=== PATIENT | female | born 1950 | race Caucasian/White ===

== ENCOUNTER → 2016-07-05 | Outpatient (CLI) | payer BC ==
[~2016-07-05] MED LIST: ACET-1138 PO; ASPEC325 PO; CLC100 PO; DLD2 PO; FRRG PO; LOSA50TA54 PO; SIMV20TA2 PO
[2016-07-05 16:12] LABS: BLOOD UREA NITROGEN 13 mg/dl (7-18); BUN/CREATININE RATIO 15.7 (10-20); CALCIUM 9.1 mg/dl (8.5-10.1); CARBON DIOXIDE 29 mmol/L (21-32); CHLORIDE 105 mmol/L (98-107); CREATININE 0.84 mg/dl (0.60-1.20); GLUCOSE 97 mg/dl (70-99); SODIUM 143 mmol/L (136-145)
[2016-07-05 16:15] LABS: CHOLESTEROL 162 mg/dl (0-200); CHOLESTEROL/HDL RATIO 2.7; HDL CHOLESTEROL 59 mg/dl; TRIGLYCERIDES 60 mg/dl (0-150); VERY LOW DENSITY LIPOPROT CALC 12 mg/dl
[2016-07-06 07:10] LABS: ESTIMATED AVERAGE GLUCOSE 134 mg/dl; HA1C FLAG Normal (Normal)
== END | disposition home or self-care (01) ==
LOC: C.LABSPEC 11:00
PROVIDERS: ATTEND Internal Medicine
DX: E78.5 Hyperlipidemia, unspecified (principal); I10 Essential (primary) hypertension; E11.9 Type 2 diabetes mellitus without complications; E55.9 Vitamin D deficiency, unspecified

== ENCOUNTER → 2016-10-21 | Outpatient (CLI) | payer BC, OTHER ==
[~2016-10-21] MED LIST changes: -DLD2 PO; +HYDR2TAB3 PO
--- NOTE | 2016-10-22 07:55 | MAMMOGRAPHY REPORT ---
BILATERAL DIGITAL SCREENING MAMMOGRAM WITH CAD: 10/21/2016 CLINICAL HISTORY: Routine screening. Patient has no complaints. TECHNIQUE: Bilateral CC and MLO views were obtained. Current study was also evaluated with a Comput er Aided Detection (CAD) system. COMPARISON: Comparison is made to exams dated: 10/19/2015 mammogram, 10/17/2014 mammogram, 10/15/2013 mammogram, 10/14/2012 mammogram, 07/30/2011 mammogram, and 06/22/2010 mammogram - [facility]. BREAST COMPOSITION: The tissue of both breasts is heterogeneously dense, which may obscure small ma sses. FINDINGS: There is a stable lobulated sub-centimeter mass in the upper outer middle one third of the left breast, unchanged in size dating back to 02/29/2008, most likely an intramammary lymph node. There are stable groupings of benign-appearing punctate microcalcifications bilaterally. Evidence o f prior surgery in the right breast. No new suspicious mass, architectural distortion or cluster of new, suspicious microcalcifications is seen. IMPRESSION: ACR BI-RADS CATEGORY 1: NEGATIVE There is no mammographic evidence of malignancy. A 1 year screening mammogram is recommended. The p atient will receive written notification of the results. Approximately 10% of breast cancers are not detected with mammography. A negative mammographic repor t should not delay biopsy if a clinically suggestive mass is present. Roz Esquivel M.D. ay/:10/21/2016 20:52:59 Business Development Coordinator: Gavi BLANC(Quan)(Sharif), [facility] letter sent: Normal 1/2 BI-RADS Code: ACR BI-RADS Category 1: Negative
== END | disposition home or self-care (01) ==
LOC: C.MAMM 10:15
PROVIDERS: ATTEND Internal Medicine
DX: Z12.31 Encounter for screening mammogram for malignant neoplasm of breast (principal)

== ENCOUNTER → 2016-12-04 | Outpatient (CLI) | payer BC ==
[~2016-12-04] MED LIST changes: +DLD2 PO; -HYDR2TAB3 PO
[2016-12-04 17:14] LABS: BLOOD UREA NITROGEN 15 mg/dl (7-18); BUN/CREATININE RATIO 19.4 (10-20); CALCIUM 9.1 mg/dl (8.5-10.1); CARBON DIOXIDE 29 mmol/L (21-32); CHLORIDE 108 mmol/L (98-107); CREATININE 0.79 mg/dl (0.60-1.20); GLUCOSE 87 mg/dl (70-99); SODIUM 143 mmol/L (136-145)
[2016-12-04 17:16] LABS: CHOLESTEROL 170 mg/dl (0-200); CHOLESTEROL/HDL RATIO 3.1; HDL CHOLESTEROL 54 mg/dl; TRIGLYCERIDES 103 mg/dl (0-150); VERY LOW DENSITY LIPOPROT CALC 21 mg/dl
[2016-12-05 06:51] LABS: ESTIMATED AVERAGE GLUCOSE 146 mg/dl; HA1C FLAG Normal (Normal)
== END | disposition home or self-care (01) ==
LOC: C.LABSPEC 14:00
PROVIDERS: ATTEND Internal Medicine
DX: I10 Essential (primary) hypertension (principal); E78.5 Hyperlipidemia, unspecified; R73.9 Hyperglycemia, unspecified; E55.9 Vitamin D deficiency, unspecified

== ENCOUNTER → 2017-02-28 | Outpatient (CLI) | payer BC ==
[~2017-02-28] VITALS: Ht 157.5 cm; Wt 81.6 kg
[2017-02-28 13:49] VITALS: BP 131/91; PULSE 90; Ht 157.5 cm; Wt 81.6 kg
== END | disposition home or self-care (01) ==
LOC: C.NEUR 12:59
PROVIDERS: ATTEND Internal Medicine Pulmonary Disease
DX: R06.81 Apnea, not elsewhere classified (principal); R06.83 Snoring

== ENCOUNTER → 2017-03-04 | Outpatient (CLI) | payer BC ==
--- NOTE | 2017-03-05 05:42 | PAP/PSG TECHNICIAN REPORT ---
[facility] Acid Extractor Polysomnogram Report Study name: None Report date: 03/05/2017 Study date: 03/04/2017 Referring Physician: Gordon Padilla M.D. Name: ISABELA MASON Interpreting Physician: Gordon Padilla M.D. Date of : 1950 Acid Extractor: Abimael Souza RPSGT. Sex: Female Age: 66 StudyType: PSG Weight: 179 lbs 16.5 inches Height: 66 years, Height 5' 2" Neck Circum: BMI: 32.74 Medications: LOSARTAN POTASSIUM 50 MG, SIMVASTATIN 20 MG, VITAMIN D Patient History PATIENT HAS HISTORY OF SNORING, WITESSED APNEAS AND FREQUENT AWAKENINGS. SHE ALSO GRIFFIN SFAMILY MEMBERS POSITIVE FOR CARLOS. SHE IS HERE TODAY FOR AN EVALUATION FOR CARLOS. ESS = 2 RM 4 Parameters Monitored NPSG: E1-M2, E2-M1, Fp1-M2, Fp2-M1, F3-M2, F4-M2, F4-M1, C3-M2, C4-M2, C4-M1, O1-M2, O2-M2, O2-M1, T3-M2, T4-M1, P3-M2, P4-M1, CHIN1, CHIN2, HR, EKG, Legs, PFLOW, SNOR, FLOW, CFLOW, Tidal Volume, THOR, ABDO, SpO2, PLTH, CPRESS, ETCO2 Wave, ETCO2, pH Sleep Architecture Sleep Stages Time at Lights Off 10:07:57 PM STAGES Time (min.) TST (%) Time at Lights On 5:29:57 AM Wake 99.5 -- Total Recording Time (TRT) 442.50 min. N1 30.5 9 Total Sleep Period (TSP) 421.5 min. N2 233.5 68 Total Sleep Time (TST) 342.5min. N3 34.5 10 Awake Time 99.5 min. REM 44.0 13 Wake after Sleep Onset 79.0 min. Sleep Efficiency (SE) 77 % Sleep Onset Latency (SHAYLEE) 20.5 min. Number of Stage 1 Shifts None Awakenings 31 Stage Changes 107 Number of REM periods 8 REM 44.0 13 REM Latency 47.5 min. NREM 298.5 87 Body Position Analysis Supine Right Left Side Prone Vertical Total Sleep Time (min.) 18.4 152.5 190.0 342.50 0.0 0.0 Total Sleep Time (%) 0% 45% 55% 100 0% N/A% Total Sleep Time REM (min.) 0.0 16.5 27.5 None 0.0 0.0 Total Sleep Time NREM (min.) 0.0 136.0 162.5 None 0.0 0.0 Intermittent Wake (min.) 18.4 33.2 47.9 None 0.0 0.0 Total Sleep Period (%) 1% None None None None None Arousals Myoclonus (PLM) * Events Count Index Events Count Index Spontaneous 36 6 Events Awake (PLMW) 88 53.1 Respiratory 3 1.1 Events Asleep w/ Arousal (PLMA) 16 2.8 PLM 16 3 Events Asleep w/o Arousal (PLMS) 91 15.9 Snoring 20 4 Total Asleep 107 18.7 Total 74 13 Total 195 26 Respiratory Analysis * CA OA MA CH H RERA Total Count 0 0 0 0 47 0 47 Index 0.0 0.0 0.0 0 8.2 0 8.2 Mean Duration 0.0 0.0 0.0 0.00 20.9 0.0 20.9 Longest Duration 0.0 0.0 0.0 0.00 0.0 0.0 42.9 Respiratory Event Summary Total Supine ~Supine Right Left Prone REM NREM Apneas Count 0 N/A 0 0 0 N/A 0 0 Index 0.0 N/A 0 0.0 0.0 N/A 0 0 Hypopneas (4% Desat) Count 47 N/A 47 14 33 N/A 38 9 Index 8.2 N/A 8 5.5 10.4 N/A 51.8 1.8 Apneas & All Hypopneas Count 47 N/A 47 14 33 N/A 38 9 Index 8.2 N/A 8 6 10 N/A 51.8 1.8 Respiratory Events (Lehr Attendant+All Hyp+RERA) Count 47 N/A 47 14 33 N/A 38 9 Index 8.2 N/A 8 5.5 10.4 N/A 51.8 1.8 Respiratory Related Arousal Count 3 N/A 6 3 3 N/A 5 1 Index 1.1 N/A 1 1 1 N/A 7 0 Snoring Analysis Supine Right Left Prone REM NREM Total Snore duration 57.0 min Snores count N/A 546 1,743 N/A 223 2,066 2,289 Snore mean duration 1.5 Sec Snores index N/A 215 550 N/A 304.1 415.3 401.0 TST with snoring (%) 16.6% Desaturation Event Summary: Minimum %SpO2 Event Count Mean/Min/Max Duration(sec.) Desaturation Index % Time In Bed > 90 11 34.1 / 16.5 / 57.5 18.5 8.2 86 - 90 34 39.9 / 16.5 / 81.7 5.7 82.0 81 - 85 11 39.6 / 20.3 / 60.0 23.9 6.3 76 - 80 3 38.8 / 27.5 / 54.0 18.6 2.2 71 - 75 1 34.8 / 34.8 / 34.8 15.6 0.9 66 - 70 1 44.3 / 44.3 / 44.3 40.3 0.3 61 - 65 0 N/A 0.0 0.1 56 - 60 0 N/A 0.0 0.0 51 - 55 0 N/A 0.0 0.0 < 50 0 N/A 0.0 0.0 Total REM NREM Awake <50% 0.0 min. 0.0 min. 0.0 min. 0.0 min. 51 - 60% 0.0 min. 0.0 min. 0.0 min. 0.0 min. 61 - 70% 1.8 min. 1.8 min. 0.0 min. 0.0 min. 71 - 80% 13.5 min. 11.2 min. 0.0 min. 2.3 min. 81 - 90% 386.3 min. 28.7 min. 287.8 min. 69.8 min. 91 - 100% 35.7 min. 2.3 min. 10.7 min. 22.7 min. Average 88 83 88 89 Minimum SpO2 61 61 84 73 Desaturation Event Index 6.7 49.1 1.8 2.4 # Desat. Events below 89% 48 36 9 3 Time(%) with Saturation below 89% 56.4 8.5 40.2 7.7 Time(min.) with Saturation below 89% 246.8 37.3 175.8 33.7 Time (mins) REM (mins) NREM (mins) % of TST SpO2 Below 90% 45 36 N9 87.0 SpO2 Below 88% 28 0 0 35 Heart Rate Analysis Min (bpm) Max (bpm) Average (bpm) Awake 68 115 82 NREM 58 95 75 REM 64 99 82 Overall 58 99 76 Supplemental O2 Values Minimum O2 level: None Value Start Time End Time Acid Extractor Comments Ms. Mason slept in the right, left and supine positions. No cardiac arrhythmia noted. Leg movements noted. No bruxism noted. Snoring was noted and scored as a 5 on a scale of 1 through 5. (0=no snoring, 5=snoring loud enough to be heard through a closed door or down the delgado way) Ms. Mason awoke to use the restroom 1 time during the night. Ms. Mason stated I did not sleep as well as I do when I am in my own bed. The final report will be interpreted and signed by a sleep physician. The completed physician report will then be placed in the patient medical record. Therapy (cm H2O) 0 TIB (min.) 442.0 TST (min.) 342.5 Sleep Onset (min.) 20.5 REM Onset From Sleep (min.) 47.5 Sleep Efficiency % 77 Wakefulness (%) 23 Wakefulness (min.) 99.5 NREM 1 (%) 9 NREM 1 (min.) 30.5 NREM 2 (%) 68 NREM 2 (min.) 233.5 NREM 3 (%) 10 NREM 3 (min.) 34.5 REM (%) 13 REM (min.) 44.0 # Arousals 74 Arousal Index 13 # Snore 2,289 Snore Index 401.0 AHI 8.2 AHI Supine N/A AHI Non-Supine 8 NREM AHI 1.8 REM AHI 51.8 RDI 8.2 # Obstructive Apnea 0 # Central Apnea 0 # Mixed Apnea 0 # Hypopneas 47 RERAs 0 Total Respiratory Events 47 Time Below SpO2 89% (min.) 213.1 Mean NREM SpO2 (%) 88 Mean REM SpO2 (%) 83 Mean Sleep SpO2 (%) 87 Min NREM SpO2 (%) 84 Min REM SpO2 (%) 61 Position Supine (min.) 18.4 Position Non-supine (min.) 342.5 LM Index Sleep 18.7 LM Index NREM 20.1 LM Index REM 9.5 Mean Heart Rate (bpm) 76 Min Heart Rate (bpm) 58
--- NOTE | 2017-03-05 11:56 | POLYSOMNOGRAPH REPORT ---
CLINICAL DATA: A 66-year-old female with BMI of 32.7, referred by myself and Dr. Lin with history of snoring, witnessed apneas, and frequent awakenings. There is a positive family history for sleep apnea. Her [place] sleepiness score is 2/24. SLEEP ARCHITECTURE: Total sleep period was 421.5 minutes. Total sleep time was 342.5 minutes divided between 298.5 minutes of non-REM sleep and 45 minutes of REM sleep. Sleep onset latency was 20.5 minutes. REM latency was 47.5 minutes. Sleep efficiency was 77%. Wake after sleep onset was 79 minutes. Sleep consisted of stage N1 9%, stage N2 68%, stage N3 10%, and REM 13%. AROUSAL DATA: 74 arousals were recorded for an index of 13 per hour. PLM DATA: 107 limb movements during sleep were noted for an index of 18.7 per hour with arousal index of 2.8 per hour. RESPIRATORY DATA: Mild sleep apnea was documented. The AHI was 8.2. There were 47 hypopneic episodes with a mean duration of 20.9 seconds. OXIMETRY DATA: Nocturnal hypoxemia was seen. Oxygen ngoc was 61%. Mean saturation was 88%. Time below 88% was 28 minutes. EKG: Heart rates ranged from 58-99 beats per minute. No arrhythmias were noted. STITCHDOWN THREAD LASTER'S COMMENTS: The patient slept in the right, left, and supine positions. Snoring was severe, rated 5 on a scale of 1-5. IMPRESSION: Mild sleep apnea/hypopnea with an AHI of 8.2 with nocturnal hypoxemia with an oxygen ngoc of 61%. RECOMMENDATIONS: The patient would benefit from the use of an oral appliance, use of auto CPAP, oxygen, or repeat sleep study with CPAP. Clinical correlation is needed. DESTINY
== END | disposition home or self-care (01) ==
LOC: C.NEUR 21:00
PROVIDERS: ATTEND Internal Medicine Pulmonary Disease
DX: R06.81 Apnea, not elsewhere classified (principal); R06.83 Snoring

== ENCOUNTER → 2017-03-11 | Outpatient (CLI) | payer BC ==
[~2017-03-11] VITALS: Ht 157.5 cm; Wt 81.2 kg
[2017-03-11 12:51] VITALS: BP 148/89; PULSE 102; Ht 157.5 cm; Wt 81.2 kg
== END | disposition home or self-care (01) ==
LOC: C.NEUR 12:38
PROVIDERS: ATTEND Internal Medicine Pulmonary Disease
DX: G47.33 Obstructive sleep apnea (adult) (pediatric) (principal); R06.83 Snoring; R06.81 Apnea, not elsewhere classified; Z90.89 Acquired absence of other organs; Z82.49 Family history of ischemic heart disease and other diseases of the circulatory system

== ENCOUNTER → 2017-04-09 | Outpatient (CLI) | payer BC ==
[~2017-04-09] MED LIST changes: -DLD2 PO; +HYDR2TAB3 PO
== END | disposition home or self-care (01) ==
LOC: C.PAPS 12:45
PROVIDERS: ATTEND Internal Medicine
DX: Z01.419 Encounter for gynecological examination (general) (routine) without abnormal findings (principal); Z78.0 Asymptomatic menopausal state

== ENCOUNTER → 2017-04-10 | Outpatient (CLI) | payer BC | END | disposition home or self-care (01) | LOC: C.LABSPEC 14:51 | PROVIDERS: ATTEND Internal Medicine | DX: Z12.11 Encounter for screening for malignant neoplasm of colon (principal) ==

== ENCOUNTER → 2017-08-26 | Outpatient (CLI) | payer BC ==
--- NOTE | 2017-08-26 15:50 | DIAGNOSTIC IMAGING REPORT ---
L HIP UNILATERAL 2 VIEWS CLINICAL HISTORY: Left hip pain COMPARISON: 12/04/2015 DISCUSSION: There are postsurgical changes of an internally fixated intertrochanteric hip fracture. A femoral neck canal and intramedullary catrachito are visualized. Apparent lucency surrounding the femoral neck canal on the AP view is likely artifactual. There is heterotopic ossification adjacent to the lesser trochanter. There are mild osteoarthritic changes. IMPRESSION: Postsurgical and degenerative change. No acute fractures. Electronically signed by: Timothy Gan M.D. 08/26/2017 3:49 PM Dictated Date/Time: 08/26/2017 3:47 PM
--- NOTE | 2017-08-26 15:52 | DIAGNOSTIC IMAGING REPORT ---
LEFT FEMUR 3 VIEWS CLINICAL HISTORY: Left leg pain. FINDINGS: AP, frog-leg, and lateral views of the left femur are correlated with radiographs of the left hip dated 12/04/2015. The skeletal structures are osteopenic. There is chronic posttraumatic deformity of the intertrochanteric left femur with intertrochanteric and intramedullary nails in place. The orthopedic hardware appears intact. No acute fracture is seen. Bony overgrowth is seen along the lesser trochanter. The visualized left hemipelvis appears intact. Large enthesophytes arise from the left anterior superior iliac spine. Arthritic changes noted in the left hip and knee joints. The overlying soft tissues are within normal limits. IMPRESSION: 1. No acute bony abnormality is identified in the left femur. 2. Osteopenia with chronic posttraumatic and postoperative changes as above. Electronically signed by: Terrance Masters M.D. 08/26/2017 3:51 PM Dictated Date/Time: 08/26/2017 3:49 PM
== END | disposition home or self-care (01) ==
LOC: C.RAD 14:54
PROVIDERS: ATTEND Internal Medicine
DX: M25.551 Pain in right hip (principal); M85.80 Other specified disorders of bone density and structure, unspecified site

== ENCOUNTER → 2017-10-06 | Outpatient (CLI) | payer BC ==
[2017-10-06 14:14] LABS: BLOOD UREA NITROGEN 13 mg/dl (7-18); CALCIUM 8.6 mg/dl (8.5-10.1); CARBON DIOXIDE 28 mmol/L (21-32); CREATININE 0.91 mg/dl (0.60-1.20); GLUCOSE 136 mg/dl (70-99); POTASSIUM 4.3 mmol/L (3.5-5.1); SODIUM 139 mmol/L (136-145)
[2017-10-06 14:18] LABS: CHOLESTEROL 153 mg/dl (0-200); LDL CHOLESTEROL (DIRECT) 92 mg/dl
== END | disposition home or self-care (01) ==
LOC: C.LABSPEC 12:21
PROVIDERS: ATTEND Internal Medicine
DX: R73.9 Hyperglycemia, unspecified (principal); I10 Essential (primary) hypertension; E78.5 Hyperlipidemia, unspecified

== ENCOUNTER → 2017-10-22 | Outpatient (CLI) | payer BC ==
--- NOTE | 2017-10-23 14:17 | MAMMOGRAPHY REPORT ---
BILATERAL DIGITAL SCREENING MAMMOGRAM TOMOSYNTHESIS WITH CAD: 10/22/2017 CLINICAL HISTORY: Routine screening. Patient has no complaints. TECHNIQUE: Breast tomosynthesis in addition to standard 2D mammography was performed. Current study was also evaluated with a Computer Aided Detection (CAD) system. COMPARISON: Comparison is made to exams dated: 10/21/2016 mammogram, 10/19/2015 mammogram, 10/17/2014 m ammogram, 10/15/2013 mammogram, 08/06/2011 ultrasound, and 08/06/2011 mammogram - [facility] nter. BREAST COMPOSITION: The tissue of both breasts is heterogeneously dense, which may obscure small mas ses. FINDINGS: No suspicious masses, calcifications, or areas of architectural distortion are noted in ei ther breast. There has been no significant interval change compared to prior exams. Bilateral benign -appearing calcifications are not significantly changed. A linear scar marker denotes a scar on the right superior breast. IMPRESSION: ACR BI-RADS CATEGORY 2: BENIGN There is no mammographic evidence of malignancy. A 1 year screening mammogram is recommended. The pa tient will receive written notification of the results. Approximately 10% of breast cancers are not detected with mammography. A negative mammographic report should not delay biopsy if a clinically suggestive mass is present. Gloria Koehler M.D. /:10/22/2017 15:58:31 Software Analyst: Sheryl BLANC(Quan)(Sharif), [facility] letter sent: Normal 1/2 BI-RADS Code: ACR BI-RADS Category 2: Benign
== END | disposition home or self-care (01) ==
LOC: C.MAMM 09:27
PROVIDERS: ATTEND Internal Medicine
DX: Z12.31 Encounter for screening mammogram for malignant neoplasm of breast (principal)

== ENCOUNTER → 2018-01-23 | Outpatient (CLI) | payer BC ==
--- NOTE | 2018-01-23 09:19 | DIAGNOSTIC IMAGING REPORT ---
PELVIS WITHOUT CONTRAST (MRI) CLINICAL HISTORY: 67 years-old Female presenting with LEFT PELVIC PAIN, history of left femur fracture 2 years ago, no recent injury, left pelvic and groin pain, difficulty walking. TECHNIQUE: Multisequence, multiplanar MR imaging of the pelvis was performed without the use of intravenous contrast. IV contrast: None. COMPARISON: Plain radiographs from 12/25/2017. FINDINGS: Localizer images: Intramedullary nail fixation of the left femoral neck and proximal metadiaphysis. This causes regional susceptibility artifact. Allowing for regional susceptibility artifact, normal appearance of the internal fixation hardware in the left femur. However, focal T2 hyperintense, T1 hypointense bone marrow signal abnormality in the superior acetabulum. Trace associated periosteal fluid subjacent to the left gluteus minimus (series 6 image 18). No significant fluid within the left hip joint. No convincing evidence of a fracture plane. Intrapelvic contents demonstrate normal uterus and ovaries. No free fluid in the pelvis. Bladder incompletely distended limiting evaluation. Bowel normal, including the appendix. No lymphadenopathy. Normal flow voids within the vasculature. IMPRESSION: 1. Significant focal bony edema along the superior acetabulum of the left hip. This may suggest advanced degenerative changes. Insufficiency fracture of this region may also be possible though there is no discrete fracture plane identified. Trace associated subperiosteal fluid. Electronically signed by: Duran Munoz M.D. 01/23/2018 9:18 AM Dictated Date/Time: 01/23/2018 8:56 AM
== END | disposition home or self-care (01) ==
LOC: C.MRIBC 07:48
PROVIDERS: ATTEND Orthopaedic Surgery
DX: R10.2 Pelvic and perineal pain (principal)

== ENCOUNTER 2022-08-19 05:09 | Observation (INO) ==
--- NOTE | 2022-07-19 15:14 | PAT Medication Instructions ---
Medication Instructions Date of Service July 19, 2022 Home Medications Medication Instructions Recorded metoprolol tartrate 25 mg tablet 25 mg PO BID #180 tabs 03/12/22 metformin 500 mg tablet 500 mg PO QAM #90 tabs 05/14/22 cholecalciferol (vitamin D3) 125 mcg (5,000 unit) tablet (Vitamin D3) 125 mcg PO QAM metoprolol tartrate 25 mg tablet 25 mg PO BID metformin 500 mg tablet 500 mg PO QAM hydrochlorothiazide 12.5 mg tablet 12.5 mg PO QAM olmesartan 40 mg tablet 40 mg PO QAM rosuvastatin 10 mg tablet 10 mg PO QPM DO NOT take the morning of surgery cholecalciferol (vitamin D3) 125 mcg (5,000 unit) tablet (Vitamin D3) 125 mcg PO QAM metoprolol tartrate 25 mg tablet 25 mg PO BID metformin 500 mg tablet 500 mg PO QAM hydrochlorothiazide 12.5 mg tablet 12.5 mg PO QAM olmesartan 40 mg tablet 40 mg PO QAM Take evening before surgery metoprolol tartrate 25 mg tablet 25 mg PO BID rosuvastatin 10 mg tablet 10 mg PO QPM Other Notes NOTHING TO EAT OR DRINK AFTER MIDNIGHT. If you have any questions please call us at [phone] or [phone] or [phone] or [phone]
--- NOTE | 2022-07-23 13:12 | Anesthesiology Consultation ---
Date of Service July 23, 2022 Assessment & Plan (1) Encounter for pre-operative examination: Chart Review Chart Review: Acceptable Risk for Surgery (pending 08/08/22 PCP office visit ) and Patient seen in Pre Admission Testing -Awaiting PCP routine office visit 08/08/22 -Discussed with Dr. Suarez- due to comorbidities/low normal oxygen levels on RA- patient is NOT an ideal Same Day Joint candidate - Check BSG AM DOS Per PAT appt on 07/23/22, patient denies any recent travel or large group activities. Pt is NOT vaccinated for Covid. Will leave to surgeon's discretion if preop Covid testing needed. Educated on importance of using Covid precautions one week prior to surgery History Surgery Operation Date: 08/19/22 12:30 Proposed Procedures p Right Total Hip Arthroplasty Anterior - Joon Keller DO Height/Weight Height: 5 ft 2 in Weight: 82.8 kg Allergies Allergy/AdvReac Type Severity Reaction Status Date / Time oxycodone AdvReac Intermediate Hallucinati Verified 07/18/22 14:36 ons Medications Home Medications Medication Instructions Recorded Confirmed Last Taken cholecalciferol (vitamin D3) 125 125 mcg PO QAM 02/21/20 07/18/22 04/05/21 06:00 mcg (5,000 unit) tablet (Vitamin D3) metoprolol tartrate 25 mg tablet 25 mg PO BID #180 tabs 03/12/22 07/18/22 Unk nown metformin 500 mg tablet 500 mg PO QAM #90 tabs 05/14/22 07/18/22 Unknown hydrochlorothiazide 12.5 mg tablet 12.5 mg PO QAM 07/18/22 07/18/22 Unknown olmesartan 40 mg tablet 40 mg PO QAM 07/18/22 07/18/22 Unknown rosuvastatin 10 mg tablet 10 mg PO QPM 07/18/22 07/18/22 Unknown Past Medical History Medical History COPD (chronic obstructive pulmonary disease) PT DENIES Diabetes mellitus, type 2 Environmental allergies HTN (hypertension) Hyperlipemia Obesity Osteoporosis TMJ click No locking Exercise / Class Metabolic Activity II 4-5 Yardwork/Stairs/Walk up hill (one flight of stairs - no chest pain or SOB ) Past Family History Family History Brother Diabetes Brother Diabetes Sister Diabetes Sister Diabetes Other No family history of adverse response to anesthesia Past Surgical History Surgical History History of colonoscopy History of eyelid surgery removal of skin tag History of left cataract surgery History of open reduction and internal fixation (ORIF) procedure LEFT FEMUR History of removal of cyst Rt breast History of right cataract surgery History of surgery finger surgery History of tonsillectomy Status post right knee replacement (~04/2021) Past Anesthesia History No Hx of Anesthesia Complications (with exception to cold and shaking post op ) and No Family Hx of Anesthesia Complications History of PONV No Hx of PONV and No Hx of Motion Sickness Social History Smoking Status: Current every day smoker tobacco type: cigarettes Smoking cigarettes per day: 3 cigs per day Hx Alcohol Use: No substance use type: does not use Review of Systems Cough- secondary to medication (presumed ACEi)- changed to different med per pat ient (two weeks ago)- cough chronic/mild/stable Hx of snoring - hx of sleep study- no CARLOS Patient denies chest pain, shortness of breath, dyspnea on exertion, reflux, cough, wheezing, palpitations. No hx of seizures, stroke, [place]. No hx of blood clots or blood transfusions Physical Exam Vital Signs VITALS BP 120/76 (manually) P 98 TEMP 98.0 SP02 92% on RA RESP 16 Constitutional no acute distress ENMT Mouth: no TMJ clicking Thyromental Distance: < 3.5 Finger Breadths (3.0) Mallampati Class: III Neck + limited neck extension (significant ) Respiratory normal respiratory effort; no respiratory distress Auscultation: lungs clear to auscultation bilaterally; no wheezes Cardiovascular Rate/Rhythm: regular rate and regular rhythm Heart Sounds: no murmur Vessels: no carotid bruit Musculoskeletal Spine: no pain with cervical ROM Extremities: extremities normal to inspection Psychiatric Orientation: alert Lab Results Anesthesia Preop Results Results Anesthesia Widget: WBC 10.81 K/ul (4.8-10.8) H 07/23/22 Hgb 15.5 g/dl (12.0-16.0) 07/23/22 Hct 44.0 % (37.0-47.0) 07/23/22 Plt 308 K/uL (130-400) 07/23/22 Na 139 mmol/L (136-145) 07/23/22 K 3.7 mmol/L (3.5-5.1) 07/23/22 Cl 101 mmol/L (98-107) 07/23/22 CO2 29 mmol/L (21-32) 07/23/22 BUN 22 mg/dl (6-23) 07/23/22 Creat 0.93 mg/dl (0.6-1.2) 07/23/22 Glucose Level 226 mg/dl (70-99(Fasting)) H 07/23/22 PT 11.0 Seconds (9.0-12.0) 07/23/22 PTT 25.9 Seconds (21.0-31.0) 07/23/22 INR 1.0 (0.9-1.1) 07/23/22 HA1c 7.2 % (4.5-5.6) H 07/23/22 Blood Type A Positive 07/23/22 Antibody Screen NEGATIVE 07/23/22 Testing Electrocardiogram Date: 07/23/22 Findings: + NSR @ (96bpm ) Normal EKG per cardio Chest X-Ray Date: 07/23/22 Findings: + NAD COVID-19 Risk Screen Screening Information COVID-19 Screen Date: 07/23/22 Exposure 21 Days Family/Household +COVID Last 21 Days: No Exposure 10 Days Any COVID Exposure Last 10 Days: No Symptoms Last 10 Days Experienced COVID Sx Last 10 Days: No + COVID 0-90 Days COVID + in Last 0-90 Days: No Risk Plan COVID Risk Plan: No Risk Identified Patient Education COVID Preop Screening Education Complete: Yes
[2022-08-19] MEDS ORDERED: dexAMETHasone 4 MG TAB PO SCH (06:00)
[2022-08-19] MEDS ORDERED: ORTHO JOINT MIX INFIL SCH (06:00)
[2022-08-19] MEDS ORDERED: FAMOTIDINE 20 MG TAB PO SCH (06:00)
[2022-08-19] MEDS ORDERED: GABAPENTIN 300 MG CAP PO SCH (06:00)
[2022-08-19] MEDS ORDERED: ACETAMINOPHEN 500 MG TAB PO SCH (06:00)
[2022-08-19] MEDS ORDERED: TRANEXAMIC ACID 1,000 MG **IV Pre-op IV SCH (06:00)
[2022-08-19] MEDS ORDERED: LR 60ML/HR IV SCH (06:00)
[2022-08-19] MEDS ORDERED: TRANEXAMIC ACID 1,000 MG **IV Intra-op IV SCH (06:00)
[2022-08-19] MEDS ORDERED: LR 500ML BOLUS, THEN 15ML/HR IV SCH (06:00)
[2022-08-19] MEDS ORDERED: ceFAZolin 2000MG 2,000 MG/15 ML SYR IV SCH (06:00)
[2022-08-19] MEDS ORDERED: BUPIVACAINE 0.5 % 5 MG/1 ML PF 10ML VIAL ONE (06:30)
--- NOTE | 2022-08-19 06:36 | History & Physical Bridge Note ---
Date of Service August 19, 2022 History & Physical Bridge Note I have examined the patient, reviewed the History & Physical and in the interval since the performance of the History & Physical I have noted the following changes of clinical significance: no changes noted
[2022-08-19] MEDS ORDERED: ATROPINE SULFATE 0.1 MG/ML 10ML SYR IV PRN (06:37)
[2022-08-19] MEDS ORDERED: ePHEDrine sulfate 50 MG/ML AMP IV PRN (06:37)
[2022-08-19] MEDS ORDERED: fentaNYL citrate PF 100 MCG/2 ML VIAL IV PRN (06:37)
[2022-08-19] MEDS ORDERED: ONDANSETRON INJ 2 MG/ML 2 ML VIAL IV PRN (06:37)
[2022-08-19] MEDS ORDERED: MIDAZOLAM HCL 1 MG/ML 2ML VIAL ONE ×2 (06:38→07:52)
[2022-08-19] MEDS ORDERED: fentaNYL citrate PF 100 MCG/2 ML VIAL ONE (06:39)
[2022-08-19] MEDS ORDERED: ORTHO JOINT ANESTHETIC ONE (06:53)
[2022-08-19] MEDS ORDERED: ONDANSETRON INJ 2 MG/ML 2 ML VIAL ONE (07:26)
[2022-08-19] MEDS ORDERED: ePHEDrine sulfate 50 MG/ML SYR ONE (07:26)
[2022-08-19] MEDS ORDERED: PROPOFOL IV EMULSION 10 MG/ML 20 ML VIAL IV ONE ×2 (07:27→08:09)
--- NOTE | 2022-08-19 08:14 | Operative Report ---
PG Post Operative Report Pre & Post Diagnosis Operation Date: 08/19/22 07:00 Pre-Op Diagnosis: Right Hip Degenerative Joint Disease Post-Op Diagnosis: Right Hip Degenerative Joint Disease I identified the patient and participated in the time-out.: Yes Procedure Operation Date: 08/19/22 07:00 Actual Procedures p Right Total Hip Arthroplasty Anterior(Right) - Joon Keller DO Surgeon Joon Keller DO [facility] Joon Keane PA-C Estimated Blood Loss 150 Findings Consistent with Post-Op Diagnosis Specimens Right femoral head Description of Procedure Implants used I used a ZimmerBiomet total hip arthroplasty system with a size 4 standard offset Avenir Complete stem, a 54 mm G7 cup with a 25mm screw, an E1 polyet hylene liner, a 40 mm ceramic head with a 0 neck. Shameka arrived at the hospital for the above procedure. She was seen in the preoperative holding area and the operative extremity was identified and signed. She was given a spinal anesthetic, a preoperative antibiotic, and TXA. She was then taken back to the operating room and laid on the table in the supine position. She was given basic sedation. The operative leg was secured to a Puristst leg positioner. The hip was then prepped and draped in sterile fashion. A timeout was done and the patient and the operative extremity was properly identified. An anterior approach was used. Dissection was taken down through the fascia and the tensor muscle belly was retracted laterally and the rectus was retracted medially. The circumflex vessels were identified and ligated. The capsule was then incised and tagged for later repair. The femoral neck was then cut and the femoral head was removed. The acetabulum was exposed. Time was spent doing a complete circumferential labral release. Sequential reaming of the acetabulum up to a size 53 reamer was done. Final reamings were done under fluoroscopy to ensure appropriate version. A Biomet 54 mm G7 cup was then impacted into place. A single 25 mm screw was placed. The E1 polyethylene liner was then snapped into place. Surrounding soft tissues were then injected with 100 cc of an orthopedic pain control cocktail. The proximal femur was then exposed. Sequential broaching up to a size 4 broach was done. Off that broach a size 40 head with a 0 neck was trialed. The hip was reduced and fluoroscopic images showed anatomic alignment of the implants in acceptable length. The broach was removed. The final size 4 standard offset Avenir Complete stem was then impacted into place. A ceramic 40 mm head with a 0 neck was then impacted onto the stem and the hip was reduced. Final fluoroscopic images showed anatomic alignment of the hip. The capsule was then closed with #1 Vicryl suture. A dilute betadyne lavage was then done for 3 minutes. The joint was then irrigated with normal saline solution. The fascia was closed with #1 PDS suture. Skin was closed with 2-0 Vicryl, jessy, and a Silverlon dressing. She was then transferred to a hospital bed and taken to the post anesthesia care unit in stable condition. She tolerated the procedure well. Joon Keane PA-C, was present for the entire procedure. He was critical for patient positioning, prepping, draping, retraction exposure, wound closure and application of sterile dressing. I attest to the content of the Intraoperative Record and any orders documented therein. Any exceptions are noted below.
--- NOTE | 2022-08-19 08:50 | Fluoroscopy Report ---
FL hip RT 1V CLINICAL HISTORY: RT ANTERIOR HIPright hip arthroplasty COMPARISON STUDY: 05/15/2022 FLUOROSCOPY TIME: 17.1 seconds. FLUOROSCOPY IMAGES: 1 EXPOSURE DOSE: 1.87 mGy Air Kerma FINDINGS: Satisfactory alignment of the right hip total joint arthroplasty. No acute fracture or unex pected opaque foreign body. IMPRESSION: Fluoroscopic assistance as above. ACT 112: Negative or not required by law. Electronically signed by: Amari Beebe M.D. 08/19/2022 8:48 AM
--- NOTE | 2022-08-19 09:07 | XRay Report ---
SINGLE VIEW PELVIS; SINGLE VIEW RIGHT HIP CLINICAL HISTORY: Postoperative examination. FINDINGS: An AP portable view of the hips and pelvis with a crosstable lateral portable view of the r ight hip are compared to study dated 05/14/2022. A bipolar right hip arthroplasty is in near-anatomic alignment. A single cortical lag screw transfixes the acetabular cup. No acute fracture is identifie d. There are expected postoperative changes overlying the right hip including skin clips, subcutaneou s gas, and soft tissue swelling. There is chronic posttraumatic deformity left proximal femur with in tertrochanteric and intramedullary nails in place. Moderate arthritic change is seen in the left hip. Large enthesophytes arise from the anterior superior iliac spines. IMPRESSION: Expected postoperative findings status post right hip arthroplasty. No acute fracture is seen. ACT 112: Negative or not required by law. Electronically signed by: Terrance Masters M.D. 08/19/2022 9:06 AM
[2022-08-19] MEDS ORDERED: oxyCODONE HCL IR 5 MG TAB (IMMEDIATE RELEASE) PO PRN (10:12)
[2022-08-19] MEDS ORDERED: HYDROmorphone INJ 0.5 MG/0.5 ML SYR IV PRN (10:12)
[2022-08-19] MEDS ORDERED: NALOXONE HCL 0.4 MG/1 ML VIAL/CARP IV PRN (10:12)
[2022-08-19] MEDS ORDERED: bisacodyL 10 MG SUPP PR PRN (10:12)
[2022-08-19] MEDS ORDERED: MAGNESIUM HYDROXIDE SUSP 30 ML UDC PO PRN (10:12)
[2022-08-19] MEDS ORDERED: METOCLOPRAMIDE HCL INJ 5 MG/ML 2 ML VIAL IV PRN (10:12)
--- NOTE | 2022-08-19 10:22 | Anesthesiology Progress Note ---
Date of Service August 19, 2022 Anesthesia Post Procedure Vital Signs Vital Signs: Temp Pulse Pulse Resp BP Pulse Ox O2 Del Method 08/19/22 10:00 97.5 F L 92 H 16 107/72 96 Nasal Cannula 08/19/22 09:45 93 H 20 107/65 94 Nasal Cannula 08/19/22 09:35 94 H 16 101/68 96 Nasal Cannula 08/19/22 09:25 93 H 16 104/61 96 Oxymask 08/19/22 09:15 97.3 F L 95 H 15 105/60 94 Oxymask 08/19/22 09:05 96 H 15 104/58 L 98 Oxymask 08/19/22 08:55 99 H 18 90/54 L 98 Oxymask 08/19/22 08:45 96 H 18 94/53 L 99 Oxymask 08/19/22 08:35 97 H 20 94/45 L 98 Oxymask 08/19/22 08:26 97.0 F L 102 H 22 86/57 L 91 Oxymask 08/19/22 05:40 98.1 F 97 H 18 140/95 92 Room Air O2 Flow Rate 08/19/22 10:00 1 08/19/22 09:45 2 08/19/22 09:35 2 08/19/22 09:25 2 08/19/22 09:15 2 08/19/22 09:05 4 08/19/22 08:55 4 08/19/22 08:45 8 08/19/22 08:35 8 08/19/22 08:26 10 08/19/22 05:40 Transfer of Care Handoff Completed per policy Notes Mental Status: alert / awake / arousable and participated in evaluation Patient Amnestic to Procedure: Yes Nausea / Vomiting: adequately controlled Pain: adequately controlled Airway Patency, RR, SpO2: stable & adequate BP & HR: stable & adequate Hydration State: stable & adequate Neuraxial Anesthesia: was administered and sensory block is resolving Anesthetic Complications: no major complications apparent and Pt Satisfied with anesthetic care
[2022-08-19] MEDS: metFORMIN HCL 500 MG TAB PO SCH (11:23)
[2022-08-19] MEDS: KETOROLAC TROMETHAMINE 15 MG/ML VIAL IV SCH ×3 (11:23→21:23)
[2022-08-19] MEDS: MULTIVITAMIN TAB PO SCH (11:23)
[2022-08-19] MEDS: CHLORTHALIDONE 25 MG TAB PO SCH ×2 (11:23→11:30)
[2022-08-19] MEDS: CHOLECALCIFEROL 5,000 UNITS 125 MCG TAB PO SCH (11:23)
[2022-08-19] MEDS: DOCUSATE SODIUM 100 MG CAP PO SCH ×2 (11:23→21:23)
[2022-08-19] MEDS: SODIUM CHLORIDE 0.9% 1000ML 1,000 ML IV SCH ×2 (11:24→21:32)
[2022-08-19] MEDS: METOPROLOL TARTRATE 25 MG TAB PO SCH ×2 (11:24→21:15)
[2022-08-19] MEDS: ceFAZolin 2000MG 2,000 MG/15 ML SYR IV SCH ×2 (15:53→21:22)
[2022-08-19] MEDS: ACETAMINOPHEN 500 MG TAB PO SCH (16:06)
[2022-08-19] MEDS ORDERED: SENNA 8.6 MG TAB PO SCH (21:00)
[2022-08-19] MEDS ORDERED: ROSUVASTATIN CALCIUM 10 MG TAB PO SCH (21:00)
[2022-08-19] MEDS: ASPIRIN 81 MG ECTAB PO SCH (21:23)
[2022-08-20] MEDS: KETOROLAC TROMETHAMINE 15 MG/ML VIAL IV SCH (04:13)
--- NOTE | 2022-08-20 06:14 | Orthopedic Progress Note ---
Date of Service August 20, 2022 Assessment & Plan (1) Status post right hip replacement: Overall she is doing fairly well. She is not having much pain in the right hip. She will be seen by physical therapy today for ambulation and range of motion exercises. She is on aspirin for DVT prophylaxis. She can be discharged home later today. She will follow-up with orthopedics in 2 weeks. Angelica Myles was seen and examined at bedside this morning. Overall she is doing fairly well. She is not having too much pain in the right hip. She has been up and ambulating to the bathroom. She has no complaints.. Review of Systems All systems reviewed & are unremarkable except as noted in HPI & below. Physical Exam On physical examination the right hip, the dressing is clean and dry. Her leg is out full extension. She has active dorsiflexion plantarflexion of her right ankle.. Results & Data Results & Data Laboratory Results . Diagnostic Findings Postoperative x-rays of the right hip show the prosthesis to be in anatomic alignment without any evidence of fracture, desiccation, or loosening. PG Care Time/CCT Total # of Minutes Spent Total Time Spent with Patient: Total time spent is greater than 50% in coordination of care (as documented) at patient's floor/unit and/or counseling patient: Coding Level of Care Code 62341 Post Operative Follow-Up Diagnoses Status post right hip replacement Z96.641
--- NOTE | 2022-08-20 06:15 | Discharge Summary ---
Date of Service August 20, 2022 Principal Diagnosis Same as "Discharge Diagnosis" noted below under Discharge Instructions. Discharge Exam On physical examination the right hip, the dressing is clean and dry. Her leg is out full extension. She has active dorsiflexion plantarflexion of her right ankle.. Discharge Data Procedures Performed Operation Date: 08/19/22 07:00 Actual Procedures p Right Total Hip Arthroplasty Anterior(Right) - Joon Keller DO Ordered Studies 08/19/22 07:00 FL hip RT 1V Routine Hospital Course (1) Status post right hip replacement: On August 19, [address] [facility] and underwent a right hip replacement without complication. She had a spinal anesthetic. Postoperatively she was started on aspirin for DVT prophylaxis and transferred to the general orthopedic floors. Her hospital course was uneventful. On postop day #1, her vital signs were stable and her pain was well controlled. She was able to participate well with physical therapy doing ambulation and range of motion exercises. She was then discharged home. She will follow-up with orthopedics in 2 weeks. PG Care Time/CCT Total # of Minutes Spent Total Time Spent with Patient: Total time spent is greater than 50% in coordination of care (as documented) at patient's floor/unit and/or counseling patient: Discharge Plan Discharge Items Patient Disposition: Home - Home Health Services Reason For Visit: Right Hip Degenerative Joint Disease Discharge Diagnosis: Right hip replacement Activity: Per Instructions section Non-emergency contact: Surgeon Call non-emergency contact if: your wound has increased redness and your wound has increased drainage Follow-up/Referrals: Minna Corado MD [Primary Care Provider] - Diet: Regular Addtl Attending Provider Instructions: Activity and Therapy Recommendations: * If you are using [facility] then therapy will be provided at your home until they feel you have accomplished all of your goals. * If you are using [facility] then Physical Therapy will be provided until they feel you are ready to start Outpatient Physical Therapy. * If you are not using home therapy then Outpatient Physical Therapy should start about 3-5 days from your day of surgery. Therapy will last about 6-10 weeks * You were shown a series of exercises in the hospital. Do these exercises three times each day including the exercises you were shown in physical therapy. * Get up and walk several times each day.~ For the first four weeks, try not to stand or walk for more than one hour at a time. If you do stand or walk for more than one hour, you will not hurt anything, but your leg will likely swell.~~ * As you feel comfortable, you may change from the walker or crutches to a cane and~then to independent walking. Medications: * Narcotic You will likely be sent home from the hospital with a prescription for the narcotic pain medication that worked best throughout your stay. * Aspirin Most patients will be required to take Aspirin 81mg twice a day for 6 weeks after surgery. This is obtained [id number] and a prescription is not necessary. * Other medications may be prescribed for specific circumstances. If you have any questions, please call the office at . * Resume previous home medications unless otherwise instructed TEDs/Elastic Stockings: The white elastic stockings help limit swelling and prevent blood clots from forming in your legs. The more you wear them, the more they work. Wear them for six weeks. Dressing Care: Leave the Silverlon dressing in place for 7 days. After 7 days you may remove the dressing. If the incision is not draining then you may leave the jessy open to air. If there is a little bit of drainage or if the jessy are getting stuck on your clothing then cover the incision with a dry dressing. The jessy will be removed at your 2 week follow-up appointment. Showering: You may shower with the Silverlon dressing in place. Do not let the shower spray hit the dressing directly. Pat the Silverlon dressing dry. If the dressing becomes wet underneath, then simply remove the dressing. Keep the incision dry until you are 7 days out from the day of surgery. After 7 days you may remove the Silverlon dressing and shower with the jessy exposed. Let soapy water run over the jessy and pat them dry. Do not scrub or soak the incision. Things To Watch For: * Drainage from the incision site that occurs more than one week after your surgery. * Increased redness at the incision site. * Fever above 102 degrees Fahrenheit. * Unusual chest pain or shortness of breath. * Call [facility] at with any of the above problems Follow-Up Visit: Follow-up with Dr. Keller's PA (Joon Keane) 2-3 weeks after your day of surgery. He will remove your jessy and answer any questions. If you have any additional questions or concerns, Dr Keller is usually in the office at the same time and will be available An appointment was probably scheduled when you signed-up for surgery in the office. If you have any questions call Office Instructions: More detailed instructions as well as Frequently Asked Questions were provided in a folder by our office when you signed-up for surgery. Please review these instructions when you get home. If you have any further questions or concerns, please feel free to call the office at [phone] Pending Studies at Discharge: No Stand-Alone Forms: My [facility] Medications and DC Order Prescriptions: New tramadol 50 mg tablet 50 mg PO Q6H PRN (Reason: pain) Qty: 30 0RF aspirin 81 mg Tablet,Delayed Release (Dr/Ec) 81 mg PO BID 42 Days Qty: 0 0RF Continued metoprolol tartrate 25 mg tablet 25 mg PO BID Qty: 180 3RF chlorthalidone 25 mg tablet 25 mg PO DAILY Qty: 30 2RF metformin 500 mg tablet 500 mg PO QAM Qty: 90 3RF cholecalciferol (vitamin D3) [Vitamin D3] 125 mcg (5,000 unit) Tablet 125 mcg PO QAM rosuvastatin [Crestor] 10 mg tablet 10 mg PO QPM Admission Data Admit Date/Time: 08/19/22 08:11 Attending Provider: Joon Keller Admit Provider: Joon Keller Primary Care Provider: Minna Corado
[2022-08-20 07:15] VITALS: TEMP 98.2; O2SAT 95
[2022-08-20] MEDS ORDERED: dexAMETHasone 4 MG TAB PO SCH (08:00)
[2022-08-20] MEDS: ASPIRIN 81 MG ECTAB PO SCH (08:20)
[2022-08-20] MEDS: METOPROLOL TARTRATE 25 MG TAB PO SCH (08:20)
[2022-08-20] MEDS: CHLORTHALIDONE 25 MG TAB PO SCH (08:20)
[2022-08-20] MEDS: ACETAMINOPHEN 500 MG TAB PO SCH ×2 (08:20)
[2022-08-20] MEDS: DOCUSATE SODIUM 100 MG CAP PO SCH (08:20)
[2022-08-20] MEDS: CHOLECALCIFEROL 5,000 UNITS 125 MCG TAB PO SCH (08:21)
[2022-08-20] MEDS: MULTIVITAMIN TAB PO SCH (08:21)
[2022-08-20] MEDS: metFORMIN HCL 500 MG TAB PO SCH (08:21)
[2022-08-20 11:00] VITALS: BP 125/72; PULSE 78
== END 2022-08-20 12:15 | disposition home or self-care (01) ==
LOC: 3E 05:09 → ASU 05:09

== ENCOUNTER 2023-09-29 17:07 | Inpatient (IN) ==
--- NOTE | 2023-09-29 17:31 | Emergency Department Note ---
Impression & Plan Sepsis, Glioblastoma of frontal lobe, Hx of craniotomy, Neutropenic fever, Pneumonia, Pulmonary embolism, Thrombocytopenia, Adrenal insufficiency ED Provider Note NAME: ISABELA BROWN AGE: 72 SEX: F : 1950 ARRIVES VIA: Ambulance INFORMANT: Patient ED PROVIDER(S): Peterson Kimball MD CHIEF COMPLAINT: Weakness, fever PLAN: Disposition: Admit MEDICAL DECISION MAKING: The patient is a pleasant 72-year-old woman with a complicated past medical history of GBM with resection craniotomy and June of this year at [facility] [place] currently on dexamethasone status post chemotherapy and radiation treatment presents to the emergency department via EMS accompanied by family for evaluation of change in mental status occurred roughly today after taking a nap around 1300 and when she awoke was confused and somnolent where on arrival she was noted to have a temperature of 39.1. Patient has baseline weakness and dysarthria. On my evaluation the patient is ill-appearing but no acute distress, febrile to 39.1 with heart in the 130s and vital signs otherwise stable with O2 saturation 94% on 2 L. She has scant rhonchi of right lower lung schwab and is otherwise clear. Given concern for sepsis patient was treated with > 30cc/kg IBW with 2L NSS and empiric treatment initiated with IV cefepime as well as IV vancomycin. Additionally, given the patient chronic steroid therapy suspicion for component of adrenal insufficiency and so stress dose steroids administered. EKG without overt acute ischemia. CXR demonstrates cardiomegaly with vascular congestion per my preliminary independent interpretation. WBC 1.3K with ANC of 0.00. H/H within normal limits. Platelets 71 K similar to prior values. Initial lactic acid 2.5 with repeat 2.3 however chemistry without metabolic acidosis. LFTs are unremarkable. High-sensitivity troponin 11.3, within normal limits. Lipase is not elevated. Procalcitonin is elevated at 0.78. Urine analysis was negative for infection. Respiratory viral panel/[employer] was negative. Given thrombocytopenia testing for tickborne illness ordered out for completeness though no known recent tick exposures. CTA of the chest demonstrates right lower lobe pulmonary emboli with filling defect in the distal right pulmonary artery tenting the proximal segmental and some distal right lower lobe segmental branches. There is no evidence of right heart strain on CT. Additional description of right lower lobe groundglass opacities suspicious for pneumonia given the patient's fever in the setting of neutropenia. Radiology notes also that pulmonary hemorrhage is not excluded given the context of pulmonary emboli. CT of the abdomen pelvis does not demonstrate acute infectious process. CT of the head without contrast was performed and focal area of increased density anterior along the cortical sulci with straight subdural density may be artifact versus postsurgical changes however small amount of acute hemorrhage is not excluded. It should be noted that this initial interpretation was with comparison to CT on 06/21 prior to the patient's surgery. Subsequent comparison to postsurgical CT which was used for radiation therapy guidance does not clarify question the possibility of bleed. Thus, interval CT was ordered and report describes no acute hemorrhage though "concerning for persistent contrast blush in the left frontal lobe". Of note, I did have an extensive discussion with the patient's daughter at the bedside regarding goals of care and she does confirm that she is DNR/DNI. We further discussed the patient's critical clinical condition and challenges of managing her pulmonary emboli in the context of having yet to rule out completely intracranial hemorrhage. We did review different clinical scenarios and treatment options and ultimately they were confident that the patient would not want any intervention if she were to have acute intracranial hemorrhage now or even following treatment for pulmonary embolism and so he was determined that the patient could be admitted here for further management at this time. Case was discussed with Dr. Motley, [facility] hospitalist, who evaluated the patient for admission. Case additionally discussed with [facility] CCP/oncology, Dr. Elizabeth, who is the patient's oncologist. If intracranial hemorrhage could be confidently excluded then anticoagulation could be considered if patient also has additional clot burden in her extremities on DVT study. Alternatively, if intracranial hemorrhage or risk thereof is a concern then IVC filter would be an alternative course. Agrees with admitting team's plan to treat with Neupogen. Will be available for inpatient team consultation. Bilateral lower extremity ultrasounds ordered. Subsequent report demonstrates acute DVT within the right posterior tibial veins and nonocclusive thrombus involving the left saphenofemoral junction and proximal common femoral vein. Chronic DVT is seen within the proximal popliteal vein. Further management per admitting team who is aware. Appreciate consultations and recommendations. Triage Nursing notes reviewed and agree them. Prior/external medical records reviewed Vital Signs: reviewed Differential diagnosis: Sepsis, UTI, pneumonia, metabolic, electrolyte abnormalities, cardiac sources, intracerebral event, toxicologic, neurologic, as well as other pathologies. ER treatment provided: See below. Diagnostics interpreted by me: ECG: Sinus tachycardia, 132 bpm, no ectopy, nonspecific ST abnormality, no overt ST elevation, QTc 426, QRS 78. Cardiac Monitoring: An order for continuous cardiac monitoring was placed and demonstrated Laboratory studies: See below Imaging studies: See below Consultation(s): Dr. Motley, [facility] hospitalist. Dr. Elizabeth, Oncology, [facility] HPI: The patient is a pleasant 72-year-old woman with a complicated past medical history of GBM with resection craniotomy and June of this year at [facility] [place] currently on dexamethasone status post chemotherapy and radiation treatment presents to the emergency department via EMS accompanied by family for evaluation of change in mental status occurred roughly today after taking a nap around 1300 and when she awoke was confused and somnolent where on arrival she was noted to have a temperature of 39.1. Patient has baseline weakness and dysarthria. ROS: See above HPI for pertinent positives & negatives. A total of 10 systems reviewed and were otherwise negative. VITALS:See Below PHYSICAL EXAMINATION: GENERAL: Awake, alert, ill-appearing, in no distress, BMI 28.9. HENT: Normocephalic, atraumatic. Oropharynx with dry mucous membranes and otherwise unremarkable. EYES: Normal conjunctiva. Sclera non-icteric. EOMI. No nystamgus. PEARRL. NECK: Supple. No nuchal rigidity. FROM. No JVD. RESPIRATORY: Scant rhonchi of right lower lung schwab and is otherwise clear. CARDIAC: Tachycardic rate, normal rhythm. Extremities warm and well perfused. Pulses equal. ABDOMEN: Soft, non-distended. No tenderness to palpation. No rebound or guarding. No masses. MUSCULOSKELETAL: Chest examination reveals no tenderness. The back is symmetrical on inspection without obvious abnormality. There is no CVA tenderness to palpation. No joint edema. LOWER EXTREMITIES: Calves are equal size bilaterally and non-tender. No edema. No discoloration. NEURO: Mild somnolence but awake and alert to self. Generalized weakness in all extremities. SKIN: No rash or jaundice noted. ED COURSE: Critical Care: I have personally spent greater than 95 minutes of critical care time in the direct management of this patient. This includes bedside care, interpretation of diagnostic studies, and testing, discussion with consultants, patient, and family members, and other required patient management activities. This 95 minutes is in excess of all separately billable procedures. Peterson Kimball MD Past Med/Surg History Medical History Deviated nasal septum Seizures Obesity (BMI 30-39.9) Type 2 diabetes mellitus with obesity Environmental allergies Osteoporosis COPD (chronic obstructive pulmonary disease) TMJ click No locking Hyperlipemia HTN (hypertension) Surgical History Hx of craniotomy Left craniotomy for removal of tumor - 06/30/23 Dr. Stern at [facility] Status post right knee replacement (~04/2021) History of left cataract surgery History of right cataract surgery History of removal of cyst Rt breast History of eyelid surgery removal of skin tag History of tonsillectomy History of open reduction and internal fixation (ORIF) procedure LEFT FEMUR History of surgery finger surgery History of colonoscopy Family History Brother Anal cancer Brother Diabetes Sister Diabetes Sister Bladder cancer Mother , 88yo Myocardial infarction Stroke Diabetes Hypertension Father , Medical history unknown Minimal contact w/father MVA (motor vehicle accident) Brother No problems noted. Brother No problems noted. Brother No problems noted. Sister No problems noted. Sister Colorectal cancer Daughter No problems noted. Other No family history of adverse response to anesthesia Social History Smoking Status: Current some day smoker Tobacco Type: Cigarettes Cigarettes Per Day: 3 cigs per day; Second Hand Exposure: No; Do You Dip or Chew Tobacco: No; Hx Alcohol Use: No Preferred Language: Bruneian Communication Ability: Effective Visual Impairment: No Limitations Hearing Ability: Normal Ems Driver Required: No Beliefs That Will Affect Care: None marital status: Single Current Living Situation: Alone current occupational status: retired current occupation: Cleaning at [employer] How many Children do You have: 1 Feels Safe at Home: Yes Dental Care, Regularly: No Seatbelt Use: always Sunscreen Use: No Allergies Allergies Allergy/AdvReac Type Severity Reaction Status Date / Time oxycodone AdvReac Intermediate Hallucinati Verified 04/15/24 09:59 ons Home Meds Home Medications Medication Instructions Recorded Confirmed omeprazole 40 mg capsule,delayed 40 mg PO DAILY 07/23/23 09/29/23 release docusate sodium 100 mg capsule 100 mg PO BID 09/01/23 09/29/23 (Colace) ondansetron HCl 8 mg tablet 8 mg PO Q8H PRN n/v 09/01/23 09/29/23 sennosides 8.6 mg tablet (Senokot) 8.6 mg PO BID 09/01/23 09/29/23 temodar 1 tab PO .QHS 09/01/23 09/29/23 dexamethasone 2 mg tablet 2 mg PO BID 09/22/23 09/29/23 Previous Rx's Medication Instructions Recorded cholecalciferol (vitamin D3) 125 125 mcg PO QAM #90 tabs 10/08/22 mcg (5,000 unit) tablet (Vitamin D3) chlorthalidone 25 mg tablet 25 mg PO DAILY #90 tabs 12/25/22 metformin 500 mg tablet 500 mg PO BID #180 tabs 12/25/22 metoprolol tartrate 25 mg tablet 25 mg PO BID #180 tabs 12/25/22 rosuvastatin 20 mg tablet 20 mg PO QPM #90 tabs 12/26/22 levetiracetam 1,000 mg tablet 2,000 mg (2 x 1,000 mg) PO BID #30 06/21/23 (Keppra) tabs blood sugar diagnostic (Blood #50 ea 08/13/23 Glucose Test strips) blood-glucose meter #1 ea 08/13/23 pen needle, diabetic 32 gauge x #100 ea 08/13/2306/05" (Novofine 32) zinc oxide-cod liver oil 40 % 1 applic topical TID #136 grams 08/13/23 topical paste (Desitin) insulin glargine 100 unit/mL (3 22 unit (0.22 mL) subcut DAILY #9 09/17/23 mL) subcutaneous pen mL Results & Data (ED) Vital Signs Vital Signs - 24 hr 09/29/23 17:15 09/29/23 17:15 09/29/23 17:17 Temperature 39.1 C H Temperature Source Oral Pulse Rate 139 H 132 H 132 H Pulse Rate [Apical] Pulse Rate from SpO2 Sensor Respiratory Rate 22 25 H Respiratory Effort / Characteristics Blood Pressure Blood Pressure [Left Arm] Blood Pressure Mean Blood Pressure Mean [Left Arm] Pulse Oximetry 94 Oxygen Delivery Method Room Air Oxygen Flow Rate Sepsis Recent Fever Within 48 Hours Yes Sepsis New/Unexplained Change in Mental Status Yes Sepsis Action Taken by Nursing Physician Notified 09/29/23 17:30 09/29/23 17:43 09/29/23 17:43 Temperature Temperature Source Pulse Rate 139 H 131 H Pulse Rate [Apical] 131 H Pulse Rate from SpO2 Sensor 140 H Respiratory Rate 23 24 24 Respiratory Effort / Characteristics Labored Blood Pressure Blood Pressure [Left Arm] 111/73 Blood Pressure Mean Blood Pressure Mean [Left Arm] 85 Pulse Oximetry 94 96 96 Oxygen Delivery Method Nasal Cannula Nasal Cannula Oxygen Flow Rate 2 2 Sepsis Recent Fever Within 48 Hours Sepsis New/Unexplained Change in Mental Status Sepsis Action Taken by Nursing 09/29/23 17:57 09/29/23 17:58 09/29/23 17:59 Temperature Temperature Source Pulse Rate 130 H 130 H Pulse Rate [Apical] 130 H Pulse Rate from SpO2 Sensor 130 H 130 H Respiratory Rate 24 14 24 Respiratory Effort / Characteristics Blood Pressure Blood Pressure [Left Arm] 83/58 L Blood Pressure Mean Blood Pressure Mean [Left Arm] 66 Pulse Oximetry 97 97 Oxygen Delivery Method Nasal Cannula Oxygen Flow Rate 2 Sepsis Recent Fever Within 48 Hours Sepsis New/Unexplained Change in Mental Status Sepsis Action Taken by Nursing 09/29/23 18:00 09/29/23 18:09 09/29/23 18:09 Temperature Temperature Source Pulse Rate 128 H 131 H Pulse Rate [Apical] Pulse Rate from SpO2 Sensor 128 H 129 H Respiratory Rate 19 19 Respiratory Effort / Characteristics Blood Pressure 118/68 Blood Pressure [Left Arm] Blood Pressure Mean 79 Blood Pressure Mean [Left Arm] Pulse Oximetry 96 90 Oxygen Delivery Method Oxygen Flow Rate Sepsis Recent Fever Within 48 Hours Sepsis New/Unexplained Change in Mental Status Sepsis Action Taken by Nursing 09/29/23 18:10 09/29/23 18:10 09/29/23 18:15 Temperature Temperature Source Pulse Rate 131 H Pulse Rate [Apical] Pulse Rate from SpO2 Sensor Respiratory Rate 21 Respiratory Effort / Characteristics Blood Pressure 112/79 121/104 H Blood Pressure [Left Arm] Blood Pressure Mean 85 105 Blood Pressure Mean [Left Arm] Pulse Oximetry Oxygen Delivery Method Oxygen Flow Rate Sepsis Recent Fever Within 48 Hours Sepsis New/Unexplained Change in Mental Status Sepsis Action Taken by Nursing 09/29/23 18:15 09/29/23 18:20 09/29/23 18:20 Temperature Temperature Source Pulse Rate 132 H 134 H Pulse Rate [Apical] Pulse Rate from SpO2 Sensor 132 H 129 H Respiratory Rate 21 15 Respiratory Effort / Characteristics Blood Pressure 96/70 L Blood Pressure [Left Arm] Blood Pressure Mean 80 Blood Pressure Mean [Left Arm] Pulse Oximetry 97 88 L Oxygen Delivery Method Oxygen Flow Rate Sepsis Recent Fever Within 48 Hours Sepsis New/Unexplained Change in Mental Status Sepsis Action Taken by Nursing 09/29/23 18:25 09/29/23 18:25 09/29/23 18:30 Temperature Temperature Source Pulse Rate 129 H 132 H Pulse Rate [Apical] Pulse Rate from SpO2 Sensor 129 H 126 H Respiratory Rate 24 14 Respiratory Effort / Characteristics Blood Pressure 97/71 L Blood Pressure [Left Arm] Blood Pressure Mean 80 Blood Pressure Mean [Left Arm] Pulse Oximetry 96 95 Oxygen Delivery Method Oxygen Flow Rate Sepsis Recent Fever Within 48 Hours Sepsis New/Unexplained Change in Mental Status Sepsis Action Taken by Nursing 09/29/23 18:31 09/29/23 18:31 09/29/23 19:13 Temperature 36.5 C Temperature Source Pulse Rate 131 H Pulse Rate [Apical] 123 H Pulse Rate from SpO2 Sensor 124 H Respiratory Rate 14 21 Respiratory Effort / Characteristics Blood Pressure 100/71 Blood Pressure [Left Arm] 91/57 L Blood Pressure Mean 78 Blood Pressure Mean [Left Arm] 68 Pulse Oximetry 96 91 Oxygen Delivery Method Nasal Cannula Oxygen Flow Rate 4 Sepsis Recent Fever Within 48 Hours Sepsis New/Unexplained Change in Mental Status Sepsis Action Taken by Nursing 09/29/23 20:00 09/29/23 21:09 09/29/23 22:00 Temperature Temperature Source Pulse Rate 137 H Pulse Rate [Apical] 134 H 121 H Pulse Rate from SpO2 Sensor Respiratory Rate 21 24 Respiratory Effort / Characteristics Blood Pressure Blood Pressure [Left Arm] 92/60 L 72/53 L Blood Pressure Mean Blood Pressure Mean [Left Arm] 70 59 Pulse Oximetry 93 95 Oxygen Delivery Method Nasal Cannula Nasal Cannula Oxygen Flow Rate 4 4 Sepsis Recent Fever Within 48 Hours Sepsis New/Unexplained Change in Mental Status Sepsis Action Taken by Nursing 09/29/23 22:15 Temperature Temperature Source Pulse Rate Pulse Rate [Apical] 118 H Pulse Rate from SpO2 Sensor Respiratory Rate 24 Respiratory Effort / Characteristics Blood Pressure Blood Pressure [Left Arm] 95/60 L Blood Pressure Mean Blood Pressure Mean [Left Arm] 71 Pulse Oximetry 96 Oxygen Delivery Method Nasal Cannula Oxygen Flow Rate 4 Sepsis Recent Fever Within 48 Hours Sepsis New/Unexplained Change in Mental Status Sepsis Action Taken by Nursing Laboratory Data Attestation: I reviewed the patient's lab results. 09/29/23 17:28 09/29/23 17:28 Lab Results 09/29/23 09/29/23 09/29/23 Range/Units 17:28 17:42 17:47 WBC 1.35 L (4.8-10.8) K/ul RBC 3.85 L (4.20-5.40) M/uL Hgb 14.1 (12.0-16.0) g/dl POC Hgb 12.6 (12.0-16.0) g/dl Hct 38.8 (37.0-47.0) % POC Hct 37 (37-47) % MCV 100.8 H (80.0-100.0) fL MCH 36.6 H (25.0-34.0) pg MCHC 36.3 H (32.0-36.0) g/dL RDW Std Deviation 55.9 H (36.4-46.3) fL RDW Coeff of Tomas 15.1 H (11.5-14.5) % Plt Count 71 L (130-400) K/uL MPV 9.8 (9.4-12.4) fL Neutrophils % (Manual) 0 % Lymphocytes % (Manual) 69 % Monocytes % (Manual) 7 % Eosinophils % (Manual) 8 % Basophils % (Manual) 2 % Neutrophils # (Manual) 0.00 L (1.40-6.50) K/uL Total Absolute Neuts 0.00 L* (1.4-6.5) K/uL Lymphocytes # (Manual) 0.93 L (1.2-3.4) K/uL Total Abs Lymphocytes 1.12 L (1.2-3.4) K/uL Monocytes # (Manual) 0.09 L (0.11-0.59) K/uL Eosinophils # (Manual) 0.11 (0-0.50) K/uL Basophils # (Manual) 0.03 (0-0.2) K/uL Large Granular Lymphs 14 % # Lrg Granular Lymphs 0.19 K/uL Polychromasia 1+ PT 10.4 (9.0-12.0) Seconds INR 0.9 (0.9-1.1) VBG pH 7.47 H (7.36-7.41) VBG pCO2 39 (38-50) mmHg VBG pO2 47 mmHg VBG HCO3 28 mmol/L VBG O2 Saturation 81.1 % VBG Base Excess 4.5 mEq/L POC Sodium 133 L (135-144) mmol/L Sodium 135 L (136-145) mmol/L POC Potassium 3.6 (3.3-5.0) mmol/L Potassium 3.6 (3.5-5.1) mmol/L POC Chloride 94 L (101-112) mmol/L Chloride 96 L (98-107) mmol/L Carbon Dioxide 28 (21-32) mmol/L POC Total CO2 26 (24-31) mmol/L Anion Gap 11 (3-11) POC Anion Gap 17.0 (16-25) mmol/L POC BUN 21 H (7-18) mg/dl BUN 22 (6-23) mg/dl Creatinine 0.73 (0.6-1.2) mg/dl POC Creatinine 0.7 (0.6-1.3) mg/dl Est Cr Clr Drug Dosing 65.1 ml/min Est GFR ( Amer) 94.0 ml/min Est GFR (Non-Af Amer) 81.1 ml/min BUN/Creatinine Ratio 30.1 H (10-20) Glucose 237 H (70-99(Fasting)) mg/dl POC Glucose (other) 235 H (70-99) mg/dl Lactate 2.5 H* (0.4-2.0) mmol/L Calcium 8.8 (8.6-10.3) mg/dl POC Ioniz Calcium Adair 1.04 L (1.12-1.32) mmol/l Phosphorus 2.8 (2.5-4.9) mg/dl Magnesium 1.7 (1.7-2.4) mg/dl Total Bilirubin 0.8 (0.2-1.0) mg/dl Direct Bilirubin 0.2 (0-0.2) mg/dl AST 18 (13-39) U/L ALT 25 (7-52) U/L Alkaline Phosphatase 41 (34-104) U/L Troponin I High Sens 11.3 (0-14) pg/ml Total Protein 6.0 (6.0-8.3) gm/dl Albumin 3.7 (3.4-5.0) gm/dl Lipase 3 L (11-82) U/L Procalcitonin 0.78 H (0-0.5) ng/ml Random Cortisol mcg/dl Urine Color Yellow Urine Appearance Clear (Clear) Urine pH 6.5 (4.5-7.5) Ur Specific [place] 1.023 (1.000-1.030) Urine Protein Trace H (Negative) Urine Glucose (UA) 3+ H (Negative) Urine Ketones Negative (Negative) Urine Blood Negative (Negative) Urine Nitrite Negative (Negative) Urine Bilirubin Negative (Negative) Urine Urobilinogen Negative (Negative) Ur Leukocyte Esterase Negative (Negative) Urine WBC (Auto) 0-5 (0-5) /hpf Urine RBC (Auto) 0-2 (0-2) /hpf U Hyaline Cast (Auto) 0-2 (0-2) /lpf U Epithel Cells (Auto) 0-2 (0-2) /hpf Urine Bacteria (Auto) None Seen (None Seen) Nasal Screen MRSA (PCR) Negative (Negative) Adenovirus (PCR) Not Detected (NotDetected) Anaplasma Smear See Comment Babesia Smear See Comment B. pertussis DNA (PCR) Not Detected (NotDetected) B.parapertussis DNA PCR Not Detected (NotDetected) Lyme Disease Screen Negative (Negative) C. pneumoniae DNA (PCR) Not Detected (NotDetected) Coronavirus OC43 (PCR) Not Detected (NotDetected) Coronavirus HKU1 (PCR) Not Detected (NotDetected) Coronavirus 229E (PCR) Not Detected (NotDetected) SARS-CoV-2 (PCR) Not Detected (NotDetected) Coronavirus NL63 (PCR) Not Detected (NotDetected) Human Metapneumovir PCR Not Detected (NotDetected) Influenza Type A (PCR) Not Detected (NotDetected) Influenza Type B (PCR) Not Detected (NotDetected) M. pneumoniae (PCR) Not Detected (NotDetected) Parainfluenza 1 (PCR) Not Detected (NotDetected) Parainfluenza 2 (PCR) Not Detected (NotDetected) Parainfluenza 3 (PCR) Not Detected (NotDetected) Parainfluenza 4 (PCR) Not Detected (NotDetected) RSV (PCR) Not Detected (NotDetected) Entero/Rhino (PCR) Not Detected (NotDetected) 09/29/23 09/29/23 Range/Units 20:31 20:32 WBC (4.8-10.8) K/ul RBC (4.20-5.40) M/uL Hgb (12.0-16.0) g/dl POC Hgb (12.0-16.0) g/dl Hct (37.0-47.0) % POC Hct (37-47) % MCV (80.0-100.0) fL MCH (25.0-34.0) pg MCHC (32.0-36.0) g/dL RDW Std Deviation (36.4-46.3) fL RDW Coeff of Tomas (11.5-14.5) % Plt Count (130-400) K/uL MPV (9.4-12.4) fL Neutrophils % (Manual) % Lymphocytes % (Manual) % Monocytes % (Manual) % Eosinophils % (Manual) % Basophils % (Manual) % Neutrophils # (Manual) (1.40-6.50) K/uL Total Absolute Neuts (1.4-6.5) K/uL Lymphocytes # (Manual) (1.2-3.4) K/uL Total Abs Lymphocytes (1.2-3.4) K/uL Monocytes # (Manual) (0.11-0.59) K/uL Eosinophils # (Manual) (0-0.50) K/uL Basophils # (Manual) (0-0.2) K/uL Large Granular Lymphs % # Lrg Granular Lymphs K/uL Polychromasia PT (9.0-12.0) Seconds INR (0.9-1.1) VBG pH (7.36-7.41) VBG pCO2 (38-50) mmHg VBG pO2 mmHg VBG HCO3 mmol/L VBG O2 Saturation % VBG Base Excess mEq/L POC Sodium (135-144) mmol/L Sodium (136-145) mmol/L POC Potassium (3.3-5.0) mmol/L Potassium (3.5-5.1) mmol/L POC Chloride (101-112) mmol/L Chloride (98-107) mmol/L Carbon Dioxide (21-32) mmol/L POC Total CO2 (24-31) mmol/L Anion Gap (3-11) POC Anion Gap (16-25) mmol/L POC BUN (7-18) mg/dl BUN (6-23) mg/dl Creatinine (0.6-1.2) mg/dl POC Creatinine (0.6-1.3) mg/dl Est Cr Clr Drug Dosing ml/min Est GFR ( Amer) ml/min Est GFR (Non-Af Amer) ml/min BUN/Creatinine Ratio (10-20) Glucose (70-99(Fasting)) mg/dl POC Glucose (other) (70-99) mg/dl Lactate 2.3 H* (0.4-2.0) mmol/L Calcium (8.6-10.3) mg/dl POC Ioniz Calcium Adair (1.12-1.32) mmol/l Phosphorus (2.5-4.9) mg/dl Magnesium (1.7-2.4) mg/dl Total Bilirubin (0.2-1.0) mg/dl Direct Bilirubin (0-0.2) mg/dl AST (13-39) U/L ALT (7-52) U/L Alkaline Phosphatase (34-104) U/L Troponin I High Sens (0-14) pg/ml Total Protein (6.0-8.3) gm/dl Albumin (3.4-5.0) gm/dl Lipase (11-82) U/L Procalcitonin (0-0.5) ng/ml Random Cortisol 13.79 mcg/dl Urine Color Urine Appearance (Clear) Urine pH (4.5-7.5) Ur Specific [place] (1.000-1.030) Urine Protein (Negative) Urine Glucose (UA) (Negative) Urine Ketones (Negative) Urine Blood (Negative) Urine Nitrite (Negative) Urine Bilirubin (Negative) Urine Urobilinogen (Negative) Ur Leukocyte Esterase (Negative) Urine WBC (Auto) (0-5) /hpf Urine RBC (Auto) (0-2) /hpf U Hyaline Cast (Auto) (0-2) /lpf U Epithel Cells (Auto) (0-2) /hpf Urine Bacteria (Auto) (None Seen) Nasal Screen MRSA (PCR) (Negative) Adenovirus (PCR) (NotDetected) Anaplasma Smear Babesia Smear B. pertussis DNA (PCR) (NotDetected) B.parapertussis DNA PCR (NotDetected) Lyme Disease Screen (Negative) C. pneumoniae DNA (PCR) (NotDetected) Coronavirus OC43 (PCR) (NotDetected) Coronavirus HKU1 (PCR) (NotDetected) Coronavirus 229E (PCR) (NotDetected) SARS-CoV-2 (PCR) (NotDetected) Coronavirus NL63 (PCR) (NotDetected) Human Metapneumovir PCR (NotDetected) Influenza Type A (PCR) (NotDetected) Influenza Type B (PCR) (NotDetected) M. pneumoniae (PCR) (NotDetected) Parainfluenza 1 (PCR) (NotDetected) Parainfluenza 2 (PCR) (NotDetected) Parainfluenza 3 (PCR) (NotDetected) Parainfluenza 4 (PCR) (NotDetected) RSV (PCR) (NotDetected) Entero/Rhino (PCR) (NotDetected) Administered Medications Potassium Chloride/Sodium Chloride (Normal Saline W/20 Meq Kcl) 20 meq in 1,000 mls @ 100 mls/hr IV .Q10H STA; Protocol Stop: 09/30/23 08:47 Last Admin: 09/29/23 23:11 Dose: 100 mls/hr Documented By: KAMLESH Piperacillin Sod/Tazobactam (Sod 4.5 gm/ Dextrose) 100 mls @ 25 mls/hr IV Q8H JOHN; Protocol Stop: 10/02/23 01:59 Last Admin: 09/30/23 04:13 Dose: 25 mls/hr Documented By: MADELINE Discontinued Medications Albumin Human (Albumin Human 25% 12.5 Gm/50 Ml Vial) Confirm Administered Dose 25 gm IV .STK-MED ONE Stop: 09/29/23 22:04 Last Admin: 09/29/23 22:03 Dose: 25 gm Documented By: KAMLESH Dexamethasone Sodium Phosphate (DexamethasonePf 10 Mg/Ml Vial) 10 mg IV NOW ONE Stop: 09/29/23 20:37 Last Admin: 09/29/23 20:54 Dose: 10 mg Documented By: KAMLESH Filgrastim (Filgrastim 480 Mcg/1.6 Ml Vial) 480 mcg SC ONE STA Stop: 09/29/23 22:28 Last Admin: 09/29/23 23:10 Dose: 480 mcg Documented By: KAMLESH Hydrocortisone Sodium Succinate (Hydrocortisone Sod Succinate 100 Mg/2 Ml Vial) 100 mg IV NOW STA Stop: 09/29/23 21:32 Last Admin: 09/29/23 22:42 Dose: Not Given Documented By: KAMLESH Sodium Chloride (Nss) 1,000 mls @ 999 mls/hr IV .Q1H1M JOHN Stop: 09/29/23 19:30 Last Infusion: 09/29/23 19:51 Dose: Infused Documented By: Admin: 09/29/23 17:56 Dose: 999 mls/hr Documented By: Infusion: 09/29/23 17:54 Dose: Infused Documented By: Infusion: 09/29/23 17:52 Dose: Infused Documented By: Admin: 09/29/23 17:40 Dose: 999 mls/hr Documented By: ALLEN Acetaminophen (Ofirmev) 1,000 mg in 100 mls @ 400 mls/hr IV NOW STA Stop: 09/29/23 17:42 Last Infusion: 09/29/23 17:57 Dose: Infused Documented By: Admin: 09/29/23 17:48 Dose: 400 mls/hr Documented By: ALLEN Piperacillin Sod/Tazobactam Sod (Zosyn) 4.5 gm in 100 mls @ 200 mls/hr IV NOW ONE Stop: 09/29/23 17:57 Last Infusion: 09/29/23 18:33 Dose: Infused Documented By: Admin: 09/29/23 17:40 Dose: 200 mls/hr Documented By: ALLEN Sodium Chloride (Nss) 1,000 mls @ 999 mls/hr IV .Q1H1M ONE Stop: 09/29/23 21:37 Last Infusion: 09/29/23 22:14 Dose: Infused Documented By: Admin: 09/29/23 20:54 Dose: 999 mls/hr Documented By: KAMLESH Vancomycin HCl 1,750 mg/ (Sodium Chloride) 535 mls @ 200 mls/hr IV NOW ONE Stop: 09/29/23 23:33 Last Infusion: 09/30/23 04:22 Dose: Infused Documented By: Admin: 09/30/23 01:21 Dose: 200 mls/hr Documented By: KAMLESH Sodium Chloride (Nss) 500 mls @ 999 mls/hr IV .Q31M STA Stop: 09/29/23 22:56 Last Infusion: 09/29/23 23:29 Dose: Infused Documented By: Admin: 09/29/23 22:03 Dose: 999 mls/hr Documented By: KAMLESH Albumin Human (Albumin 25%) 25 gm in 100 mls @ 50 mls/hr IV ONE STA Stop: 09/30/23 00:26 Last Admin: 09/29/23 23:04 Dose: Not Given Documented By: KAMLESH Fluconazole (Diflucan) 200 mg in 100 mls @ 100 mls/hr IV ONE STA Stop: 09/29/23 23:31 Last Infusion: 09/30/23 00:12 Dose: Infused Documented By: Admin: 09/29/23 23:11 Dose: 100 mls/hr Documented By: KAMLESH Acyclovir Sodium 800 mg/ (Dextrose) 266 mls @ 250 mls/hr IV NOW STA; Protocol Stop: 09/29/23 23:29 Last Infusion: 09/30/23 01:22 Dose: Infused Documented By: Admin: 09/30/23 00:07 Dose: 250 mls/hr Documented By: KAMLESH Ioversol (Optiray 320 125ml) 115 ml IV ONCE ONE Stop: 09/29/23 19:04 Last Admin: 09/29/23 19:04 Dose: 115 ml Documented By: OSIRIS Levetiracetam (Levetiracetam 500 Mg/5 Ml Vial) 2,000 mg IV NOW STA Stop: 09/29/23 22:33 Last Admin: 09/29/23 23:34 Dose: 2,000 mg Documented By: KAMLESH Imaging Data Radiologist's Impression: Chest X-Ray 09/29/23 17:27 SINGLE VIEW CHEST CLINICAL HISTORY: Sepsis FINDINGS: An AP, portable, upright chest radiograph is compared to study dated 05/28/2023 and correlated with chest CT dated 06/19/2023. The heart is enlarged. There is pulmonary vasculature congestion. Emphysema and chronic interstitial thickening is similar to previous. There is bibasilar scarring/atelectasis. No airspace consolidation or large pleural effusion is identified. No pneumothorax is seen. The skeletal structures are osteopenic. The bony thorax is grossly intact. Advanced arthritic change is seen in the shoulders. IMPRESSION: 1. Cardiomegaly and emphysema with pulmonary vascular congestion. 2. No airspace consolidation or large pleural effusion is identified. ACT 112: Negative or not required by law. Electronically signed by: Terrance Masters M.D. 09/29/2023 7:03 PM Abdomen/Pelvis CT 09/29/23 17:28 Exam(s): CT ABDOMEN + PELVIS With Contrast IV Amt: 115 ml opti 320 EXAM: CT Abdomen and Pelvis With Intravenous Contrast CLINICAL HISTORY: Reason for exam: fever, ?UTI, sepsis. TECHNIQUE: Axial computed tomography images of the abdomen and pelvis with intravenous contrast. CTDI is 27.03 mGy and DLP is 886.23 mGy-cm. Automated exposure control was utilized for the study. A dose lowering technique was utilized adhering to the principles of ALARA. CONTRAST: Patient received 115 ml opti 320 of IV contrast COMPARISON: None. FINDINGS: Lung bases: Bilateral lower lobe atelectasis with superimposed consolidation of the right lower lobe not excluded. Heart: Unremarkable. No cardiomegaly. No significant pericardial effusion. Normal cardiac size. ABDOMEN: Liver: Trace fluid surrounding the anterior margin of the liver. Gallbladder and bile ducts: Unremarkable. No calcified stones. No ductal dilation. Pancreas: Unremarkable. No mass. No ductal dilation. Spleen: Unremarkable. No splenomegaly. Adrenals: Unremarkable. No mass. Kidneys and ureters: Difficult to assess bilateral kidneys for renal stones due to presence of contrast within the renal collecting system. Otherwise unremarkable bilateral kidneys. No hydronephrosis. Stomach and bowel: Unremarkable. No obstruction. No mucosal thickening. PELVIS: Appendix: Normal appendix. Bladder: Unremarkable. No mass. Reproductive: Retroflexed uterus with atrophy. ABDOMEN and PELVIS: Intraperitoneal space: Unremarkable. No free air. No significant fluid collection. Bones/joints: Diffuse osteopenia with multilevel degenerative disease of the spine, bilateral SI joints and pubic symphysis. Right-sided hip prosthesis in place with normal alignment appears status post ORIF surgery of the left proximal femur. No acute fracture. Soft tissues: Unremarkable. Vasculature: Unremarkable. No abdominal aortic aneurysm. Lymph nodes: Unremarkable. No enlarged lymph nodes. IMPRESSION: 1. Moderate to abundant fecal debris within the colon, cannot exclude mild patient. No signs of bowel obstruction. No acute appendicitis. 2. Unremarkable abdominal viscera with no acute process. Electronically signed by: Martha Simpson MD 09/29/23 20:18 PM Chest CTA 09/29/23 17:28 CR Exam(s): CTA CHEST IV Amt: 115 ml opti 320 EXAM: CT Angiography Chest With Intravenous Contrast CLINICAL HISTORY: Reason for exam: sepsis, hypoxia, tachy, r/o PE. TECHNIQUE: Axial computed tomographic angiography images of the chest with intravenous contrast. Total dosimetry for CT brain/chest abdomen and pelvis: CTDI is 296.21 mGy and DLP is 6094.9 mGy-cm. Automated exposure control was utilized for the study. A dose lowering technique was utilized adhering to the principles of ALARA. MIP reconstructed images were created and reviewed. COMPARISON: 06/19/2023. FINDINGS: Pulmonary arteries: Filling defect identified within the distal right pulmonary artery extending into the proximal segmental and some of the distal right lower lobe segmental branches of the right lower lobe consistent with multiple pulmonary emboli. Aorta: No acute findings. No thoracic aortic aneurysm. Lungs: Right lower lobe groundglass opacity which may indicate sequela of atelectasis, pneumonitis with pulmonary hemorrhage in the context of corresponding pulmonary emboli not entirely excluded. Bilateral lower lobe atelectasis. Pleural space: Unremarkable. No significant effusion. No pneumothorax. Heart: The RV/LV ratio is 0.7 with no evidence of right-sided cardiac strain. Borderline cardiomegaly with coronary artery calcifications. No significant pericardial effusion. Bones/joints: No acute fracture. No dislocation. Soft tissues: Unremarkable. Lymph nodes: Unremarkable. No enlarged lymph nodes. Other findings: Visualized upper abdominal structures are unremarkable. Multilevel degenerative disease of the spine and bilateral shoulders. Decreased inspiration with mild vascular crowding. IMPRESSION: 1. Right lower lobe pulmonary emboli with no evidence of right-sided cardiac strain. 2. Right lower lobe groundglass opacity which may indicate pneumonitis, atelectasis with pulmonary hemorrhage not excluded in the context of right lower lobe pulmonary emboli. 3. Bilateral lower lobe atelectasis with no pleural effusion or pneumothorax. 4. These findings along with CT head examination were discussed with Dr. Kimball on 09/29/2023 at approximately 1953 hrs. Communications: Call Doctor Other Electronically signed by: Martha Simpson MD 09/29/23 20:[address] 09/29/23 17:28 CR Exam(s): CT HEAD Without Contrast EXAM: CT Head Without Intravenous Contrast CLINICAL HISTORY: Reason for exam: AMS, fever, h/o GBM resec/crani. TECHNIQUE: Axial computed tomography images of the head/brain without intravenous contrast. CTDI is 50.07 mGy and DLP is 786.76 mGy-cm. Automated exposure control was utilized for the study. A dose lowering technique was utilized adhering to the principles of ALARA. COMPARISON: 06/21/2023. 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 Small focus of high density involving some of the anterior located cortical sulci at this level which may indicate artifact versus small area of subarachnoid or cortical hemorrhage. This area is difficult to assess due to assess due to artifact from beam hardening secondary to metallic plates. There is trace focus of hyperintensity along the meninges at the surgical site, nonspecific and commonly associated with postoperative change, cannot entirely exclude trace amount of subdural hemorrhage. Mild generalized brain atrophy. Ventricles: Unremarkable. No ventriculomegaly. Bones/joints: Status post left-sided craniotomy along the left frontoparietal lobe. No acute fracture. Soft tissues: Unremarkable. Sinuses: Minimal mucosal thickening of bilateral ethmoids and right maxillary sinus. Remainder of the paranasal sinuses are clear. Mastoid air cells: Unremarkable as visualized. No mastoid effusion. IMPRESSION: 1. Postoperative changes at the left frontoparietal lobe with mild encephalomalacia. Focal area of increased density anteriorly along the cortical sulci with straight subdural density, findings which may be due to artifact and postsurgical changes, however small amount of acute hemorrhage cannot be excluded. Recommend follow-up with MRI with and without contrast for further characterization. 2. The remainder of the exam revealed chronic changes as described. Communications: Call Doctor Other Electronically signed by: Martha Simpson MD 09/29/23 19:[address] 09/29/23 21:29 Exam(s): CT HEAD Without Contrast EXAM: CT Head Without Intravenous Contrast CLINICAL HISTORY: Reason for exam: reassess post op vs bleed findings. TECHNIQUE: Axial computed tomography images of the head/brain without intravenous contrast. CTDI is 36.18 mGy and DLP is 546.36 mGy-cm. Automated exposure control was utilized for the study. A dose lowering technique was utilized adhering to the principles of ALARA. COMPARISON: Comparison made to prior head CT from September 29, 2023 at 6:40 PM. FINDINGS: Brain: There is increased enhancement within the left temporal lobe. No hemorrhage. No significant white matter disease. No edema. Ventricles: Unremarkable. No ventriculomegaly. Bones/joints: Remote left temporal craniotomy. No acute fracture. Soft tissues: Unremarkable. Bilateral lens replacements. Sinuses: Chronic ethmoid sinusitis. No acute sinusitis. Mastoid air cells: Unremarkable as visualized. No mastoid effusion. IMPRESSION: Findings concerning for persistent contrast blush in the left frontal lobe. Electronically signed by: Lien Zaldivar MD 09/30/23 00:26 AM Venous Doppler Study 09/29/23 21:54 CR Exam(s): US VENOUS BILATERAL LOWER EXTREMITIES EXAM: US Duplex Bilateral Lower Extremities Veins CLINICAL HISTORY: Reason for exam: pe, r/o dvt. TECHNIQUE: Real-time duplex ultrasound scan of the bilateral lower extremity veins integrating B-mode two-dimensional vascular structure, Doppler spectral analysis, color flow Doppler imaging and compression. COMPARISON: No relevant prior studies available. FINDINGS: Right deep veins: Acute DVT within the posterior tibial veins. Right superficial veins: Unremarkable. No thrombus in the visualized right great saphenous vein. Left deep veins: There is nonocclusive thrombus involving the saphenofemoral junction and proximal left common femoral vein. Chronic DVT seen within the proximal popliteal vein Left superficial veins: Unremarkable. No thrombus in the visualized left great saphenous vein. Soft tissues: No acute findings. No popliteal cyst. IMPRESSION: Acute DVT Nonocclusive thrombus involving the saphenofemoral junction and proximal left common femoral veins. Chronic DVT in the left proximal popliteal vein. Communications: Call Doctor DVT acute, progressing Electronically signed by: Cortez Lockhart MD 09/30/23 01:10 AM Discharge Plan Visit Data Chief Complaint: Abdominal Pain Stated Complaint: AMS ED Provider: Peterson Kimball Discharge Problem: Sepsis, Glioblastoma of frontal lobe, Hx of craniotomy, Neutropenic fever, Pneumonia, Pulmonary embolism, Thrombocytopenia, Adrenal insufficiency Patient Disposition: Admitted As Inpatient Discharge Instructions Interventions: ED Discharge Assessment Last Done: 09/30/23 01:09 Discharge Problem: Sepsis Qualifiers: Sepsis type: sepsis due to unspecified organism Sepsis acute organ dysfunction status: unspecified Qualified Code(s): A41.9 - Sepsis, unspecified organism Pneumonia Qualifiers: Pneumonia type: due to unspecified organism Laterality: right Lung location: m iddle lobe of lung Qualified Code(s): J18.9 - Pneumonia, unspecified organism Pulmonary embolism Qualifiers: Pulmonary embolism type: unspecified Chronicity: acute Acute cor pulmonale presence: without acute cor pulmonale Qualified Code(s): I26.99 - Other pulmonary embolism without acute cor pulmonale
[2023-09-29] MEDS: SODIUM CHLORIDE 0.9% 1,000 ML IV SCH (17:40)
[2023-09-29] MEDS: PIPERACILLIN/TAZOBACTAM 4.5 GM/100 ML BAG IV ONE (17:40)
[2023-09-29 17:42] LABS: Base Excess VBG 4.5 mEq/L; HCO3 VBG 28 mmol/L; Oxygen Saturation VBG 81.1 %; PCO2 VBG 39 mmHg (38-50); PO2 VBG 47 mmHg; pH VBG 7.47 (7.36-7.41)
[2023-09-29 17:43] LABS: iSTAT Creatinine 0.7 mg/dl (0.6-1.3); iSTAT Hemoglobin 12.6 g/dl (12.0-16.0); iSTAT Ionized Calcium 1.04 mmol/l (1.12-1.32); iSTAT Potassium 3.6 mmol/L (3.3-5.0)
[2023-09-29] MEDS: ACETAMINOPHEN 1,000 MG/100 ML VIAL IV STA (17:48)
[2023-09-29 18:08] LABS: Appearance Urine Clear (Clear); Bacteria Urine Automated None Seen (None Seen); Bilirubin Urine Negative (Negative); Blood Urine Negative (Negative); Cast Urine Automated 0-2 /lpf (0-2); Color Urine Yellow; Epithelial Cell Urine Auto 0-2 /hpf (0-2); Glucose Urine UA 3+ (Negative); Ketones Urine Negative (Negative); Leukocyte Esterase Urine Negative (Negative); Nitrite Urine Negative (Negative); Protein Urine Trace (Negative); RBC Urine Automated 0-2 /hpf (0-2); Specific Gravity Urine 1.023 (1.000-1.030); Urobilinogen Urine Negative (Negative); WBC Urine Automated 0-5 /hpf (0-5); pH Urine 6.5 (4.5-7.5)
[2023-09-29 18:14] LABS: Hematocrit (blood only) 38.8 % (37.0-47.0); Hemoglobin 14.1 g/dl (12.0-16.0); Mean Corpuscular Hemoglobin 36.6 pg (25.0-34.0); Mean Corpuscular Hgb Conc 36.3 g/dL (32.0-36.0); Mean Corpuscular Volume 100.8 fL (80.0-100.0); Mean Platelet Volume 9.8 fL (9.4-12.4); Platelet Count 71 K/uL (130-400); RDW Coefficient of Variation 15.1 % (11.5-14.5); RDW Standard Deviation 55.9 fL (36.4-46.3); Red Blood Count 3.85 M/uL (4.20-5.40); White Blood Count 1.35 K/ul (4.8-10.8)
[2023-09-29 18:15] LABS: Albumin Level 3.7 gm/dl (3.4-5.0); BUN Creatinine Ratio 30.1 (10-20); Bilirubin Direct 0.2 mg/dl (0-0.2); Bilirubin,Total 0.8 mg/dl (0.2-1.0); Calcium 8.8 mg/dl (8.6-10.3); Creatinine Clr Calc Pharmacy 65.1 ml/min; Est GFR (Non-African American) 81.1 ml/min; Magnesium 1.7 mg/dl (1.7-2.4); Phosphorus 2.8 mg/dl (2.5-4.9); Potassium 3.6 mmol/L (3.5-5.1)
[2023-09-29 18:20] LABS: Troponin I High Sensitivity 11.3 pg/ml (0-14)
[2023-09-29 18:23] LABS: INR 0.9 (0.9-1.1); Prothrombin Time 10.4 Seconds (9.0-12.0)
[2023-09-29 18:47] LABS: ALC (manual) 1.12 K/uL (1.2-3.4); Basophils # (manual) 0.03 K/uL (0-0.2); Basophils % (manual) 2 %; Eosinophils # (manual) 0.11 K/uL (0-0.50); Eosinophils % (manual) 8 %; Large Granular Lymph # (manua 0.19 K/uL; Large Granular Lymph % (manual) 14 %; Lymphocytes # (manual) 0.93 K/uL (1.2-3.4); Lymphocytes % (manual) 69 %; Monocytes # (manual) 0.09 K/uL (0.11-0.59); Monocytes % (manual) 7 %; Neutrophils % (manual) 0 %; Polychromasia 1+
[2023-09-29 19:00] LABS: Adenovirus PCR Not Detected (NotDetected); Bordetella parapertussis PCR Not Detected (NotDetected); Bordetella pertussis PCR Not Detected (NotDetected); Chlamydia pneumoniae PCR Not Detected (NotDetected); Coronavirus 229E PCR Not Detected (NotDetected); Coronavirus CoV-2 (COVID19)PCR Not Detected (NotDetected); Coronavirus HKU1 PCR Not Detected (NotDetected); Coronavirus NL63 PCR Not Detected (NotDetected); Coronavirus OC43PCR Not Detected (NotDetected); Human Metapneumovirus PCR Not Detected (NotDetected); Influenza A PCR Not Detected (NotDetected); Influenza B PCR Not Detected (NotDetected); Mycoplasma pneumoniae PCR Not Detected (NotDetected); Parainfluenza Virus 1 PCR Not Detected (NotDetected); Parainfluenza Virus 2 PCR Not Detected (NotDetected); Parainfluenza Virus 3 PCR Not Detected (NotDetected); Parainfluenza Virus 4 PCR Not Detected (NotDetected); Respiratory Syncytial VirusPCR Not Detected (NotDetected); Rhinovirus/Enterovirus PCR Not Detected (NotDetected)
[2023-09-29] MEDS: OPTIRAY 320 125ml IV ONE (19:04)
--- NOTE | 2023-09-29 19:04 | XRay Report ---
SINGLE VIEW CHEST CLINICAL HISTORY: Sepsis FINDINGS: An AP, portable, upright chest radiograph is compared to study dated 05/28/2023 and correla marquis with chest CT dated 06/19/2023. The heart is enlarged. There is pulmonary vasculature congestion. Emphysema and chronic interstitial thickening is similar to previous. There is bibasilar scarring/ate lectasis. No airspace consolidation or large pleural effusion is identified. No pneumothorax is seen. The skeletal structures are osteopenic. The bony thorax is grossly intact. Advanced arthritic change is seen in the shoulders. IMPRESSION: 1. Cardiomegaly and emphysema with pulmonary vascular congestion. 2. No airspace consolidation or large pleural effusion is identified. ACT 112: Negative or not required by law. Electronically signed by: Terrance Masters M.D. 09/29/2023 7:03 PM
--- NOTE | 2023-09-29 19:50 | CT Scan Report ---
Exam(s): CT HEAD Without Contrast EXAM: CT Head Without Intravenous Contrast CLINICAL HISTORY: Reason for exam: AMS, fever, h/o GBM resec/crani. TECHNIQUE: Axial computed tomography images of the head/brain without intravenous contrast. CTDI is 50.07 mGy and DLP is 786.76 mGy-cm. Automated exposure control was utilized for the study. A dose lowering technique was utilized adhering to the principles of ALARA. COMPARISON: 06/21/2023. 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 Small focus of high density involving some of the anterior located cortical sulci at this level which may indicate artifact versus small area of subarachnoid or cortical hemorrhage. This area is difficult to assess due to assess due to artifact from beam hardening secondary to metallic plates. There is trace focus of hyperintensity along the meninges at the surgical site, nonspecific and commonly associated with postoperative change, cannot entirely exclude trace amount of subdural hemorrhage. Mild generalized brain atrophy. Ventricles: Unremarkable. No ventriculomegaly. Bones/joints: Status post left-sided craniotomy along the left frontoparietal lobe. No acute fracture. Soft tissues: Unremarkable. Sinuses: Minimal mucosal thickening of bilateral ethmoids and right maxillary sinus. Remainder of the paranasal sinuses are clear. Mastoid air cells: Unremarkable as visualized. No mastoid effusion. IMPRESSION: 1. Postoperative changes at the left frontoparietal lobe with mild encephalomalacia. Focal area of increased density anteriorly along the cortical sulci with straight subdural density, findings which may be due to artifact and postsurgical changes, however small amount of acute hemorrhage cannot be excluded. Recommend follow-up with MRI with and without contrast for further characterization. 2. The remainder of the exam revealed chronic changes as described. Communications: Call Doctor Other Electronically signed by: Martha Simpson MD 09/29/23 19:49 PM
--- NOTE | 2023-09-29 20:05 | CT Scan Report ---
Exam(s): CTA CHEST IV Amt: 115 ml opti 320 EXAM: CT Angiography Chest With Intravenous Contrast CLINICAL HISTORY: Reason for exam: sepsis, hypoxia, tachy, r/o PE. TECHNIQUE: Axial computed tomographic angiography images of the chest with intravenous contrast. Total dosimetry for CT brain/chest abdomen and pelvis: CTDI is 296.21 mGy and DLP is 6094.9 mGy-cm. Automated exposure control was utilized for the study. A dose lowering technique was utilized adhering to the principles of ALARA. MIP reconstructed images were created and reviewed. COMPARISON: 06/19/2023. FINDINGS: Pulmonary arteries: Filling defect identified within the distal right pulmonary artery extending into the proximal segmental and some of the distal right lower lobe segmental branches of the right lower lobe consistent with multiple pulmonary emboli. Aorta: No acute findings. No thoracic aortic aneurysm. Lungs: Right lower lobe groundglass opacity which may indicate sequela of atelectasis, pneumonitis with pulmonary hemorrhage in the context of corresponding pulmonary emboli not entirely excluded. Bilateral lower lobe atelectasis. Pleural space: Unremarkable. No significant effusion. No pneumothorax. Heart: The RV/LV ratio is 0.7 with no evidence of right-sided cardiac strain. Borderline cardiomegaly with coronary artery calcifications. No significant pericardial effusion. Bones/joints: No acute fracture. No dislocation. Soft tissues: Unremarkable. Lymph nodes: Unremarkable. No enlarged lymph nodes. Other findings: Visualized upper abdominal structures are unremarkable. Multilevel degenerative disease of the spine and bilateral shoulders. Decreased inspiration with mild vascular crowding. IMPRESSION: 1. Right lower lobe pulmonary emboli with no evidence of right-sided cardiac strain. 2. Right lower lobe groundglass opacity which may indicate pneumonitis, atelectasis with pulmonary hemorrhage not excluded in the context of right lower lobe pulmonary emboli. 3. Bilateral lower lobe atelectasis with no pleural effusion or pneumothorax. 4. These findings along with CT head examination were discussed with Dr. Kimball on 09/29/2023 at approximately 1953 hrs. Communications: Call Doctor Other Electronically signed by: Martha Simpson MD 09/29/23 20:04 PM
--- NOTE | 2023-09-29 20:19 | CT Scan Report ---
Exam(s): CT ABDOMEN + PELVIS With Contrast IV Amt: 115 ml opti 320 EXAM: CT Abdomen and Pelvis With Intravenous Contrast CLINICAL HISTORY: Reason for exam: fever, ?UTI, sepsis. TECHNIQUE: Axial computed tomography images of the abdomen and pelvis with intravenous contrast. CTDI is 27.03 mGy and DLP is 886.23 mGy-cm. Automated exposure control was utilized for the study. A dose lowering technique was utilized adhering to the principles of ALARA. CONTRAST: Patient received 115 ml opti 320 of IV contrast COMPARISON: None. FINDINGS: Lung bases: Bilateral lower lobe atelectasis with superimposed consolidation of the right lower lobe not excluded. Heart: Unremarkable. No cardiomegaly. No significant pericardial effusion. Normal cardiac size. ABDOMEN: Liver: Trace fluid surrounding the anterior margin of the liver. Gallbladder and bile ducts: Unremarkable. No calcified stones. No ductal dilation. Pancreas: Unremarkable. No mass. No ductal dilation. Spleen: Unremarkable. No splenomegaly. Adrenals: Unremarkable. No mass. Kidneys and ureters: Difficult to assess bilateral kidneys for renal stones due to presence of contrast within the renal collecting system. Otherwise unremarkable bilateral kidneys. No hydronephrosis. Stomach and bowel: Unremarkable. No obstruction. No mucosal thickening. PELVIS: Appendix: Normal appendix. Bladder: Unremarkable. No mass. Reproductive: Retroflexed uterus with atrophy. ABDOMEN and PELVIS: Intraperitoneal space: Unremarkable. No free air. No significant fluid collection. Bones/joints: Diffuse osteopenia with multilevel degenerative disease of the spine, bilateral SI joints and pubic symphysis. Right-sided hip prosthesis in place with normal alignment appears status post ORIF surgery of the left proximal femur. No acute fracture. Soft tissues: Unremarkable. Vasculature: Unremarkable. No abdominal aortic aneurysm. Lymph nodes: Unremarkable. No enlarged lymph nodes. IMPRESSION: 1. Moderate to abundant fecal debris within the colon, cannot exclude mild patient. No signs of bowel obstruction. No acute appendicitis. 2. Unremarkable abdominal viscera with no acute process. Electronically signed by: Martha Simpson MD 09/29/23 20:18 PM
[2023-09-29] MEDS ORDERED: VANCOMYCIN CONSULT ACTIVE PRN (20:53)
[2023-09-29] MEDS: dexAMETHasone**PF** 10 MG/ML VIAL IV ONE (20:54)
[2023-09-29] MEDS: SODIUM CHLORIDE 0.9% 1,000 ML IV ONE (20:54)
[2023-09-29] MEDS: ALBUMIN HUMAN 25% 12.5 GM/50 ML VIAL IV ONE (22:03)
[2023-09-29] MEDS: SODIUM CHLORIDE 0.9% 500 ML IV STA (22:03)
[2023-09-29] MEDS: HYDROCORTISONE SOD SUCCINATE 100 MG/2 ML VIAL IV STA (22:42)
--- NOTE | 2023-09-29 22:53 | History & Physical Report ---
Date of Service September 29, 2023 Assessment & Plan (1) Adrenal insufficiency: (2) Neutropenic fever: (3) Pulmonary embolism: (4) Dvt femoral (deep venous thrombosis): (5) Hx of craniotomy: (6) Glioblastoma of frontal lobe: (7) Type 2 diabetes mellitus with obesity: (8) COPD (chronic obstructive pulmonary disease): (9) HTN (hypertension): (10) Intracranial bleed: Plan Change in mental status/confusion/lethargy/decreased responsiveness- Contributing factors including but not limited to: Intracranial bleed/encephalopathy/recent left craniotomy for GBM/neutropenic fever/DVT PE Neutropenic fever- NPO WBC 1.35, with neutrophil 0.00 Give Neupogen 480 mcg's subcu x 1 now Vancomycin IV per pharmacokinetic monitoring Zosyn 4.5 g IV every 8 hours Acyclovir 800 mg IV every 8 hours Fluconazole 200 mg IV daily Neutropenic precautions Zofran 4 mg IV every 6 hours as needed Pantoprazole 40 mg IV daily Consult hematology/oncology Dr. Elizabeth Serial CBC with differential, chemistry profile and magnesium levels Anaplasmosis and babesiosis smears negative, with antibodies pending Lyme testing negative Respiratory BioFire panel negative Status left craniotomy for GBM- Surgery at [facility] in [place] 06/30/2023 CT scan with question of intracranial bleed noted on serial CTs NPO Given dexamethasone 10 mg IV in ED Continue dexamethasone 6mg IV every 8 hours Change Keppra from 2000 mg p.o. twice daily to IV twice daily PE/DVT- CTA right lower lobe pulmonary emboli, without right heart strain Right lower lobe possible pneumonitis, with inability to rule out hemorrhage Lower extremity venous Doppler with acute nonocclusive thrombus involving the saphenofemoral junction and proximal left common femoral veins Chronic DVT in the left proximal popliteal vein Not a candidate for anticoagulation due to question of intracranial bleed Consult vascular surgery for possible IVC filter Diabetes mellitus- Glucose 237 on admission Expect further increases on IV steroids Hold metformin Continue glargine 22 units subcu twice daily If glucose does not rise is much as expected with the IV steroids, can discontinue evening dose of glargine Placed on Accu-Cheks with NovoLog SSI Consult palliative care History of Present Illness Chief Complaint: The patient presents to the emergency department due to family concerns regarding the development of confusion and somnolence, and development of a temperature of 39.1 F, after she had a nap around 1:00 this afternoon. Primary Care Provider: Minna Corado MD The patient is a 72-year-old female with a past medical history including craniotomy for glioblastoma of frontal lobe on 06/30/2023, obesity, diabetes mellitus type 2, nicotine dependence, hypertension, hyperlipidemia and COPD. She presents to the emergency department after development of lethargy, decreased responsiveness and confusion after she woke from a nap at 1:00 this afternoon. Upon arrival to the emergency department, she appears chronically ill, and underwent usual workup with laboratories and imaging studies. She was then referred for evaluation for admission Allergies Allergy/AdvReac Type Severity Reaction Status Date / Time oxycodone AdvReac Intermediate Hallucinati Verified 09/15/23 09:59 ons Home Medications Medication Instructions Recorded Confirmed Type cholecalciferol (vitamin D3) 125 125 mcg PO QAM #90 tabs 10/08/22 09/29/23 Rx mcg (5,000 unit) tablet (Vitamin D3) chlorthalidone 25 mg tablet 25 mg PO DAILY #90 tabs 12/25/22 09/29/23 Rx metformin 500 mg tablet 500 mg PO BID #180 tabs 12/25/22 09/29/23 Rx metoprolol tartrate 25 mg tablet 25 mg PO BID #180 tabs 12/25/22 09/29/23 Rx rosuvastatin 20 mg tablet 20 mg PO QPM #90 tabs 12/26/22 09/29/23 Rx levetiracetam 1,000 mg tablet 2,000 mg (2 x 1,000 mg) PO BID #30 06/21/23 09/29/23 Rx (Keppra) tabs omeprazole 40 mg capsule,delayed 40 mg PO DAILY 07/23/23 09/29/23 History release blood sugar diagnostic (Blood #50 ea 08/13/23 09/08/23 Rx Glucose Test strips) blood-glucose meter #1 ea 08/13/23 09/08/23 Rx pen needle, diabetic 32 gauge x #100 ea 08/13/23 09/08/23 Rx 1/4" (Novofine 32) zinc oxide-cod liver oil 40 % 1 applic topical TID #136 grams 08/13/23 09/29/23 Rx topical paste (Desitin) docusate sodium 100 mg capsule 100 mg PO BID 09/01/23 09/29/23 History (Colace) ondansetron HCl 8 mg tablet 8 mg PO Q8H PRN n/v 09/01/23 09/29/23 History sennosides 8.6 mg tablet (Senokot) 8.6 mg PO BID 09/01/23 09/29/23 History temodar 1 tab PO .QHS 09/01/23 09/29/23 History insulin glargine 100 unit/mL (3 22 unit (0.22 mL) subcut DAILY #9 09/17/23 09/29/23 Rx mL) subcutaneous pen mL dexamethasone 2 mg tablet 2 mg PO BID 09/22/23 09/29/23 History Past Med/Surg History Medical History Deviated nasal septum Seizures Obesity (BMI 30-39.9) Type 2 diabetes mellitus with obesity Environmental allergies Osteoporosis COPD (chronic obstructive pulmonary disease) TMJ click No locking Hyperlipemia HTN (hypertension) Surgical History Hx of craniotomy Left craniotomy for removal of tumor - 06/30/23 Dr. Stern at [facility] Status post right knee replacement (~04/2021) History of left cataract surgery History of right cataract surgery History of removal of cyst Rt breast History of eyelid surgery removal of skin tag History of tonsillectomy History of open reduction and internal fixation (ORIF) procedure LEFT FEMUR History of surgery finger surgery History of colonoscopy Family History Brother Anal cancer Brother Diabetes Sister Diabetes Sister Bladder cancer Mother , 88yo Myocardial infarction Stroke Diabetes Hypertension Father , Medical history unknown Minimal contact w/father MVA (motor vehicle accident) Brother No problems noted. Brother No problems noted. Brother No problems noted. Sister No problems noted. Sister Colorectal cancer Daughter No problems noted. Other No family history of adverse response to anesthesia Social History Smoking Status: Current some day smoker Tobacco Type: Cigarettes Cigarettes Per Day: 3 cigs per day; Second Hand Exposure: No; Do You Dip or Chew Tobacco: No; Hx Alcohol Use: No Preferred Language: Kiswahili Communication Ability: Effective Visual Impairment: No Limitations Hearing Ability: Normal Branch Library Clerk Required: No Beliefs That Will Affect Care: None marital status: Single Current Living Situation: Alone current occupational status: retired current occupation: Cleaning at [employer] How many Children do You have: 1 Feels Safe at Home: Yes Dental Care, Regularly: No Seatbelt Use: always Sunscreen Use: No Review of Systems Review of Systems: HPI and ROS are limited due to patient's inability to respond, and information was provided by her daughter and family friend in attendance Physical Exam Physical Exam: The patient is somnolent, minimally responsive, unable to answer questions, appears chronically ill, lying in bed and in no acute distress. HEENT--PERRL, EOMI, mucous membranes and oropharynx dry. Neck--supple. No JVD. No bruits. Thyroid normal, trachea midline, no adenopathy. Heart--normal S1 and S2. No murmurs, rubs or gallops. Lungs--clear bilaterally, no respiratory distress, no accessory muscle use. Abdomen--normal bowel sounds and soft. Nontender. Nondistended, Extremities--no cyanosis or clubbing. No edema. Dermatologic--few scattered ecchymoses Neurologic-- limited exam Rheumatologic--limited exam Psychiatric--limited exam Results & Data Results & Data Vital Signs (Past 12 Hours) Vital Signs Temp Pulse Pulse Resp BP BP Pulse Ox 09/29/23 22:15 118 H 24 95/60 L 96 09/29/23 22:00 121 H 24 72/53 L 95 09/29/23 21:09 137 H 09/29/23 20:00 134 H 21 92/60 L 93 09/29/23 19:13 123 H 21 91/57 L 91 09/29/23 18:31 131 H 14 96 09/29/23 18:31 36.5 C 100/71 09/29/23 18:30 132 H 14 95 09/29/23 18:25 129 H 24 96 09/29/23 18:25 97/71 L 09/29/23 18:20 96/70 L 09/29/23 18:20 134 H 15 88 L 09/29/23 18:15 132 H 21 97 09/29/23 18:15 121/104 H 09/29/23 18:10 131 H 21 09/29/23 18:10 112/79 09/29/23 18:09 131 H 19 90 09/29/23 18:09 118/68 09/29/23 18:00 128 H 19 96 09/29/23 17:59 130 H 24 97 09/29/23 17:58 130 H 14 97 09/29/23 17:57 130 H 24 83/58 L 09/29/23 17:43 131 H 24 96 09/29/23 17:43 131 H 24 111/73 96 09/29/23 17:30 139 H 23 94 09/29/23 17:17 132 H 09/29/23 17:15 132 H 25 H 09/29/23 17:15 39.1 C H 139 H 22 94 O2 Del Method O2 Flow Rate 09/29/23 22:15 Nasal Cannula 4 09/29/23 22:00 Nasal Cannula 4 09/29/23 21:09 09/29/23 20:00 Nasal Cannula 4 09/29/23 19:13 Nasal Cannula 4 09/29/23 18:31 09/29/23 18:31 09/29/23 18:30 09/29/23 18:25 09/29/23 18:25 09/29/23 18:20 09/29/23 18:20 09/29/23 18:15 09/29/23 18:15 09/29/23 18:10 09/29/23 18:10 09/29/23 18:09 09/29/23 18:09 09/29/23 18:00 09/29/23 17:59 09/29/23 17:58 09/29/23 17:57 Nasal Cannula 2 09/29/23 17:43 Nasal Cannula 2 09/29/23 17:43 Nasal Cannula 2 09/29/23 17:30 09/29/23 17:17 09/29/23 17:15 09/29/23 17:15 Room Air Laboratory Results Laboratory Results WBC 0.85 K/ul (4.8-10.8) L* 09/30/23 04:50 RBC 2.94 M/uL (4.20-5.40) L 09/30/23 04:50 Hgb 10.7 g/dl (12.0-16.0) L D 09/30/23 04:50 POC Hgb 12.6 g/dl (12.0-16.0) 09/29/23 17:28 Hct 29.7 % (37.0-47.0) L 09/30/23 04:50 POC Hct 37 % (37-47) 09/29/23 17:28 MCV 101.0 fL (80.0-100.0) H 09/30/23 04:50 MCH 36.4 pg (25.0-34.0) H 09/30/23 04:50 MCHC 36.0 g/dL (32.0-36.0) 09/30/23 04:50 RDW Std Deviation 56.4 fL (36.4-46.3) H 09/30/23 04:50 RDW Coeff of Tomas 15.3 % (11.5-14.5) H 09/30/23 04:50 Plt Count 57 K/uL (130-400) L 09/30/23 04:50 MPV 9.7 fL (9.4-12.4) 09/30/23 04:50 Neutrophils % (Manual) 0 % 09/29/23 17: Lymphocytes % (Manual) 69 % 09/29/23 17: Monocytes % (Manual) 7 % 09/29/23 17:28 Eosinophils % (Manual) 8 % 09/29/23 17: Basophils % (Manual) 2 % 09/29/23 17: Neutrophils # (Manual) 0.00 K/uL (1.40-6.50) L 09/29/23 17:28 Total Absolute Neuts 0.00 K/uL (1.4-6.5) L* 09/29/23 17: Lymphocytes # (Manual) 0.93 K/uL (1.2-3.4) L 09/29/23 17:28 Total Abs Lymphocytes 1.12 K/uL (1.2-3.4) L 09/29/23 17:28 Monocytes # (Manual) 0.09 K/uL (0.11-0.59) L 09/29/23 17: Eosinophils # (Manual) 0.11 K/uL (0-0.50) 09/29/23 17:28 Basophils # (Manual) 0.03 K/uL (0-0.2) 09/29/23 17:28 Large Granular Lymphs 14 % 09/29/23 17:28 # Lrg Granular Lymphs 0.19 K/uL 09/29/23 17:28 Polychromasia 1+ 09/29/23 17:28 PT 10.4 Seconds (9.0-12.0) 09/29/23 17:28 INR 0.9 (0.9-1.1) 09/29/23 17:28 VBG pH 7.47 (7.36-7.41) H 09/29/23 17:28 VBG pCO2 39 mmHg (38-50) 09/29/23 17:28 VBG pO2 47 mmHg 09/29/23 17:28 VBG HCO3 28 mmol/L 09/29/23 17:28 VBG O2 Saturation 81.1 % 09/29/23 17:28 VBG Base Excess 4.5 mEq/L 09/29/23 17:28 POC Sodium 133 mmol/L (135-144) L 09/29/23 17:28 Sodium 135 mmol/L (136-145) L 09/29/23 17:28 POC Potassium 3.6 mmol/L (3.3-5.0) 09/29/23 17:28 Potassium 3.6 mmol/L (3.5-5.1) 09/29/23 17:28 POC Chloride 94 mmol/L (101-112) L 09/29/23 17:28 Chloride 96 mmol/L (98-107) L 09/29/23 17:28 Carbon Dioxide 28 mmol/L (21-32) 09/29/23 17:28 POC Total CO2 26 mmol/L (24-31) 09/29/23 17:28 Anion Gap 11 (3-11) 09/29/23 17:28 POC Anion Gap 17.0 mmol/L (16-25) 09/29/23 17:28 POC BUN 21 mg/dl (7-18) H 09/29/23 17:28 BUN 22 mg/dl (6-23) 09/29/23 17:28 Creatinine 0.73 mg/dl (0.6-1.2) 09/29/23 17:28 POC Creatinine 0.7 mg/dl (0.6-1.3) 09/29/23 17:28 Est Cr Clr Drug Dosing 65.1 ml/min 09/29/23 17:28 Est GFR ( Amer) 94.0 ml/min 09/29/23 17:28 Est GFR (Non-Af Amer) 81.1 ml/min 09/29/23 17:28 BUN/Creatinine Ratio 30.1 (10-20) H 09/29/23 17:28 Glucose 237 mg/dl (70-99(Fasting)) H 09/29/23 17:28 POC Glucose 256 mg/dl (70-99) H 09/30/23 02:05 POC Glucose (other) 235 mg/dl (70-99) H 09/29/23 17:28 Lactate 2.3 mmol/L (0.4-2.0) H* 09/29/23 20:31 Calcium 8.8 mg/dl (8.6-10.3) 09/29/23 17:28 POC Ioniz Calcium [place] 1.04 mmol/l (1.12-1.32) L 09/29/23 17:28 Phosphorus 2.8 mg/dl (2.5-4.9) 09/29/23 17:28 Magnesium 1.7 mg/dl (1.7-2.4) 09/29/23 17:28 Total Bilirubin 0.8 mg/dl (0.2-1.0) 09/29/23 17:28 Direct Bilirubin 0.2 mg/dl (0-0.2) 09/29/23 17:28 AST 18 U/L (13-39) 09/29/23 17:28 ALT 25 U/L (7-52) 09/29/23 17:28 Alkaline Phosphatase 41 U/L (34-104) 09/29/23 17:28 Troponin I High Sens 11.3 pg/ml (0-14) 09/29/23 17:28 Total Protein 6.0 gm/dl (6.0-8.3) 09/29/23 17:28 Albumin 3.7 gm/dl (3.4-5.0) 09/29/23 17:28 Lipase 3 U/L (11-82) L 09/29/23 17:28 Procalcitonin 0.78 ng/ml (0-0.5) H 09/29/23 17:28 Random Cortisol 13.79 mcg/dl 09/29/23 20:32 Urine Color Yellow 09/29/23 17:42 Urine Appearance Clear (Clear) 09/29/23 17:42 Urine pH 6.5 (4.5-7.5) 09/29/23 17:42 Ur Specific [place] 1.023 (1.000-1.030) 09/29/23 17:42 Urine Protein Trace (Negative) H 09/29/23 17:42 Urine Glucose (UA) 3+ (Negative) H 09/29/23 17:42 Urine Ketones Negative (Negative) 09/29/23 17:42 Urine Blood Negative (Negative) 09/29/23 17:42 Urine Nitrite Negative (Negative) 09/29/23 17:42 Urine Bilirubin Negative (Negative) 09/29/23 17:42 Urine Urobilinogen Negative (Negative) 09/29/23 17:42 Ur Leukocyte Esterase Negative (Negative) 09/29/23 17:42 Urine WBC (Auto) 0-5 /hpf (0-5) 09/29/23 17:42 Urine RBC (Auto) 0-2 /hpf (0-2) 09/29/23 17:42 U Hyaline Cast (Auto) 0-2 /lpf (0-2) 09/29/23 17:42 U Epithel Cells (Auto) 0-2 /hpf (0-2) 09/29/23 17:42 Urine Bacteria (Auto) None Seen (None Seen) 09/29/23 17:42 Nasal Screen MRSA (PCR) Negative (Negative) 09/29/23 17:47 Adenovirus (PCR) Not Detected (NotDetected) 09/29/23 17:42 Anaplasma Smear See Comment 09/29/23 17:28 Babesia Smear See Comment 09/29/23 17:28 B. pertussis DNA (PCR) Not Detected (NotDetected) 09/29/23 17:42 B.parapertussis DNA PCR Not Detected (NotDetected) 09/29/23 17:42 Lyme Disease Screen Negative (Negative) 09/29/23 17:28 C. pneumoniae DNA (PCR) Not Detected (NotDetected) 09/29/23 17:42 Coronavirus OC43 (PCR) Not Detected (NotDetected) 09/29/23 17:42 Coronavirus HKU1 (PCR) Not Detected (NotDetected) 09/29/23 17:42 Coronavirus 229E (PCR) Not Detected (NotDetected) 09/29/23 17:42 SARS-CoV-2 (PCR) Not Detected (NotDetected) 09/29/23 17:42 Coronavirus NL63 (PCR) Not Detected (NotDetected) 09/29/23 17:42 Human Metapneumovir PCR Not Detected (NotDetected) 09/29/23 17:42 Influenza Type A (PCR) Not Detected (NotDetected) 09/29/23 17:42 Influenza Type B (PCR) Not Detected (NotDetected) 09/29/23 17:42 M. pneumoniae (PCR) Not Detected (NotDetected) 09/29/23 17:42 Parainfluenza 1 (PCR) Not Detected (NotDetected) 09/29/23 17:42 Parainfluenza 2 (PCR) Not Detected (NotDetected) 09/29/23 17:42 Parainfluenza 3 (PCR) Not Detected (NotDetected) 09/29/23 17:42 Parainfluenza 4 (PCR) Not Detected (NotDetected) 09/29/23 17:42 RSV (PCR) Not Detected (NotDetected) 09/29/23 17:42 Entero/Rhino (PCR) Not Detected (NotDetected) 09/29/23 17:42 Impressions Chest X-Ray 09/29/23 17:27 SINGLE VIEW CHEST CLINICAL HISTORY: Sepsis FINDINGS: An AP, portable, upright chest radiograph is compared to study dated 05/28/2023 and correlated with chest CT dated 06/19/2023. The heart is enlarged. There is pulmonary vasculature congestion. Emphysema and chronic interstitial thickening is similar to previous. There is bibasilar scarring/atelectasis. No airspace consolidation or large pleural effusion is identified. No pneumothorax is seen. The skeletal structures are osteopenic. The bony thorax is grossly intact. Advanced arthritic change is seen in the shoulders. IMPRESSION: 1. Cardiomegaly and emphysema with pulmonary vascular congestion. 2. No airspace consolidation or large pleural effusion is identified. ACT 112: Negative or not required by law. Electronically signed by: Terrance Mastesr M.D. 09/29/2023 7:03 PM Abdomen/Pelvis CT 09/29/23 17:28 Exam(s): CT ABDOMEN + PELVIS With Contrast IV Amt: 115 ml opti 320 EXAM: CT Abdomen and Pelvis With Intravenous Contrast CLINICAL HISTORY: Reason for exam: fever, ?UTI, sepsis. TECHNIQUE: Axial computed tomography images of the abdomen and pelvis with intravenous contrast. CTDI is 27.03 mGy and DLP is 886.23 mGy-cm. Automated exposure control was utilized for the study. A dose lowering technique was utilized adhering to the principles of ALARA. CONTRAST: Patient received 115 ml opti 320 of IV contrast COMPARISON: None. FINDINGS: Lung bases: Bilateral lower lobe atelectasis with superimposed consolidation of the right lower lobe not excluded. Heart: Unremarkable. No cardiomegaly. No significant pericardial effusion. Normal cardiac size. ABDOMEN: Liver: Trace fluid surrounding the anterior margin of the liver. Gallbladder and bile ducts: Unremarkable. No calcified stones. No ductal dilation. Pancreas: Unremarkable. No mass. No ductal dilation. Spleen: Unremarkable. No splenomegaly. Adrenals: Unremarkable. No mass. Kidneys and ureters: Difficult to assess bilateral kidneys for renal stones due to presence of contrast within the renal collecting system. Otherwise unremarkable bilateral kidneys. No hydronephrosis. Stomach and bowel: Unremarkable. No obstruction. No mucosal thickening. PELVIS: Appendix: Normal appendix. Bladder: Unremarkable. No mass. Reproductive: Retroflexed uterus with atrophy. ABDOMEN and PELVIS: Intraperitoneal space: Unremarkable. No free air. No significant fluid collection. Bones/joints: Diffuse osteopenia with multilevel degenerative disease of the spine, bilateral SI joints and pubic symphysis. Right-sided hip prosthesis in place with normal alignment appears status post ORIF surgery of the left proximal femur. No acute fracture. Soft tissues: Unremarkable. Vasculature: Unremarkable. No abdominal aortic aneurysm. Lymph nodes: Unremarkable. No enlarged lymph nodes. IMPRESSION: 1. Moderate to abundant fecal debris within the colon, cannot exclude mild patient. No signs of bowel obstruction. No acute appendicitis. 2. Unremarkable abdominal viscera with no acute process. Electronically signed by: Martha Simpson MD 09/29/23 20:18 PM Chest CTA 09/29/23 17:28 CR Exam(s): CTA CHEST IV Amt: 115 ml opti 320 EXAM: CT Angiography Chest With Intravenous Contrast CLINICAL HISTORY: Reason for exam: sepsis, hypoxia, tachy, r/o PE. TECHNIQUE: Axial computed tomographic angiography images of the chest with intravenous contrast. Total dosimetry for CT brain/chest abdomen and pelvis: CTDI is 296.21 mGy and DLP is 6094.9 mGy-cm. Automated exposure control was utilized for the study. A dose lowering technique was utilized adhering to the principles of ALARA. MIP reconstructed images were created and reviewed. COMPARISON: 06/19/2023. FINDINGS: Pulmonary arteries: Filling defect identified within the distal right pulmonary artery extending into the proximal segmental and some of the distal right lower lobe segmental branches of the right lower lobe consistent with multiple pulmonary emboli. Aorta: No acute findings. No thoracic aortic aneurysm. Lungs: Right lower lobe groundglass opacity which may indicate sequela of atelectasis, pneumonitis with pulmonary hemorrhage in the context of corresponding pulmonary emboli not entirely excluded. Bilateral lower lobe atelectasis. Pleural space: Unremarkable. No significant effusion. No pneumothorax. Heart: The RV/LV ratio is 0.7 with no evidence of right-sided cardiac strain. Borderline cardiomegaly with coronary artery calcifications. No significant pericardial effusion. Bones/joints: No acute fracture. No dislocation. Soft tissues: Unremarkable. Lymph nodes: Unremarkable. No enlarged lymph nodes. Other findings: Visualized upper abdominal structures are unremarkable. Multilevel degenerative disease of the spine and bilateral shoulders. Decreased inspiration with mild vascular crowding. IMPRESSION: 1. Right lower lobe pulmonary emboli with no evidence of right-sided cardiac strain. 2. Right lower lobe groundglass opacity which may indicate pneumonitis, atelectasis with pulmonary hemorrhage not excluded in the context of right lower lobe pulmonary emboli. 3. Bilateral lower lobe atelectasis with no pleural effusion or pneumothorax. 4. These findings along with CT head examination were discussed with Dr. Kimball on 09/29/2023 at approximately 1953 hrs. Communications: Call Doctor Other Electronically signed by: Martha Simpson MD 09/29/23 20:[address] 09/29/23 21:29 Exam(s): CT HEAD Without Contrast EXAM: CT Head Without Intravenous Contrast CLINICAL HISTORY: Reason for exam: reassess post op vs bleed findings. TECHNIQUE: Axial computed tomography images of the head/brain without intravenous contrast. CTDI is 36.18 mGy and DLP is 546.36 mGy-cm. Automated exposure control was utilized for the study. A dose lowering technique was utilized adhering to the principles of ALARA. COMPARISON: Comparison made to prior head CT from September 29, 2023 at 6:40 PM. FINDINGS: Brain: There is increased enhancement within the left temporal lobe. No hemorrhage. No significant white matter disease. No edema. Ventricles: Unremarkable. No ventriculomegaly. Bones/joints: Remote left temporal craniotomy. No acute fracture. Soft tissues: Unremarkable. Bilateral lens replacements. Sinuses: Chronic ethmoid sinusitis. No acute sinusitis. Mastoid air cells: Unremarkable as visualized. No mastoid effusion. IMPRESSION: Findings concerning for persistent contrast blush in the left frontal lobe. Electronically signed by: Lien Zaldivar MD 09/30/23 00:26 AM Venous Doppler Study 09/29/23 21:54 CR Exam(s): US VENOUS BILATERAL LOWER EXTREMITIES EXAM: US Duplex Bilateral Lower Extremities Veins CLINICAL HISTORY: Reason for exam: pe, r/o dvt. TECHNIQUE: Real-time duplex ultrasound scan of the bilateral lower extremity veins integrating B-mode two-dimensional vascular structure, Doppler spectral analysis, color flow Doppler imaging and compression. COMPARISON: No relevant prior studies available. FINDINGS: Right deep veins: Acute DVT within the posterior tibial veins. Right superficial veins: Unremarkable. No thrombus in the visualized right great saphenous vein. Left deep veins: There is nonocclusive thrombus involving the saphenofemoral junction and proximal left common femoral vein. Chronic DVT seen within the proximal popliteal vein Left superficial veins: Unremarkable. No thrombus in the visualized left great saphenous vein. Soft tissues: No acute findings. No popliteal cyst. IMPRESSION: Acute DVT Nonocclusive thrombus involving the saphenofemoral junction and proximal left common femoral veins. Chronic DVT in the left proximal popliteal vein. Communications: Call Doctor DVT acute, progressing Electronically signed by: Cortez Lockhart MD 09/30/23 01:10 AM Code Status & VTE Plan Code Status DNR/DNI VTE Prophylaxis Plan VTE Prophylaxis will be ordered: Yes PG Care Time/CCT Total # of Minutes Spent Total Time Spent with Patient: Total time spent is greater than 50% in coordination of care (as documented) at patient's floor/unit and/or counseling patient: Coding Level of Care Code 96663 INT INP/OBS CARE MIN Diagnoses Adrenal insufficiency E27.40 Neutropenic fever D70.9; R50.81 Pulmonary embolism I26.99 Acute cor pulmonale presence: without acute cor pulmonale Chronicity: acute Pulmonary embolism type: unspecified Dvt femoral (deep venous thrombosis) I82.419 Hx of craniotomy Z98.890 Glioblastoma of frontal lobe C71.1 Type 2 diabetes mellitus with obesity E11.69; E66.9 COPD (chronic obstructive pulmonary disease) J44.9 HTN (hypertension) I10 Intracranial bleed I62.9 (3) Pulmonary embolism Acute cor pulmonale presence: without acute cor pulmonale Chronicity: acute Pulmonary embolism type: unspecified Qualified Code(s): I26.99 - Other pulmonary embolism without acute cor pulmonale
[2023-09-29] MEDS: ALBUMIN 25% 25 GM/100 ML VIAL IV STA (23:04)
[2023-09-29] MEDS: FILGRASTIM 480 MCG/1.6 ML VIAL SC STA (23:10)
[2023-09-29] MEDS: NSS + 20MEQ KCL 20 MEQ/1,000 ML BAG IV STA (23:11)
[2023-09-29] MEDS: FLUCONAZOLE 200 MG/100 ML BAG IV STA (23:11)
[2023-09-29] MEDS: levETIRAcetam 500 MG/5 ML VIAL IV STA (23:34)
[2023-09-30] MEDS: ACYCLOVIR SOD 800 MG in DEXTROSE 5% 250 ML IV STA (00:07)
--- NOTE | 2023-09-30 00:26 | CT Scan Report ---
Exam(s): CT HEAD Without Contrast EXAM: CT Head Without Intravenous Contrast CLINICAL HISTORY: Reason for exam: reassess post op vs bleed findings. TECHNIQUE: Axial computed tomography images of the head/brain without intravenous contrast. CTDI is 36.18 mGy and DLP is 546.36 mGy-cm. Automated exposure control was utilized for the study. A dose lowering technique was utilized adhering to the principles of ALARA. COMPARISON: Comparison made to prior head CT from September 29, 2023 at 6:40 PM. FINDINGS: Brain: There is increased enhancement within the left temporal lobe. No hemorrhage. No significant white matter disease. No edema. Ventricles: Unremarkable. No ventriculomegaly. Bones/joints: Remote left temporal craniotomy. No acute fracture. Soft tissues: Unremarkable. Bilateral lens replacements. Sinuses: Chronic ethmoid sinusitis. No acute sinusitis. Mastoid air cells: Unremarkable as visualized. No mastoid effusion. IMPRESSION: Findings concerning for persistent contrast blush in the left frontal lobe. Electronically signed by: Lien Zaldivar MD 09/30/23 00:26 AM
[2023-09-30] MEDS ORDERED: DEXTROSE 50% 50 ML SYRINGE IV PRN (01:08)
[2023-09-30] MEDS ORDERED: GLUCAGON FOR INJ 1 MG VIAL SQ PRN (01:08)
[2023-09-30] MEDS ORDERED: ONDANSETRON INJ 2 MG/ML 2 ML VIAL IV PRN (01:08)
[2023-09-30] MEDS ORDERED: CARBOHYDRATES FOR HYPOGLYCEMIA PO PRN (01:08)
[2023-09-30] MEDS ORDERED: ACETAMINOPHEN 1,000 MG/100 ML VIAL IV PRN (01:08)
[2023-09-30] MEDS ORDERED: GLUCOSE 10 TAB/TUBE PO PRN (01:08)
[2023-09-30] MEDS ORDERED: GLUCOSE 40% GEL 15 GM TUBE PO PRN (01:08)
[2023-09-30] MEDS ORDERED: VANCOMYCIN CONSULT ACTIVE PRN (01:08)
--- NOTE | 2023-09-30 01:11 | Ultrasound Report ---
Exam(s): US VENOUS BILATERAL LOWER EXTREMITIES EXAM: US Duplex Bilateral Lower Extremities Veins CLINICAL HISTORY: Reason for exam: pe, r/o dvt. TECHNIQUE: Real-time duplex ultrasound scan of the bilateral lower extremity veins integrating B-mode two-dimensional vascular structure, Doppler spectral analysis, color flow Doppler imaging and compression. COMPARISON: No relevant prior studies available. FINDINGS: Right deep veins: Acute DVT within the posterior tibial veins. Right superficial veins: Unremarkable. No thrombus in the visualized right great saphenous vein. Left deep veins: There is nonocclusive thrombus involving the saphenofemoral junction and proximal left common femoral vein. Chronic DVT seen within the proximal popliteal vein Left superficial veins: Unremarkable. No thrombus in the visualized left great saphenous vein. Soft tissues: No acute findings. No popliteal cyst. IMPRESSION: Acute DVT Nonocclusive thrombus involving the saphenofemoral junction and proximal left common femoral veins. Chronic DVT in the left proximal popliteal vein. Communications: Call Doctor DVT acute, progressing Electronically signed by: Cortez Lockhart MD 09/30/23 01:10 AM
[2023-09-30] MEDS: VANCOMYCIN HCL 1,750 MG in SODIUM CHLORIDE 0.9% 500 ML IV ONE (01:21)
[2023-09-30] MEDS: PIPERACILLIN/TAZOBACTAM 4.5 GM in DEXTROSE 5% MINI-B 100 ML IV SCH (04:13)
[2023-09-30 05:18] LABS: Hematocrit (blood only) 29.7 % (37.0-47.0); Hemoglobin 10.7 g/dl (12.0-16.0); Mean Corpuscular Hemoglobin 36.4 pg (25.0-34.0); Mean Platelet Volume 9.7 fL (9.4-12.4); Platelet Count 57 K/uL (130-400); RDW Coefficient of Variation 15.3 % (11.5-14.5); RDW Standard Deviation 56.4 fL (36.4-46.3); Red Blood Count 2.94 M/uL (4.20-5.40); White Blood Count 0.85 K/ul (4.8-10.8)
[2023-09-30 06:04] LABS: Albumin Globulin Ratio 1.7 (0.9-2); BUN Creatinine Ratio 25.5 (10-20); Bilirubin,Total 0.7 mg/dl (0.2-1.0); Calcium 7.5 mg/dl (8.6-10.3); Creatinine Clr Calc Pharmacy 86.4 ml/min; Est GFR (African American) 107.1 ml/min; Est GFR (Non-African American) 92.4 ml/min; Globulin 1.8 gm/dl (2.5-4.0); Magnesium 1.6 mg/dl (1.7-2.4); Potassium 3.1 mmol/L (3.5-5.1); Total Protein 4.8 gm/dl (6.0-8.3)
[2023-09-30 06:44] LABS: Eosinophils # (auto) 0.01 K/uL (0.00-0.50); Eosinophils % (auto) 1.2 %; Immature Granulocytes # (auto) 0.01 K/uL (0.01-0.20); Immature Granulocytes % (auto) 1.2 %; Lymphocytes # (auto) 0.38 K/uL (1.20-3.40); Lymphocytes % (auto) 44.7 %; Monocytes # (auto) 0.43 K/uL (0.11-0.59); Monocytes % (auto) 50.6 %; Neutrophils # (auto) 0.02 K/uL (1.40-6.50); Neutrophils % (auto) 2.3 %
[2023-09-30 07:08] LABS: Estimated Average Glucose 232 mg/dl; Hemoglobin A1C 9.7 % (4.5-5.6)
[2023-09-30] MEDS: ACYCLOVIR SOD 600 MG in DEXTROSE 5% 100 ML IV SCH (07:47)
[2023-09-30] MEDS: dexAMETHasone 6 MG in SYRINGE 0 ML IV SCH (07:48)
[2023-09-30] MEDS: LANTUS PER UNIT CHARGE SC SCH ×2 (08:25→20:33)
--- NOTE | 2023-09-30 08:46 | Hospitalist Progress Note ---
Date of Service September 30, 2023 Assessment & Plan (1) Neutropenic fever: Plan: Change in mental status/confusion/lethargy/decreased responsiveness- Contributing factors including but not limited to: Intracranial bleed/encephalopathy/recent left craniotomy for GBM/neutropenic fever/DVT PE Imaging noting moderate fecal debris in colon, no bowel obstruction/appendicitis. Unremarkable abdominal visera with no acute process. CTA chest w/ RLL PE without evidence of R sided cardiac strain. RLL groundglass opacity which may indicate pneuomonitis/atelectasis with pulm hemorrhage not excluded in context of RLL PE. Bilateral lower lobe atelectasis with no effusion or PTX. Neutropenic fever- On admission, WBC 1.35, with neutrophil 0.00 Given Neupogen 480 mcg's SQ x 1 WBC 0.85, neutrophil 0.02 today Lyme testing negative on screening, biofire negative Anaplasmosis and babesiosis smears negative, with antibodies pending Continue Vanco, Zosyn, Acyclovir, fluconazole Blood cultures pending Dexamethasone 6mg IV q8h Continue protonix IV daily Hematology/oncology consulted, Dr Elizabeth -- appreciate recs/assistance. Consult pending however patient did report having been seen this morning Diet as tolerated, clear liquid ordered. Aspiration precautions Titrate O2 as able s/p IVC filter for DVT/PE in setting of intracranial bleeding on imaging as below Monitor labs on repeat (2) Pulmonary embolism: Plan: LEFT DVT, CTA chest noting RLL PE CT chest DOES NOT note R heart strain Venous doppler with acute nonocclusive thrombus involving the saphenofemoral junction and proximal left common femoral veins Not a candidate for anticoagulation due to question of intracranial bleed Consult vascular surgery for IVC filter, Dr Logan NPO this morning for filter placement, diet ordered post -op Pain control -- added tylenol, tramadol as needed Titrate O2 as able ?need for pulm consult pending repeat exams. On IV dexamethasone for above but could consider inhaled budesonide if needed for pneumonitis Appreciate hematology/oncology recs (3) Dvt femoral (deep venous thrombosis): Plan: as above, acute LEFT DVT (4) Adrenal insufficiency: Plan: on decadron 2mg PO BID prior to admission Dexamethasone 10mg IV in ER, continued on 6mg q8h as above resuming home metoprolol 25mg PO BID (5) Hx of craniotomy: Plan: Status left craniotomy for GBM- Surgery at [facility] in [place] 06/30/2023 CT scan with question of intracranial bleed noted on serial CTs Given dexamethasone 10 mg IV in ED, continued dexamethasone 6mg IV q8h for now, appreciate heme/consult Keppra continued IV BID for now, can convert back to PO BID in AM if no issues (6) Glioblastoma of frontal lobe: Plan: As above, hematology/oncology consulted IV steroids as above, abx, appreciate consult recs/assistance Palliative care consulted on admission as well (7) Type 2 diabetes mellitus with obesity: Plan: Diabetes mellitus- Home metformin on hold IV decadron as above BSGs elevated Was ordered 22u glargine to be BID on admission but only ordered once. Will increase to BID for now/monitor SSI given POC 208 and advancing diet Monitor Pharmacy consulted for additional assistance Consult palliative care (8) COPD (chronic obstructive pulmonary disease): Plan: supplemetal O2 to maintain sats doesn't appear to be on any inhalers at baseline (9) HTN (hypertension): Plan: resuming home metoprolol tartrate 25mg PO BID will hold off resuming home chlorthalidone but may need to resume pending volume status/steroid use (10) Intracranial bleed: Plan: as noted on CT head on admission, IVC filter as outlined can reach out to Dr Stern/Hazel if needed neurochecks Plan s/p IVC filter continue IV abx/antifungal/antiviral for neutropenic fever, appreciate rec s/assistance from hematology/oncology continued inpatient stay will need therapy evaluations Admission and Anticipated Discharge Date Admission Date: September 29, 2023 Supervising Physician Co-Signing Physician Notes The patient was not seen by me. The chart was reviewed. Case discussed with EDU Dash. Agree with assessment and plan Subjective Evaluated this afternoon, resting in bed. Sister and daughter into room upon entry. Denies pain at present time. She reports that "you'll know when I'm in pain" Hungry,ordered diet and can advance as tolerated. Patient does have some fatigue. Denies CP/SOB. Not on oxygen at baseline. May need to monitor/arrange at discharge. No increased LE edema/pain. s/p IVC filter placement with Dr Logan this morning, does not need to lay flat per discussion w/ AMOL. Questions/concerns addressed at this time. Physical Exam Physical Exam: General: 72yo female laying in bed, family entering room, NAD, on 4L Oxymask post-op HEENT: mm slightly dry, trachea midline, prior craniotomy Resp: diminished in the bases, faint crackles, no wheezing/rales, on 4L CV: RRR, no significant m/r/g, no pitting edema GI: +BS, soft/obese, nontender : no gómez MSK/Neuro:some expressive aphasia at baseline but able to follow commands, fatigued appearing, no increased confusion per family in room generalized weakness but nonfocal Skin: scattered bruising Psych: alert to person/place, cooperative with exam Results & Data Results & Data Vital Signs (Past 12 Hours) Vital Signs Pulse Pulse Resp BP BP Pulse Ox O2 Del Method 09/30/23 07:18 89 09/30/23 07:00 96 H 15 98 09/30/23 07:00 115/72 09/30/23 06:30 95 H 20 98 09/30/23 06:00 95 H 20 99 09/30/23 06:00 116/72 09/30/23 05:48 93 H 18 116/71 99 Nasal Cannula 09/30/23 05:00 91 H 18 116/71 99 09/30/23 04:00 95 H 18 113/64 96 Room Air 09/30/23 03:00 98 H 18 91/61 L 96 Room Air 09/30/23 02:01 101 H 22 118/78 09/30/23 02:01 101 H 22 96 Nasal Cannula 09/30/23 02:00 105 H 19 118/78 95 09/30/23 00:56 106 H 09/30/23 00:00 104 H 22 97/73 L 97 Nasal Cannula 09/29/23 23:00 112 H 23 100/73 97 Nasal Cannula 09/29/23 22:15 118 H 24 95/60 L 96 Nasal Cannula 09/29/23 22:00 121 H 24 72/53 L 95 Nasal Cannula 09/29/23 21:09 137 H O2 Flow Rate 09/30/23 07:18 09/30/23 07:00 09/30/23 07:00 09/30/23 06:30 09/30/23 06:00 09/30/23 06:00 09/30/23 05:48 2 09/30/23 05:00 09/30/23 04:00 09/30/23 03:00 09/30/23 02:01 09/30/23 02:01 4 09/30/23 02:00 09/30/23 00:56 09/30/23 00:00 4 09/29/23 23:00 4 09/29/23 22:15 4 09/29/23 22:00 4 09/29/23 21:09 Laboratory Results 09/30/23 09/30/23 09/30/23 Range/Units 12:45 09:58 08:10 WBC (4.8-10.8) K/ul RBC (4.20-5.40) M/uL Hgb (12.0-16.0) g/dl POC Hgb (12.0-16.0) g/dl Hct (37.0-47.0) % POC Hct (37-47) % MCV (80.0-100.0) fL MCH (25.0-34.0) pg MCHC (32.0-36.0) g/dL RDW Std Deviation (36.4-46.3) fL RDW Coeff of Tomas (11.5-14.5) % Plt Count (130-400) K/uL MPV (9.4-12.4) fL Immature Gran % (Auto) % Neut % (Auto) % Lymph % (Auto) % [facility] % (Auto) % Eos % (Auto) % Baso % (Auto) % Neut # (Auto) (1.40-6.50) K/uL Lymph # (Auto) (1.20-3.40) K/uL [facility] # (Auto) (0.11-0.59) K/uL Eos # (Auto) (0.00-0.50) K/uL Baso # (Auto) (0.00-0.20) K/uL Immature Gran # (Auto) (0.01-0.20) K/uL Neutrophils % (Manual) % Lymphocytes % (Manual) % Monocytes % (Manual) % Eosinophils % (Manual) % Basophils % (Manual) % Neutrophils # (Manual) (1.40-6.50) K/uL Total Absolute Neuts (1.4-6.5) K/uL Lymphocytes # (Manual) (1.2-3.4) K/uL Total Abs Lymphocytes (1.2-3.4) K/uL Monocytes # (Manual) (0.11-0.59) K/uL Eosinophils # (Manual) (0-0.50) K/uL Basophils # (Manual) (0-0.2) K/uL Large Granular Lymphs % # Lrg Granular Lymphs K/uL Polychromasia PT (9.0-12.0) Seconds INR (0.9-1.1) VBG pH (7.36-7.41) VBG pCO2 (38-50) mmHg VBG pO2 mmHg VBG HCO3 mmol/L VBG O2 Saturation % VBG Base Excess mEq/L POC Sodium (135-144) mmol/L Sodium (136-145) mmol/L POC Potassium (3.3-5.0) mmol/L Potassium (3.5-5.1) mmol/L POC Chloride (101-112) mmol/L Chloride (98-107) mmol/L Carbon Dioxide (21-32) mmol/L POC Total CO2 (24-31) mmol/L Anion Gap (3-11) POC Anion Gap (16-25) mmol/L POC BUN (7-18) mg/dl BUN (6-23) mg/dl Creatinine (0.6-1.2) mg/dl POC Creatinine (0.6-1.3) mg/dl Est Cr Clr Drug Dosing ml/min Est GFR ( Amer) ml/min Est GFR (Non-Af Amer) ml/min BUN/Creatinine Ratio (10-20) Glucose (70-99(Fasting)) mg/dl POC Glucose 208 H 207 H 196 H (70-99) mg/dl POC Glucose (other) (70-99) mg/dl Estimat Average Glucose mg/dl Hemoglobin A1c (4.5-5.6) % Lactate (0.4-2.0) mmol/L Calcium (8.6-10.3) mg/dl POC Ioniz Calcium Adair (1.12-1.32) mmol/l Phosphorus (2.5-4.9) mg/dl Magnesium (1.7-2.4) mg/dl Total Bilirubin (0.2-1.0) mg/dl Direct Bilirubin (0-0.2) mg/dl AST (13-39) U/L ALT (7-52) U/L Alkaline Phosphatase (34-104) U/L Troponin I High Sens (0-14) pg/ml Total Protein (6.0-8.3) gm/dl Albumin (3.4-5.0) gm/dl Globulin (2.5-4.0) gm/dl Albumin/Globulin Ratio (0.9-2) Lipase (11-82) U/L Vitamin B12 (180-914) pg/ml Folate (>5.38) ng/ml Procalcitonin (0-0.5) ng/ml Random Cortisol mcg/dl Urine Color Urine Appearance (Clear) Urine pH (4.5-7.5) Ur Specific [place] (1.000-1.030) Urine Protein (Negative) Urine Glucose (UA) (Negative) Urine Ketones (Negative) Urine Blood (Negative) Urine Nitrite (Negative) Urine Bilirubin (Negative) Urine Urobilinogen (Negative) Ur Leukocyte Esterase (Negative) Urine WBC (Auto) (0-5) /hpf Urine RBC (Auto) (0-2) /hpf U Hyaline Cast (Auto) (0-2) /lpf U Epithel Cells (Auto) (0-2) /hpf Urine Bacteria (Auto) (None Seen) Nasal Screen MRSA (PCR) (Negative) Adenovirus (PCR) (NotDetected) Anaplasma Smear A. phagocytophilum DNA Babesia Smear Babesia microti DNA PCR B. pertussis DNA (PCR) (NotDetected) B.parapertussis DNA PCR (NotDetected) Lyme Disease Screen (Negative) C. pneumoniae DNA (PCR) (NotDetected) Coronavirus OC43 (PCR) (NotDetected) Coronavirus HKU1 (PCR) (NotDetected) Coronavirus 229E (PCR) (NotDetected) SARS-CoV-2 (PCR) (NotDetected) Coronavirus NL63 (PCR) (NotDetected) E.chaffeensis DNA (PCR) Human Metapneumovir PCR (NotDetected) Influenza Type A (PCR) (NotDetected) Influenza Type B (PCR) (NotDetected) M. pneumoniae (PCR) (NotDetected) Parainfluenza 1 (PCR) (NotDetected) Parainfluenza 2 (PCR) (NotDetected) Parainfluenza 3 (PCR) (NotDetected) Parainfluenza 4 (PCR) (NotDetected) Q Fever Phase I IgG Ab Q Fever Phase I IgM Ab Q Fever Phase II IgG Ab Q Fever Phase II IgM Ab RSV (PCR) (NotDetected) Entero/Rhino (PCR) (NotDetected) Rickettsia IgG Ab Rickettsia IgM Ab Typhus Fever IgG Ab Typhus Fever IgM Ab 09/30/23 09/30/23 09/30/23 Range/Units 06:08 04:50 02:05 WBC 0.85 L* (4.8-10.8) K/ul RBC 2.94 L (4.20-5.40) M/uL Hgb 10.7 L D (12.0-16.0) g/dl POC Hgb (12.0-16.0) g/dl Hct 29.7 L (37.0-47.0) % POC Hct (37-47) % MCV 101.0 H (80.0-100.0) fL MCH 36.4 H (25.0-34.0) pg MCHC 36.0 (32.0-36.0) g/dL RDW Std Deviation 56.4 H (36.4-46.3) fL RDW Coeff of Tomas 15.3 H (11.5-14.5) % Plt Count 57 L (130-400) K/uL MPV 9.7 (9.4-12.4) fL Immature Gran % (Auto) 1.2 % Neut % (Auto) 2.3 % Lymph % (Auto) 44.7 % [facility] % (Auto) 50.6 % Eos % (Auto) 1.2 % Baso % (Auto) 0.0 % Neut # (Auto) 0.02 L* (1.40-6.50) K/uL Lymph # (Auto) 0.38 L (1.20-3.40) K/uL [facility] # (Auto) 0.43 (0.11-0.59) K/uL Eos # (Auto) 0.01 (0.00-0.50) K/uL Baso # (Auto) 0.00 (0.00-0.20) K/uL Immature Gran # (Auto) 0.01 (0.01-0.20) K/uL Neutrophils % (Manual) % Lymphocytes % (Manual) % Monocytes % (Manual) % Eosinophils % (Manual) % Basophils % (Manual) % Neutrophils # (Manual) (1.40-6.50) K/uL Total Absolute Neuts (1.4-6.5) K/uL Lymphocytes # (Manual) (1.2-3.4) K/uL Total Abs Lymphocytes (1.2-3.4) K/uL Monocytes # (Manual) (0.11-0.59) K/uL Eosinophils # (Manual) (0-0.50) K/uL Basophils # (Manual) (0-0.2) K/uL Large Granular Lymphs % # Lrg Granular Lymphs K/uL Polychromasia PT (9.0-12.0) Seconds INR (0.9-1.1) VBG pH (7.36-7.41) VBG pCO2 (38-50) mmHg VBG pO2 mmHg VBG HCO3 mmol/L VBG O2 Saturation % VBG Base Excess mEq/L POC Sodium (135-144) mmol/L Sodium 140 (136-145) mmol/L POC Potassium (3.3-5.0) mmol/L Potassium 3.1 L (3.5-5.1) mmol/L POC Chloride (101-112) mmol/L Chloride 108 H (98-107) mmol/L Carbon Dioxide 26 (21-32) mmol/L POC Total CO2 (24-31) mmol/L Anion Gap 6 (3-11) POC Anion Gap (16-25) mmol/L POC BUN (7-18) mg/dl BUN 14 (6-23) mg/dl Creatinine 0.55 L (0.6-1.2) mg/dl POC Creatinine (0.6-1.3) mg/dl Est Cr Clr Drug Dosing 86.4 ml/min Est GFR ( Amer) 107.1 ml/min Est GFR (Non-Af Amer) 92.4 ml/min BUN/Creatinine Ratio 25.5 H (10-20) Glucose 223 H (70-99(Fasting)) mg/dl POC Glucose 228 H 256 H (70-99) mg/dl POC Glucose (other) (70-99) mg/dl Estimat Average Glucose 232 mg/dl Hemoglobin A1c 9.7 H (4.5-5.6) % Lactate (0.4-2.0) mmol/L Calcium 7.5 L (8.6-10.3) mg/dl POC Ioniz Calcium Adair (1.12-1.32) mmol/l Phosphorus (2.5-4.9) mg/dl Magnesium 1.6 L (1.7-2.4) mg/dl Total Bilirubin 0.7 (0.2-1.0) mg/dl Direct Bilirubin (0-0.2) mg/dl AST 12 L (13-39) U/L ALT 18 (7-52) U/L Alkaline Phosphatase 27 L (34-104) U/L Troponin I High Sens (0-14) pg/ml Total Protein 4.8 L D (6.0-8.3) gm/dl Albumin 3.0 L (3.4-5.0) gm/dl Globulin 1.8 L (2.5-4.0) gm/dl Albumin/Globulin Ratio 1.7 (0.9-2) Lipase (11-82) U/L Vitamin B12 81 L (180-914) pg/ml Folate 11.28 (>5.38) ng/ml Procalcitonin (0-0.5) ng/ml Random Cortisol mcg/dl Urine Color Urine Appearance (Clear) Urine pH (4.5-7.5) Ur Specific [place] (1.000-1.030) Urine Protein (Negative) Urine Glucose (UA) (Negative) Urine Ketones (Negative) Urine Blood (Negative) Urine Nitrite (Negative) Urine Bilirubin (Negative) Urine Urobilinogen (Negative) Ur Leukocyte Esterase (Negative) Urine WBC (Auto) (0-5) /hpf Urine RBC (Auto) (0-2) /hpf U Hyaline Cast (Auto) (0-2) /lpf U Epithel Cells (Auto) (0-2) /hpf Urine Bacteria (Auto) (None Seen) Nasal Screen MRSA (PCR) (Negative) Adenovirus (PCR) (NotDetected) Anaplasma Smear A. phagocytophilum DNA Babesia Smear Babesia microti DNA PCR B. pertussis DNA (PCR) (NotDetected) B.parapertussis DNA PCR (NotDetected) Lyme Disease Screen (Negative) C. pneumoniae DNA (PCR) (NotDetected) Coronavirus OC43 (PCR) (NotDetected) Coronavirus HKU1 (PCR) (NotDetected) Coronavirus 229E (PCR) (NotDetected) SARS-CoV-2 (PCR) (NotDetected) Coronavirus NL63 (PCR) (NotDetected) E.chaffeensis DNA (PCR) Human Metapneumovir PCR (NotDetected) Influenza Type A (PCR) (NotDetected) Influenza Type B (PCR) (NotDetected) M. pneumoniae (PCR) (NotDetected) Parainfluenza 1 (PCR) (NotDetected) Parainfluenza 2 (PCR) (NotDetected) Parainfluenza 3 (PCR) (NotDetected) Parainfluenza 4 (PCR) (NotDetected) Q Fever Phase I IgG Ab Q Fever Phase I IgM Ab Q Fever Phase II IgG Ab Q Fever Phase II IgM Ab RSV (PCR) (NotDetected) Entero/Rhino (PCR) (NotDetected) Rickettsia IgG Ab Rickettsia IgM Ab Typhus Fever IgG Ab Typhus Fever IgM Ab 09/29/23 09/29/23 09/29/23 Range/Units 20:32 20:31 17:47 WBC (4.8-10.8) K/ul RBC (4.20-5.40) M/uL Hgb (12.0-16.0) g/dl POC Hgb (12.0-16.0) g/dl Hct (37.0-47.0) % POC Hct (37-47) % MCV (80.0-100.0) fL MCH (25.0-34.0) pg MCHC (32.0-36.0) g/dL RDW Std Deviation (36.4-46.3) fL RDW Coeff of Tomas (11.5-14.5) % Plt Count (130-400) K/uL MPV (9.4-12.4) fL Immature Gran % (Auto) % Neut % (Auto) % Lymph % (Auto) % [facility] % (Auto) % Eos % (Auto) % Baso % (Auto) % Neut # (Auto) (1.40-6.50) K/uL Lymph # (Auto) (1.20-3.40) K/uL [facility] # (Auto) (0.11-0.59) K/uL Eos # (Auto) (0.00-0.50) K/uL Baso # (Auto) (0.00-0.20) K/uL Immature Gran # (Auto) (0.01-0.20) K/uL Neutrophils % (Manual) % Lymphocytes % (Manual) % Monocytes % (Manual) % Eosinophils % (Manual) % Basophils % (Manual) % Neutrophils # (Manual) (1.40-6.50) K/uL Total Absolute Neuts (1.4-6.5) K/uL Lymphocytes # (Manual) (1.2-3.4) K/uL Total Abs Lymphocytes (1.2-3.4) K/uL Monocytes # (Manual) (0.11-0.59) K/uL Eosinophils # (Manual) (0-0.50) K/uL Basophils # (Manual) (0-0.2) K/uL Large Granular Lymphs % # Lrg Granular Lymphs K/uL Polychromasia PT (9.0-12.0) Seconds INR (0.9-1.1) VBG pH (7.36-7.41) VBG pCO2 (38-50) mmHg VBG pO2 mmHg VBG HCO3 mmol/L VBG O2 Saturation % VBG Base Excess mEq/L POC Sodium (135-144) mmol/L Sodium (136-145) mmol/L POC Potassium (3.3-5.0) mmol/L Potassium (3.5-5.1) mmol/L POC Chloride (101-112) mmol/L Chloride (98-107) mmol/L Carbon Dioxide (21-32) mmol/L POC Total CO2 (24-31) mmol/L Anion Gap (3-11) POC Anion Gap (16-25) mmol/L POC BUN (7-18) mg/dl BUN (6-23) mg/dl Creatinine (0.6-1.2) mg/dl POC Creatinine (0.6-1.3) mg/dl Est Cr Clr Drug Dosing ml/min Est GFR ( Amer) ml/min Est GFR (Non-Af Amer) ml/min BUN/Creatinine Ratio (10-20) Glucose (70-99(Fasting)) mg/dl POC Glucose (70-99) mg/dl POC Glucose (other) (70-99) mg/dl Estimat Average Glucose mg/dl Hemoglobin A1c (4.5-5.6) % Lactate 2.3 H* (0.4-2.0) mmol/L Calcium (8.6-10.3) mg/dl POC Ioniz Calcium Adair (1.12-1.32) mmol/l Phosphorus (2.5-4.9) mg/dl Magnesium (1.7-2.4) mg/dl Total Bilirubin (0.2-1.0) mg/dl Direct Bilirubin (0-0.2) mg/dl AST (13-39) U/L ALT (7-52) U/L Alkaline Phosphatase (34-104) U/L Troponin I High Sens (0-14) pg/ml Total Protein (6.0-8.3) gm/dl Albumin (3.4-5.0) gm/dl Globulin (2.5-4.0) gm/dl Albumin/Globulin Ratio (0.9-2) Lipase (11-82) U/L Vitamin B12 (180-914) pg/ml Folate (>5.38) ng/ml Procalcitonin (0-0.5) ng/ml Random Cortisol 13.79 mcg/dl Urine Color Urine Appearance (Clear) Urine pH (4.5-7.5) Ur Specific [place] (1.000-1.030) Urine Protein (Negative) Urine Glucose (UA) (Negative) Urine Ketones (Negative) Urine Blood (Negative) Urine Nitrite (Negative) Urine Bilirubin (Negative) Urine Urobilinogen (Negative) Ur Leukocyte Esterase (Negative) Urine WBC (Auto) (0-5) /hpf Urine RBC (Auto) (0-2) /hpf U Hyaline Cast (Auto) (0-2) /lpf U Epithel Cells (Auto) (0-2) /hpf Urine Bacteria (Auto) (None Seen) Nasal Screen MRSA (PCR) Negative (Negative) Adenovirus (PCR) (NotDetected) Anaplasma Smear A. phagocytophilum DNA Babesia Smear Babesia microti DNA PCR Pending B. pertussis DNA (PCR) (NotDetected) B.parapertussis DNA PCR (NotDetected) Lyme Disease Screen (Negative) C. pneumoniae DNA (PCR) (NotDetected) Coronavirus OC43 (PCR) (NotDetected) Coronavirus HKU1 (PCR) (NotDetected) Coronavirus 229E (PCR) (NotDetected) SARS-CoV-2 (PCR) (NotDetected) Coronavirus NL63 (PCR) (NotDetected) E.chaffeensis DNA (PCR) Pending Human Metapneumovir PCR (NotDetected) Influenza Type A (PCR) (NotDetected) Influenza Type B (PCR) (NotDetected) M. pneumoniae (PCR) (NotDetected) Parainfluenza 1 (PCR) (NotDetected) Parainfluenza 2 (PCR) (NotDetected) Parainfluenza 3 (PCR) (NotDetected) Parainfluenza 4 (PCR) (NotDetected) Q Fever Phase I IgG Ab Pending Q Fever Phase I IgM Ab Pending Q Fever Phase II IgG Ab Pending Q Fever Phase II IgM Ab Pending RSV (PCR) (NotDetected) Entero/Rhino (PCR) (NotDetected) Rickettsia IgG Ab Pending Rickettsia IgM Ab Pending Typhus Fever IgG Ab Pending Typhus Fever IgM Ab Pending 09/29/23 09/29/23 Range/Units 17:42 17:28 WBC 1.35 L (4.8-10.8) K/ul RBC 3.85 L (4.20-5.40) M/uL Hgb 14.1 (12.0-16.0) g/dl POC Hgb 12.6 (12.0-16.0) g/dl Hct 38.8 (37.0-47.0) % POC Hct 37 (37-47) % MCV 100.8 H (80.0-100.0) fL MCH 36.6 H (25.0-34.0) pg MCHC 36.3 H (32.0-36.0) g/dL RDW Std Deviation 55.9 H (36.4-46.3) fL RDW Coeff of Tomas 15.1 H (11.5-14.5) % Plt Count 71 L (130-400) K/uL MPV 9.8 (9.4-12.4) fL Immature Gran % (Auto) % Neut % (Auto) % Lymph % (Auto) % [facility] % (Auto) % Eos % (Auto) % Baso % (Auto) % Neut # (Auto) (1.40-6.50) K/uL Lymph # (Auto) (1.20-3.40) K/uL [facility] # (Auto) (0.11-0.59) K/uL Eos # (Auto) (0.00-0.50) K/uL Baso # (Auto) (0.00-0.20) K/uL Immature Gran # (Auto) (0.01-0.20) K/uL Neutrophils % (Manual) 0 % Lymphocytes % (Manual) 69 % Monocytes % (Manual) 7 % Eosinophils % (Manual) 8 % Basophils % (Manual) 2 % Neutrophils # (Manual) 0.00 L (1.40-6.50) K/uL Total Absolute Neuts 0.00 L* (1.4-6.5) K/uL Lymphocytes # (Manual) 0.93 L (1.2-3.4) K/uL Total Abs Lymphocytes 1.12 L (1.2-3.4) K/uL Monocytes # (Manual) 0.09 L (0.11-0.59) K/uL Eosinophils # (Manual) 0.11 (0-0.50) K/uL Basophils # (Manual) 0.03 (0-0.2) K/uL Large Granular Lymphs 14 % # Lrg Granular Lymphs 0.19 K/uL Polychromasia 1+ PT 10.4 (9.0-12.0) Seconds INR 0.9 (0.9-1.1) VBG pH 7.47 H (7.36-7.41) VBG pCO2 39 (38-50) mmHg VBG pO2 47 mmHg VBG HCO3 28 mmol/L VBG O2 Saturation 81.1 % VBG Base Excess 4.5 mEq/L POC Sodium 133 L (135-144) mmol/L Sodium 135 L (136-145) mmol/L POC Potassium 3.6 (3.3-5.0) mmol/L Potassium 3.6 (3.5-5.1) mmol/L POC Chloride 94 L (101-112) mmol/L Chloride 96 L (98-107) mmol/L Carbon Dioxide 28 (21-32) mmol/L POC Total CO2 26 (24-31) mmol/L Anion Gap 11 (3-11) POC Anion Gap 17.0 (16-25) mmol/L POC BUN 21 H (7-18) mg/dl BUN 22 (6-23) mg/dl Creatinine 0.73 (0.6-1.2) mg/dl POC Creatinine 0.7 (0.6-1.3) mg/dl Est Cr Clr Drug Dosing 65.1 ml/min Est GFR ( Amer) 94.0 ml/min Est GFR (Non-Af Amer) 81.1 ml/min BUN/Creatinine Ratio 30.1 H (10-20) Glucose 237 H (70-99(Fasting)) mg/dl POC Glucose (70-99) mg/dl POC Glucose (other) 235 H (70-99) mg/dl Estimat Average Glucose mg/dl Hemoglobin A1c (4.5-5.6) % Lactate 2.5 H* (0.4-2.0) mmol/L Calcium 8.8 (8.6-10.3) mg/dl POC Ioniz Calcium [place] 1.04 L (1.12-1.32) mmol/l Phosphorus 2.8 (2.5-4.9) mg/dl Magnesium 1.7 (1.7-2.4) mg/dl Total Bilirubin 0.8 (0.2-1.0) mg/dl Direct Bilirubin 0.2 (0-0.2) mg/dl AST 18 (13-39) U/L ALT 25 (7-52) U/L Alkaline Phosphatase 41 (34-104) U/L Troponin I High Sens 11.3 (0-14) pg/ml Total Protein 6.0 (6.0-8.3) gm/dl Albumin 3.7 (3.4-5.0) gm/dl Globulin (2.5-4.0) gm/dl Albumin/Globulin Ratio (0.9-2) Lipase 3 L (11-82) U/L Vitamin B12 (180-914) pg/ml Folate (>5.38) ng/ml Procalcitonin 0.78 H (0-0.5) ng/ml Random Cortisol mcg/dl Urine Color Yellow Urine Appearance Clear (Clear) Urine pH 6.5 (4.5-7.5) Ur Specific [place] 1.023 (1.000-1.030) Urine Protein Trace H (Negative) Urine Glucose (UA) 3+ H (Negative) Urine Ketones Negative (Negative) Urine Blood Negative (Negative) Urine Nitrite Negative (Negative) Urine Bilirubin Negative (Negative) Urine Urobilinogen Negative (Negative) Ur Leukocyte Esterase Negative (Negative) Urine WBC (Auto) 0-5 (0-5) /hpf Urine RBC (Auto) 0-2 (0-2) /hpf U Hyaline Cast (Auto) 0-2 (0-2) /lpf U Epithel Cells (Auto) 0-2 (0-2) /hpf Urine Bacteria (Auto) None Seen (None Seen) Nasal Screen MRSA (PCR) (Negative) Adenovirus (PCR) Not Detected (NotDetected) Anaplasma Smear See Comment A. phagocytophilum DNA Pending Babesia Smear See Comment Babesia microti DNA PCR B. pertussis DNA (PCR) Not Detected (NotDetected) B.parapertussis DNA PCR Not Detected (NotDetected) Lyme Disease Screen Negative (Negative) C. pneumoniae DNA (PCR) Not Detected (NotDetected) Coronavirus OC43 (PCR) Not Detected (NotDetected) Coronavirus HKU1 (PCR) Not Detected (NotDetected) Coronavirus 229E (PCR) Not Detected (NotDetected) SARS-CoV-2 (PCR) Not Detected (NotDetected) Coronavirus NL63 (PCR) Not Detected (NotDetected) E.chaffeensis DNA (PCR) Human Metapneumovir PCR Not Detected (NotDetected) Influenza Type A (PCR) Not Detected (NotDetected) Influenza Type B (PCR) Not Detected (NotDetected) M. pneumoniae (PCR) Not Detected (NotDetected) Parainfluenza 1 (PCR) Not Detected (NotDetected) Parainfluenza 2 (PCR) Not Detected (NotDetected) Parainfluenza 3 (PCR) Not Detected (NotDetected) Parainfluenza 4 (PCR) Not Detected (NotDetected) Q Fever Phase I IgG Ab Q Fever Phase I IgM Ab Q Fever Phase II IgG Ab Q Fever Phase II IgM Ab RSV (PCR) Not Detected (NotDetected) Entero/Rhino (PCR) Not Detected (NotDetected) Rickettsia IgG Ab Rickettsia IgM Ab Typhus Fever IgG Ab Typhus Fever IgM Ab Diagnostic Findings Chest X-Ray 09/29/23 17:27 SINGLE VIEW CHEST CLINICAL HISTORY: Sepsis FINDINGS: An AP, portable, upright chest radiograph is compared to study dated 05/28/2023 and correlated with chest CT dated 06/19/2023. The heart is enlarged. There is pulmonary vasculature congestion. Emphysema and chronic interstitial thickening is similar to previous. There is bibasilar scarring/atelectasis. No airspace consolidation or large pleural effusion is identified. No pneumothorax is seen. The skeletal structures are osteopenic. The bony thorax is grossly intact. Advanced arthritic change is seen in the shoulders. IMPRESSION: 1. Cardiomegaly and emphysema with pulmonary vascular congestion. 2. No airspace consolidation or large pleural effusion is identified. ACT 112: Negative or not required by law. Electronically signed by: Terrance Masters M.D. 09/29/2023 7:03 PM Abdomen/Pelvis CT 09/29/23 17:28 Exam(s): CT ABDOMEN + PELVIS With Contrast IV Amt: 115 ml opti 320 EXAM: CT Abdomen and Pelvis With Intravenous Contrast CLINICAL HISTORY: Reason for exam: fever, ?UTI, sepsis. TECHNIQUE: Axial computed tomography images of the abdomen and pelvis with intravenous contrast. CTDI is 27.03 mGy and DLP is 886.23 mGy-cm. Automated exposure control was utilized for the study. A dose lowering technique was utilized adhering to the principles of ALARA. CONTRAST: Patient received 115 ml opti 320 of IV contrast COMPARISON: None. FINDINGS: Lung bases: Bilateral lower lobe atelectasis with superimposed consolidation of the right lower lobe not excluded. Heart: Unremarkable. No cardiomegaly. No significant pericardial effusion. Normal cardiac size. ABDOMEN: Liver: Trace fluid surrounding the anterior margin of the liver. Gallbladder and bile ducts: Unremarkable. No calcified stones. No ductal dilation. Pancreas: Unremarkable. No mass. No ductal dilation. Spleen: Unremarkable. No splenomegaly. Adrenals: Unremarkable. No mass. Kidneys and ureters: Difficult to assess bilateral kidneys for renal stones due to presence of contrast within the renal collecting system. Otherwise unremarkable bilateral kidneys. No hydronephrosis. Stomach and bowel: Unremarkable. No obstruction. No mucosal thickening. PELVIS: Appendix: Normal appendix. Bladder: Unremarkable. No mass. Reproductive: Retroflexed uterus with atrophy. ABDOMEN and PELVIS: Intraperitoneal space: Unremarkable. No free air. No significant fluid collection. Bones/joints: Diffuse osteopenia with multilevel degenerative disease of the spine, bilateral SI joints and pubic symphysis. Right-sided hip prosthesis in place with normal alignment appears status post ORIF surgery of the left proximal femur. No acute fracture. Soft tissues: Unremarkable. Vasculature: Unremarkable. No abdominal aortic aneurysm. Lymph nodes: Unremarkable. No enlarged lymph nodes. IMPRESSION: 1. Moderate to abundant fecal debris within the colon, cannot exclude mild patient. No signs of bowel obstruction. No acute appendicitis. 2. Unremarkable abdominal viscera with no acute process. Electronically signed by: Martha Simpson MD 09/29/23 20:18 PM Chest CTA 09/29/23 17:28 CR Exam(s): CTA CHEST IV Amt: 115 ml opti 320 EXAM: CT Angiography Chest With Intravenous Contrast CLINICAL HISTORY: Reason for exam: sepsis, hypoxia, tachy, r/o PE. TECHNIQUE: Axial computed tomographic angiography images of the chest with intravenous contrast. Total dosimetry for CT brain/chest abdomen and pelvis: CTDI is 296.21 mGy and DLP is 6094.9 mGy-cm. Automated exposure control was utilized for the study. A dose lowering technique was utilized adhering to the principles of ALARA. MIP reconstructed images were created and reviewed. COMPARISON: 06/19/2023. FINDINGS: Pulmonary arteries: Filling defect identified within the distal right pulmonary artery extending into the proximal segmental and some of the distal right lower lobe segmental branches of the right lower lobe consistent with multiple pulmonary emboli. Aorta: No acute findings. No thoracic aortic aneurysm. Lungs: Right lower lobe groundglass opacity which may indicate sequela of atelectasis, pneumonitis with pulmonary hemorrhage in the context of corresponding pulmonary emboli not entirely excluded. Bilateral lower lobe atelectasis. Pleural space: Unremarkable. No significant effusion. No pneumothorax. Heart: The RV/LV ratio is 0.7 with no evidence of right-sided cardiac strain. Borderline cardiomegaly with coronary artery calcifications. No significant pericardial effusion. Bones/joints: No acute fracture. No dislocation. Soft tissues: Unremarkable. Lymph nodes: Unremarkable. No enlarged lymph nodes. Other findings: Visualized upper abdominal structures are unremarkable. Multilevel degenerative disease of the spine and bilateral shoulders. Decreased inspiration with mild vascular crowding. IMPRESSION: 1. Right lower lobe pulmonary emboli with no evidence of right-sided cardiac strain. 2. Right lower lobe groundglass opacity which may indicate pneumonitis, atelectasis with pulmonary hemorrhage not excluded in the context of right lower lobe pulmonary emboli. 3. Bilateral lower lobe atelectasis with no pleural effusion or pneumothorax. 4. These findings along with CT head examination were discussed with Dr. Kimball on 09/29/2023 at approximately 1953 hrs. Communications: Call Doctor Other Electronically signed by: Martha Simpson MD 09/29/23 20:[address] 09/29/23 17:28 CR Exam(s): CT HEAD Without Contrast EXAM: CT Head Without Intravenous Contrast CLINICAL HISTORY: Reason for exam: AMS, fever, h/o GBM resec/crani. TECHNIQUE: Axial computed tomography images of the head/brain without intravenous contrast. CTDI is 50.07 mGy and DLP is 786.76 mGy-cm. Automated exposure control was utilized for the study. A dose lowering technique was utilized adhering to the principles of ALARA. COMPARISON: 06/21/2023. 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 Small focus of high density involving some of the anterior located cortical sulci at this level which may indicate artifact versus small area of subarachnoid or cortical hemorrhage. This area is difficult to assess due to assess due to artifact from beam hardening secondary to metallic plates. There is trace focus of hyperintensity along the meninges at the surgical site, nonspecific and commonly associated with postoperative change, cannot entirely exclude trace amount of subdural hemorrhage. Mild generalized brain atrophy. Ventricles: Unremarkable. No ventriculomegaly. Bones/joints: Status post left-sided craniotomy along the left frontoparietal lobe. No acute fracture. Soft tissues: Unremarkable. Sinuses: Minimal mucosal thickening of bilateral ethmoids and right maxillary sinus. Remainder of the paranasal sinuses are clear. Mastoid air cells: Unremarkable as visualized. No mastoid effusion. IMPRESSION: 1. Postoperative changes at the left frontoparietal lobe with mild encephalomalacia. Focal area of increased density anteriorly along the cortical sulci with straight subdural density, findings which may be due to artifact and postsurgical changes, however small amount of acute hemorrhage cannot be excluded. Recommend follow-up with MRI with and without contrast for further characterization. 2. The remainder of the exam revealed chronic changes as described. Communications: Call Doctor Other Electronically signed by: Martha Simpson MD 09/29/23 19:[address] 09/29/23 21:29 Exam(s): CT HEAD Without Contrast EXAM: CT Head Without Intravenous Contrast CLINICAL HISTORY: Reason for exam: reassess post op vs bleed findings. TECHNIQUE: Axial computed tomography images of the head/brain without intravenous contrast. CTDI is 36.18 mGy and DLP is 546.36 mGy-cm. Automated exposure control was utilized for the study. A dose lowering technique was utilized adhering to the principles of ALARA. COMPARISON: Comparison made to prior head CT from September 29, 2023 at 6:40 PM. FINDINGS: Brain: There is increased enhancement within the left temporal lobe. No hemorrhage. No significant white matter disease. No edema. Ventricles: Unremarkable. No ventriculomegaly. Bones/joints: Remote left temporal craniotomy. No acute fracture. Soft tissues: Unremarkable. Bilateral lens replacements. Sinuses: Chronic ethmoid sinusitis. No acute sinusitis. Mastoid air cells: Unremarkable as visualized. No mastoid effusion. IMPRESSION: Findings concerning for persistent contrast blush in the left frontal lobe. Electronically signed by: Lien Zaldivar MD 09/30/23 00:26 AM Venous Doppler Study 09/29/23 21:54 CR Exam(s): US VENOUS BILATERAL LOWER EXTREMITIES EXAM: US Duplex Bilateral Lower Extremities Veins CLINICAL HISTORY: Reason for exam: pe, r/o dvt. TECHNIQUE: Real-time duplex ultrasound scan of the bilateral lower extremity veins integrating B-mode two-dimensional vascular structure, Doppler spectral analysis, color flow Doppler imaging and compression. COMPARISON: No relevant prior studies available. FINDINGS: Right deep veins: Acute DVT within the posterior tibial veins. Right superficial veins: Unremarkable. No thrombus in the visualized right great saphenous vein. Left deep veins: There is nonocclusive thrombus involving the saphenofemoral junction and proximal left common femoral vein. Chronic DVT seen within the proximal popliteal vein Left superficial veins: Unremarkable. No thrombus in the visualized left great saphenous vein. Soft tissues: No acute findings. No popliteal cyst. IMPRESSION: Acute DVT Nonocclusive thrombus involving the saphenofemoral junction and proximal left common femoral veins. Chronic DVT in the left proximal popliteal vein. Communications: Call Doctor DVT acute, progressing Electronically signed by: Cortez Lockhart MD 09/30/23 01:10 AM PG Care Time/CCT Total # of Minutes Spent Total Time Spent with Patient: Total time spent is greater than 50% in coordination of care (as documented) at patient's floor/unit and/or counseling patient: Coding Level of Care Code 80553 SUB INP/OBS CARE 3/50MIN Diagnoses Neutropenic fever D70.9; R50.81 Pulmonary embolism I26.99 Acute cor pulmonale presence: without acute cor pulmonale Chronicity: acute Pulmonary embolism type: unspecified Dvt femoral (deep venous thrombosis) I82.419 Adrenal insufficiency E27.40 Hx of craniotomy Z98.890 Glioblastoma of frontal lobe C71.1 Type 2 diabetes mellitus with obesity E11.69; E66.9 COPD (chronic obstructive pulmonary disease) J44.9 HTN (hypertension) I10 Intracranial bleed I62.9 (2) Pulmonary embolism Acute cor pulmonale presence: without acute cor pulmonale Chronicity: acute Pulmonary embolism type: unspecified Qualified Code(s): I26.99 - Other pulmonary embolism without acute cor pulmonale
[2023-09-30] MEDS: INSULIN ASPART PER UNIT CHARGE SC SCH ×2 (09:12→21:09)
--- NOTE | 2023-09-30 09:20 | Consultation ---
Date of Consultation September 30, 2023 Assessment & Plan (1) Dvt femoral (deep venous thrombosis): Pt with DVT/PE, and ICH. Recommend IVC filter insertion. Discussed procedure, risks, benefits, and alternatives with pt. She agrees, but unable to sign consent forms. She wishes us to speak with her daughter, Alecia. History of Present Illness Reason for Consultation: DVT/PE, ICH Attending Physician: Josef Vargas MD History of Present Illness 72 yo f with multiple medical problems, including recent craniotomy/gliobastoma removal in 06/2023,DMII, osteoporosis, COPD, HTN, hyperlipidemia, osteoarthritis, admitted with ICH, pneumonia, PE/DVT, seen in consultation today for IVC filter insertion. Pt poor historian, moaning in bed. Admits pain, but can't say where. BLE venous US demonstrates LLE DVT, CTA chest demonstrates R PE. Allergies Allergy/AdvReac Type Severity Reaction Status Date / Time oxycodone AdvReac Intermediate Hallucinati Verified 09/15/23 09:59 ons Home Medications Medication Instructions Recorded Confirmed Type cholecalciferol (vitamin D3) 125 125 mcg PO QAM #90 tabs 10/08/22 09/29/23 Rx mcg (5,000 unit) tablet (Vitamin D3) chlorthalidone 25 mg tablet 25 mg PO DAILY #90 tabs 12/25/22 09/29/23 Rx metformin 500 mg tablet 500 mg PO BID #180 tabs 12/25/22 09/29/23 Rx metoprolol tartrate 25 mg tablet 25 mg PO BID #180 tabs 12/25/22 09/29/23 Rx rosuvastatin 20 mg tablet 20 mg PO QPM #90 tabs 12/26/22 09/29/23 Rx levetiracetam 1,000 mg tablet 2,000 mg (2 x 1,000 mg) PO BID #30 06/21/23 09/29/23 Rx (Keppra) tabs omeprazole 40 mg capsule,delayed 40 mg PO DAILY 07/23/23 09/29/23 History release blood sugar diagnostic (Blood #50 ea 08/13/23 09/08/23 Rx Glucose Test strips) blood-glucose meter #1 ea 08/13/23 09/08/23 Rx pen needle, diabetic 32 gauge x #100 ea 08/13/23 09/08/23 Rx 1/4" (Novofine 32) zinc oxide-cod liver oil 40 % 1 applic topical TID #136 grams 08/13/23 09/29/23 Rx topical paste (Desitin) docusate sodium 100 mg capsule 100 mg PO BID 09/01/23 09/29/23 History (Colace) ondansetron HCl 8 mg tablet 8 mg PO Q8H PRN n/v 09/01/23 09/29/23 History sennosides 8.6 mg tablet (Senokot) 8.6 mg PO BID 09/01/23 09/29/23 History temodar 1 tab PO .QHS 09/01/23 09/29/23 History insulin glargine 100 unit/mL (3 22 unit (0.22 mL) subcut DAILY #9 09/17/23 09/29/23 Rx mL) subcutaneous pen mL dexamethasone 2 mg tablet 2 mg PO BID 09/22/23 09/29/23 History Patient History Medical History Deviated nasal septum Seizures Obesity (BMI 30-39.9) Type 2 diabetes mellitus with obesity Environmental allergies Osteoporosis COPD (chronic obstructive pulmonary disease) TMJ click No locking Hyperlipemia HTN (hypertension) Surgical History Hx of craniotomy Left craniotomy for removal of tumor - 06/30/23 Dr. Stern at [facility] Status post right knee replacement (~04/2021) History of left cataract surgery History of right cataract surgery History of removal of cyst Rt breast History of eyelid surgery removal of skin tag History of tonsillectomy History of open reduction and internal fixation (ORIF) procedure LEFT FEMUR History of surgery finger surgery History of colonoscopy Family History Brother Anal cancer Brother Diabetes Sister Diabetes Sister Bladder cancer Mother , 88yo Myocardial infarction Stroke Diabetes Hypertension Father , Medical history unknown Minimal contact w/father MVA (motor vehicle accident) Brother No problems noted. Brother No problems noted. Brother No problems noted. Sister No problems noted. Sister Colorectal cancer Daughter No problems noted. Other No family history of adverse response to anesthesia Social History Smoking Status: Former smoker Tobacco Type: Cigarettes Cigarettes Per Day: 3 cigs per day; Second Hand Exposure: No; Do You Dip or Chew Tobacco: No; Hx Alcohol Use: No Hx Substance Use: No Preferred Language: Frisian Communication Ability: Effective Visual Impairment: No Limitations Hearing Ability: Normal Ring Facer Required: No Beliefs That Will Affect Care: None marital status: Single Current Living Situation: Alone current occupational status: retired current occupation: Cleaning at [employer] How many Children do You have: 1 Feels Safe at Home: Yes Safety Concerns: Feels Safe At This Time Dental Care, Regularly: No Seatbelt Use: always Sunscreen Use: No Assistive Devices: Walker and Wheelchair Review of Systems Review of Systems: All systems reviewed & are unremarkable except as noted in HPI & below Physical Exam Constitutional: WD/WN, vitals as above + obese; not in distress (but moaning in pain) Neck: trachea midline Respiratory: normal respiratory effort, lungs clear to auscultation Auscultation: + diminished lung sounds Cardiovascular: Rate/Rhythm: regular rate and regular rhythm Vessels: posterior tibial pulses present, dorsalis pedis pulses present and radial pulses present; + abnormal peripheral pulses Extremities: normal capillary refill and + edema Gastrointestinal (Abdomen): Inspection/Auscultation: abdomen normal to inspection and normal bowel sounds Percussion/Palpation: abdomen soft; abdomen nontender Skin: no rashes, warm and dry Neurologic: moves all extremities, + focal motor deficit, awake and + confused Speech / Cognition: + expressive aphasia Unable to write numbers and letters. Psychiatric: Orientation: alert and oriented to person Results & Data Vital Signs (Past 12 Hours) Vital Signs Pulse Pulse Resp BP BP Pulse Ox O2 Del Method 09/30/23 07:18 89 09/30/23 07:00 96 H 15 98 09/30/23 07:00 115/72 09/30/23 06:30 95 H 20 98 09/30/23 06:00 95 H 20 99 09/30/23 06:00 116/72 09/30/23 05:48 93 H 18 116/71 99 Nasal Cannula 09/30/23 05:00 91 H 18 116/71 99 09/30/23 04:00 95 H 18 113/64 96 Room Air 09/30/23 03:00 98 H 18 91/61 L 96 Room Air 09/30/23 02:01 101 H 22 118/78 09/30/23 02:01 101 H 22 96 Nasal Cannula 09/30/23 02:00 105 H 19 118/78 95 09/30/23 00:56 106 H 09/30/23 00:00 104 H 22 97/73 L 97 Nasal Cannula 09/29/23 23:00 112 H 23 100/73 97 Nasal Cannula 09/29/23 22:15 118 H 24 95/60 L 96 Nasal Cannula 09/29/23 22:00 121 H 24 72/53 L 95 Nasal Cannula O2 Flow Rate 09/30/23 07:18 09/30/23 07:00 09/30/23 07:00 09/30/23 06:30 09/30/23 06:00 09/30/23 06:00 09/30/23 05:48 2 09/30/23 05:00 09/30/23 04:00 09/30/23 03:00 09/30/23 02:01 09/30/23 02:01 4 09/30/23 02:00 09/30/23 00:56 09/30/23 00:00 4 09/29/23 23:00 4 09/29/23 22:15 4 09/29/23 22:00 4
[2023-09-30 10:03] LABS: Folate (Folic Acid),Ser orPlas 11.28 ng/ml (>5.38)
--- NOTE | 2023-09-30 10:17 | Pre Anesthesia Assessment ---
Date of Service September 30, 2023 Pre Sedation Assessment Vital Signs Temp Pulse Pulse Resp BP BP Pulse Ox 09/30/23 09:52 36.6 C 93 H 22 113/77 97 09/30/23 07:18 89 09/30/23 07:00 96 H 15 98 09/30/23 07:00 115/72 09/30/23 06:30 95 H 20 98 09/30/23 06:00 95 H 20 99 09/30/23 06:00 116/72 09/30/23 05:48 93 H 18 116/71 99 09/30/23 05:00 91 H 18 116/71 99 09/30/23 04:00 95 H 18 113/64 96 09/30/23 03:00 98 H 18 91/61 L 96 09/30/23 02:01 101 H 22 118/78 09/30/23 02:01 101 H 22 96 09/30/23 02:00 105 H 19 118/78 95 09/30/23 00:56 106 H 09/30/23 00:00 104 H 22 97/73 L 97 09/29/23 23:00 112 H 23 100/73 97 09/29/23 22:15 118 H 24 95/60 L 96 09/29/23 22:00 121 H 24 72/53 L 95 09/29/23 21:09 137 H 09/29/23 20:00 134 H 21 92/60 L 93 09/29/23 19:13 123 H 21 91/57 L 91 09/29/23 18:31 131 H 14 96 09/29/23 18:31 36.5 C 100/71 09/29/23 18:30 132 H 14 95 09/29/23 18:25 129 H 24 96 09/29/23 18:25 97/71 L 09/29/23 18:20 96/70 L 09/29/23 18:20 134 H 15 88 L 09/29/23 18:15 132 H 21 97 09/29/23 18:15 121/104 H 09/29/23 18:10 131 H 21 09/29/23 18:10 112/79 09/29/23 18:09 131 H 19 90 09/29/23 18:09 118/68 09/29/23 18:00 128 H 19 96 09/29/23 17:59 130 H 24 97 09/29/23 17:58 130 H 14 97 09/29/23 17:57 130 H 24 83/58 L 09/29/23 17:43 131 H 24 96 09/29/23 17:43 131 H 24 111/73 96 09/29/23 17:30 139 H 23 94 09/29/23 17:17 132 H 09/29/23 17:15 132 H 25 H 09/29/23 17:15 39.1 C H 139 H 22 94 O2 Del Method O2 Flow Rate 09/30/23 09:52 Nasal Cannula 3 09/30/23 07:18 09/30/23 07:00 09/30/23 07:00 09/30/23 06:30 09/30/23 06:00 09/30/23 06:00 09/30/23 05:48 Nasal Cannula 2 09/30/23 05:00 09/30/23 04:00 Room Air 09/30/23 03:00 Room Air 09/30/23 02:01 09/30/23 02:01 Nasal Cannula 4 09/30/23 02:00 09/30/23 00:56 09/30/23 00:00 Nasal Cannula 4 09/29/23 23:00 Nasal Cannula 4 09/29/23 22:15 Nasal Cannula 4 09/29/23 22:00 Nasal Cannula 4 09/29/23 21:09 09/29/23 20:00 Nasal Cannula 4 09/29/23 19:13 Nasal Cannula 4 09/29/23 18:31 09/29/23 18:31 09/29/23 18:30 09/29/23 18:25 09/29/23 18:25 09/29/23 18:20 09/29/23 18:20 09/29/23 18:15 09/29/23 18:15 09/29/23 18:10 09/29/23 18:10 09/29/23 18:09 09/29/23 18:09 09/29/23 18:00 09/29/23 17:59 09/29/23 17:58 09/29/23 17:57 Nasal Cannula 2 09/29/23 17:43 Nasal Cannula 2 09/29/23 17:43 Nasal Cannula 2 09/29/23 17:30 09/29/23 17:17 09/29/23 17:15 09/29/23 17:15 Room Air Cardiovascular RRR, no murmur, no edema Respiratory normal respiratory effort, lungs clear to auscultation Pre-Sedation Airway Assessment Smoking Status: Former smoker Hx Sleep Apnea: No Short, Thick Neck: No Thyromental Distance: > or= 3.5 Finger Breadths Oral Cavity: + WNL Mallampati Class: II ASA: ASA3 NPO Status Date of Last Intake of Fluids: 09/29/23 Time of Last Intake of Fluids: 21:00 Date of Last Intake of Solid Food: 09/29/23 Time of Last Intake of Solid Foods: 18:00 Procedure Planning Contraindications for Sedation: none Current Medications Reviewed: Yes Notes The planned sedation has been discussed with the patient. Informed Consent was obtained. I have identified the patient, determined the appropriateness of sedation and have assessed the patient immediately prior to the procedure. All medicine(s) and interventions are by my order.
--- NOTE | 2023-09-30 10:29 | Pharmacy Report ---
Pharmacy PK ABX Note - Date of Service September 30, 2023 - Assessment and Plan Assessment 72 year old F receiving vancomycin and zosyn empirically for neutropenic fever. S/p left craniotomy in June. Received dexamethasone 2mg BID as an outpatient. Day # 1 of antimicrobial therapy. Plan Vancomycin * Loading dose: 1750 mg IV x 1 * Maintenance dose: 1000 mg IV every 12 hours * Regimen is predicted to achieve target AUC/KATE of 400-600 mg/L.hr * Level will be ordered if therapy is expected to continue past current 48 hour duration Pharmacy will continue to follow and will adjust dose/frequency as necessary. Thank you. Pharmacy has transitioned to AUC monitoring for vancomycin. AUC/KATE is the preferred PK/PD target and is associated with decreased risk of nephrotoxicity compared to traditional trough targets.
[2023-09-30] MEDS: PANTOprazole 40 MG in SYRINGE 0 ML IV SCH (10:40)
--- NOTE | 2023-09-30 10:45 | Post Operative Brief Note ---
Immediate Post Op Note v1 Date of Surgery September 30, 2023 Pre & Post Diagnosis Operation Date: 09/30/23 08:00 Pre-Op Diagnosis: DVT, PE, Intercranial Bleed Post-Op Diagnosis: DVT, PE, Intercranial Bleed I identified the patient and participated in the time-out.: Yes Procedure Operation Date: 09/30/23 08:00 Actual Procedures p Insertion of Vena Cava Filter, RIght Femoral Approach, Ultrasound Localization of Right Internal Femoral Vein, Fluroscopy for Positioning(Right) - Chaim Logan MD Surgeon Chaim Logan MD Auto Body Repairman MD Nazia Estimated Blood Loss 0 Findings Consistent with Post-Op Diagnosis Anesthesia Type Local Disposition Accompanied Patient To Recovery: No Disposition: Recovery Room
[2023-09-30] MEDS: LIDOCAINE 1% LOCAL 20 ML VIAL ONE (10:46)
[2023-09-30] MEDS: VISIPAQUE IV PRN (10:47)
--- NOTE | 2023-09-30 10:52 | Operative Report ---
Post Operative Report Pre & Post Diagnosis Operation Date: 09/30/23 08:00 Pre-Op Diagnosis: SEPTIC SHOCK, NEUTROPENIA, MENTAL STATUS CHANGE Post-Op Diagnosis: SEPTIC SHOCK, NEUTROPENIA, MENTAL STATUS CHANGE I identified the patient and participated in the time-out.: Yes Procedure Operation Date: 09/30/23 08:00 Actual Procedures p Insertion of Vena Cava Filter, RIght Femoral Approach, Ultrasound Localization of Right Internal Femoral Vein, Fluroscopy for Positioning(Right) - Chaim Logan MD Surgeon Chaim Logan MD Radio News Anchor Jovanni Ritter MD Estimated Blood Loss 5 Findings Consistent with Post-Op Diagnosis Patient with patent R CFV and IVC. Bilateral renal veins patent. IVC filter deployed below the level of the bilateral renal veins Specimens None Anesthesia Type Local Complications None Disposition Accompanied Patient To Recovery: No Indications This is a 72 year old female with past medical history of DVT and PE as well as a brain mass and CTA with findings concerning for an intraparenchymal bleed, giving her a contraindication to therapeutic anticoagulation. Given her known DVT and PE, an IVC filter was elected to be placed. Description of Procedure Patient was taken to the angio suite and placed in the supine position. The right groin was prepped and draped in a sterile manner. Local anesthesia, 9cc of 1% lidocaine, was then administered to the appropriate areas of the right groin. Ultrasound was then used to locate the right common femoral vein. The vein compressed easily, had no filing defects, and was patent. The vein was then punctured under direct ultrasound imaging. A guidewire was then passed centrally under fluoroscopic imaging. A 10F dilator was used to dilate the CFV. The sheath for the IVC filter was then advanced into the infrarenal IVC. A venogram was taken. The bilateral renal veins were marked. The IVC filter was then advanced into the inferior vena cava and deployed at a level below the bilateral renal veins. Fluoroscopy was used. The IVC filter was fully deployed in correct position below the renal veins. The device was removed. Pressure over the venous access site was applied. The access site was hemostatic. A sterile dressing was applied. The patient left the angio suite in good condition and tolerated the procedure well. Dr. Logan was present and scrubbed for the entire procedure. I attest to the content of the Intraoperative Record and any orders documented therein. Any exceptions are noted below.
--- NOTE | 2023-09-30 11:46 | Oncology Consultation ---
Date of Consultation September 30, 2023 Assessment & Plan (1) Glioblastoma of frontal lobe: Given the fact that the patient has glioblastoma, had recent resection and recently finished chemoradiation at this point we will hold off treatment and will start treatment once the patient is discharged from the hospital. The fact that she had a recent intracranial procedure is a relative contraindication to institution of anticoagulation therapy, this was one of the reasons why I recommended placement of an IVC filter. We will institute further therapy once the patient is discharged from the hospital in stable. (2) Sepsis: For neutropenic sepsis and fever the Patient is currently on broad-spectrum antibiotics which I agree with. Growth factor therapy has been started while the patient is in the hospital and I agree with that as well. (3) Pulmonary embolism: The patient had segmental/subsegmental PE without circulatory compromise however she has extensive DVT in the lower extremity. Since there is a relative contraindication to anticoagulation plus a concern of recent intracranial bleeding we have not instituted anticoagulation therapy and rather have placed an IVC filter to limit further progression of pulmonary embolism. Plan Medical oncology will continue to follow the patient, make appropriate recommendations. Thank you for this interesting oncological consult. A total of 60 minutes were spent in counseling, coordination of care review of prior records and coordination of care with the relevant medical teams. History of Present Illness Reason for Consultation: Glioblastoma multiforme DVT of the lower extremities/pulmonary embolism Chemotherapy-induced neutropenia Failure to thrive Attending Physician: Josef Vargas MD History of Present Illness The patient is a very pleasant 72-year-old woman who is well-known to me, has a history of glioblastoma multiform. She was diagnosed in May 2023 when she presented to the ER with strokelike symptoms. She had a CT of the brain without contrast on 05/15/2023 which was unremarkable, subsequent MRI of the brain revealed 2.5 cm focus in the left frontoparietal cortex. Subsequently she was evaluated by neurosurgery which and underwent surgical resection. Final pathology was consistent with glioblastoma multiform. Molecular genetics were positive for third, CDK N2 A/2B and T p53. She came to medical oncology and radiation oncology was subsequently started on concurrent chemotherapy and radiation with temozolomide 75 mg/m. She finished concurrent chemo RT on 09/21/2023. She was supposed to start adjuvant temozolomide after 4 weeks of finishing chemoradiation and was scheduled to get an repeat MRI of the brain on 10/22/2023. She became increasingly fatigued and tired and was brought to the [facility] ER where a CT angiogram was performed which revealed pulmonary embolism. At this time a CT scan of the brain was also performed which revealed treatment- related changes in the left frontoparietal cortex that there was a question about intracranial bleeding as well. A CBC was performed which revealed severe neutropenia, the patient was started on broad-spectrum antibiotics as well as growth factors. Medical oncology was consulted to assist in management of this patient with glioblastoma multiforme s/p resection, s/p concurrent chemoradiation who has now developed DVT/PE and has a possible intracranial bleed. The patient was evaluated in the medical ICU where she was awake and alert and answering all the questions appropriately. Reported no active pain at this point. Allergies Allergy/AdvReac Type Severity Reaction Status Date / Time oxycodone AdvReac Intermediate Hallucinati Verified 09/15/23 09:59 ons Home Medications Medication Instructions Recorded Confirmed Type cholecalciferol (vitamin D3) 125 125 mcg PO QAM #90 tabs 10/08/22 09/29/23 Rx mcg (5,000 unit) tablet (Vitamin D3) chlorthalidone 25 mg tablet 25 mg PO DAILY #90 tabs 12/25/22 09/29/23 Rx metformin 500 mg tablet 500 mg PO BID #180 tabs 12/25/22 09/29/23 Rx metoprolol tartrate 25 mg tablet 25 mg PO BID #180 tabs 12/25/22 09/29/23 Rx rosuvastatin 20 mg tablet 20 mg PO QPM #90 tabs 12/26/22 09/29/23 Rx levetiracetam 1,000 mg tablet 2,000 mg (2 x 1,000 mg) PO BID #30 06/21/23 09/29/23 Rx (Keppra) tabs omeprazole 40 mg capsule,delayed 40 mg PO DAILY 07/23/23 09/29/23 History release blood sugar diagnostic (Blood #50 ea 08/13/23 09/08/23 Rx Glucose Test strips) blood-glucose meter #1 ea 08/13/23 09/08/23 Rx pen needle, diabetic 32 gauge x #100 ea 08/13/23 09/08/23 Rx 1/4" (Novofine 32) zinc oxide-cod liver oil 40 % 1 applic topical TID #136 grams 08/13/23 09/29/23 Rx topical paste (Desitin) docusate sodium 100 mg capsule 100 mg PO BID 09/01/23 09/29/23 History (Colace) ondansetron HCl 8 mg tablet 8 mg PO Q8H PRN n/v 09/01/23 09/29/23 History sennosides 8.6 mg tablet (Senokot) 8.6 mg PO BID 09/01/23 09/29/23 History temodar 1 tab PO .QHS 09/01/23 09/29/23 History insulin glargine 100 unit/mL (3 22 unit (0.22 mL) subcut DAILY #9 09/17/23 09/29/23 Rx mL) subcutaneous pen mL dexamethasone 2 mg tablet 2 mg PO BID 09/22/23 09/29/23 History Patient History Medical History Deviated nasal septum Seizures Obesity (BMI 30-39.9) Type 2 diabetes mellitus with obesity Environmental allergies Osteoporosis COPD (chronic obstructive pulmonary disease) TMJ click No locking Hyperlipemia HTN (hypertension) Surgical History Hx of craniotomy Left craniotomy for removal of tumor - 06/30/23 Dr. Stern at [facility] Status post right knee replacement (~04/2021) History of left cataract surgery History of right cataract surgery History of removal of cyst Rt breast History of eyelid surgery removal of skin tag History of tonsillectomy History of open reduction and internal fixation (ORIF) procedure LEFT FEMUR History of surgery finger surgery History of colonoscopy Family History Brother Anal cancer Brother Diabetes Sister Diabetes Sister Bladder cancer Mother , 88yo Myocardial infarction Stroke Diabetes Hypertension Father , Medical history unknown Minimal contact w/father MVA (motor vehicle accident) Brother No problems noted. Brother No problems noted. Brother No problems noted. Sister No problems noted. Sister Colorectal cancer Daughter No problems noted. Other No family history of adverse response to anesthesia Social History Smoking Status: Former smoker Tobacco Type: Cigarettes Cigarettes Per Day: 3 cigs per day; Second Hand Exposure: No; Do You Dip or Chew Tobacco: No; Hx Alcohol Use: No Hx Substance Use: No Preferred Language: Romanian Communication Ability: Effective Visual Impairment: No Limitations Hearing Ability: Normal Intake Clerk Required: No Beliefs That Will Affect Care: None marital status: Single Current Living Situation: Alone current occupational status: retired current occupation: Cleaning at [employer] How many Children do You have: 1 Feels Safe at Home: Yes Dental Care, Regularly: No Seatbelt Use: always Sunscreen Use: No Assistive Devices: Walker Review of Systems Review of Systems: All systems reviewed & are unremarkable except as noted in HPI & below Constitutional: as per Subjective / HPI Eyes: as per Subjective / HPI Ear, Nose, Mouth, Throat: as per Subjective / HPI Respiratory: as per Subjective / HPI Cardiovascular: as per Subjective / HPI Gastrointestinal: as per Subjective / HPI Genitourinary: as per Subjective / HPI Musculoskeletal: as per Subjective / HPI Integumentary: as per Subjective / HPI Neurologic: as per Subjective / HPI Psychiatric: as per Subjective / HPI Endocrine: as per Subjective / HPI Hematologic / Lymphatic: as per Subjective / HPI Physical Exam Constitutional: WD/WN, vitals as above Eyes: PERRL, conjunctivae normal, anicteric sclerae ENMT: external ear and nose normal, oropharynx normal Neck: trachea midline, no thyromegaly Respiratory: normal respiratory effort, lungs clear to auscultation Cardiovascular: RRR, no murmur, no edema Gastrointestinal (Abdomen): normal bowel sounds, soft, nontender, no hepatosplenomegaly Musculoskeletal: no cyanosis or clubbing, extremities motor strength 5/5 Skin: no rashes, warm and dry Psychiatric: A+Ox3, euthymic affect Results & Data Vital Signs (Past 12 Hours) Vital Signs Temp Pulse Pulse Resp BP BP Pulse Ox 09/30/23 10:48 98 H 18 133/88 98 09/30/23 10:45 98 H 18 133/88 98 09/30/23 10:40 98 H 18 148/97 H 98 09/30/23 10:35 100 H 18 140/89 98 09/30/23 10:30 100 H 18 141/90 H 98 09/30/23 09:52 36.6 C 93 H 22 113/77 97 09/30/23 07:18 89 09/30/23 07:00 96 H 15 98 09/30/23 07:00 115/72 09/30/23 06:30 95 H 20 98 09/30/23 06:00 95 H 20 99 09/30/23 06:00 116/72 09/30/23 05:48 93 H 18 116/71 99 09/30/23 05:00 91 H 18 116/71 99 09/30/23 04:00 95 H 18 113/64 96 09/30/23 03:00 98 H 18 91/61 L 96 09/30/23 02:01 101 H 22 118/78 09/30/23 02:01 101 H 22 96 09/30/23 02:00 105 H 19 118/78 95 09/30/23 00:56 106 H 09/30/23 00:00 104 H 22 97/73 L 97 O2 Del Method O2 Flow Rate 09/30/23 10:48 Oxymask 4 09/30/23 10:45 Oxymask 4 09/30/23 10:40 Oxymask 4 09/30/23 10:35 Oxymask 4 09/30/23 10:30 Oxymask 4 09/30/23 09:52 Nasal Cannula 3 09/30/23 07:18 09/30/23 07:00 09/30/23 07:00 09/30/23 06:30 09/30/23 06:00 09/30/23 06:00 09/30/23 05:48 Nasal Cannula 2 09/30/23 05:00 09/30/23 04:00 Room Air 09/30/23 03:00 Room Air 09/30/23 02:01 09/30/23 02:01 Nasal Cannula 4 09/30/23 02:00 09/30/23 00:56 09/30/23 00:00 Nasal Cannula 4 (2) Sepsis Sepsis acute organ dysfunction status: unspecified Sepsis type: sepsis due to unspecified organism Qualified Code(s): A41.9 - Sepsis, unspecified organism (3) Pulmonary embolism Acute cor pulmonale presence: without acute cor pulmonale Chronicity: acute Pulmonary embolism type: unspecified Qualified Code(s): I26.99 - Other pulmonary embolism without acute cor pulmonale
[2023-09-30] MEDS: MAGNESIUM SULFATE / D5W 1 GM/100 ML BAG IV SCH (11:56)
[2023-09-30] MEDS ORDERED: VANCOMYCIN HCL 1,500 MG in SODIUM CHLORIDE 0.9% 500 ML IV SCH (12:00)
[2023-09-30] MEDS ORDERED: ACETAMINOPHEN 500 MG TAB PO PRN (12:20)
[2023-09-30] MEDS: traMADol HCL 50 MG TABLET PO PRN (12:41)
[2023-09-30] MEDS: VANCOMYCIN HCL 1,000 MG in SODIUM CHLORIDE 0.9% 250 ML IV SCH (12:49)
--- NOTE | 2023-09-30 15:02 | Electrocardiogram Report ---
Test Reason : Blood Pressure : / mmHG Vent. Rate : 132 BPM Atrial Rate : 132 BPM P-R Int : 144 ms QRS Dur : 078 ms QT Int : 288 ms P-R-T Axes : 066 051 076 degrees QTc Int : 426 ms Poor data quality, interpretation may be adversely affected Sinus tachycardia Nonspecific ST abnormality Abnormal ECG When compared with ECG of 21-JUN-2023 09:13, Vent. rate has increased BY [address] now depressed in Anterior leads Confirmed by Benny Trejo ([id number]) on 09/30/2023 3:02:31 PM Referred By: REFERRED SELF Confirmed By:Benny Trejo
[2023-09-30] MEDS ORDERED: PHARMACY GLYCEMIC MGMT CONSULT PRN (15:32)
[2023-09-30] MEDS: METOPROLOL TARTRATE 25 MG TAB PO SCH (20:25)
[2023-09-30] MEDS: DOCUSATE SODIUM 100 MG CAP PO SCH (20:25)
[2023-09-30] MEDS: FLUCONAZOLE 200 MG/100 ML BAG IV SCH (21:07)
[2023-10-01] MEDS: INSULIN ASPART PER UNIT CHARGE SC SCH (00:24)
[2023-10-01 04:49] LABS: Albumin Globulin Ratio 1.6 (0.9-2); Albumin Level 3.1 gm/dl (3.4-5.0); BUN Creatinine Ratio 26.4 (10-20); Bilirubin,Total 0.7 mg/dl (0.2-1.0); Creatinine Clr Calc Pharmacy 89.7 ml/min; Est GFR (African American) 108.4 ml/min; Est GFR (Non-African American) 93.5 ml/min; Magnesium 2.3 mg/dl (1.7-2.4); Potassium 3.3 mmol/L (3.5-5.1); Total Protein 5.1 gm/dl (6.0-8.3)
[2023-10-01 04:59] LABS: Hematocrit (blood only) 30.1 % (37.0-47.0); Hemoglobin 10.6 g/dl (12.0-16.0); Mean Corpuscular Hemoglobin 35.7 pg (25.0-34.0); Mean Corpuscular Hgb Conc 35.2 g/dL (32.0-36.0); Mean Corpuscular Volume 101.3 fL (80.0-100.0); Mean Platelet Volume 10.2 fL (9.4-12.4); Platelet Count 59 K/uL (130-400); RDW Standard Deviation 56.1 fL (36.4-46.3); Red Blood Count 2.97 M/uL (4.20-5.40); White Blood Count 0.74 K/ul (4.8-10.8)
[2023-10-01 05:02] LABS: Eosinophils # (auto) 0.01 K/uL (0.00-0.50); Eosinophils % (auto) 1.4 %; Immature Granulocytes # (auto) 0.01 K/uL (0.01-0.20); Immature Granulocytes % (auto) 1.4 %; Lymphocytes # (auto) 0.33 K/uL (1.20-3.40); Lymphocytes % (auto) 44.6 %; Monocytes # (auto) 0.37 K/uL (0.11-0.59); Neutrophils # (auto) 0.02 K/uL (1.40-6.50); Neutrophils % (auto) 2.6 %
--- NOTE | 2023-10-01 07:28 | XRay Report ---
SINGLE VIEW CHEST CLINICAL HISTORY: Pulmonary embolus FINDINGS: An AP, portable, upright chest radiograph is compared to chest x-ray and chest CT dated 09/01. The heart is enlarged noting atherosclerotic calcification of the thoracic aorta. The pulmona ry vasculature is noncongested. There is bibasilar scarring/atelectasis. No lobar consolidation is se en typical for pneumonia. No large pleural effusion or pneumothorax is identified. The skeletal struc tures are osteopenic. The bony thorax is grossly intact. Advanced degenerative change is noted in the shoulders and spine. IMPRESSION: Cardiomegaly without radiographic evidence of congestive failure. ACT 112: Negative or not required by law. Electronically signed by: Terrance Masters M.D. 10/01/2023 7:26 AM
--- NOTE | 2023-10-01 07:57 | Hospitalist Progress Note ---
Date of Service October 01, 2023 Assessment & Plan (1) Neutropenic fever: Plan: Change in mental status/confusion/lethargy/decreased responsiveness- Contributing factors including but not limited to: Intracranial bleed/encephalopathy/recent left craniotomy for GBM/neutropenic fever/DVT PE Imaging noting moderate fecal debris in colon, no bowel obstruction/appendicitis. Unremarkable abdominal visera with no acute process. CTA chest w/ RLL PE without evidence of R sided cardiac strain. RLL groundglass opacity which may indicate pneuomonitis/atelectasis with pulm hemorrhage not excluded in context of RLL PE. Bilateral lower lobe atelectasis with no effusion or PTX. Neutropenic fever- On admission, WBC 1.35, with neutrophil 0.00 Given Neupogen 480 mcg's SQ x 1 WBC 0.85, neutrophil 0.02 today Lyme testing negative on screening, biofire negative Anaplasmosis and babesiosis smears negative, with antibodies pending Continue Vanco, Zosyn, Acyclovir, fluconazole Blood cultures pending Dexamethasone 6mg IV q8h Continue protonix IV daily Hematology/oncology consulted, Dr Elizabeth -- appreciate recs/assistance Diet as tolerated. Aspiration precautions Titrate O2 as able s/p IVC filter for DVT/PE in setting of intracranial bleeding on imaging as below 5/1 WBC 0.74k, neutrophils unchanged 0.02 Remains on IV Vanco, Zosyn, Acyclovir, Fluconazole Remains afebrile since admission fever 39.1C. ?fever from DVT/PE, does not appear w/ active infection but will continue IV abx through tomorrow to ensure BCxs remain NGTD Advanced diet, tolerating Titrated to 1L --> room air this morning Neupogen 480x1 per discussion with Dr Elizabeth this morning, ok to transition back to home decadron --> was taking 4mg PO BID (2mg PO BID on med rec but confirmed with daughter and portal taking 4mg BID) B12/folate replacement as below ELiquis remaining on hold -- to continue to hold at dc given CT findings. IVC filter in place Notified pharmacy of decreased decadron as on consult for glycemic management PT/OT consulted, possible rehab/SNF vs home with home health as was doing prior to admission (2) Pulmonary embolism: Plan: LEFT DVT, CTA chest noting RLL PE CT chest DOES NOT note R heart strain Venous doppler with acute nonocclusive thrombus involving the saphenofemoral junction and proximal left common femoral veins Not a candidate for anticoagulation due to question of intracranial bleed Consult vascular surgery for IVC filter, Dr Logan s/p IVC filter placement on 09/[address] Logan Pain control, supplemental O2 to maintain sats Decreased decadron as above to home 4mg PO BID, also should help with pneumonitits On room air this afternoon and will monitor ?2step prior to dc (3) Dvt femoral (deep venous thrombosis): Plan: as above, acute LEFT DVT , now s/p IVC filter (4) Adrenal insufficiency: Plan: on decadron 2mg PO BID prior to admission Dexamethasone 10mg IV in ER, continued on 6mg q8h as above but TRANSITIONING BACK TO HOME 4mg PO BID FOR 09/30, BP stable resumed home metoprolol 25mg PO BID -- of note, was to STOP her chlorthalidone outpatient due to borderline BPs per discussion w/ daughter at bedside 09/[address] Corado (5) Hx of craniotomy: Plan: Status left craniotomy for GBM- Surgery at [facility] in [place] 06/30/2023 CT scan with question of intracranial bleed noted on serial CTs Given dexamethasone 10 mg IV in ED, continued on 6mg IV q8h for 09/29 and plan to transition back to prior home dosing as above Keppra continued IV BID for now, can convert back to PO BID in AM if no issues on review of medications, does not appear keppra was ordered on admission --- given tolerating PO intake, resumed 2000mg PO BID Appreciate heme/onc recs/assistance (6) Glioblastoma of frontal lobe: Plan: As above, hematology/oncology consulted IV steroids as above, abx, appreciate consult recs/assistance supportive care provided, has been through a lot this past year Palliative care consulted on admission as well, does not appear has been seen yet (7) Type 2 diabetes mellitus with obesity: Plan: Diabetes mellitus- Home metformin on hold IV decadron as above, transitioning back to home dosing Glargine increased to 22u BID on IV steroids, pharmacy consulted for glycemic management Monitor BSGs w/ decreased decadron B12 check, LOW 81-- IM x 3 ordered and should be continued on PO at dc. Folate also borderline (8) COPD (chronic obstructive pulmonary disease): Plan: supplemental O2 to maintain sats doesn't appear to be on any inhalers at baseline monitor for need for 2step (9) HTN (hypertension): Plan: resuming home metoprolol tartrate 25mg PO BID will hold off resuming home chlorthalidone but may need to resume pending volume status/steroid use -- was to be stopped as above, would not resume given her BPs (10) Intracranial bleed: Plan: as noted on CT head on admission, IVC filter as outlined can reach out to Dr Stern/Hazel if needed neurochecks (11) B12 deficiency: Plan: checked B12/Folate due to MCV >100 for completeness along with her anemia (multifactorial as above) Folate wnl however B12 LOW 81 --?2nd to metformin use IM x 3 doses ordered, continue PO at discharge Plan continued inpatient stay, therapy evals ordered Admission and Anticipated Discharge Date Admission Date: September 29, 2023 Supervising Physician Co-Signing Physician Notes The patient was not seen by me. Chart reviewed. Case discussed with EDU Dash. Agree with assessment and plan. Subjective EValuated around lunch, sister and daughter in room. Provided eggs this morning, tolerating. Being assisted by family this afternoon for lunch. Breathing stable/improved, on 1L. Titrating as able. Discussed chlorthalidone, daughter reports didn't get to stop but as of Friday Dr Corado had stopped this due to her lower BP. No increased leg swelling or congestion on CXR. Does have some swelling in her hands but strength improved. Discussed spoke with Dr Elizabeth this morning and planning for additional neuopogen and planning to repeat dose today for neutropenia. Also discussed B12/folate levels and replacement. Inquiring about length of time inpatient -- discussed likely could be considered on Friday pending course/repeat labs. Prior had been to [facility] after knee but also [facility]. Met lots of friends at [facility] but pref not to return per patient. Will consult therapy and alert CM to follow for possible rehab needs. Prior to admission she was at home and undergoing home heatlh therapy and discussed pending evals could be considered but agreeable to rehab if recommended and will continue discussions. Breathing stable, no chest pain. No abdominal pain/nausea. Also discussed decreasing her decadron, 2mg PO BID prior to admission but ACTUALLY was taking 4mg PO BID confirmed on portal with daughter in room and will switch to 4mg PO BID. Questions/concerns addressed at this time. Physical Exam Physical Exam: General: 72yo female sitting up in bed, eating lunch, family at bedside, NAD HEENT: mm slightly dry but IMPROVED, trachea midline, prior craniotomy Resp: diminished in the bases, faint crackles but no wheezing/rales, on 1L NC this morning CV: RRR, no significant m/r/g, no pitting edema/calf tenderness, slight edema to hands but pulses palpable GI: +BS, soft/obese, nontender : no gómez MSK/Neuro:some expressive aphasia at baseline but able to follow commands and appears improved/less fatigued/improved demeanor generalized weakness but nonfocal Skin: scattered bruising Psych: alert to person/place, cooperative with exam Results & Data Results & Data Vital Signs (Past 12 Hours) Vital Signs Temp Pulse Resp BP Pulse Ox O2 Del Method 10/01/23 06:30 84 18 98 10/01/23 06:00 111/83 10/01/23 06:00 76 15 97 10/01/23 05:30 79 16 97 10/01/23 05:00 79 15 97 10/01/23 04:30 78 15 98 10/01/23 04:00 77 15 98 10/01/23 04:00 115/83 10/01/23 04:00 36.6 C 10/01/23 03:30 77 15 96 10/01/23 03:01 75 15 96 10/01/23 02:30 75 15 96 10/01/23 02:00 81 14 97 10/01/23 02:00 115/81 10/01/23 01:30 78 15 96 10/01/23 01:00 79 14 95 10/01/23 00:30 75 15 96 10/01/23 00:00 36.6 C 10/01/23 00:00 75 10/01/23 00:00 105/73 10/01/23 00:00 71 14 98 09/30/23 23:30 70 15 97 09/30/23 23:00 69 15 97 09/30/23 22:30 69 17 99 09/30/23 22:00 72 16 99 09/30/23 22:00 107/81 09/30/23 21:30 74 16 99 09/30/23 21:00 77 16 99 09/30/23 20:45 85 15 98 09/30/23 20:38 84 14 96 09/30/23 20:38 99/72 L 09/30/23 20:35 96/70 L 09/30/23 20:35 82 17 97 09/30/23 20:30 86 18 97 09/30/23 20:15 85 17 98 09/30/23 20:00 36.6 C 09/30/23 20:00 Room Air 09/30/23 20:00 84 16 98 Laboratory Results 10/01/23 10/01/23 10/01/23 Range/Units 11:20 07:24 05:13 WBC (4.8-10.8) K/ul RBC (4.20-5.40) M/uL Hgb (12.0-16.0) g/dl Hct (37.0-47.0) % MCV (80.0-100.0) fL MCH (25.0-34.0) pg MCHC (32.0-36.0) g/dL RDW Std Deviation (36.4-46.3) fL RDW Coeff of Tomas (11.5-14.5) % Plt Count (130-400) K/uL MPV (9.4-12.4) fL Immature Gran % (Auto) % Neut % (Auto) % Lymph % (Auto) % [place] % (Auto) % Eos % (Auto) % Baso % (Auto) % Neut # (Auto) (1.40-6.50) K/uL Lymph # (Auto) (1.20-3.40) K/uL [place] # (Auto) (0.11-0.59) K/uL Eos # (Auto) (0.00-0.50) K/uL Baso # (Auto) (0.00-0.20) K/uL Immature Gran # (Auto) (0.01-0.20) K/uL Sodium (136-145) mmol/L Potassium (3.5-5.1) mmol/L Chloride (98-107) mmol/L Carbon Dioxide (21-32) mmol/L Anion Gap (3-11) BUN (6-23) mg/dl Creatinine (0.6-1.2) mg/dl Est Cr Clr Drug Dosing ml/min Est GFR ( Amer) ml/min Est GFR (Non-Af Amer) ml/min BUN/Creatinine Ratio (10-20) Glucose (70-99(Fasting)) mg/dl POC Glucose 198 H 138 H 153 H (70-99) mg/dl Calcium (8.6-10.3) mg/dl Magnesium (1.7-2.4) mg/dl Total Bilirubin (0.2-1.0) mg/dl AST (13-39) U/L ALT (7-52) U/L Alkaline Phosphatase (34-104) U/L Total Protein (6.0-8.3) gm/dl Albumin (3.4-5.0) gm/dl Globulin (2.5-4.0) gm/dl Albumin/Globulin Ratio (0.9-2) 10/01/23 10/01/23 09/30/23 Range/Units 04:05 00:21 20:28 WBC 0.74 L* (4.8-10.8) K/ul RBC 2.97 L (4.20-5.40) M/uL Hgb 10.6 L (12.0-16.0) g/dl Hct 30.1 L (37.0-47.0) % MCV 101.3 H (80.0-100.0) fL MCH 35.7 H (25.0-34.0) pg MCHC 35.2 (32.0-36.0) g/dL RDW Std Deviation 56.1 H (36.4-46.3) fL RDW Coeff of Tomas 15.0 H (11.5-14.5) % Plt Count 59 L (130-400) K/uL MPV 10.2 (9.4-12.4) fL Immature Gran % (Auto) 1.4 % Neut % (Auto) 2.6 % Lymph % (Auto) 44.6 % [place] % (Auto) 50.0 % Eos % (Auto) 1.4 % Baso % (Auto) 0.0 % Neut # (Auto) 0.02 L* (1.40-6.50) K/uL Lymph # (Auto) 0.33 L (1.20-3.40) K/uL [place] # (Auto) 0.37 (0.11-0.59) K/uL Eos # (Auto) 0.01 (0.00-0.50) K/uL Baso # (Auto) 0.00 (0.00-0.20) K/uL Immature Gran # (Auto) 0.01 (0.01-0.20) K/uL Sodium 140 (136-145) mmol/L Potassium 3.3 L (3.5-5.1) mmol/L Chloride 106 (98-107) mmol/L Carbon Dioxide 28 (21-32) mmol/L Anion Gap 6 (3-11) BUN 14 (6-23) mg/dl Creatinine 0.53 L (0.6-1.2) mg/dl Est Cr Clr Drug Dosing 89.7 ml/min Est GFR ( Amer) 108.4 ml/min Est GFR (Non-Af Amer) 93.5 ml/min BUN/Creatinine Ratio 26.4 H (10-20) Glucose 159 H (70-99(Fasting)) mg/dl POC Glucose 196 H 202 H (70-99) mg/dl Calcium 8.0 L (8.6-10.3) mg/dl Magnesium 2.3 (1.7-2.4) mg/dl Total Bilirubin 0.7 (0.2-1.0) mg/dl AST 28 (13-39) U/L ALT 45 (7-52) U/L Alkaline Phosphatase 26 L (34-104) U/L Total Protein 5.1 L (6.0-8.3) gm/dl Albumin 3.1 L (3.4-5.0) gm/dl Globulin 2.0 L (2.5-4.0) gm/dl Albumin/Globulin Ratio 1.6 (0.9-2) 09/30/23 Range/Units 15:56 WBC (4.8-10.8) K/ul RBC (4.20-5.40) M/uL Hgb (12.0-16.0) g/dl Hct (37.0-47.0) % MCV (80.0-100.0) fL MCH (25.0-34.0) pg MCHC (32.0-36.0) g/dL RDW Std Deviation (36.4-46.3) fL RDW Coeff of Tomas (11.5-14.5) % Plt Count (130-400) K/uL MPV (9.4-12.4) fL Immature Gran % (Auto) % Neut % (Auto) % Lymph % (Auto) % [place] % (Auto) % Eos % (Auto) % Baso % (Auto) % Neut # (Auto) (1.40-6.50) K/uL Lymph # (Auto) (1.20-3.40) K/uL [place] # (Auto) (0.11-0.59) K/uL Eos # (Auto) (0.00-0.50) K/uL Baso # (Auto) (0.00-0.20) K/uL Immature Gran # (Auto) (0.01-0.20) K/uL Sodium (136-145) mmol/L Potassium (3.5-5.1) mmol/L Chloride (98-107) mmol/L Carbon Dioxide (21-32) mmol/L Anion Gap (3-11) BUN (6-23) mg/dl Creatinine (0.6-1.2) mg/dl Est Cr Clr Drug Dosing ml/min Est GFR ( Amer) ml/min Est GFR (Non-Af Amer) ml/min BUN/Creatinine Ratio (10-20) Glucose (70-99(Fasting)) mg/dl POC Glucose 188 H (70-99) mg/dl Calcium (8.6-10.3) mg/dl Magnesium (1.7-2.4) mg/dl Total Bilirubin (0.2-1.0) mg/dl AST (13-39) U/L ALT (7-52) U/L Alkaline Phosphatase (34-104) U/L Total Protein (6.0-8.3) gm/dl Albumin (3.4-5.0) gm/dl Globulin (2.5-4.0) gm/dl Albumin/Globulin Ratio (0.9-2) PG Care Time/CCT Total # of Minutes Spent Total Time Spent with Patient: Total time spent is greater than 50% in coordination of care (as documented) at patient's floor/unit and/or counseling patient: Coding Level of Care Code 40613 SUB INP/OBS CARE 3/50MIN Diagnoses Neutropenic fever D70.9; R50.81 Pulmonary embolism I26.99 Acute cor pulmonale presence: without acute cor pulmonale Chronicity: acute Pulmonary embolism type: unspecified Dvt femoral (deep venous thrombosis) I82.419 Adrenal insufficiency E27.40 Hx of craniotomy Z98.890 Glioblastoma of frontal lobe C71.1 Type 2 diabetes mellitus with obesity E11.69; E66.9 COPD (chronic obstructive pulmonary disease) J44.9 HTN (hypertension) I10 Intracranial bleed I62.9 B12 deficiency E53.8 (2) Pulmonary embolism Acute cor pulmonale presence: without acute cor pulmonale Chronicity: acute Pulmonary embolism type: unspecified Qualified Code(s): I26.99 - Other pulmonary embolism without acute cor pulmonale
[2023-10-01] MEDS: CYANOCOBALAMIN 1000 MCG/ML VIAL IM SCH (09:59)
[2023-10-01] MEDS: POTASSIUM CHLORIDE CRTAB 20 MEQ TABCR PO STA (12:43)
[2023-10-01] MEDS: FILGRASTIM 480 MCG/1.6 ML VIAL SC ONE (13:43)
--- NOTE | 2023-10-01 14:54 | Pharmacy Report ---
Pharmacy Glycemic Short Note 2 - Date of Service October 01, 2023 - Glycemic Short BSG Results (Last 24 hours): 09/30/23 09/30/23 10/01/23 15:56 20:28 00:21 Glucose POC Glucose 188 H 202 H 196 H 10/01/23 10/01/23 10/01/23 04:05 05:13 07:24 Glucose 159 H POC Glucose 153 H 138 H 10/01/23 11:20 Glucose POC Glucose 198 H OUTPATIENT ANTIDIABETIC REGIMEN: * Insulin glargine 22 units daily, metformin 500 mg BID * A1c 9.7% 09/29 ASSESSMENT: * Patient admitted with neutropenic fever, currently on empiric therapy with acyclovir, fluconazole, zosyn and vancomycin * Initially ordered dexamethasone 6 mg IV q8H, BSGs in upper 100s-low 200s. Lantus was titrated between weight based stress of 2 and 3 * Steroids adjusted to dexamethasone 4 mg PO BID this afternoon, will change to lantus scale for PM and monitor- IV dex will likely still be active until tomorrow, will monitor for further adjustments PLAN FOR INPATIENT GLYCEMIC CONTROL: * Hold outpatient oral diabetes medications * Basal insulin * Lantus 13/18 units SQ BID * Bolus insulin * NovoLog per scale ACHS or Q6hrs while NPO * Goal Range: Low 110 mg/dL - High 140 mg/dL * Correction Factor: 20 mg/dL/unit * Nutritional / Prandial insulin per carb ratio of 1 unit per 8 grams CHO consumed
--- NOTE | 2023-10-01 15:12 | Palliative Care Consultation ---
Date of Consultation October 01, 2023 Assessment & Plan (1) Weakness generalized: (2) Confusion: (3) Palliative care by specialist: Plan * Will try to reach pt daughter * I am in clinic tomorrow () and return to [facility] inpatient on Friday. Thank you for allowing us to participate in the ongoing care of this patient. Please don't hesitate to call or page with any additional concerns. Dr. Yumiko Banks DNP Director, Palliative Care History of Present Illness Reason for Consultation: [facility] Attending Physician: Josef Vargas MD History of Present Illness 72yo female with glio admitted from home with confusion/lethargy/decreased responsiveness hx left crani for GBM at [facility] 06/30/23, ?pos Intercranial bleeds on post op serial CTs remains on keppra +neutropenic fever, WBC 1.35 found to have PE/DVT - CTA + RLL PE without RH strain Shameka is seen bedside, no family present she is slightly anxious and intermittently tearful, she has trouble recalling a lot of details but can tell me she had surgery for her brain cancer and has some trouble speaking/word location. She cannot recall why she came to hospital, only that she "sort of woke up and here i was." she denies current pain, dyspnea, n/v/d/c appetite ok mood depressed, she is tearful at times thru this consult Allergies Allergy/AdvReac Type Severity Reaction Status Date / Time oxycodone AdvReac Intermediate Hallucinati Verified 09/15/23 09:59 ons Home Medications Medication Instructions Recorded Confirmed Type cholecalciferol (vitamin D3) 125 125 mcg PO QAM #90 tabs 10/08/22 09/29/23 Rx mcg (5,000 unit) tablet (Vitamin D3) chlorthalidone 25 mg tablet 25 mg PO DAILY #90 tabs 12/25/22 09/29/23 Rx metformin 500 mg tablet 500 mg PO BID #180 tabs 12/25/22 09/29/23 Rx metoprolol tartrate 25 mg tablet 25 mg PO BID #180 tabs 12/25/22 09/29/23 Rx rosuvastatin 20 mg tablet 20 mg PO QPM #90 tabs 12/26/22 09/29/23 Rx levetiracetam 1,000 mg tablet 2,000 mg (2 x 1,000 mg) PO BID #30 06/21/23 09/29/23 Rx (Keppra) tabs omeprazole 40 mg capsule,delayed 40 mg PO DAILY 07/23/23 09/29/23 History release blood sugar diagnostic (Blood #50 ea 08/13/23 09/08/23 Rx Glucose Test strips) blood-glucose meter #1 ea 08/13/23 09/08/23 Rx pen needle, diabetic 32 gauge x #100 ea 08/13/23 09/08/23 Rx 06/05" (Novofine 32) zinc oxide-cod liver oil 40 % 1 applic topical TID #136 grams 08/13/23 09/29/23 Rx topical paste (Desitin) docusate sodium 100 mg capsule 100 mg PO BID 09/01/23 09/29/23 History (Colace) ondansetron HCl 8 mg tablet 8 mg PO Q8H PRN n/v 09/01/23 09/29/23 History sennosides 8.6 mg tablet (Senokot) 8.6 mg PO BID 09/01/23 09/29/23 History temodar 1 tab PO .QHS 09/01/23 09/29/23 History insulin glargine 100 unit/mL (3 22 unit (0.22 mL) subcut DAILY #9 09/17/23 09/29/23 Rx mL) subcutaneous pen mL dexamethasone 2 mg tablet 2 mg PO BID 09/22/23 09/29/23 History Patient History Medical History (Updated 10/01/23 @ 20:03 by Yumiko aBnks DNP) Palliative care by specialist Confusion Weakness generalized Deviated nasal septum Seizures Obesity (BMI 30-39.9) Type 2 diabetes mellitus with obesity Environmental allergies Osteoporosis COPD (chronic obstructive pulmonary disease) TMJ click No locking Hyperlipemia HTN (hypertension) Surgical History Hx of craniotomy Left craniotomy for removal of tumor - 06/30/23 Dr. Stern at [facility] Status post right knee replacement (~04/2021) History of left cataract surgery History of right cataract surgery History of removal of cyst Rt breast History of eyelid surgery removal of skin tag History of tonsillectomy History of open reduction and internal fixation (ORIF) procedure LEFT FEMUR History of surgery finger surgery History of colonoscopy Family History Brother Anal cancer Brother Diabetes Sister Diabetes Sister Bladder cancer Mother , 88yo Myocardial infarction Stroke Diabetes Hypertension Father , Medical history unknown Minimal contact w/father MVA (motor vehicle accident) Brother No problems noted. Brother No problems noted. Brother No problems noted. Sister No problems noted. Sister Colorectal cancer Daughter No problems noted. Other No family history of adverse response to anesthesia Social History Smoking Status: Former smoker Tobacco Type: Cigarettes Cigarettes Per Day: 3 cigs per day; Second Hand Exposure: No; Do You Dip or Chew Tobacco: No; Hx Alcohol Use: No Hx Substance Use: No Preferred Language: Greek Communication Ability: Effective Visual Impairment: No Limitations Hearing Ability: Normal Surface Ship Usw Supervisor Required: No Beliefs That Will Affect Care: None marital status: Single Current Living Situation: Alone current occupational status: retired current occupation: Cleaning at [employer] How many Children do You have: 1 Feels Safe at Home: Yes Dental Care, Regularly: No Seatbelt Use: always Sunscreen Use: No Assistive Devices: Walker Review of Systems Review of Systems: All systems reviewed & are unremarkable except as noted in Subjective Physical Exam Physical Exam: Resting in bed, tired appearing bitemp wasting perrla neck supple, no stridor' chest sl diminished, normal effort s1s2 abd soft, NTP, BS+ weakness throughout Awake and alert to self, trouble following detailed/complex discussion and repeatedly states "talk to my daughter about that, it's too hard for me" forgetful tearful at times +word location trouble at times, stuttering/stumbling speech pattern Results & Data Vital Signs (Past 12 Hours) Vital Signs Temp Pulse Pulse Resp BP BP Pulse Ox 10/01/23 08:25 36.5 C 93 H 17 109/71 91 10/01/23 08:00 10/01/23 06:52 80 10/01/23 06:30 84 18 98 10/01/23 06:00 111/83 10/01/23 06:00 76 15 97 10/01/23 05:30 79 16 97 10/01/23 05:00 79 15 97 10/01/23 04:30 78 15 98 10/01/23 04:00 77 15 98 10/01/23 04:00 115/83 10/01/23 04:00 36.6 C 10/01/23 03:30 77 15 96 O2 Del Method O2 Flow Rate 10/01/23 08:25 Room Air 10/01/23 08:00 Nasal Cannula 2 10/01/23 06:52 10/01/23 06:30 10/01/23 06:00 10/01/23 06:00 10/01/23 05:30 10/01/23 05:00 10/01/23 04:30 10/01/23 04:00 10/01/23 04:00 10/01/23 04:00 10/01/23 03:30 Laboratory Results 10/01/23 10/01/23 10/01/23 Range/Units 19:59 16:48 11:20 WBC (4.8-10.8) K/ul RBC (4.20-5.40) M/uL Hgb (12.0-16.0) g/dl POC Hgb (12.0-16.0) g/dl Hct (37.0-47.0) % POC Hct (37-47) % MCV (80.0-100.0) fL MCH (25.0-34.0) pg MCHC (32.0-36.0) g/dL RDW Std Deviation (36.4-46.3) fL RDW Coeff of Tomas (11.5-14.5) % Plt Count (130-400) K/uL MPV (9.4-12.4) fL Immature Gran % (Auto) % Neut % (Auto) % Lymph % (Auto) % [place] % (Auto) % Eos % (Auto) % Baso % (Auto) % Neut # (Auto) (1.40-6.50) K/uL Lymph # (Auto) (1.20-3.40) K/uL [place] # (Auto) (0.11-0.59) K/uL Eos # (Auto) (0.00-0.50) K/uL Baso # (Auto) (0.00-0.20) K/uL Immature Gran # (Auto) (0.01-0.20) K/uL Neutrophils % (Manual) % Lymphocytes % (Manual) % Monocytes % (Manual) % Eosinophils % (Manual) % Basophils % (Manual) % Neutrophils # (Manual) (1.40-6.50) K/uL Total Absolute Neuts (1.4-6.5) K/uL Lymphocytes # (Manual) (1.2-3.4) K/uL Total Abs Lymphocytes (1.2-3.4) K/uL Monocytes # (Manual) (0.11-0.59) K/uL Eosinophils # (Manual) (0-0.50) K/uL Basophils # (Manual) (0-0.2) K/uL Large Granular Lymphs % # Lrg Granular Lymphs K/uL Polychromasia PT (9.0-12.0) Seconds INR (0.9-1.1) VBG pH (7.36-7.41) VBG pCO2 (38-50) mmHg VBG pO2 mmHg VBG HCO3 mmol/L VBG O2 Saturation % VBG Base Excess mEq/L POC Sodium (135-144) mmol/L Sodium (136-145) mmol/L POC Potassium (3.3-5.0) mmol/L Potassium (3.5-5.1) mmol/L POC Chloride (101-112) mmol/L Chloride (98-107) mmol/L Carbon Dioxide (21-32) mmol/L POC Total CO2 (24-31) mmol/L Anion Gap (3-11) POC Anion Gap (16-25) mmol/L POC BUN (7-18) mg/dl BUN (6-23) mg/dl Creatinine (0.6-1.2) mg/dl POC Creatinine (0.6-1.3) mg/dl Est Cr Clr Drug Dosing ml/min Est GFR ( Amer) ml/min Est GFR (Non-Af Amer) ml/min BUN/Creatinine Ratio (10-20) Glucose (70-99(Fasting)) mg/dl POC Glucose 229 H 229 H 198 H (70-99) mg/dl POC Glucose (other) (70-99) mg/dl Estimat Average Glucose mg/dl Hemoglobin A1c (4.5-5.6) % Lactate (0.4-2.0) mmol/L Calcium (8.6-10.3) mg/dl POC Ioniz Calcium Adair (1.12-1.32) mmol/l Phosphorus (2.5-4.9) mg/dl Magnesium (1.7-2.4) mg/dl Total Bilirubin (0.2-1.0) mg/dl Direct Bilirubin (0-0.2) mg/dl AST (13-39) U/L ALT (7-52) U/L Alkaline Phosphatase (34-104) U/L Troponin I High Sens (0-14) pg/ml Total Protein (6.0-8.3) gm/dl Albumin (3.4-5.0) gm/dl Globulin (2.5-4.0) gm/dl Albumin/Globulin Ratio (0.9-2) Lipase (11-82) U/L Vitamin B12 (180-914) pg/ml Folate (>5.38) ng/ml Procalcitonin (0-0.5) ng/ml Random Cortisol mcg/dl Urine Color Urine Appearance (Clear) Urine pH (4.5-7.5) Ur Specific [place] (1.000-1.030) Urine Protein (Negative) Urine Glucose (UA) (Negative) Urine Ketones (Negative) Urine Blood (Negative) Urine Nitrite (Negative) Urine Bilirubin (Negative) Urine Urobilinogen (Negative) Ur Leukocyte Esterase (Negative) Urine WBC (Auto) (0-5) /hpf Urine RBC (Auto) (0-2) /hpf U Hyaline Cast (Auto) (0-2) /lpf U Epithel Cells (Auto) (0-2) /hpf Urine Bacteria (Auto) (None Seen) Nasal Screen MRSA (PCR) (Negative) Adenovirus (PCR) (NotDetected) Anaplasma Smear A. phagocytophilum DNA Babesia Smear Babesia microti DNA PCR B. pertussis DNA (PCR) (NotDetected) B.parapertussis DNA PCR (NotDetected) Lyme Disease Screen (Negative) C. pneumoniae DNA (PCR) (NotDetected) Coronavirus OC43 (PCR) (NotDetected) Coronavirus HKU1 (PCR) (NotDetected) Coronavirus 229E (PCR) (NotDetected) SARS-CoV-2 (PCR) (NotDetected) Coronavirus NL63 (PCR) (NotDetected) E.chaffeensis DNA (PCR) Human Metapneumovir PCR (NotDetected) Influenza Type A (PCR) (NotDetected) Influenza Type B (PCR) (NotDetected) M. pneumoniae (PCR) (NotDetected) Parainfluenza 1 (PCR) (NotDetected) Parainfluenza 2 (PCR) (NotDetected) Parainfluenza 3 (PCR) (NotDetected) Parainfluenza 4 (PCR) (NotDetected) Q Fever Phase I IgG Ab Q Fever Phase I IgM Ab Q Fever Phase II IgG Ab Q Fever Phase II IgM Ab RSV (PCR) (NotDetected) Entero/Rhino (PCR) (NotDetected) Rickettsia IgG Ab Rickettsia IgM Ab Typhus Fever IgG Ab Typhus Fever IgM Ab 10/01/23 10/01/23 10/01/23 Range/Units 07:24 05:13 04:05 WBC 0.74 L* (4.8-10.8) K/ul RBC 2.97 L (4.20-5.40) M/uL Hgb 10.6 L (12.0-16.0) g/dl POC Hgb (12.0-16.0) g/dl Hct 30.1 L (37.0-47.0) % POC Hct (37-47) % MCV 101.3 H (80.0-100.0) fL MCH 35.7 H (25.0-34.0) pg MCHC 35.2 (32.0-36.0) g/dL RDW Std Deviation 56.1 H (36.4-46.3) fL RDW Coeff of Tomas 15.0 H (11.5-14.5) % Plt Count 59 L (130-400) K/uL MPV 10.2 (9.4-12.4) fL Immature Gran % (Auto) 1.4 % Neut % (Auto) 2.6 % Lymph % (Auto) 44.6 % [place] % (Auto) 50.0 % Eos % (Auto) 1.4 % Baso % (Auto) 0.0 % Neut # (Auto) 0.02 L* (1.40-6.50) K/uL Lymph # (Auto) 0.33 L (1.20-3.40) K/uL [place] # (Auto) 0.37 (0.11-0.59) K/uL Eos # (Auto) 0.01 (0.00-0.50) K/uL Baso # (Auto) 0.00 (0.00-0.20) K/uL Immature Gran # (Auto) 0.01 (0.01-0.20) K/uL Neutrophils % (Manual) % Lymphocytes % (Manual) % Monocytes % (Manual) % Eosinophils % (Manual) % Basophils % (Manual) % Neutrophils # (Manual) (1.40-6.50) K/uL Total Absolute Neuts (1.4-6.5) K/uL Lymphocytes # (Manual) (1.2-3.4) K/uL Total Abs Lymphocytes (1.2-3.4) K/uL Monocytes # (Manual) (0.11-0.59) K/uL Eosinophils # (Manual) (0-0.50) K/uL Basophils # (Manual) (0-0.2) K/uL Large Granular Lymphs % # Lrg Granular Lymphs K/uL Polychromasia PT (9.0-12.0) Seconds INR (0.9-1.1) VBG pH (7.36-7.41) VBG pCO2 (38-50) mmHg VBG pO2 mmHg VBG HCO3 mmol/L VBG O2 Saturation % VBG Base Excess mEq/L POC Sodium (135-144) mmol/L Sodium 140 (136-145) mmol/L POC Potassium (3.3-5.0) mmol/L Potassium 3.3 L (3.5-5.1) mmol/L POC Chloride (101-112) mmol/L Chloride 106 (98-107) mmol/L Carbon Dioxide 28 (21-32) mmol/L POC Total CO2 (24-31) mmol/L Anion Gap 6 (3-11) POC Anion Gap (16-25) mmol/L POC BUN (7-18) mg/dl BUN 14 (6-23) mg/dl Creatinine 0.53 L (0.6-1.2) mg/dl POC Creatinine (0.6-1.3) mg/dl Est Cr Clr Drug Dosing 89.7 ml/min Est GFR ( Amer) 108.4 ml/min Est GFR (Non-Af Amer) 93.5 ml/min BUN/Creatinine Ratio 26.4 H (10-20) Glucose 159 H (70-99(Fasting)) mg/dl POC Glucose 138 H 153 H (70-99) mg/dl POC Glucose (other) (70-99) mg/dl Estimat Average Glucose mg/dl Hemoglobin A1c (4.5-5.6) % Lactate (0.4-2.0) mmol/L Calcium 8.0 L (8.6-10.3) mg/dl POC Ioniz Calcium Adair (1.12-1.32) mmol/l Phosphorus (2.5-4.9) mg/dl Magnesium 2.3 (1.7-2.4) mg/dl Total Bilirubin 0.7 (0.2-1.0) mg/dl Direct Bilirubin (0-0.2) mg/dl AST 28 (13-39) U/L ALT 45 (7-52) U/L Alkaline Phosphatase 26 L (34-104) U/L Troponin I High Sens (0-14) pg/ml Total Protein 5.1 L (6.0-8.3) gm/dl Albumin 3.1 L (3.4-5.0) gm/dl Globulin 2.0 L (2.5-4.0) gm/dl Albumin/Globulin Ratio 1.6 (0.9-2) Lipase (11-82) U/L Vitamin B12 (180-914) pg/ml Folate (>5.38) ng/ml Procalcitonin (0-0.5) ng/ml Random Cortisol mcg/dl Urine Color Urine Appearance (Clear) Urine pH (4.5-7.5) Ur Specific [place] (1.000-1.030) Urine Protein (Negative) Urine Glucose (UA) (Negative) Urine Ketones (Negative) Urine Blood (Negative) Urine Nitrite (Negative) Urine Bilirubin (Negative) Urine Urobilinogen (Negative) Ur Leukocyte Esterase (Negative) Urine WBC (Auto) (0-5) /hpf Urine RBC (Auto) (0-2) /hpf U Hyaline Cast (Auto) (0-2) /lpf U Epithel Cells (Auto) (0-2) /hpf Urine Bacteria (Auto) (None Seen) Nasal Screen MRSA (PCR) (Negative) Adenovirus (PCR) (NotDetected) Anaplasma Smear A. phagocytophilum DNA Babesia Smear Babesia microti DNA PCR B. pertussis DNA (PCR) (NotDetected) B.parapertussis DNA PCR (NotDetected) Lyme Disease Screen (Negative) C. pneumoniae DNA (PCR) (NotDetected) Coronavirus OC43 (PCR) (NotDetected) Coronavirus HKU1 (PCR) (NotDetected) Coronavirus 229E (PCR) (NotDetected) SARS-CoV-2 (PCR) (NotDetected) Coronavirus NL63 (PCR) (NotDetected) E.chaffeensis DNA (PCR) Human Metapneumovir PCR (NotDetected) Influenza Type A (PCR) (NotDetected) Influenza Type B (PCR) (NotDetected) M. pneumoniae (PCR) (NotDetected) Parainfluenza 1 (PCR) (NotDetected) Parainfluenza 2 (PCR) (NotDetected) Parainfluenza 3 (PCR) (NotDetected) Parainfluenza 4 (PCR) (NotDetected) Q Fever Phase I IgG Ab Q Fever Phase I IgM Ab Q Fever Phase II IgG Ab Q Fever Phase II IgM Ab RSV (PCR) (NotDetected) Entero/Rhino (PCR) (NotDetected) Rickettsia IgG Ab Rickettsia IgM Ab Typhus Fever IgG Ab Typhus Fever IgM Ab 10/01/23 09/30/23 09/30/23 Range/Units 00:21 20:28 15:56 WBC (4.8-10.8) K/ul RBC (4.20-5.40) M/uL Hgb (12.0-16.0) g/dl POC Hgb (12.0-16.0) g/dl Hct (37.0-47.0) % POC Hct (37-47) % MCV (80.0-100.0) fL MCH (25.0-34.0) pg MCHC (32.0-36.0) g/dL RDW Std Deviation (36.4-46.3) fL RDW Coeff of Tomas (11.5-14.5) % Plt Count (130-400) K/uL MPV (9.4-12.4) fL Immature Gran % (Auto) % Neut % (Auto) % Lymph % (Auto) % [place] % (Auto) % Eos % (Auto) % Baso % (Auto) % Neut # (Auto) (1.40-6.50) K/uL Lymph # (Auto) (1.20-3.40) K/uL [place] # (Auto) (0.11-0.59) K/uL Eos # (Auto) (0.00-0.50) K/uL Baso # (Auto) (0.00-0.20) K/uL Immature Gran # (Auto) (0.01-0.20) K/uL Neutrophils % (Manual) % Lymphocytes % (Manual) % Monocytes % (Manual) % Eosinophils % (Manual) % Basophils % (Manual) % Neutrophils # (Manual) (1.40-6.50) K/uL Total Absolute Neuts (1.4-6.5) K/uL Lymphocytes # (Manual) (1.2-3.4) K/uL Total Abs Lymphocytes (1.2-3.4) K/uL Monocytes # (Manual) (0.11-0.59) K/uL Eosinophils # (Manual) (0-0.50) K/uL Basophils # (Manual) (0-0.2) K/uL Large Granular Lymphs % # Lrg Granular Lymphs K/uL Polychromasia PT (9.0-12.0) Seconds INR (0.9-1.1) VBG pH (7.36-7.41) VBG pCO2 (38-50) mmHg VBG pO2 mmHg VBG HCO3 mmol/L VBG O2 Saturation % VBG Base Excess mEq/L POC Sodium (135-144) mmol/L Sodium (136-145) mmol/L POC Potassium (3.3-5.0) mmol/L Potassium (3.5-5.1) mmol/L POC Chloride (101-112) mmol/L Chloride (98-107) mmol/L Carbon Dioxide (21-32) mmol/L POC Total CO2 (24-31) mmol/L Anion Gap (3-11) POC Anion Gap (16-25) mmol/L POC BUN (7-18) mg/dl BUN (6-23) mg/dl Creatinine (0.6-1.2) mg/dl POC Creatinine (0.6-1.3) mg/dl Est Cr Clr Drug Dosing ml/min Est GFR ( Amer) ml/min Est GFR (Non-Af Amer) ml/min BUN/Creatinine Ratio (10-20) Glucose (70-99(Fasting)) mg/dl POC Glucose 196 H 202 H 188 H (70-99) mg/dl POC Glucose (other) (70-99) mg/dl Estimat Average Glucose mg/dl Hemoglobin A1c (4.5-5.6) % Lactate (0.4-2.0) mmol/L Calcium (8.6-10.3) mg/dl POC Ioniz Calcium [place]air (1.12-1.32) mmol/l Phosphorus (2.5-4.9) mg/dl Magnesium (1.7-2.4) mg/dl Total Bilirubin (0.2-1.0) mg/dl Direct Bilirubin (0-0.2) mg/dl AST (13-39) U/L ALT (7-52) U/L Alkaline Phosphatase (34-104) U/L Troponin I High Sens (0-14) pg/ml Total Protein (6.0-8.3) gm/dl Albumin (3.4-5.0) gm/dl Globulin (2.5-4.0) gm/dl Albumin/Globulin Ratio (0.9-2) Lipase (11-82) U/L Vitamin B12 (180-914) pg/ml Folate (>5.38) ng/ml Procalcitonin (0-0.5) ng/ml Random Cortisol mcg/dl Urine Color Urine Appearance (Clear) Urine pH (4.5-7.5) Ur Specific [place] (1.000-1.030) Urine Protein (Negative) Urine Glucose (UA) (Negative) Urine Ketones (Negative) Urine Blood (Negative) Urine Nitrite (Negative) Urine Bilirubin (Negative) Urine Urobilinogen (Negative) Ur Leukocyte Esterase (Negative) Urine WBC (Auto) (0-5) /hpf Urine RBC (Auto) (0-2) /hpf U Hyaline Cast (Auto) (0-2) /lpf U Epithel Cells (Auto) (0-2) /hpf Urine Bacteria (Auto) (None Seen) Nasal Screen MRSA (PCR) (Negative) Adenovirus (PCR) (NotDetected) Anaplasma Smear A. phagocytophilum DNA Babesia Smear Babesia microti DNA PCR B. pertussis DNA (PCR) (NotDetected) B.parapertussis DNA PCR (NotDetected) Lyme Disease Screen (Negative) C. pneumoniae DNA (PCR) (NotDetected) Coronavirus OC43 (PCR) (NotDetected) Coronavirus HKU1 (PCR) (NotDetected) Coronavirus 229E (PCR) (NotDetected) SARS-CoV-2 (PCR) (NotDetected) Coronavirus NL63 (PCR) (NotDetected) E.chaffeensis DNA (PCR) Human Metapneumovir PCR (NotDetected) Influenza Type A (PCR) (NotDetected) Influenza Type B (PCR) (NotDetected) M. pneumoniae (PCR) (NotDetected) Parainfluenza 1 (PCR) (NotDetected) Parainfluenza 2 (PCR) (NotDetected) Parainfluenza 3 (PCR) (NotDetected) Parainfluenza 4 (PCR) (NotDetected) Q Fever Phase I IgG Ab Q Fever Phase I IgM Ab Q Fever Phase II IgG Ab Q Fever Phase II IgM Ab RSV (PCR) (NotDetected) Entero/Rhino (PCR) (NotDetected) Rickettsia IgG Ab Rickettsia IgM Ab Typhus Fever IgG Ab Typhus Fever IgM Ab 09/30/23 09/30/23 09/30/23 Range/Units 12:45 09:58 08:10 WBC (4.8-10.8) K/ul RBC (4.20-5.40) M/uL Hgb (12.0-16.0) g/dl POC Hgb (12.0-16.0) g/dl Hct (37.0-47.0) % POC Hct (37-47) % MCV (80.0-100.0) fL MCH (25.0-34.0) pg MCHC (32.0-36.0) g/dL RDW Std Deviation (36.4-46.3) fL RDW Coeff of Tomas (11.5-14.5) % Plt Count (130-400) K/uL MPV (9.4-12.4) fL Immature Gran % (Auto) % Neut % (Auto) % Lymph % (Auto) % [place] % (Auto) % Eos % (Auto) % Baso % (Auto) % Neut # (Auto) (1.40-6.50) K/uL Lymph # (Auto) (1.20-3.40) K/uL [place] # (Auto) (0.11-0.59) K/uL Eos # (Auto) (0.00-0.50) K/uL Baso # (Auto) (0.00-0.20) K/uL Immature Gran # (Auto) (0.01-0.20) K/uL Neutrophils % (Manual) % Lymphocytes % (Manual) % Monocytes % (Manual) % Eosinophils % (Manual) % Basophils % (Manual) % Neutrophils # (Manual) (1.40-6.50) K/uL Total Absolute Neuts (1.4-6.5) K/uL Lymphocytes # (Manual) (1.2-3.4) K/uL Total Abs Lymphocytes (1.2-3.4) K/uL Monocytes # (Manual) (0.11-0.59) K/uL Eosinophils # (Manual) (0-0.50) K/uL Basophils # (Manual) (0-0.2) K/uL Large Granular Lymphs % # Lrg Granular Lymphs K/uL Polychromasia PT (9.0-12.0) Seconds INR (0.9-1.1) VBG pH (7.36-7.41) VBG pCO2 (38-50) mmHg VBG pO2 mmHg VBG HCO3 mmol/L VBG O2 Saturation % VBG Base Excess mEq/L POC Sodium (135-144) mmol/L Sodium (136-145) mmol/L POC Potassium (3.3-5.0) mmol/L Potassium (3.5-5.1) mmol/L POC Chloride (101-112) mmol/L Chloride (98-107) mmol/L Carbon Dioxide (21-32) mmol/L POC Total CO2 (24-31) mmol/L Anion Gap (3-11) POC Anion Gap (16-25) mmol/L POC BUN (7-18) mg/dl BUN (6-23) mg/dl Creatinine (0.6-1.2) mg/dl POC Creatinine (0.6-1.3) mg/dl Est Cr Clr Drug Dosing ml/min Est GFR ( Amer) ml/min Est GFR (Non-Af Amer) ml/min BUN/Creatinine Ratio (10-20) Glucose (70-99(Fasting)) mg/dl POC Glucose 208 H 207 H 196 H (70-99) mg/dl POC Glucose (other) (70-99) mg/dl Estimat Average Glucose mg/dl Hemoglobin A1c (4.5-5.6) % Lactate (0.4-2.0) mmol/L Calcium (8.6-10.3) mg/dl POC Ioniz Calcium Adair (1.12-1.32) mmol/l Phosphorus (2.5-4.9) mg/dl Magnesium (1.7-2.4) mg/dl Total Bilirubin (0.2-1.0) mg/dl Direct Bilirubin (0-0.2) mg/dl AST (13-39) U/L ALT (7-52) U/L Alkaline Phosphatase (34-104) U/L Troponin I High Sens (0-14) pg/ml Total Protein (6.0-8.3) gm/dl Albumin (3.4-5.0) gm/dl Globulin (2.5-4.0) gm/dl Albumin/Globulin Ratio (0.9-2) Lipase (11-82) U/L Vitamin B12 (180-914) pg/ml Folate (>5.38) ng/ml Procalcitonin (0-0.5) ng/ml Random Cortisol mcg/dl Urine Color Urine Appearance (Clear) Urine pH (4.5-7.5) Ur Specific [place] (1.000-1.030) Urine Protein (Negative) Urine Glucose (UA) (Negative) Urine Ketones (Negative) Urine Blood (Negative) Urine Nitrite (Negative) Urine Bilirubin (Negative) Urine Urobilinogen (Negative) Ur Leukocyte Esterase (Negative) Urine WBC (Auto) (0-5) /hpf Urine RBC (Auto) (0-2) /hpf U Hyaline Cast (Auto) (0-2) /lpf U Epithel Cells (Auto) (0-2) /hpf Urine Bacteria (Auto) (None Seen) Nasal Screen MRSA (PCR) (Negative) Adenovirus (PCR) (NotDetected) Anaplasma Smear A. phagocytophilum DNA Babesia Smear Babesia microti DNA PCR B. pertussis DNA (PCR) (NotDetected) B.parapertussis DNA PCR (NotDetected) Lyme Disease Screen (Negative) C. pneumoniae DNA (PCR) (NotDetected) Coronavirus OC43 (PCR) (NotDetected) Coronavirus HKU1 (PCR) (NotDetected) Coronavirus 229E (PCR) (NotDetected) SARS-CoV-2 (PCR) (NotDetected) Coronavirus NL63 (PCR) (NotDetected) E.chaffeensis DNA (PCR) Human Metapneumovir PCR (NotDetected) Influenza Type A (PCR) (NotDetected) Influenza Type B (PCR) (NotDetected) M. pneumoniae (PCR) (NotDetected) Parainfluenza 1 (PCR) (NotDetected) Parainfluenza 2 (PCR) (NotDetected) Parainfluenza 3 (PCR) (NotDetected) Parainfluenza 4 (PCR) (NotDetected) Q Fever Phase I IgG Ab Q Fever Phase I IgM Ab Q Fever Phase II IgG Ab Q Fever Phase II IgM Ab RSV (PCR) (NotDetected) Entero/Rhino (PCR) (NotDetected) Rickettsia IgG Ab Rickettsia IgM Ab Typhus Fever IgG Ab Typhus Fever IgM Ab 09/30/23 09/30/23 09/30/23 Range/Units 06:08 04:50 02:05 WBC 0.85 L* (4.8-10.8) K/ul RBC 2.94 L (4.20-5.40) M/uL Hgb 10.7 L D (12.0-16.0) g/dl POC Hgb (12.0-16.0) g/dl Hct 29.7 L (37.0-47.0) % POC Hct (37-47) % MCV 101.0 H (80.0-100.0) fL MCH 36.4 H (25.0-34.0) pg MCHC 36.0 (32.0-36.0) g/dL RDW Std Deviation 56.4 H (36.4-46.3) fL RDW Coeff of Tomas 15.3 H (11.5-14.5) % Plt Count 57 L (130-400) K/uL MPV 9.7 (9.4-12.4) fL Immature Gran % (Auto) 1.2 % Neut % (Auto) 2.3 % Lymph % (Auto) 44.7 % [place] % (Auto) 50.6 % Eos % (Auto) 1.2 % Baso % (Auto) 0.0 % Neut # (Auto) 0.02 L* (1.40-6.50) K/uL Lymph # (Auto) 0.38 L (1.20-3.40) K/uL [place] # (Auto) 0.43 (0.11-0.59) K/uL Eos # (Auto) 0.01 (0.00-0.50) K/uL Baso # (Auto) 0.00 (0.00-0.20) K/uL Immature Gran # (Auto) 0.01 (0.01-0.20) K/uL Neutrophils % (Manual) % Lymphocytes % (Manual) % Monocytes % (Manual) % Eosinophils % (Manual) % Basophils % (Manual) % Neutrophils # (Manual) (1.40-6.50) K/uL Total Absolute Neuts (1.4-6.5) K/uL Lymphocytes # (Manual) (1.2-3.4) K/uL Total Abs Lymphocytes (1.2-3.4) K/uL Monocytes # (Manual) (0.11-0.59) K/uL Eosinophils # (Manual) (0-0.50) K/uL Basophils # (Manual) (0-0.2) K/uL Large Granular Lymphs % # Lrg Granular Lymphs K/uL Polychromasia PT (9.0-12.0) Seconds INR (0.9-1.1) VBG pH (7.36-7.41) VBG pCO2 (38-50) mmHg VBG pO2 mmHg VBG HCO3 mmol/L VBG O2 Saturation % VBG Base Excess mEq/L POC Sodium (135-144) mmol/L Sodium 140 (136-145) mmol/L POC Potassium (3.3-5.0) mmol/L Potassium 3.1 L (3.5-5.1) mmol/L POC Chloride (101-112) mmol/L Chloride 108 H (98-107) mmol/L Carbon Dioxide 26 (21-32) mmol/L POC Total CO2 (24-31) mmol/L Anion Gap 6 (3-11) POC Anion Gap (16-25) mmol/L POC BUN (7-18) mg/dl BUN 14 (6-23) mg/dl Creatinine 0.55 L (0.6-1.2) mg/dl POC Creatinine (0.6-1.3) mg/dl Est Cr Clr Drug Dosing 86.4 ml/min Est GFR ( Amer) 107.1 ml/min Est GFR (Non-Af Amer) 92.4 ml/min BUN/Creatinine Ratio 25.5 H (10-20) Glucose 223 H (70-99(Fasting)) mg/dl POC Glucose 228 H 256 H (70-99) mg/dl POC Glucose (other) (70-99) mg/dl Estimat Average Glucose 232 mg/dl Hemoglobin A1c 9.7 H (4.5-5.6) % Lactate (0.4-2.0) mmol/L Calcium 7.5 L (8.6-10.3) mg/dl POC Ioniz Calcium Adair (1.12-1.32) mmol/l Phosphorus (2.5-4.9) mg/dl Magnesium 1.6 L (1.7-2.4) mg/dl Total Bilirubin 0.7 (0.2-1.0) mg/dl Direct Bilirubin (0-0.2) mg/dl AST 12 L (13-39) U/L ALT 18 (7-52) U/L Alkaline Phosphatase 27 L (34-104) U/L Troponin I High Sens (0-14) pg/ml Total Protein 4.8 L D (6.0-8.3) gm/dl Albumin 3.0 L (3.4-5.0) gm/dl Globulin 1.8 L (2.5-4.0) gm/dl Albumin/Globulin Ratio 1.7 (0.9-2) Lipase (11-82) U/L Vitamin B12 81 L (180-914) pg/ml Folate 11.28 (>5.38) ng/ml Procalcitonin (0-0.5) ng/ml Random Cortisol mcg/dl Urine Color Urine Appearance (Clear) Urine pH (4.5-7.5) Ur Specific [place] (1.000-1.030) Urine Protein (Negative) Urine Glucose (UA) (Negative) Urine Ketones (Negative) Urine Blood (Negative) Urine Nitrite (Negative) Urine Bilirubin (Negative) Urine Urobilinogen (Negative) Ur Leukocyte Esterase (Negative) Urine WBC (Auto) (0-5) /hpf Urine RBC (Auto) (0-2) /hpf U Hyaline Cast (Auto) (0-2) /lpf U Epithel Cells (Auto) (0-2) /hpf Urine Bacteria (Auto) (None Seen) Nasal Screen MRSA (PCR) (Negative) Adenovirus (PCR) (NotDetected) Anaplasma Smear A. phagocytophilum DNA Babesia Smear Babesia microti DNA PCR B. pertussis DNA (PCR) (NotDetected) B.parapertussis DNA PCR (NotDetected) Lyme Disease Screen (Negative) C. pneumoniae DNA (PCR) (NotDetected) Coronavirus OC43 (PCR) (NotDetected) Coronavirus HKU1 (PCR) (NotDetected) Coronavirus 229E (PCR) (NotDetected) SARS-CoV-2 (PCR) (NotDetected) Coronavirus NL63 (PCR) (NotDetected) E.chaffeensis DNA (PCR) Human Metapneumovir PCR (NotDetected) Influenza Type A (PCR) (NotDetected) Influenza Type B (PCR) (NotDetected) M. pneumoniae (PCR) (NotDetected) Parainfluenza 1 (PCR) (NotDetected) Parainfluenza 2 (PCR) (NotDetected) Parainfluenza 3 (PCR) (NotDetected) Parainfluenza 4 (PCR) (NotDetected) Q Fever Phase I IgG Ab Q Fever Phase I IgM Ab Q Fever Phase II IgG Ab Q Fever Phase II IgM Ab RSV (PCR) (NotDetected) Entero/Rhino (PCR) (NotDetected) Rickettsia IgG Ab Rickettsia IgM Ab Typhus Fever IgG Ab Typhus Fever IgM Ab 09/29/23 09/29/23 09/29/23 Range/Units 20:32 20:31 17:47 WBC (4.8-10.8) K/ul RBC (4.20-5.40) M/uL Hgb (12.0-16.0) g/dl POC Hgb (12.0-16.0) g/dl Hct (37.0-47.0) % POC Hct (37-47) % MCV (80.0-100.0) fL MCH (25.0-34.0) pg MCHC (32.0-36.0) g/dL RDW Std Deviation (36.4-46.3) fL RDW Coeff of Tomas (11.5-14.5) % Plt Count (130-400) K/uL MPV (9.4-12.4) fL Immature Gran % (Auto) % Neut % (Auto) % Lymph % (Auto) % [place] % (Auto) % Eos % (Auto) % Baso % (Auto) % Neut # (Auto) (1.40-6.50) K/uL Lymph # (Auto) (1.20-3.40) K/uL [place] # (Auto) (0.11-0.59) K/uL Eos # (Auto) (0.00-0.50) K/uL Baso # (Auto) (0.00-0.20) K/uL Immature Gran # (Auto) (0.01-0.20) K/uL Neutrophils % (Manual) % Lymphocytes % (Manual) % Monocytes % (Manual) % Eosinophils % (Manual) % Basophils % (Manual) % Neutrophils # (Manual) (1.40-6.50) K/uL Total Absolute Neuts (1.4-6.5) K/uL Lymphocytes # (Manual) (1.2-3.4) K/uL Total Abs Lymphocytes (1.2-3.4) K/uL Monocytes # (Manual) (0.11-0.59) K/uL Eosinophils # (Manual) (0-0.50) K/uL Basophils # (Manual) (0-0.2) K/uL Large Granular Lymphs % # Lrg Granular Lymphs K/uL Polychromasia PT (9.0-12.0) Seconds INR (0.9-1.1) VBG pH (7.36-7.41) VBG pCO2 (38-50) mmHg VBG pO2 mmHg VBG HCO3 mmol/L VBG O2 Saturation % VBG Base Excess mEq/L POC Sodium (135-144) mmol/L Sodium (136-145) mmol/L POC Potassium (3.3-5.0) mmol/L Potassium (3.5-5.1) mmol/L POC Chloride (101-112) mmol/L Chloride (98-107) mmol/L Carbon Dioxide (21-32) mmol/L POC Total CO2 (24-31) mmol/L Anion Gap (3-11) POC Anion Gap (16-25) mmol/L POC BUN (7-18) mg/dl BUN (6-23) mg/dl Creatinine (0.6-1.2) mg/dl POC Creatinine (0.6-1.3) mg/dl Est Cr Clr Drug Dosing ml/min Est GFR ( Amer) ml/min Est GFR (Non-Af Amer) ml/min BUN/Creatinine Ratio (10-20) Glucose (70-99(Fasting)) mg/dl POC Glucose (70-99) mg/dl POC Glucose (other) (70-99) mg/dl Estimat Average Glucose mg/dl Hemoglobin A1c (4.5-5.6) % Lactate 2.3 H* (0.4-2.0) mmol/L Calcium (8.6-10.3) mg/dl POC Ioniz Calcium [place]air (1.12-1.32) mmol/l Phosphorus (2.5-4.9) mg/dl Magnesium (1.7-2.4) mg/dl Total Bilirubin (0.2-1.0) mg/dl Direct Bilirubin (0-0.2) mg/dl AST (13-39) U/L ALT (7-52) U/L Alkaline Phosphatase (34-104) U/L Troponin I High Sens (0-14) pg/ml Total Protein (6.0-8.3) gm/dl Albumin (3.4-5.0) gm/dl Globulin (2.5-4.0) gm/dl Albumin/Globulin Ratio (0.9-2) Lipase (11-82) U/L Vitamin B12 (180-914) pg/ml Folate (>5.38) ng/ml Procalcitonin (0-0.5) ng/ml Random Cortisol 13.79 mcg/dl Urine Color Urine Appearance (Clear) Urine pH (4.5-7.5) Ur Specific [place] (1.000-1.030) Urine Protein (Negative) Urine Glucose (UA) (Negative) Urine Ketones (Negative) Urine Blood (Negative) Urine Nitrite (Negative) Urine Bilirubin (Negative) Urine Urobilinogen (Negative) Ur Leukocyte Esterase (Negative) Urine WBC (Auto) (0-5) /hpf Urine RBC (Auto) (0-2) /hpf U Hyaline Cast (Auto) (0-2) /lpf U Epithel Cells (Auto) (0-2) /hpf Urine Bacteria (Auto) (None Seen) Nasal Screen MRSA (PCR) Negative (Negative) Adenovirus (PCR) (NotDetected) Anaplasma Smear A. phagocytophilum DNA Babesia Smear Babesia microti DNA PCR Pending B. pertussis DNA (PCR) (NotDetected) B.parapertussis DNA PCR (NotDetected) Lyme Disease Screen (Negative) C. pneumoniae DNA (PCR) (NotDetected) Coronavirus OC43 (PCR) (NotDetected) Coronavirus HKU1 (PCR) (NotDetected) Coronavirus 229E (PCR) (NotDetected) SARS-CoV-2 (PCR) (NotDetected) Coronavirus NL63 (PCR) (NotDetected) E.chaffeensis DNA (PCR) Pending Human Metapneumovir PCR (NotDetected) Influenza Type A (PCR) (NotDetected) Influenza Type B (PCR) (NotDetected) M. pneumoniae (PCR) (NotDetected) Parainfluenza 1 (PCR) (NotDetected) Parainfluenza 2 (PCR) (NotDetected) Parainfluenza 3 (PCR) (NotDetected) Parainfluenza 4 (PCR) (NotDetected) Q Fever Phase I IgG Ab Pending Q Fever Phase I IgM Ab Pending Q Fever Phase II IgG Ab Pending Q Fever Phase II IgM Ab Pending RSV (PCR) (NotDetected) Entero/Rhino (PCR) (NotDetected) Rickettsia IgG Ab Pending Rickettsia IgM Ab Pending Typhus Fever IgG Ab Pending Typhus Fever IgM Ab Pending 09/29/23 09/29/23 Range/Units 17:42 17:28 WBC 1.35 L (4.8-10.8) K/ul RBC 3.85 L (4.20-5.40) M/uL Hgb 14.1 (12.0-16.0) g/dl POC Hgb 12.6 (12.0-16.0) g/dl Hct 38.8 (37.0-47.0) % POC Hct 37 (37-47) % MCV 100.8 H (80.0-100.0) fL MCH 36.6 H (25.0-34.0) pg MCHC 36.3 H (32.0-36.0) g/dL RDW Std Deviation 55.9 H (36.4-46.3) fL RDW Coeff of Tomas 15.1 H (11.5-14.5) % Plt Count 71 L (130-400) K/uL MPV 9.8 (9.4-12.4) fL Immature Gran % (Auto) % Neut % (Auto) % Lymph % (Auto) % [place] % (Auto) % Eos % (Auto) % Baso % (Auto) % Neut # (Auto) (1.40-6.50) K/uL Lymph # (Auto) (1.20-3.40) K/uL [place] # (Auto) (0.11-0.59) K/uL Eos # (Auto) (0.00-0.50) K/uL Baso # (Auto) (0.00-0.20) K/uL Immature Gran # (Auto) (0.01-0.20) K/uL Neutrophils % (Manual) 0 % Lymphocytes % (Manual) 69 % Monocytes % (Manual) 7 % Eosinophils % (Manual) 8 % Basophils % (Manual) 2 % Neutrophils # (Manual) 0.00 L (1.40-6.50) K/uL Total Absolute Neuts 0.00 L* (1.4-6.5) K/uL Lymphocytes # (Manual) 0.93 L (1.2-3.4) K/uL Total Abs Lymphocytes 1.12 L (1.2-3.4) K/uL Monocytes # (Manual) 0.09 L (0.11-0.59) K/uL Eosinophils # (Manual) 0.11 (0-0.50) K/uL Basophils # (Manual) 0.03 (0-0.2) K/uL Large Granular Lymphs 14 % # Lrg Granular Lymphs 0.19 K/uL Polychromasia 1+ PT 10.4 (9.0-12.0) Seconds INR 0.9 (0.9-1.1) VBG pH 7.47 H (7.36-7.41) VBG pCO2 39 (38-50) mmHg VBG pO2 47 mmHg VBG HCO3 28 mmol/L VBG O2 Saturation 81.1 % VBG Base Excess 4.5 mEq/L POC Sodium 133 L (135-144) mmol/L Sodium 135 L (136-145) mmol/L POC Potassium 3.6 (3.3-5.0) mmol/L Potassium 3.6 (3.5-5.1) mmol/L POC Chloride 94 L (101-112) mmol/L Chloride 96 L (98-107) mmol/L Carbon Dioxide 28 (21-32) mmol/L POC Total CO2 26 (24-31) mmol/L Anion Gap 11 (3-11) POC Anion Gap 17.0 (16-25) mmol/L POC BUN 21 H (7-18) mg/dl BUN 22 (6-23) mg/dl Creatinine 0.73 (0.6-1.2) mg/dl POC Creatinine 0.7 (0.6-1.3) mg/dl Est Cr Clr Drug Dosing 65.1 ml/min Est GFR ( Amer) 94.0 ml/min Est GFR (Non-Af Amer) 81.1 ml/min BUN/Creatinine Ratio 30.1 H (10-20) Glucose 237 H (70-99(Fasting)) mg/dl POC Glucose (70-99) mg/dl POC Glucose (other) 235 H (70-99) mg/dl Estimat Average Glucose mg/dl Hemoglobin A1c (4.5-5.6) % Lactate 2.5 H* (0.4-2.0) mmol/L Calcium 8.8 (8.6-10.3) mg/dl POC Ioniz Calcium [place] 1.04 L (1.12-1.32) mmol/l Phosphorus 2.8 (2.5-4.9) mg/dl Magnesium 1.7 (1.7-2.4) mg/dl Total Bilirubin 0.8 (0.2-1.0) mg/dl Direct Bilirubin 0.2 (0-0.2) mg/dl AST 18 (13-39) U/L ALT 25 (7-52) U/L Alkaline Phosphatase 41 (34-104) U/L Troponin I High Sens 11.3 (0-14) pg/ml Total Protein 6.0 (6.0-8.3) gm/dl Albumin 3.7 (3.4-5.0) gm/dl Globulin (2.5-4.0) gm/dl Albumin/Globulin Ratio (0.9-2) Lipase 3 L (11-82) U/L Vitamin B12 (180-914) pg/ml Folate (>5.38) ng/ml Procalcitonin 0.78 H (0-0.5) ng/ml Random Cortisol mcg/dl Urine Color Yellow Urine Appearance Clear (Clear) Urine pH 6.5 (4.5-7.5) Ur Specific [place] 1.023 (1.000-1.030) Urine Protein Trace H (Negative) Urine Glucose (UA) 3+ H (Negative) Urine Ketones Negative (Negative) Urine Blood Negative (Negative) Urine Nitrite Negative (Negative) Urine Bilirubin Negative (Negative) Urine Urobilinogen Negative (Negative) Ur Leukocyte Esterase Negative (Negative) Urine WBC (Auto) 0-5 (0-5) /hpf Urine RBC (Auto) 0-2 (0-2) /hpf U Hyaline Cast (Auto) 0-2 (0-2) /lpf U Epithel Cells (Auto) 0-2 (0-2) /hpf Urine Bacteria (Auto) None Seen (None Seen) Nasal Screen MRSA (PCR) (Negative) Adenovirus (PCR) Not Detected (NotDetected) Anaplasma Smear See Comment A. phagocytophilum DNA Pending Babesia Smear See Comment Babesia microti DNA PCR B. pertussis DNA (PCR) Not Detected (NotDetected) B.parapertussis DNA PCR Not Detected (NotDetected) Lyme Disease Screen Negative (Negative) C. pneumoniae DNA (PCR) Not Detected (NotDetected) Coronavirus OC43 (PCR) Not Detected (NotDetected) Coronavirus HKU1 (PCR) Not Detected (NotDetected) Coronavirus 229E (PCR) Not Detected (NotDetected) SARS-CoV-2 (PCR) Not Detected (NotDetected) Coronavirus NL63 (PCR) Not Detected (NotDetected) E.chaffeensis DNA (PCR) Human Metapneumovir PCR Not Detected (NotDetected) Influenza Type A (PCR) Not Detected (NotDetected) Influenza Type B (PCR) Not Detected (NotDetected) M. pneumoniae (PCR) Not Detected (NotDetected) Parainfluenza 1 (PCR) Not Detected (NotDetected) Parainfluenza 2 (PCR) Not Detected (NotDetected) Parainfluenza 3 (PCR) Not Detected (NotDetected) Parainfluenza 4 (PCR) Not Detected (NotDetected) Q Fever Phase I IgG Ab Q Fever Phase I IgM Ab Q Fever Phase II IgG Ab Q Fever Phase II IgM Ab RSV (PCR) Not Detected (NotDetected) Entero/Rhino (PCR) Not Detected (NotDetected) Rickettsia IgG Ab Rickettsia IgM Ab Typhus Fever IgG Ab Typhus Fever IgM Ab Diagnostic Findings Chest X-Ray 09/29/23 17:27 SINGLE VIEW CHEST CLINICAL HISTORY: Sepsis FINDINGS: An AP, portable, upright chest radiograph is compared to study dated 05/28/2023 and correlated with chest CT dated 06/19/2023. The heart is enlarged. There is pulmonary vasculature congestion. Emphysema and chronic interstitial thickening is similar to previous. There is bibasilar scarring/atelectasis. No airspace consolidation or large pleural effusion is identified. No pneumothorax is seen. The skeletal structures are osteopenic. The bony thorax is grossly intact. Advanced arthritic change is seen in the shoulders. IMPRESSION: 1. Cardiomegaly and emphysema with pulmonary vascular congestion. 2. No airspace consolidation or large pleural effusion is identified. ACT 112: Negative or not required by law. Electronically signed by: Terrance Masters M.D. 09/29/2023 7:03 PM Abdomen/Pelvis CT 09/29/23 17:28 Exam(s): CT ABDOMEN + PELVIS With Contrast IV Amt: 115 ml opti 320 EXAM: CT Abdomen and Pelvis With Intravenous Contrast CLINICAL HISTORY: Reason for exam: fever, ?UTI, sepsis. TECHNIQUE: Axial computed tomography images of the abdomen and pelvis with intravenous contrast. CTDI is 27.03 mGy and DLP is 886.23 mGy-cm. Automated exposure control was utilized for the study. A dose lowering technique was utilized adhering to the principles of ALARA. CONTRAST: Patient received 115 ml opti 320 of IV contrast COMPARISON: None. FINDINGS: Lung bases: Bilateral lower lobe atelectasis with superimposed consolidation of the right lower lobe not excluded. Heart: Unremarkable. No cardiomegaly. No significant pericardial effusion. Normal cardiac size. ABDOMEN: Liver: Trace fluid surrounding the anterior margin of the liver. Gallbladder and bile ducts: Unremarkable. No calcified stones. No ductal dilation. Pancreas: Unremarkable. No mass. No ductal dilation. Spleen: Unremarkable. No splenomegaly. Adrenals: Unremarkable. No mass. Kidneys and ureters: Difficult to assess bilateral kidneys for renal stones due to presence of contrast within the renal collecting system. Otherwise unremarkable bilateral kidneys. No hydronephrosis. Stomach and bowel: Unremarkable. No obstruction. No mucosal thickening. PELVIS: Appendix: Normal appendix. Bladder: Unremarkable. No mass. Reproductive: Retroflexed uterus with atrophy. ABDOMEN and PELVIS: Intraperitoneal space: Unremarkable. No free air. No significant fluid collection. Bones/joints: Diffuse osteopenia with multilevel degenerative disease of the spine, bilateral SI joints and pubic symphysis. Right-sided hip prosthesis in place with normal alignment appears status post ORIF surgery of the left proximal femur. No acute fracture. Soft tissues: Unremarkable. Vasculature: Unremarkable. No abdominal aortic aneurysm. Lymph nodes: Unremarkable. No enlarged lymph nodes. IMPRESSION: 1. Moderate to abundant fecal debris within the colon, cannot exclude mild patient. No signs of bowel obstruction. No acute appendicitis. 2. Unremarkable abdominal viscera with no acute process. Electronically signed by: Martha Simpson MD 09/29/23 20:18 PM Chest CTA 09/29/23 17:28 CR Exam(s): CTA CHEST IV Amt: 115 ml opti 320 EXAM: CT Angiography Chest With Intravenous Contrast CLINICAL HISTORY: Reason for exam: sepsis, hypoxia, tachy, r/o PE. TECHNIQUE: Axial computed tomographic angiography images of the chest with intravenous contrast. Total dosimetry for CT brain/chest abdomen and pelvis: CTDI is 296.21 mGy and DLP is 6094.9 mGy-cm. Automated exposure control was utilized for the study. A dose lowering technique was utilized adhering to the principles of ALARA. MIP reconstructed images were created and reviewed. COMPARISON: 06/19/2023. FINDINGS: Pulmonary arteries: Filling defect identified within the distal right pulmonary artery extending into the proximal segmental and some of the distal right lower lobe segmental branches of the right lower lobe consistent with multiple pulmonary emboli. Aorta: No acute findings. No thoracic aortic aneurysm. Lungs: Right lower lobe groundglass opacity which may indicate sequela of atelectasis, pneumonitis with pulmonary hemorrhage in the context of corresponding pulmonary emboli not entirely excluded. Bilateral lower lobe atelectasis. Pleural space: Unremarkable. No significant effusion. No pneumothorax. Heart: The RV/LV ratio is 0.7 with no evidence of right-sided cardiac strain. Borderline cardiomegaly with coronary artery calcifications. No significant pericardial effusion. Bones/joints: No acute fracture. No dislocation. Soft tissues: Unremarkable. Lymph nodes: Unremarkable. No enlarged lymph nodes. Other findings: Visualized upper abdominal structures are unremarkable. Multilevel degenerative disease of the spine and bilateral shoulders. Decreased inspiration with mild vascular crowding. IMPRESSION: 1. Right lower lobe pulmonary emboli with no evidence of right-sided cardiac strain. 2. Right lower lobe groundglass opacity which may indicate pneumonitis, atelectasis with pulmonary hemorrhage not excluded in the context of right lower lobe pulmonary emboli. 3. Bilateral lower lobe atelectasis with no pleural effusion or pneumothorax. 4. These findings along with CT head examination were discussed with Dr. Kimball on 09/29/2023 at approximately 1953 hrs. Communications: Call Doctor Other Electronically signed by: Martha Simpson MD 09/29/23 20:[address] 09/29/23 17:28 CR Exam(s): CT HEAD Without Contrast EXAM: CT Head Without Intravenous Contrast CLINICAL HISTORY: Reason for exam: AMS, fever, h/o GBM resec/crani. TECHNIQUE: Axial computed tomography images of the head/brain without intravenous contrast. CTDI is 50.07 mGy and DLP is 786.76 mGy-cm. Automated exposure control was utilized for the study. A dose lowering technique was utilized adhering to the principles of ALARA. COMPARISON: 06/21/2023. 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 Small focus of high density involving some of the anterior located cortical sulci at this level which may indicate artifact versus small area of subarachnoid or cortical hemorrhage. This area is difficult to assess due to assess due to artifact from beam hardening secondary to metallic plates. There is trace focus of hyperintensity along the meninges at the surgical site, nonspecific and commonly associated with postoperative change, cannot entirely exclude trace amount of subdural hemorrhage. Mild generalized brain atrophy. Ventricles: Unremarkable. No ventriculomegaly. Bones/joints: Status post left-sided craniotomy along the left frontoparietal lobe. No acute fracture. Soft tissues: Unremarkable. Sinuses: Minimal mucosal thickening of bilateral ethmoids and right maxillary sinus. Remainder of the paranasal sinuses are clear. Mastoid air cells: Unremarkable as visualized. No mastoid effusion. IMPRESSION: 1. Postoperative changes at the left frontoparietal lobe with mild encephalomalacia. Focal area of increased density anteriorly along the cortical sulci with straight subdural density, findings which may be due to artifact and postsurgical changes, however small amount of acute hemorrhage cannot be excluded. Recommend follow-up with MRI with and without contrast for further characterization. 2. The remainder of the exam revealed chronic changes as described. Communications: Call Doctor Other Electronically signed by: Martha Simpson MD 09/29/23 19:[address] 09/29/23 21:29 Exam(s): CT HEAD Without Contrast EXAM: CT Head Without Intravenous Contrast CLINICAL HISTORY: Reason for exam: reassess post op vs bleed findings. TECHNIQUE: Axial computed tomography images of the head/brain without intravenous contrast. CTDI is 36.18 mGy and DLP is 546.36 mGy-cm. Automated exposure control was utilized for the study. A dose lowering technique was utilized adhering to the principles of ALARA. COMPARISON: Comparison made to prior head CT from September 29, 2023 at 6:40 PM. FINDINGS: Brain: There is increased enhancement within the left temporal lobe. No hemorrhage. No significant white matter disease. No edema. Ventricles: Unremarkable. No ventriculomegaly. Bones/joints: Remote left temporal craniotomy. No acute fracture. Soft tissues: Unremarkable. Bilateral lens replacements. Sinuses: Chronic ethmoid sinusitis. No acute sinusitis. Mastoid air cells: Unremarkable as visualized. No mastoid effusion. IMPRESSION: Findings concerning for persistent contrast blush in the left frontal lobe. Electronically signed by: Lien Zaldivar MD 09/30/23 00:26 AM Venous Doppler Study 09/29/23 21:54 CR Exam(s): US VENOUS BILATERAL LOWER EXTREMITIES EXAM: US Duplex Bilateral Lower Extremities Veins CLINICAL HISTORY: Reason for exam: pe, r/o dvt. TECHNIQUE: Real-time duplex ultrasound scan of the bilateral lower extremity veins integrating B-mode two-dimensional vascular structure, Doppler spectral analysis, color flow Doppler imaging and compression. COMPARISON: No relevant prior studies available. FINDINGS: Right deep veins: Acute DVT within the posterior tibial veins. Right superficial veins: Unremarkable. No thrombus in the visualized right great saphenous vein. Left deep veins: There is nonocclusive thrombus involving the saphenofemoral junction and proximal left common femoral vein. Chronic DVT seen within the proximal popliteal vein Left superficial veins: Unremarkable. No thrombus in the visualized left great saphenous vein. Soft tissues: No acute findings. No popliteal cyst. IMPRESSION: Acute DVT Nonocclusive thrombus involving the saphenofemoral junction and proximal left common femoral veins. Chronic DVT in the left proximal popliteal vein. Communications: Call Doctor DVT acute, progressing Electronically signed by: Cortez Lockhart MD 09/30/23 01:10 AM Chest X-Ray 10/01/23 07:00 SINGLE VIEW CHEST CLINICAL HISTORY: Pulmonary embolus FINDINGS: An AP, portable, upright chest radiograph is compared to chest x-ray and chest CT dated 09/29/2023. The heart is enlarged noting atherosclerotic calcification of the thoracic aorta. The pulmonary vasculature is noncongested. There is bibasilar scarring/atelectasis. No lobar consolidation is seen typical for pneumonia. No large pleural effusion or pneumothorax is identified. The skeletal structures are osteopenic. The bony thorax is grossly intact. Advanced degenerative change is noted in the shoulders and spine. IMPRESSION: Cardiomegaly without radiographic evidence of congestive failure. ACT 112: Negative or not required by law. Electronically signed by: Terrance Masters M.D. 10/01/2023 7:26 AM PG Care Time/CCT Total # of Minutes Spent Total Time Spent with Patient: Total time spent is greater than 50% in coordination of care (as documented) at patient's floor/unit and/or counseling patient: I spent 80 minutes overall addressing this case: 25 min in medical data review/discussion with referring provider(s) and/or preparation for the visit 25 min in direct interaction with the patient/exam 00 min in Advance Care Planning/Goals of Care discussions as detailed above in note (must be >16min) 15 min in subsequent review and synthesis of assessment and plan 15 min communicating with other providers regarding the patient's case: [place] [address] IN/OBS CONSULT LVL 5,80M Patient Type New History Comprehensive Exam Comprehensive Medical Decision Making High Complexity Diagnoses Weakness generalized R53.1 Confusion R41.0 Palliative care by specialist Z51.5
[2023-10-01] MEDS: LANTUS PER UNIT CHARGE SC SCH (20:09)
[2023-10-01] MEDS: dexAMETHasone 4 MG TAB PO SCH (20:12)
[2023-10-01] MEDS: levETIRAcetam 500 MG TAB PO SCH (20:13)
[2023-10-01] MEDS ORDERED: dexAMETHasone 1 MG TAB PO SCH (21:00)
[2023-10-02 05:03] LABS: Albumin Globulin Ratio 1.5 (0.9-2); BUN Creatinine Ratio 25.7 (10-20); Bilirubin,Total 0.8 mg/dl (0.2-1.0); Calcium 8.5 mg/dl (8.6-10.3); Creatinine Clr Calc Pharmacy 67.9 ml/min; Est GFR (African American) 98.9 ml/min; Est GFR (Non-African American) 85.4 ml/min
[2023-10-02 05:18] LABS: Basophils # (auto) 0.01 K/uL (0.00-0.20); Basophils % (auto) 0.7 %; Lymphocytes # (auto) 0.31 K/uL (1.20-3.40); Lymphocytes % (auto) 21.5 %; Mean Corpuscular Hemoglobin 36.8 pg (25.0-34.0); Mean Corpuscular Hgb Conc 36.7 g/dL (32.0-36.0); Mean Corpuscular Volume 100.3 fL (80.0-100.0); Mean Platelet Volume 10.4 fL (9.4-12.4); Monocytes # (auto) 0.45 K/uL (0.11-0.59); Monocytes % (auto) 31.3 %; Neutrophils # (auto) 0.67 K/uL (1.40-6.50); Neutrophils % (auto) 46.5 %; Platelet Count 61 K/uL (130-400); RDW Coefficient of Variation 14.6 % (11.5-14.5); RDW Standard Deviation 54.3 fL (36.4-46.3); Red Blood Count 2.99 M/uL (4.20-5.40); White Blood Count 1.44 K/ul (4.8-10.8)
--- NOTE | 2023-10-02 07:22 | XRay Report ---
XR chest 1V portable HISTORY: 72 years-old Female follow up hypoxia, eval congestion acute shortness of breath COMPARISON: 10/01/2023 TECHNIQUE: AP view the chest FINDINGS: Cardiac silhouette is enlarged. No pneumothorax or overt pulmonary edema. Trace pleural effusions wit h mild bibasilar atelectasis. Bones appear grossly intact. IMPRESSION: 1. Cardiomegaly without pulmonary edema. 2. Trace pleural effusions with mild bibasilar atelectasis. ACT 112: Negative or not required by law. The above report was generated using voice recognition software. It may contain grammatical, syntax o r spelling errors. Electronically signed by: Amari Beebe M.D. 10/02/2023 7:21 AM
--- NOTE | 2023-10-02 07:42 | Hospitalist Progress Note ---
Date of Service October 02, 2023 Assessment & Plan (1) Neutropenic fever: Plan: Change in mental status/confusion/lethargy/decreased responsiveness- Contributing factors including but not limited to: Intracranial bleed/encephalopathy/recent left craniotomy for GBM/neutropenic fever/DVT PE Imaging noting moderate fecal debris in colon (+large BM 09/30), no bowel obstruction/appendicitis. Unremarkable abdominal visera with no acute process. CTA chest w/ RLL PE without evidence of R sided cardiac strain. RLL groundglass opacity which may indicate pneuomonitis/atelectasis with pulm hemorrhage not excluded in context of RLL PE. Bilateral lower lobe atelectasis with no effusion or PTX. Neutropenic fever/sepsis On admission, WBC 1.35, with neutrophil 0.00 Given Neupogen 480 mcg's SQ x 1 WBC 0.85, neutrophil 0.02 today Lyme testing negative on screening, biofire negative Anaplasmosis and babesiosis smears negative, with antibodies pending Vanco, Zosyn, Acyclovir, fluconazole. Blood cultures. Dexamethasone 6mg Q8h IV, protonix IV daily Hematology/oncology consulted, Dr Elizabeth -- appreciate recs/assistance s/p IVC filter for DVT/PE in setting of intracranial bleeding on imaging as below Given neupogen 480mcg SC on 09/30 to help w/ neutropenia/prevention of complications B12/folate replacement as below for anemia. Decadron switched back to home dosing, actually 4mg PO BID (needs changed on med rec) Eliquis on hold, to continue on hold 10/01 - WBC/ANC count improved 1.44k, 0.67k Spoke with heme/onc this morning and additional Neupogen for today, rationale to limit hospital complications from the neutropenia. - DIscussed abx, as has been afebrile and blood cultures NGTD, discontinuing Vanco/Fluconazole/Acyclovir, will continue Zosyn for now, consideration for de- escalation to Bactrim pending ongoing course - Continues on home/prior decadron 4mg PO BID - Hgb 11.0, continue B12 supplementation - Heme/onc to obtain MRI brain outpatient once discharged and if no further bleeding can discuss potentially resuming eliquis but should remain off for now - PT/OT consuls pending, possible rehab/SNF vs home with home health as was doing prior to admission Patient was evaluated this afternoon resting in bed with daughter at bedside. When asked how she was doing she said she feels tired and when asked to further delineate on that she did become tearful and seemed to be upset about continued inpatient stay. Her daughter did report that she is frustrated about continued inpatient hospitalizations and that the patient wants her to go back home as she has been here for a month and is from closer to the [facility] about 5 hours away. Patient endorsed (confirmed with daughter) that she was a very independent woman prior to all of this/surgery/chemo/etc and it is frustrating for patient to have to depend on others and have assistance with things that she did not need prior. Did discuss with patient about the improvement in her labs and ability to stop her acyclovir fluconazole and vancomycin and continue Zosyn alone in discussion with Dr. Elizabeth from hematology oncology this morning with recommendations for additional dose of Neupogen to help increase her neutrophil count and prevent hospital complications. When further asked about her goals of care and ongoing treatment she did say that she did not want to go on like this. Reassurance was provided and stressed to her that her labs and exam do appear improved and she is down to room air today not requiring any supplemental oxygenation and her breathing is stable. She was up in the chair this morning for several hours. Did discuss that ultimately it is her decision that if she does decide to not undergo any further treatment that can be discussed with her provider based on mutual decision making but that I would also reach out to him to see about potentially stopping by to talk with the patient during this difficult time for her. Questions and concerns were addressed and will hopefully be able to get her out of here in the next 48 hours which again made her tearful and she did endorse and ask "what if I have to come back ". Discussed that I want to respect her wishes and get her out of here soon as possible but I also will attempt everything in my power to ensure remaining stable and in the best possible shape for discharge to prevent need for readmission. Dr Elizabeth also notified of conversation with patient/not wanting to "go on" with treatment and he will talk with her today as has turned corner and he suspects she will have good response to ongoing treatment. CM consult in place about possible hospice [place], f/u discussions with palliative (back tomorrow) (2) Pulmonary embolism: Plan: LEFT DVT, CTA chest noting RLL PE CT chest DOES NOT note R heart strain Venous doppler with acute nonocclusive thrombus involving the saphenofemoral junction and proximal left common femoral veins -Not a candidate for anticoagulation due to question of intracranial bleed Vascular consulted, Dr Logan s/p IVC filter on 09/29 Decadron IV converted back to home dosing, also assisting w/ pneumonitis TITRATED TO ROOM AIR TODAY -Home chlorthalidone placed on hold last week by PCP/not to continue given BPs. Does NOT appear volume overloaded Monitor for need for 2step prior to dc (3) Dvt femoral (deep venous thrombosis): Plan: as above, acute LEFT DVT , now s/p IVC filter. Not to resume eliquis until repeat brain imaging as outpatient as above (4) Adrenal insufficiency: Plan: on decadron 4mg PO BID prior to admission as above, needs changed on med rec 10mg IV in ER, continued on 6mg Q8H IV through 09/29 and converted back to home dosing on 09/30 with improvement in BSGs as well and BP remaining stable without reports of lightheaded/dizziness resumed home metoprolol 25mg PO BID -- of note, was to STOP her chlorthalidone outpatient due to borderline BPs per discussion w/ daughter at bedside 09/[address] Corado (5) Hx of craniotomy: Plan: Status left craniotomy for GBM- Surgery at [facility] in [place] 06/30/2023 CT scan with question of intracranial bleed noted on serial CTs Given dexamethasone 10 mg IV in ED, continued on 6mg IV q8h for 09/29 and plan to transition back to prior home dosing as above Keppra continued IV BID for now, can convert back to PO BID in AM if no issues -on review of medications, does not appear keppra was ordered on admission --- given tolerating PO intake, resumed 2000mg PO BID 09/30 Appreciate heme/onc recs/assistance, to discuss w/ patient today given wishes about not continuing treatment however appears more overwhelmed with everything this past year/not being as independent as she was prior and needing assistance for prior activities she did by herself. Dr Elizabeth to see today given improvement and believes will do well. TO have palliative f/u in AM pending their discussion. Daughter to return back to [facility] this weekend (has been here for a month). (6) Glioblastoma of frontal lobe: Plan: As above, hematology/oncology consulted and continues on steroids, abx de- escalated to Zosyn per discussion w/ heme/onc Palliative seen day prior but patient was by herself. I had additional conversation 10/01 as above and heme/onc to see (7) Type 2 diabetes mellitus with obesity: Plan: Diabetes mellitus- Home metformin on hold IV decadron as above, transitioning back to home dosing Glargine increased to 22u BID on IV steroids, Pharmacy consulted for glycemic management Stable BSGs w/ decreased decadron B12 check, LOW 81 -- IM x 3 ordered and should be continued on PO at dc. Folate also borderline (8) COPD (chronic obstructive pulmonary disease): Plan: supplemental O2 to maintain sats doesn't appear to be on any inhalers at baseline LUNGS IMPROVED, CXR improved. continue PO steroids as above, no wheezing on exam On ROOM AIR TODAY, denied SOB at rest. Therapy evals ordered and will monitor for need for 2step (9) HTN (hypertension): Plan: resumed home metoprolol tartrate 25mg PO BID given got stress dose steroids and BPs stable/improved would continue to hold off resuming home chlorthalidone -- was to be stopped as above, would not resume given her BPs (10) Intracranial bleed: Plan: as noted on CT head on admission, IVC filter as outlined plan for repeat brain imaging after dc per heme/onc, no increased focal deficits continue neuro-checks (11) B12 deficiency: Plan: checked B12/Folate due to MCV >100 for completeness along with her anemia ( multifactorial as above) Folate wnl however B12 LOW 81--?2nd to metformin use B12 IM x 3 doses ordered, continue PO at discharge Plan continued inpatient stay, de-escalated abx/antiviral/fungal and continue Zosyn alone for now. Monitor for any fever/infectious symptoms. Neupogen x 1 today. Heme/onc to discuss plan/treatment moving forward given discussion today and can f/u with palliative in AM pending discussion however oncology feels given patient improvement and labs turning corner and will respond to treatment Therapy evals in place and monitor for need for rehab vs ability ot dc home with home health. Patient anxious to get out of the hospital but fearful for need to return again for complications/issues. Reassurance provided. Admission and Anticipated Discharge Date Admission Date: September 29, 2023 Supervising Physician Co-Signing Physician Notes The patient was not seen by me. The chart was reviewed. Case discussed with EDU Dash. Agree with assessment and plan Subjective Patient was evaluated this afternoon resting in bed with daughter at bedside. When asked how she was doing she said she feels tired and when asked to further delineate on that she did become tearful and seemed to be upset about continued inpatient stay. Her daughter did report that she is frustrated about continued inpatient hospitalizations and that the patient wants her to go back home as she has been here for a month and is from closer to the [facility] about 5 hours away. Did discuss with patient about the improvement in her labs and ability to stop her acyclovir fluconazole and vancomycin and continue Zosyn alone in discussion with Dr. Elizabeth from hematology oncology this morning with recommendations for additional dose of Neupogen to help increase her neutrophil count and prevent hospital complications. When further asked about her goals of care and ongoing treatment she did say that she did not want to go on like this. Reassurance was provided and stressed to her that her labs and exam do appear improved and she is down to room air today not requiring any supplemental oxygenation and her breathing is stable. She was up in the chair this morning for several hours. Did discuss that ultimately it is her decision that if she does decide to not undergo any further treatment that can be discussed with her provider based on mutual decision making but that I would also reach out to him to see about potentially stopping by to talk with the patient during this difficult time for her. Questions and concerns were addressed and will hopefully be able to get her out of here in the next 48 hours which again made her tearful and she did endorse and ask "what if I have to come back ". Discussed that I want to respect her wishes and get her out of here soon as possible but I also will attempt everything in my power to ensure remaining stable and in the best possible shape for discharge to prevent need for readmission. Physical Exam Physical Exam: General: 72yo female sitting up in bed, daughter at bedside, NAD but appears fatigued/tearful today, had been up in chair several hours this morning per daughter in room HEENT: mm improved, tracehea midline, prior craniotomy Resp: diminished in the bases, faint crackles but no wheezing/rales, improvement in aeration, on room air 93% this afternoon CV: RRR, no significant m/r/g, no pitting edema/calf tenderness, slight edema to hands IMPROVED, pulses palpable GI: +BS, soft/obese, nontender : no gómez MSK/Neuro:some expressive aphasia at baseline but able to follow commands and appears improved/less fatigued/improved demeanor generalized weakness but nonfocal Skin: scattered bruising Psych: alert to person/place, tearful during encounter Results & Data Results & Data Vital Signs (Past 12 Hours) Vital Signs Temp Pulse Resp BP Pulse Ox O2 Del Method O2 Flow Rate 10/02/23 03:38 36.8 C 10/02/23 03:30 86 19 98 10/02/23 03:04 77 15 97 10/02/23 02:30 75 17 97 10/02/23 02:00 75 15 96 10/02/23 01:30 76 16 95 10/02/23 01:01 81 20 98 10/02/23 00:30 77 16 95 10/02/23 00:00 85 15 94 10/01/23 23:30 85 16 95 10/01/23 23:00 81 15 92 10/01/23 22:30 84 16 95 10/01/23 22:02 82 15 96 10/01/23 21:31 81 15 95 10/01/23 21:00 84 17 96 10/01/23 20:57 36.6 C 10/01/23 20:30 84 18 95 10/01/23 20:15 124/80 10/01/23 20:15 85 27 H 10/01/23 20:01 89 19 95 10/01/23 20:00 Nasal Cannula 1 Laboratory Results 10/02/23 10/02/23 10/01/23 Range/Units 07:21 04:09 19:59 WBC 1.44 L (4.8-10.8) K/ul RBC 2.99 L (4.20-5.40) M/uL Hgb 11.0 L (12.0-16.0) g/dl Hct 30.0 L (37.0-47.0) % MCV 100.3 H (80.0-100.0) fL MCH 36.8 H (25.0-34.0) pg MCHC 36.7 H (32.0-36.0) g/dL RDW Std Deviation 54.3 H (36.4-46.3) fL RDW Coeff of Tomas 14.6 H (11.5-14.5) % Plt Count 61 L (130-400) K/uL MPV 10.4 (9.4-12.4) fL Immature Gran % (Auto) 0.0 % Neut % (Auto) 46.5 % Lymph % (Auto) 21.5 % Treasure % (Auto) 31.3 % Eos % (Auto) 0.0 % Baso % (Auto) 0.7 % Neut # (Auto) 0.67 L* (1.40-6.50) K/uL Lymph # (Auto) 0.31 L (1.20-3.40) K/uL Treasure # (Auto) 0.45 (0.11-0.59) K/uL Eos # (Auto) 0.00 (0.00-0.50) K/uL Baso # (Auto) 0.01 (0.00-0.20) K/uL Immature Gran # (Auto) 0.00 L (0.01-0.20) K/uL Sodium 139 (136-145) mmol/L Potassium 4.0 D (3.5-5.1) mmol/L Chloride 104 (98-107) mmol/L Carbon Dioxide 29 (21-32) mmol/L Anion Gap 6 (3-11) BUN 18 (6-23) mg/dl Creatinine 0.70 (0.6-1.2) mg/dl Est Cr Clr Drug Dosing 67.9 ml/min Est GFR ( Amer) 98.9 ml/min Est GFR (Non-Af Amer) 85.4 ml/min BUN/Creatinine Ratio 25.7 H (10-20) Glucose 179 H (70-99(Fasting)) mg/dl POC Glucose 163 H 229 H (70-99) mg/dl Calcium 8.5 L (8.6-10.3) mg/dl Magnesium 2.0 (1.7-2.4) mg/dl Total Bilirubin 0.8 (0.2-1.0) mg/dl AST 17 (13-39) U/L ALT 39 (7-52) U/L Alkaline Phosphatase 26 L (34-104) U/L Total Protein 5.0 L (6.0-8.3) gm/dl Albumin 3.0 L (3.4-5.0) gm/dl Globulin 2.0 L (2.5-4.0) gm/dl Albumin/Globulin Ratio 1.5 (0.9-2) 10/01/23 10/01/23 Range/Units 16:48 11:20 WBC (4.8-10.8) K/ul RBC (4.20-5.40) M/uL Hgb (12.0-16.0) g/dl Hct (37.0-47.0) % MCV (80.0-100.0) fL MCH (25.0-34.0) pg MCHC (32.0-36.0) g/dL RDW Std Deviation (36.4-46.3) fL RDW Coeff of Tomas (11.5-14.5) % Plt Count (130-400) K/uL MPV (9.4-12.4) fL Immature Gran % (Auto) % Neut % (Auto) % Lymph % (Auto) % Treasure % (Auto) % Eos % (Auto) % Baso % (Auto) % Neut # (Auto) (1.40-6.50) K/uL Lymph # (Auto) (1.20-3.40) K/uL Treasure # (Auto) (0.11-0.59) K/uL Eos # (Auto) (0.00-0.50) K/uL Baso # (Auto) (0.00-0.20) K/uL Immature Gran # (Auto) (0.01-0.20) K/uL Sodium (136-145) mmol/L Potassium (3.5-5.1) mmol/L Chloride (98-107) mmol/L Carbon Dioxide (21-32) mmol/L Anion Gap (3-11) BUN (6-23) mg/dl Creatinine (0.6-1.2) mg/dl Est Cr Clr Drug Dosing ml/min Est GFR ( Amer) ml/min Est GFR (Non-Af Amer) ml/min BUN/Creatinine Ratio (10-20) Glucose (70-99(Fasting)) mg/dl POC Glucose 229 H 198 H (70-99) mg/dl Calcium (8.6-10.3) mg/dl Magnesium (1.7-2.4) mg/dl Total Bilirubin (0.2-1.0) mg/dl AST (13-39) U/L ALT (7-52) U/L Alkaline Phosphatase (34-104) U/L Total Protein (6.0-8.3) gm/dl Albumin (3.4-5.0) gm/dl Globulin (2.5-4.0) gm/dl Albumin/Globulin Ratio (0.9-2) Diagnostic Findings Chest X-Ray 10/02/23 07:00 XR chest 1V portable HISTORY: 72 years-old Female follow up hypoxia, eval congestion acute shortness of breath COMPARISON: 10/01/2023 TECHNIQUE: AP view the chest FINDINGS: Cardiac silhouette is enlarged. No pneumothorax or overt pulmonary edema. Trace pleural effusions with mild bibasilar atelectasis. Bones appear grossly intact. IMPRESSION: 1. Cardiomegaly without pulmonary edema. 2. Trace pleural effusions with mild bibasilar atelectasis. ACT 112: Negative or not required by law. The above report was generated using voice recognition software. It may contain grammatical, syntax or spelling errors. Electronically signed by: Amari Beebe M.D. 10/02/2023 7:21 AM PG Care Time/CCT Total # of Minutes Spent Total Time Spent with Patient: Total time spent is greater than 50% in coordination of care (as documented) at patient's floor/unit and/or counseling patient: Prolonged Care Time Prolonged Care Time: Yes additional 30minutes spent at bedside with family and discussion with specialists above usual time spent reviewing chart/labs/imaging and management of care Coding Level of Care Code 47946 SUB INP/OBS CARE 3/50MIN (25 - SIGNIFICANT, SEPARATELY IDENTIFIABLE ) Diagnoses Neutropenic fever D70.9; R50.81 Pulmonary embolism I26.99 Acute cor pulmonale presence: without acute cor pulmonale Chronicity: acute Pulmonary embolism type: unspecified Dvt femoral (deep venous thrombosis) I82.419 Adrenal insufficiency E27.40 Hx of craniotomy Z98.890 Glioblastoma of frontal lobe C71.1 Type 2 diabetes mellitus with obesity E11.69; E66.9 COPD (chronic obstructive pulmonary disease) J44.9 HTN (hypertension) I10 Intracranial bleed I62.9 B12 deficiency E53.8 Additional Codes Prolonged Care Time - Prolonged Care Time: Yes ([id number]) (2) Pulmonary embolism Acute cor pulmonale presence: without acute cor pulmonale Chronicity: acute Pulmonary embolism type: unspecified Qualified Code(s): I26.99 - Other pulmonary embolism without acute cor pulmonale
[2023-10-02] MEDS: FILGRASTIM 480 MCG/1.6 ML VIAL SC ONE (08:24)
[2023-10-02] MEDS: VANCOMYCIN LEVEL ONE (11:17)
[2023-10-02] MEDS: LANTUS PER UNIT CHARGE SC SCH (20:17)
[2023-10-03 04:55] LABS: BUN Creatinine Ratio 29.7 (10-20); Creatinine Clr Calc Pharmacy 67.1 ml/min; Est GFR (African American) 92.5 ml/min; Est GFR (Non-African American) 79.8 ml/min; Magnesium 1.9 mg/dl (1.7-2.4); Potassium 3.9 mmol/L (3.5-5.1)
[2023-10-03 05:12] LABS: ALC (manual) 0.55 K/uL (1.2-3.4); ANC (manual) 3.93 K/uL (1.4-6.5); Basophils # (manual) 0.05 K/uL (0-0.2); Basophils % (manual) 1 %; Dohle Bodies 1+; Hematocrit (blood only) 35.7 % (37.0-47.0); Hemoglobin 12.8 g/dl (12.0-16.0); Lymphocytes # (manual) 0.55 K/uL (1.2-3.4); Lymphocytes % (manual) 11 %; Mean Corpuscular Hemoglobin 36.2 pg (25.0-34.0); Mean Corpuscular Hgb Conc 35.9 g/dL (32.0-36.0); Mean Corpuscular Volume 100.8 fL (80.0-100.0); Mean Platelet Volume 10.2 fL (9.4-12.4); Monocytes % (manual) 10 %; Neutrophils # (manual) 3.93 K/uL (1.40-6.50); Neutrophils % (manual) 78 %; Platelet Count 53 K/uL (130-400); RDW Coefficient of Variation 14.6 % (11.5-14.5); RDW Standard Deviation 54.9 fL (36.4-46.3); Red Blood Count 3.54 M/uL (4.20-5.40); Toxic Granulation 1+; White Blood Count 5.04 K/ul (4.8-10.8)
[2023-10-03] MEDS ORDERED: hydrALAZINE HCL 20 MG/ML VIAL IV PRN (07:29)
--- NOTE | 2023-10-03 07:30 | Hospitalist Progress Note ---
Date of Service October 03, 2023 Assessment & Plan (1) Neutropenic fever: Plan: Change in mental status/confusion/lethargy/decreased responsiveness- Contributing factors including but not limited to: Intracranial bleed/encephalopathy/recent left craniotomy for GBM/neutropenic fever/DVT PE Imaging noting moderate fecal debris in colon (+large BM 09/30), no bowel obstruction/appendicitis. Unremarkable abdominal visera with no acute process. CTA chest w/ RLL PE without evidence of R sided cardiac strain. RLL groundglass opacity which may indicate pneuomonitis/atelectasis with pulm hemorrhage not excluded in context of RLL PE. Bilateral lower lobe atelectasis with no effusion or PTX. Biofire negative, lyme testing negative. Anaplasmosis/babesia pending Sepsis POA treated and resolved treated and resolved in immunocompromised patient Neutropenic fever/sepsis RESOLVED s/p IVC filter with Dr Logan for DVT/PE given bleeding on head imaging. Eliquis on hold/see below about possible resuming outpatient but to remain on hold Had been on IV therapy with Vancomycin, Zosyn, Acyclovir, Fluconazole on admission. Blood cultures remained NGTD and de-escalated to Zosyn alone on 10/01 per discussion with heme/onc Provided Neupogen on admission, repeated x1 to prevent complications from such ANC/WBC normalized today, remains afebrile Decadron remains back to her usual 4mg PO BID (needs changed on med rec). Protonix daily. Continue B12/folate supplementation Discussed with Dr Elizabeth , plan to DISCONTINUE further Zosyn 10/02-->resume her Bactrim, ONE TABLET FRIDAY/FRI/FRIDAY for prophylaxis (taking prior) Monitor labs in AM to ensure stable PT/OT consults rec 24hr care Discussed at length with patient and daughter and sister in the room this afternoon regarding plan for at discharge. As discussed previously it does appear patient does not want to undergo any more surgeries which is reasonable given everything she has been through thus far but has been stable with regards to her malignancy. She seems to be in improved spirits today and may entertain continuing chemo and follow-up discussions with Dr. Watson as an outpatient however she has the right to decline if she so chooses as was discussed at length but encouraged to continue if seeing continued stability/improvement. NOT planning for discharge on hospice/palliative care at this time (can be arranged outpt in next couple of weeks by palliative care provider, not able to discuss with family during this hospitalization) We did review therapy recommendations for 24-hour care and previously had been cared for by her daughter and sister at home however the feeling like being a burden to her family and not wanting to be having to be taken care of by them/depending on someone else is very distressing for Shameka. She was 100% in agreement with pursuing rehab at discharge and I notified case management of wishes for [facility] so that we can expedite sending therapy evaluations and potentially get her to rehab this weekend. She will require authorization. Case management entered room and discussed with family as well and is working on sending referrals Sister/daughter very thankful for the care/discussions at this time. Will plan to discharge to rehab with potential eventual transition to personal fpc so the family may stay in the family role and not a caregiver role which has been clearly relayed by Shameka to myself and family. (2) Pulmonary embolism: Plan: LEFT DVT, RLL PE on CTA chest on admission. question of intracranial bleed on brain imaging and vascular consulted and patient is s/p IVC Filter with Dr. Logan on 09/29. Eliquis to remain on hold at this time and can be discussed in follow-up with hematology/oncology and repeat brain imaging if no evidence of bleed Patient has been titrated to room air and is 97% this afternoon. She remains on her usual Decadron as above (3) Dvt femoral (deep venous thrombosis): Plan: As above (4) Adrenal insufficiency: Plan: Patient was provided 10 mg of IV Decadron on admission and continued on IV Decadron every 8 hours through 09/29 before being converted back to her usual 4 mg twice daily. This will need to be adjusted on home med rec at discharge (5) Hx of craniotomy: Plan: Status left craniotomy for GBM- Surgery at [facility] in [place] 06/30/2023 CT scan with question of intracranial bleed noted on serial CTs Steroids as above, antibiotics as outlined and resuming home prophylactic Bactr im. Keppra resumed orally and tolerating and continued Outpatient follow-up with hematology oncology for further discussions on ongoing chemotherapy. Outpatient palliative as desired pending repeat discussions but has been making improvements and is stable at this time (6) Glioblastoma of frontal lobe: Plan: Back as above status postcraniotomy at [facility] in June and treatment as outlined with outpatient follow-up. Emelia frank on her Decadron 4 mg p.o. twice daily, Keppra twice daily and resumed her prophylactic Bactrim as discontinued further IV antibiotics (7) Type 2 diabetes mellitus with obesity: Plan: A1c 9.7 Home metformin on hold. Typically takes glargine 22 units daily which was increased to twice daily while on IV steroids. Pharmacy consulted for glycemic management Decreased last evening by pharmacy 10/01, however blood sugars increased and was increased back to 22 units twice daily. Will need to continue to monitor her needs over the next 24 hours but suspect that she may need to continue increased glargine at discharge to maintain blood sugar control on decadron. could be decreased if plans to taper her decadron but continuing current dose for now B12 LOW 81, IM x 3 ordered, to continue PO daily -- continue at dc. Folate wnl (8) COPD (chronic obstructive pulmonary disease): Plan: Not on any oxygen or inhalers at baseline. Decadron as outlined above with improvement on chest x-ray and lung exam. Patient denies shortness of breath and was titrated to room air. 97% on room air at present time and will monitor any needs for possible 2step @ discharge (9) HTN (hypertension): Plan: Patient's blood pressure much improved and stable and has been previously converted back to her home Decadron dosing. Metoprolol tartrate 25 p.o. twice daily previously resumed and continued. Home medication list includes chlorthalidone however was stopped by her primary care last Friday due to low blood pressures. Does not appear volume overloaded at this time or need for chlorthalidone but will continue to monitor (10) Intracranial bleed: Plan: as noted on CT head on admission, IVC filter as outlined plan for repeat brain imaging after dc per heme/onc, no increased focal deficits continue neuro-checks (11) B12 deficiency: Plan: checked B12/Folate due to MCV >100 for completeness along with her anemia (m ultifactorial as above) Folate wnl however B12 LOW 81--?2nd to metformin use B12 IM x 3 doses ordered, now on PO to start for tomorrow and should continue at dc Plan Continued inpatient stay Lengthy discussion as outlined above regarding rehab needs at discharge and case management to work on sending referrals for today and hopefully will be able to discharge to acute inpatient rehab over the weekend or whenever bed and authorization is received. Possible eventual transition to personal care pending her status at rehab however did not exclude possibility of her to return home if she does make significant improvements. Updated sister and daughter at bedside this afternoon Admission and Anticipated Discharge Date Admission Date: September 29, 2023 Supervising Physician Co-Signing Physician Notes The patient was not seen by me. The chart was reviewed. Case discussed with EDU Dash. Agree with assessment and plan Subjective Patient evaluated this afternoon. Daughter and sister in room. Did see Dr Elizabeth last night/this morning. Remains on room air, breathing stable. Appetite fair, dry lunch fish/rice, will add gravies/sauces. Gómez removed this morning. Discussed improvement in labs/stable, plan to dc abx. Resume home bactrim proph M/W/F. Discussed rehab per therapy evals and about daughter going back/do not believe able to be cared for by her sister. Lengthy discussion about rehab and family to be able to be family rather than caregivers, patient agrees. Discussed [facility]/3hrs likely to be too much, they agree. Have had family to [facility] in past, heard good things about [facility]. Discussed notified CM to send referrals but as Friday will need auth and may need to be inpatient until received and bed available. They are understanding of this, thankful for continued discussions. Does appear no more surgeries wished but will plan to have continued discussions with Dr Elizabeth in follow up about her wanting to continue chemo or not. Support provided. Mood appears much improved. Physical Exam Physical Exam: General: 72yo female sitting up in chair, daughter and sister at bedside, fatigued but appears much improved/improved mood HEENT: mm improved, tracehea midline, prior craniotomy Resp: diminished in the bases, but no significant w/r, on room air 97% CV: RRR, no significant m/r/g, no pitting edema/calf tenderness, slight edema to hands IMPROVED/resolved, pulses palpable GI: +BS, soft/obese, nontender : no gómez MSK/Neuro:some expressive aphasia at baseline but much clearer today/more conversive, improved alert to person, place, cooperative during encounter not as tearful/emotional today and improved demeanor Results & Data Results & Data Vital Signs (Past 12 Hours) Vital Signs Temp Pulse Resp BP Pulse Ox O2 Del Method 10/03/23 07:16 36.5 C 82 20 155/110 H 93 Room Air 10/03/23 03:00 36.5 C 85 16 151/107 H 92 Room Air 10/02/23 20:15 36.6 C 75 16 126/88 93 Room Air Laboratory Results 10/03/23 10/03/23 10/03/23 Range/Units 11:19 07:12 04:08 WBC 5.04 (4.8-10.8) K/ul RBC 3.54 L (4.20-5.40) M/uL Hgb 12.8 (12.0-16.0) g/dl Hct 35.7 L (37.0-47.0) % MCV 100.8 H (80.0-100.0) fL MCH 36.2 H (25.0-34.0) pg MCHC 35.9 (32.0-36.0) g/dL RDW Std Deviation 54.9 H (36.4-46.3) fL RDW Coeff of Tomas 14.6 H (11.5-14.5) % Plt Count 53 L (130-400) K/uL MPV 10.2 (9.4-12.4) fL Neutrophils % (Manual) 78 % Lymphocytes % (Manual) 11 % Monocytes % (Manual) 10 % Basophils % (Manual) 1 % Neutrophils # (Manual) 3.93 (1.40-6.50) K/uL Total Absolute Neuts 3.93 (1.4-6.5) K/uL Lymphocytes # (Manual) 0.55 L (1.2-3.4) K/uL Total Abs Lymphocytes 0.55 L (1.2-3.4) K/uL Monocytes # (Manual) 0.50 (0.11-0.59) K/uL Basophils # (Manual) 0.05 (0-0.2) K/uL Toxic Granulation 1+ Dohle Bodies 1+ Sodium 139 (136-145) mmol/L Potassium 3.9 (3.5-5.1) mmol/L Chloride 102 (98-107) mmol/L Carbon Dioxide 29 (21-32) mmol/L Anion Gap 8 (3-11) BUN 22 (6-23) mg/dl Creatinine 0.74 (0.6-1.2) mg/dl Est Cr Clr Drug Dosing 67.1 ml/min Est GFR ( Amer) 92.5 ml/min Est GFR (Non-Af Amer) 79.8 ml/min BUN/Creatinine Ratio 29.7 H (10-20) Glucose 165 H (70-99(Fasting)) mg/dl POC Glucose 166 H 160 H (70-99) mg/dl Calcium 9.0 (8.6-10.3) mg/dl Magnesium 1.9 (1.7-2.4) mg/dl 10/02/23 10/02/23 Range/Units 19:41 16:12 WBC (4.8-10.8) K/ul RBC (4.20-5.40) M/uL Hgb (12.0-16.0) g/dl Hct (37.0-47.0) % MCV (80.0-100.0) fL MCH (25.0-34.0) pg MCHC (32.0-36.0) g/dL RDW Std Deviation (36.4-46.3) fL RDW Coeff of Tomas (11.5-14.5) % Plt Count (130-400) K/uL MPV (9.4-12.4) fL Neutrophils % (Manual) % Lymphocytes % (Manual) % Monocytes % (Manual) % Basophils % (Manual) % Neutrophils # (Manual) (1.40-6.50) K/uL Total Absolute Neuts (1.4-6.5) K/uL Lymphocytes # (Manual) (1.2-3.4) K/uL Total Abs Lymphocytes (1.2-3.4) K/uL Monocytes # (Manual) (0.11-0.59) K/uL Basophils # (Manual) (0-0.2) K/uL Toxic Granulation Dohle Bodies Sodium (136-145) mmol/L Potassium (3.5-5.1) mmol/L Chloride (98-107) mmol/L Carbon Dioxide (21-32) mmol/L Anion Gap (3-11) BUN (6-23) mg/dl Creatinine (0.6-1.2) mg/dl Est Cr Clr Drug Dosing ml/min Est GFR ( Amer) ml/min Est GFR (Non-Af Amer) ml/min BUN/Creatinine Ratio (10-20) Glucose (70-99(Fasting)) mg/dl POC Glucose 154 H 161 H (70-99) mg/dl Calcium (8.6-10.3) mg/dl Magnesium (1.7-2.4) mg/dl PG Care Time/CCT Total # of Minutes Spent Total Time Spent with Patient: Total time spent is greater than 50% in coordination of care (as documented) at patient's floor/unit and/or counseling patient: Coding Level of Care Code 33190 SUB INP/OBS CARE 3/50MIN Diagnoses Neutropenic fever D70.9; R50.81 Pulmonary embolism I26.99 Acute cor pulmonale presence: without acute cor pulmonale Chronicity: acute Pulmonary embolism type: unspecified Dvt femoral (deep venous thrombosis) I82.419 Adrenal insufficiency E27.40 Hx of craniotomy Z98.890 Glioblastoma of frontal lobe C71.1 Type 2 diabetes mellitus with obesity E11.69; E66.9 COPD (chronic obstructive pulmonary disease) J44.9 HTN (hypertension) I10 Intracranial bleed I62.9 B12 deficiency E53.8 (2) Pulmonary embolism Acute cor pulmonale presence: without acute cor pulmonale Chronicity: acute Pulmonary embolism type: unspecified Qualified Code(s): I26.99 - Other pulmonary embolism without acute cor pulmonale
[2023-10-03] MEDS: PANTOprazole 40 MG TAB PO SCH (08:00)
--- NOTE | 2023-10-03 12:33 | Electrocardiogram Report ---
Test Reason : Blood Pressure : / mmHG Vent. Rate : 082 BPM Atrial Rate : 082 BPM P-R Int : 164 ms QRS Dur : 094 ms QT Int : 406 ms P-R-T Axes : 058 027 035 degrees QTc Int : 474 ms Normal sinus rhythm Normal ECG When compared with ECG of 29-SEP-2023 17:15, Vent. rate has decreased BY [address] no longer depressed in Anterior leads Confirmed by Benny Trejo ([id number]) on 10/03/2023 12:32:40 PM Referred By: REFERRED SELF Confirmed By:Benny Trejo
[2023-10-03 14:09] LABS: Ehrlichia chaff DNA Bld Negative (Negative)
[2023-10-04 07:11] LABS: Hemoglobin 13.7 g/dl (12.0-16.0); Mean Corpuscular Hemoglobin 36.3 pg (25.0-34.0); Mean Corpuscular Hgb Conc 36.1 g/dL (32.0-36.0); Mean Corpuscular Volume 100.8 fL (80.0-100.0); Mean Platelet Volume 10.9 fL (9.4-12.4); Platelet Count 54 K/uL (130-400); RDW Coefficient of Variation 14.4 % (11.5-14.5); RDW Standard Deviation 53.1 fL (36.4-46.3); Red Blood Count 3.77 M/uL (4.20-5.40)
[2023-10-04 07:19] LABS: White Blood Count 5.89 K/ul (4.8-10.8)
[2023-10-04 07:20] LABS: Basophils # (auto) 0.01 K/uL (0.00-0.20); Basophils % (auto) 0.2 %; Dohle Bodies 1+; Eosinophils # (auto) 0.05 K/uL (0.00-0.50); Eosinophils % (auto) 0.8 %; Immature Granulocytes # (auto) 0.07 K/uL (0.01-0.20); Immature Granulocytes % (auto) 1.2 %; Lymphocytes # (auto) 0.82 K/uL (1.20-3.40); Lymphocytes % (auto) 13.9 %; Monocytes # (auto) 0.61 K/uL (0.11-0.59); Monocytes % (auto) 10.4 %; Neutrophils # (auto) 4.33 K/uL (1.40-6.50); Neutrophils % (auto) 73.5 %; Schistocytes 3+; Toxic Vacuolation 1+
[2023-10-04 07:32] LABS: BUN Creatinine Ratio 39.2 (10-20); Calcium 8.9 mg/dl (8.6-10.3); Creatinine Clr Calc Pharmacy 91.4 ml/min; Est GFR (African American) 109.8 ml/min; Est GFR (Non-African American) 94.7 ml/min; Magnesium 1.9 mg/dl (1.7-2.4); Potassium 3.6 mmol/L (3.5-5.1)
--- NOTE | 2023-10-04 07:48 | Hospitalist Progress Note ---
Date of Service October 04, 2023 Assessment & Plan (1) Neutropenic fever: Plan: Change in mental status/confusion/lethargy/decreased responsiveness- Contributing factors including but not limited to: Intracranial bleed/encephalopathy/recent left craniotomy for GBM/neutropenic fever/DVT PE Imaging noting moderate fecal debris in colon (+large BM 09/30), no bowel obstruction/appendicitis. Unremarkable abdominal visera with no acute process. CTA chest w/ RLL PE without evidence of R sided cardiac strain. RLL groundglass opacity which may indicate pneuomonitis/atelectasis with pulm hemorrhage not excluded in context of RLL PE. Bilateral lower lobe atelectasis with no effusion or PTX. Biofire negative, lyme testing negative. Anaplasmosis/babesia pending Sepsis POA treated and resolved treated and resolved in immunocompromised patient Neutropenic fever/sepsis RESOLVED s/p IVC filter with Dr Logan for DVT/PE given bleeding on head imaging. Eliquis on hold/see below about possible resuming outpatient but to remain on hold Had been on IV therapy with Vancomycin, Zosyn, Acyclovir, Fluconazole on admission. Blood cultures remained NGTD and de-escalated to Zosyn alone on 10/01 per discussion with heme/onc Provided Neupogen on admission, repeated x1 to prevent complications from such ANC improved/WBC normalized today, remains afebrile Decadron remains back to her usual 4mg PO BID (needs changed on med rec). Protonix daily. Continue B12/folate supplementation Discussed with Dr Elizabeth , plan to DISCONTINUE further Zosyn 10/02-->resume her Bactrim, ONE TABLET FRIDAY/FRI/FRIDAY for prophylaxis (taking prior) PT/OT consults rec 24hr care * Discussed at length with patient and daughter and sister in the room this afternoon regarding plan for at discharge. * As discussed previously it does appear patient does not want to undergo any more surgeries which is reasonable given everything she has been through thus far but has been stable with regards to her malignancy. She seems to be in improved spirits today and may entertain continuing chemo and follow-up discussions with Dr. Watson as an outpatient however she has the right to decline if she so chooses as was discussed at length but encouraged to continue if seeing continued stability/improvement. NOT planning for discharge on hospice/palliative care at this time (can be arranged outpt in next couple of weeks by palliative care provider, not able to discuss with family during this hospitalization) * We did review therapy recommendations for 24-hour care and previously had been cared for by her daughter and sister at home however the feeling like being a burden to her family and not wanting to be having to be taken care of by them/depending on someone else is very distressing for Atiya. * She was 100% in agreement with pursuing rehab at discharge and I notified case management of wishes for potentials [facility] and [facility] so that we can expedite sending therapy evaluations and potentially get her to rehab this weekend. She will require authorization. Case management entered room and discussed with family as well and is working on sending referrals * Sister/daughter very thankful for the care/discussions at this time. Will plan to discharge to rehab with potential eventual transition to personal jail so the family may stay in the family role and not a caregiver role which has been clearly relayed by Atiya to myself and family. 5/ WBC wnl. ANC to 4.3k Remains afebrile. Bcx negative. No further abx/back on proph bactrim MWF - ref for [facility] pending as above. Emotional today, support provided. Daughter returned to home today/sister in room. Discussion given poor sleep/mood, added low dose remeron 7.5mg HS and will monitor response but can continue at dc if effective Moving off of telemetry today given stability and heart rate and on room air with normal blood pressure (2) Pulmonary embolism: Plan: LEFT DVT, RLL PE on CTA chest on admission. question of intracranial bleed on brain imaging and vascular consulted and patient is s/p IVC Filter with Dr. Logan on 09/29. Eliquis to remain on hold at this time and can be discussed in follow-up with hematology/oncology and repeat brain imaging if no evidence of bleed Patient has been titrated to room air and remains stable on room air. She denies any increased shortness of breath at this time but will monitor She continues on her usual Decadron as above and is currently 96% (3) Dvt femoral (deep venous thrombosis): Plan: As above (4) Adrenal insufficiency: Plan: Patient was provided 10 mg of IV Decadron on admission and continued on IV Decadron every 8 hours through 09/29 before being converted back to her usual 4 mg twice daily. This will need to be adjusted on home med rec at discharge (5) Hx of craniotomy: Plan: Status left craniotomy for GBM-Surgery at [facility] in [place] 06/30/2023 CT scan with question of intracranial bleed noted on serial CTs Steroids as above, antibiotics as outlined and resuming home prophylactic Bactrim. Keppra resumed orally and tolerating and continued Outpatient follow-up with hematology oncology for further discussions on ongoing chemotherapy. Outpatient palliative as desired pending repeat discussions but has been making improvements and is stable at this time (6) Glioblastoma of frontal lobe: Plan: as above status post craniotomy at [facility] in June and treatment as outlined, continues on bactrim proph/prior decadron and keppra. Outpt f/u for continued discussions about ongoing chemotherapy (7) Type 2 diabetes mellitus with obesity: Plan: A1c 9.7 Home metformin on hold. Typically takes glargine 22 units daily which was increased to twice daily while on IV steroids. Pharmacy consulted for glycemic management Decreased last evening by pharmacy 10/01, however blood sugars increased and was i ncreased back to 22 units twice daily. Will need to continue to monitor her needs over the next 24 hours but suspect that she may need to continue increased glargine at discharge to maintain blood sugar control on decadron which she has been on and suspect contributing to increased needs/A1c 9.7 monitor for ability to decrease if decreasing decadron in f/u oncology B12 LOW 81, IM x 3 ordered, to continue PO daily -- continue at vt. Folate wnl (8) COPD (chronic obstructive pulmonary disease): Plan: Not on any oxygen or inhalers at baseline. Decadron as outlined above with improvement on chest x-ray and lung exam. Patient denies shortness of breath and was titrated to room air. monitor any needs for possible 2step @ discharge (9) HTN (hypertension): Plan: Patient's blood pressure much improved and stable and has been previously converted back to her home Decadron dosing. Metoprolol tartrate 25 p.o. twice daily previously resumed and continued. Home medication list includes chlorthalidone however was stopped by her primary care last Friday due to low blood pressures. Does not appear volume overloaded at this time or need for chlorthalidone but will continue to monitor (10) Intracranial bleed: Plan: as noted on CT head on admission, IVC filter as outlined plan for repeat brain imaging after dc per heme/onc, no increased focal deficits neuro-checks No acute deficit (11) B12 deficiency: Plan: checked B12/Folate due to MCV >100 for completeness along with her anemia (multifactorial as above) Folate wnl however B12 LOW 81--?2nd to metformin use B12 IM x 3 doses ordered, now on PO to start for tomorrow and should continue at dc Plan Continued inpatient stay While waiting for bed and authorization at acute inpatient rehab. Referrals have been sent for [facility] and [facility]. Updated daughter and sister in the room 5/3, sister in room 5/4 and will downgrade to medical with preference for 3 E. bed while waiting for placement at this time. Admission and Anticipated Discharge Date Admission Date: September 29, 2023 Subjective Evaluated this morning, sitting up in bed, ate decent for breakfast except the bread. Is a little emotional this morning, allowed to cry. Sister at bedside reports atiya was never the emotional twin. Discussed stages of /dying/grief. No CP/SOB, is on room air. Ambulated back to bed with sister in room. She did note she wanted something for sleep last night and didn't get. When asked if we talked about this she said she mentioned if after hours. Discussed remeron which could be helpful for sleep/mood/appetite. Will start low dose/monitor response but if effective could be continued. Plan to downgrade off telemetry. HR controlled and up to 90/low 100s w/ activity but doing well. Questions/concerns addressed at this time. Physical Exam Physical Exam: 72-year-old female sitting up in bed, si ster at bedside, initially not tearful but was then tearful and crying during discussion. Support provided. No acute distress and had just been ambulating from back to the bathroom into bed prior to arrival HEENT; head with prior craniotomy scar, mucous membranes moist, trachea midline Respiratory: Clear to auscultation with slightly diminished in the bases but no obvious wheezes crackles or rales and remains on room air Cardiovascular: Irregularly irregular with rates sustained primarily in the 60s and 70s but does elevate to 90-100s with ambulation at times however no increased shortness of breath. GI: Positive bowel sounds throughout, soft, obese, nontender no Malin Musculoskeletal/neuro: Some expressive aphasia and baseline with some slight left lower leg weakness compared to the right but good strength testing in upper extremities. Sensation intact and able to follow commands and answer questions appropriately Psych: Alert and oriented to person although is tearful at times and support provided Results & Data Results & Data Vital Signs (Past 12 Hours) Vital Signs Temp Pulse Pulse Resp BP Pulse Ox O2 Del Method 10/04/23 07:20 36.4 C L 79 19 130/84 92 Room Air 10/04/23 02:36 36.8 C 78 18 105/70 93 Room Air 10/03/23 22:57 36.5 C 63 18 138/89 94 Room Air 10/03/23 22:00 66 10/03/23 20:00 Room Air 10/03/23 19:55 81 Laboratory Results 10/04/23 10/04/23 10/03/23 Range/Units 07:19 06:20 20:13 WBC 5.89 (4.8-10.8) K/ul RBC 3.77 L (4.20-5.40) M/uL Hgb 13.7 (12.0-16.0) g/dl Hct 38.0 (37.0-47.0) % MCV 100.8 H (80.0-100.0) fL MCH 36.3 H (25.0-34.0) pg MCHC 36.1 H (32.0-36.0) g/dL RDW Std Deviation 53.1 H (36.4-46.3) fL RDW Coeff of Tomas 14.4 (11.5-14.5) % Plt Count 54 L (130-400) K/uL MPV 10.9 (9.4-12.4) fL Immature Gran % (Auto) 1.2 % Neut % (Auto) 73.5 % Lymph % (Auto) 13.9 % [place] % (Auto) 10.4 % Eos % (Auto) 0.8 % Baso % (Auto) 0.2 % Neut # (Auto) 4.33 (1.40-6.50) K/uL Lymph # (Auto) 0.82 L (1.20-3.40) K/uL [place] # (Auto) 0.61 H (0.11-0.59) K/uL Eos # (Auto) 0.05 (0.00-0.50) K/uL Baso # (Auto) 0.01 (0.00-0.20) K/uL Immature Gran # (Auto) 0.07 (0.01-0.20) K/uL Toxic Vacuolation 1+ Dohle Bodies 1+ Schistocytes 3+ Sodium 138 (136-145) mmol/L Potassium 3.6 (3.5-5.1) mmol/L Chloride 102 (98-107) mmol/L Carbon Dioxide 28 (21-32) mmol/L Anion Gap 8 (3-11) BUN 20 (6-23) mg/dl Creatinine 0.51 L (0.6-1.2) mg/dl Est Cr Clr Drug Dosing 91.4 ml/min Est GFR ( Amer) 109.8 ml/min Est GFR (Non-Af Amer) 94.7 ml/min BUN/Creatinine Ratio 39.2 H (10-20) Glucose 88 (70-99(Fasting)) mg/dl POC Glucose 78 242 H (70-99) mg/dl Calcium 8.9 (8.6-10.3) mg/dl Magnesium 1.9 (1.7-2.4) mg/dl A. phagocytophilum DNA (Negative) E.chaffeensis DNA (PCR) (Negative) 10/03/23 10/03/23 09/29/23 Range/Units 16:26 11:19 20:31 WBC (4.8-10.8) K/ul RBC (4.20-5.40) M/uL Hgb (12.0-16.0) g/dl Hct (37.0-47.0) % MCV (80.0-100.0) fL MCH (25.0-34.0) pg MCHC (32.0-36.0) g/dL RDW Std Deviation (36.4-46.3) fL RDW Coeff of Tomas (11.5-14.5) % Plt Count (130-400) K/uL MPV (9.4-12.4) fL Immature Gran % (Auto) % Neut % (Auto) % Lymph % (Auto) % [place] % (Auto) % Eos % (Auto) % Baso % (Auto) % Neut # (Auto) (1.40-6.50) K/uL Lymph # (Auto) (1.20-3.40) K/uL [place] # (Auto) (0.11-0.59) K/uL Eos # (Auto) (0.00-0.50) K/uL Baso # (Auto) (0.00-0.20) K/uL Immature Gran # (Auto) (0.01-0.20) K/uL Toxic Vacuolation Dohle Bodies Schistocytes Sodium (136-145) mmol/L Potassium (3.5-5.1) mmol/L Chloride (98-107) mmol/L Carbon Dioxide (21-32) mmol/L Anion Gap (3-11) BUN (6-23) mg/dl Creatinine (0.6-1.2) mg/dl Est Cr Clr Drug Dosing ml/min Est GFR ( Amer) ml/min Est GFR (Non-Af Amer) ml/min BUN/Creatinine Ratio (10-20) Glucose (70-99(Fasting)) mg/dl POC Glucose 137 H 166 H (70-99) mg/dl Calcium (8.6-10.3) mg/dl Magnesium (1.7-2.4) mg/dl A. phagocytophilum DNA Negative (Negative) E.chaffeensis DNA (PCR) Negative (Negative) PG Care Time/CCT Total # of Minutes Spent Total Time Spent with Patient: Total time spent is greater than 50% in coordination of care (as documented) at patient's floor/unit and/or counseling patient: Coding Level of Care Code 64277 SUB INP/OBS CARE 3/50MIN Diagnoses Neutropenic fever D70.9; R50.81 Pulmonary embolism I26.99 Acute cor pulmonale presence: without acute cor pulmonale Chronicity: acute Pulmonary embolism type: unspecified Dvt femoral (deep venous thrombosis) I82.419 Adrenal insufficiency E27.40 Hx of craniotomy Z98.890 Glioblastoma of frontal lobe C71.1 Type 2 diabetes mellitus with obesity E11.69; E66.9 COPD (chronic obstructive pulmonary disease) J44.9 HTN (hypertension) I10 Intracranial bleed I62.9 B12 deficiency E53.8 (2) Pulmonary embolism Acute cor pulmonale presence: without acute cor pulmonale Chronicity: acute Pulmonary embolism type: unspecified Qualified Code(s): I26.99 - Other pulmonary embolism without acute cor pulmonale
[2023-10-04] MEDS: CYANOCOBALAMIN (B-12) 500 MCG TABLET PO SCH (08:07)
[2023-10-04] MEDS: LANTUS PER UNIT CHARGE SC SCH ×2 (08:25→21:32)
[2023-10-04 21:22] LABS: Babesia microti DNA Not Detected (Not Detected); Q Fever IgG, Phase I NEGATIVE; Q Fever Phase I IgM Antibody NEGATIVE; Q Fever Phase II IgG Antibody NEGATIVE; Q Fever Phase II IgM Antibody NEGATIVE; R. typhi IgG Ab NOT DETECTED; R. typhi IgM Ab NOT DETECTED; RMSF IgG Ab NOT DETECTED; RMSF IgM Ab NOT DETECTED
[2023-10-04] MEDS: MIRTAZAPINE TAB 15 MG TAB PO SCH (22:43)
[2023-10-05 07:33] LABS: Hematocrit (blood only) 40.7 % (37.0-47.0); Hemoglobin 14.6 g/dl (12.0-16.0); Mean Corpuscular Hemoglobin 36.3 pg (25.0-34.0); Mean Corpuscular Hgb Conc 35.9 g/dL (32.0-36.0); Mean Corpuscular Volume 101.2 fL (80.0-100.0); Mean Platelet Volume 10.7 fL (9.4-12.4); Platelet Count 49 K/uL (130-400); RDW Coefficient of Variation 14.4 % (11.5-14.5); RDW Standard Deviation 53.3 fL (36.4-46.3); Red Blood Count 4.02 M/uL (4.20-5.40); White Blood Count 3.35 K/ul (4.8-10.8)
[2023-10-05 07:54] LABS: BUN Creatinine Ratio 37.5 (10-20); Basophils # (auto) 0.02 K/uL (0.00-0.20); Basophils % (auto) 0.6 %; Calcium 8.7 mg/dl (8.6-10.3); Creatinine Clr Calc Pharmacy 83.3 ml/min; Eosinophils # (auto) 0.06 K/uL (0.00-0.50); Eosinophils % (auto) 1.8 %; Est GFR (African American) 106.5 ml/min; Est GFR (Non-African American) 91.9 ml/min; Immature Granulocytes # (auto) 0.08 K/uL (0.01-0.20); Immature Granulocytes % (auto) 2.4 %; Lymphocytes # (auto) 0.59 K/uL (1.20-3.40); Lymphocytes % (auto) 17.6 %; Monocytes # (auto) 0.45 K/uL (0.11-0.59); Monocytes % (auto) 13.4 %; Neutrophils # (auto) 2.15 K/uL (1.40-6.50); Neutrophils % (auto) 64.2 %; Potassium 4.1 mmol/L (3.5-5.1); Toxic Granulation 1+
--- NOTE | 2023-10-05 08:27 | Hospitalist Progress Note ---
Date of Service October 05, 2023 Assessment & Plan (1) Neutropenic fever: Plan: Change in mental status/confusion/lethargy/decreased responsiveness- Contributing factors including but not limited to: Intracranial bleed/encephalopathy/recent left craniotomy for GBM/neutropenic fever/DVT PE Imaging noting moderate fecal debris in colon (+large BM 09/30), no bowel obstruction/appendicitis. Unremarkable abdominal visera with no acute process. CTA chest w/ RLL PE without evidence of R sided cardiac strain. RLL groundglass opacity which may indicate pneuomonitis/atelectasis with pulm hemorrhage not excluded in context of RLL PE. Bilateral lower lobe atelectasis with no effusion or PTX. Biofire negative, lyme testing negative. Anaplasmosis/babesia pending Sepsis POA treated and resolved treated and resolved in immunocompromised patient Neutropenic fever/sepsis RESOLVED s/p IVC filter with Dr Logan for DVT/PE given bleeding on head imaging. Eliquis on hold/see below about possible resuming outpatient but to remain on hold IV therapy with Vancomycin, Zosyn, Acyclovir, Fluconazole on admission. Blood cultures remained NGTD and de-escalated to Zosyn alone on 10/01 per discussion with heme/onc and now back on her home Bactrim MWF for prophylaxis Heme/onc consulted s/p neupogen x 2 ANC improved/normalized and staying normal. No leukocytosis/fever and blood cultures negative to day Remains on baseline decadron 4mg PO BID PT/OT consults, rehab recommended. 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 Did have heme/onc speak with her as well regarding response to chemo and will have continued discussions with Dr Elizabeth at discharge and she is willing to consider ongoing chemotherapy in discussions but did make it clear to me and family in room (also on board with her wishes) that she is wanting to avoid any further surgeries/interventions/procedures at this time. Downgraded off telemetry 10/03 and had been fairly well rate controlled afib and remains on her metoprolol BID and eliquis on hold/hold at discharge planned and to have repeat imaging w/ Dr Elizabeth and consideration to resume if no further bleeding on repeat imaging Did add low dose remeron 7.5mg HS for sleep/mood and reported did get a little better sleep last night without need for further increase and will continue to monitor but plan to continue this at discharge/possible increase as outpatient pending mood/response (2) Pulmonary embolism: Plan: LEFT DVT, RLL PE on CTA chest on admission. question of intracranial bleed on brain imaging and vascular consulted and patient is s/p IVC Filter with Dr. Logan on 09/29. Eliquis to remain on hold at this time and can be discussed in follow-up with hematology/oncology and repeat brain imaging if no evidence of bleed Remains stable on room air, denied any increased SOB at present and to monitor (3) Dvt femoral (deep venous thrombosis): Plan: As above LLE DVT- s/p IVC filter (4) Adrenal insufficiency: Plan: s/p 10 mg of IV Decadron in ER, continued on q8h iv dosing and converted back to home 4mg po bid - this will need to be adjusted on home med rec at discharge (5) Hx of craniotomy: Plan: Status left craniotomy for GBM-Surgery at [facility] in [place] 06/30/2023 CT scan with question of intracranial bleed noted on serial CTs Steroids as above, antibiotics as outlined and resuming home prophylactic Bactrim. Keppra resumed orally and tolerating and continued Outpatient follow-up with hematology oncology for further discussions on ongoing chemotherapy. I have spent quite a bit of time with Ms Mason for continued discussions and determined her real concerns are: * #1- not feeling like a burden to her family and was previously very independent lady and taking care of herself but had been depending on sister/daughter from [facility] here for about a month long and not wanting to feel like she is interfering with her living her life either (however daughter very supportive for Shameka and feel that she is agreeable to whatever her mom ultimately decides and both her and twin sister continue to be on board to do whatever Shameka is wanting to do) and agreed rehab/placement may be more beneficial to have family move from this caregiver role they have been this past year * #2- does not want any more surgeries/procedures * #3- wants to focus on time she has with family and quality of life at this time. She did endorse today she continues to be willing to talk with Dr Elizabeth [place] regarding ongoing chemotherapy at this time. Palliative consulted on admission, did see patient by herself last week but unfortunately was not able to call daughter/family while inpatient for discussion on goals of care but recommended Ms Mason have outpatient follow up, 2-3 weeks which can be made if desired by patient but can also consider having continued discussions with Dr Elizabeth and then referral following. (6) Glioblastoma of frontal lobe: Plan: as above status post craniotomy at [facility] in June and treatment as outlined, continues on bactrim proph/prior decadron and keppra. Outpt f/u for continued discussions about ongoing chemotherapy and consideration for palliaitve follow up (7) Type 2 diabetes mellitus with obesity: Plan: A1c 9.7 Home metformin on hold. Typically takes glargine 22 units daily which was increased to twice daily while on IV steroids. Pharmacy consulted for glycemic management Decreased last evening by pharmacy 10/01, however blood sugars increased and was increased back to 22 units twice daily 10/03 and is on sliding scale for now -- most recent was 20u this morning and will monitor for evening but suspect needing increased insulin coverage while on the decadron 4mg PO BID given only other on metformin and would like to have better control for symptom management/complications from such. IF able to titrate down on the decadron then can consider decreasing needs accordingly, however will continue to monitor insulin needs while awaiting bed for rehab and likely continue BID dosing at rehab with sliding scale B12 LOW 81, IM provided x 3 doses and continues on PO supplementation and would continue at [place]. Folate wnl (8) COPD (chronic obstructive pulmonary disease): Plan: Not on any oxygen or inhalers at baseline. Decadron as outlined above with improvement on chest x-ray and lung exam. Patient denies shortness of breath and was titrated to room air. monitor any needs for possible 2step @ discharge (9) HTN (hypertension): Plan: Patient's blood pressure much improved and stable and has been previously converted back to her home Decadron dosing. Metoprolol tartrate 25 PO BID, resumed and continued Home medication list includes chlorthalidone however was stopped by her primary care last Friday due to low blood pressures. Does not appear volume overloaded at this time or need for chlorthalidone but will continue to monitor (10) Intracranial bleed: Plan: as noted on CT head on admission, s/p IVC filter due to such and eliquis not continued at this time and will need f/u imaging with oncology outpatient prior to consideration to resume appearing at baseline/no increased confusion or new focal deficit (11) B12 deficiency: Plan: checked B12/Folate due to MCV >100 for completeness along with her anemia (m ultifactorial as above) Folate wnl however B12 LOW 81--?2nd to metformin use s/p IM B12 injections and continues on PO Plan Continued inpatient stay while awaiting bed for acute inpatient rehab. Refs pending [facility] and plan for discharge when auth received/bed available. Updated family daily this past week for discussions on Shameka's goals of care, daughter left to go back home yesterday and twin sister updated at bedside 10/03 and can update as needed but also let them both know to notify nursing with any questions/concerns to give them a call if needed sooner. Sister has been with her daily while here Admission and Anticipated Discharge Date Admission Date: September 29, 2023 Subjective Evaluated this morning, sitting up in bed, alone in room today. Reports feeling ok, tearful at times but mood appears improved. Reports she got better sleep last night. Discussed continuing current dose vs increasing remeron and she thinks it's adequate at this time and will continue current dose/monitor for need for increase. Remains on room air, no SOB reported. No CP, abdominal pain. Moving her bowels. Discussed will follow up with CM and rehab to see if auth received/bed available tomorrow and hopefully get her started in rehab. Agreeable for continued discussions with Dr Elizabeth as outpatient but still endorses she would NOT want any further surgeries. Support provided. Questions/concerns addressed at this time. Physical Exam Physical Exam: 72-year-old female sitting up in bed, no family in room today, occ tearful but improved from day prior, NAD HEENT; head with prior craniotomy scar, mucous membranes moist, trachea midline Respiratory: clear/slightly diminished in the bases but no overt w/c/r and remains on room air Cardiovascular: Irregularly irregular, rates 70-80s during exam, no increased LE edema/calf tenderness GI: Positive bowel sounds throughout, soft, obese, nontender no Malin Psych/MSK/Neuro: Some expressive aphasia and baseline, baseline LLE weakness compared to the right but good UE strength testing. Sensation intact and able to follow commands and answer questions appropriately as able with her aphasia which does cause some frustrations at times but is alert/oriented to person/place at this time and cooperative with exam Results & Data Results & Data Vital Signs (Past 12 Hours) Vital Signs Temp Pulse Resp BP Pulse Ox O2 Del Method 10/05/23 07:27 36.6 C 80 16 130/84 92 Room Air 10/04/23 22:45 82 96 Room Air 10/04/23 21:31 Room Air 10/04/23 21:21 36.5 C 93 H 14 120/81 95 Room Air Laboratory Results 10/05/23 10/05/23 10/04/23 Range/Units 07:32 06:59 21:19 WBC 3.35 L (4.8-10.8) K/ul RBC 4.02 L (4.20-5.40) M/uL Hgb 14.6 (12.0-16.0) g/dl Hct 40.7 (37.0-47.0) % MCV 101.2 H (80.0-100.0) fL MCH 36.3 H (25.0-34.0) pg MCHC 35.9 (32.0-36.0) g/dL RDW Std Deviation 53.3 H (36.4-46.3) fL RDW Coeff of Tomas 14.4 (11.5-14.5) % Plt Count 49 L (130-400) K/uL MPV 10.7 (9.4-12.4) fL Immature Gran % (Auto) 2.4 % Neut % (Auto) 64.2 % Lymph % (Auto) 17.6 % [place] % (Auto) 13.4 % Eos % (Auto) 1.8 % Baso % (Auto) 0.6 % Neut # (Auto) 2.15 (1.40-6.50) K/uL Lymph # (Auto) 0.59 L (1.20-3.40) K/uL [place] # (Auto) 0.45 (0.11-0.59) K/uL Eos # (Auto) 0.06 (0.00-0.50) K/uL Baso # (Auto) 0.02 (0.00-0.20) K/uL Immature Gran # (Auto) 0.08 (0.01-0.20) K/uL Toxic Granulation 1+ Sodium 136 (136-145) mmol/L Potassium 4.1 (3.5-5.1) mmol/L Chloride 100 (98-107) mmol/L Carbon Dioxide 29 (21-32) mmol/L Anion Gap 7 (3-11) BUN 21 (6-23) mg/dl Creatinine 0.56 L (0.6-1.2) mg/dl Est Cr Clr Drug Dosing 83.3 ml/min Est GFR ( Amer) 106.5 ml/min Est GFR (Non-Af Amer) 91.9 ml/min BUN/Creatinine Ratio 37.5 H (10-20) Glucose 146 H (70-99(Fasting)) mg/dl POC Glucose 151 H 180 H (70-99) mg/dl Calcium 8.7 (8.6-10.3) mg/dl Magnesium 2.0 (1.7-2.4) mg/dl Babesia microti DNA PCR (Not Detected) Q Fever Phase I IgG Ab Q Fever Phase I IgM Ab Q Fever Phase II IgG Ab Q Fever Phase II IgM Ab Rickettsia IgG Ab Rickettsia IgM Ab Typhus Fever IgG Ab Typhus Fever IgM Ab 10/04/23 09/29/23 Range/Units 16:38 20:31 WBC (4.8-10.8) K/ul RBC (4.20-5.40) M/uL Hgb (12.0-16.0) g/dl Hct (37.0-47.0) % MCV (80.0-100.0) fL MCH (25.0-34.0) pg MCHC (32.0-36.0) g/dL RDW Std Deviation (36.4-46.3) fL RDW Coeff of Tomas (11.5-14.5) % Plt Count (130-400) K/uL MPV (9.4-12.4) fL Immature Gran % (Auto) % Neut % (Auto) % Lymph % (Auto) % [place] % (Auto) % Eos % (Auto) % Baso % (Auto) % Neut # (Auto) (1.40-6.50) K/uL Lymph # (Auto) (1.20-3.40) K/uL [place] # (Auto) (0.11-0.59) K/uL Eos # (Auto) (0.00-0.50) K/uL Baso # (Auto) (0.00-0.20) K/uL Immature Gran # (Auto) (0.01-0.20) K/uL Toxic Granulation Sodium (136-145) mmol/L Potassium (3.5-5.1) mmol/L Chloride (98-107) mmol/L Carbon Dioxide (21-32) mmol/L Anion Gap (3-11) BUN (6-23) mg/dl Creatinine (0.6-1.2) mg/dl Est Cr Clr Drug Dosing ml/min Est GFR ( Amer) ml/min Est GFR (Non-Af Amer) ml/min BUN/Creatinine Ratio (10-20) Glucose (70-99(Fasting)) mg/dl POC Glucose 164 H (70-99) mg/dl Calcium (8.6-10.3) mg/dl Magnesium (1.7-2.4) mg/dl Babesia microti DNA PCR Not Detected (Not Detected) Q Fever Phase I IgG Ab NEGATIVE Q Fever Phase I IgM Ab NEGATIVE Q Fever Phase II IgG Ab NEGATIVE Q Fever Phase II IgM Ab NEGATIVE Rickettsia IgG Ab NOT DETECTED Rickettsia IgM Ab NOT DETECTED Typhus Fever IgG Ab NOT DETECTED Typhus Fever IgM Ab NOT DETECTED PG Care Time/CCT Total # of Minutes Spent Total Time Spent with Patient: Total time spent is greater than 50% in coordination of care (as documented) at patient's floor/unit and/or counseling patient: Coding Level of Care Code 60454 SUB INP/OBS CARE 3/50MIN Diagnoses Neutropenic fever D70.9; R50.81 Pulmonary embolism I26.99 Acute cor pulmonale presence: without acute cor pulmonale Chronicity: acute Pulmonary embolism type: unspecified Dvt femoral (deep venous thrombosis) I82.419 Adrenal insufficiency E27.40 Hx of craniotomy Z98.890 Glioblastoma of frontal lobe C71.1 Type 2 diabetes mellitus with obesity E11.69; E66.9 COPD (chronic obstructive pulmonary disease) J44.9 HTN (hypertension) I10 Intracranial bleed I62.9 B12 deficiency E53.8 (2) Pulmonary embolism Acute cor pulmonale presence: without acute cor pulmonale Chronicity: acute Pulmonary embolism type: unspecified Qualified Code(s): I26.99 - Other pulmonary embolism without acute cor pulmonale
[2023-10-05] MEDS: LANTUS PER UNIT CHARGE SC SCH (08:50)
[2023-10-06 06:32] LABS: BUN Creatinine Ratio 37.7 (10-20); Calcium 8.3 mg/dl (8.6-10.3); Est GFR (African American) 108.4 ml/min; Est GFR (Non-African American) 93.5 ml/min; Potassium 3.7 mmol/L (3.5-5.1)
[2023-10-06 06:42] LABS: Basophils # (auto) 0.03 K/uL (0.00-0.20); Basophils % (auto) 0.9 %; Eosinophils # (auto) 0.09 K/uL (0.00-0.50); Eosinophils % (auto) 2.6 %; Hematocrit (blood only) 38.1 % (37.0-47.0); Hemoglobin 13.7 g/dl (12.0-16.0); Immature Granulocytes # (auto) 0.14 K/uL (0.01-0.20); Immature Granulocytes % (auto) 4.1 %; Lymphocytes # (auto) 0.96 K/uL (1.20-3.40); Lymphocytes % (auto) 28.2 %; Mean Corpuscular Hemoglobin 36.8 pg (25.0-34.0); Mean Corpuscular Volume 102.4 fL (80.0-100.0); Mean Platelet Volume 10.8 fL (9.4-12.4); Monocytes # (auto) 0.48 K/uL (0.11-0.59); Monocytes % (auto) 14.1 %; Neutrophils % (auto) 50.1 %; Platelet Count 50 K/uL (130-400); Platelet Estimate Decreased (Normal); RDW Coefficient of Variation 14.6 % (11.5-14.5); RDW Standard Deviation 54.3 fL (36.4-46.3); Red Blood Count 3.72 M/uL (4.20-5.40)
--- NOTE | 2023-10-06 08:14 | Hospitalist Progress Note ---
Date of Service October 06, 2023 Assessment & Plan (1) Neutropenic fever: Plan: Change in mental status/confusion/lethargy/decreased responsiveness- Contributing factors including but not limited to: Intracranial bleed/encephalopathy/recent left craniotomy for GBM/neutropenic fever/DVT PE Imaging noting moderate fecal debris in colon (+large BM 09/30), no bowel obstruction/appendicitis. Unremarkable abdominal visera with no acute process. CTA chest w/ RLL PE without evidence of R sided cardiac strain. RLL groundglass opacity which may indicate pneuomonitis/atelectasis with pulm hemorrhage not excluded in context of RLL PE. Bilateral lower lobe atelectasis with no effusion or PTX. Biofire negative, lyme testing negative. Anaplasmosis/babesia pending Sepsis POA treated and resolved treated and resolved in immunocompromised patient Neutropenic fever/sepsis RESOLVED s/p IVC filter with Dr Logan for DVT/PE given bleeding on head imaging. Eliquis on hold/see below about possible resuming outpatient but to remain on hold IV therapy with Vancomycin, Zosyn, Acyclovir, Fluconazole on admission. Blood cultures remained NGTD and de-escalated to Zosyn alone on 10/01 per discussion with heme/onc and now back on her home Bactrim MWF for prophylaxis Heme/onc consulted s/p neupogen x 2 ANC improved/normalized and staying normal. No leukocytosis/fever and blood cultures negative to day Remains on baseline Decadron 4mg PO BID PT/OT consults, rehab recommended. See prior day notes, lengthy discussions with patient/family and patient feeling like burden and agreeable to rehab/possible terminal operator placement pending her status at rehab to allow family to move from more of caregiver role to just being there for her as sister/daughter/emotionally. Did have heme/onc speak with her as well regarding response to chemo and will have continued discussions with Dr Elizabeth at discharge and she is willing to consider ongoing chemotherapy in discussions but did make it clear to me and family in room (also on board with her wishes) that she is wanting to avoid any further surgeries/interventions/procedures at this time. Downgraded off telemetry 10/03 and had been fairly well rate controlled afib and remains on her metoprolol BID and eliquis on hold/hold at discharge planned and to have repeat imaging w/ Dr Elizabeth and consideration to resume if no further bleeding on repeat imaging Did add low dose Remeron 7.5mg HS for sleep/mood 10/03 and improvement in sleep and will plan to continue this at discharge ANC remaining stable, afebrile Referrals pending for [facility] but patient stable at this time and will plan for discharge to rehab when bed/auth received. Called and left sister voicemail this morning regarding patient condition/addition of remeron and continuation at discharge (2) Pulmonary embolism: Plan: LEFT DVT, RLL PE on CTA chest on admission. question of intracranial bleed on brain imaging and vascular consulted and patient is s/p IVC Filter with Dr. Logan on 09/29. Eliquis to remain on hold at this time and can be discussed in follow-up with hematology/oncology and repeat brain imaging if no evidence of bleed Remains stable on room air, denied any increased SOB at present . monitor (3) Dvt femoral (deep venous thrombosis): Plan: As above LLE DVT- s/p IVC filter (4) Adrenal insufficiency: Plan: s/p 10 mg of IV Decadron in ER, continued on q8h iv dosing and converted back to home 4mg po bid - this will need to be adjusted on home med rec at discharge (5) Hx of craniotomy: Plan: Status left craniotomy for GBM-Surgery at [facility] in [place] 06/30/2023 CT scan with question of intracranial bleed noted on serial CTs Steroids as above, antibiotics as outlined and resuming home prophylactic Bactrim. Keppra resumed orally and tolerating and continued Outpatient follow-up with hematology oncology for further discussions on ongoing chemotherapy. I have spent quite a bit of time with Ms Mason for continued discussions and determined her real concerns are: * #1- not feeling like a burden to her family and was previously very independent lady and taking care of herself but had been depending on sister/daughter from [facility] here for about a month long and not wanting to feel like she is interfering with her living her life either (however daughter very supportive for Shameka and feel that she is agreeable to whatever her mom ultimately decides and both her and twin sister continue to be on board to do whatever Shameka is wanting to do) and agreed rehab/placement may be more beneficial to have family move from this caregiver role they have been this past year * #2- does not want any more surgeries/procedures * #3- wants to focus on time she has with family and quality of life at this time. She did endorse today she continues to be willing to talk with Dr Elizabeth at [place] regarding ongoing chemotherapy at this time. Palliative consulted on admission, did see patient by herself last week but unfortunately was not able to call daughter/family while inpatient for discussion on goals of care but recommended Ms Mason have outpatient follow up, 2-3 weeks which can be made if desired by patient but can also consider having continued discussions with Dr Elizabeth and then referral following. (6) Glioblastoma of frontal lobe: Plan: as above status post craniotomy at [facility] in June and treatment as outlined, continues on bactrim proph/prior decadron and keppra. Outpt f/u for continued discussions about ongoing chemotherapy and consideration for palliaitve follow up (7) Type 2 diabetes mellitus with obesity: Plan: A1c 9.7 Home metformin on hold. Typically takes glargine 22 units daily which was increased to twice daily while on IV steroids. Pharmacy consulted for glycemic management Decreased last evening by pharmacy 10/01, however blood sugars increased and was increased back to 22 units twice daily 10/03 and is on sliding scale for now -- most recent was 20u this morning and will monitor for evening but suspect needing increased insulin coverage while on the decadron 4mg PO BID given only other on metformin and would like to have better control for symptom management/complications from such. IF able to titrate down on the decadron then can consider decreasing needs accordingly, however will continue to monitor insulin needs while awaiting bed for rehab and likely continue BID dosing at rehab with sliding scale B12 LOW 81, IM provided x 3 doses and continues on PO supplementation and would continue at fl. Folate wnl (8) COPD (chronic obstructive pulmonary disease): Plan: Not on any oxygen or inhalers at baseline. Decadron as outlined above with improvement on chest x-ray and lung exam. Patient denies shortness of breath and was titrated to room air. Remains stable, 95% at present ?monitor any needs for possible 2step @ discharge (9) HTN (hypertension): Plan: Patient's blood pressure much improved and stable and has been previously converted back to her home Decadron dosing. Metoprolol tartrate 25 PO BID, resumed and continued Home medication list includes chlorthalidone however was stopped by her primary care last Friday due to low blood pressures. Does not appear volume overloaded at this time or need for chlorthalidone but will continue to monitor -- will need discontinued on home medication list at [facility] (10) Intracranial bleed: Plan: as noted on CT head on admission, s/p IVC filter due to such and eliquis not continued at this time and will need f/u imaging with oncology outpatient prior to consideration to resume appearing at baseline/no increased confusion or new focal deficit and actually appears much improved on exam, clearer speech/more talkative today and improvement in mood w/ remeron (11) B12 deficiency: Plan: checked B12/Folate due to MCV >100 for completeness along with her anemia (multifactorial as above) Folate wnl however B12 LOW 81--?2nd to metformin use s/p IM B12 injections and continues on PO which is to be continued at discharge Plan Continued inpatient stay while awaiting bed for acute inpatient rehab. Refs pending for [facility] and plan for discharge when auth received/bed available. Updated family daily this past week for discussions on Shameka's goals of care, daughter left to go back home yesterday and twin sister updated at bedside / and left voicemail for sister 5/6 while awaiting bed/placement at rehab Admission and Anticipated Discharge Date Admission Date: September 29, 2023 Subjective Evaluated this morning, sitting up in bed. Appears much improved, reported improvement in sleep and will continue current remeron dose. Breathing stable, eating/drinking per patient pretty well. No abdominal pain or nausea. Ok'd to update sister as I haven't seen since Friday. Discussed waiting for auth for rehab at present time. Questions/concerns addressed at this time. Physical Exam Physical Exam: 72-year-old female sitting up in bed, mo od appears stable, NAD, ongoing waiting for rehab but got better sleep last night HEENT; head with prior craniotomy scar, mucous membranes moist, trachea midline Respiratory: clear/slightly diminished in the bases but no overt w/c/r and remains on room air Cardiovascular: Irregularly irregular, rates 70-80s during exam, no increased LE edema/calf tenderness GI: Positive bowel sounds throughout, soft, obese, nontender no Malin Psych/MSK/Neuro: Some expressive aphasia and baseline, baseline LLE weakness compared to the right but good UE strength testing. Sensation intact and able to follow commands and answer questions appropriately as able with her aphasia which does cause some frustrations at times but is alert/oriented to person/place at this time and cooperative with exam and appears IMPROVED Results & Data Results & Data Vital Signs (Past 12 Hours) Vital Signs Temp Pulse Resp BP Pulse Ox O2 Del Method 10/06/23 07:37 36.6 C 79 18 106/75 95 Room Air 10/05/23 20:26 Room Air Laboratory Results 10/06/23 10/06/23 10/05/23 Range/Units 07:20 05:48 21:04 WBC 3.40 L (4.8-10.8) K/ul RBC 3.72 L (4.20-5.40) M/uL Hgb 13.7 (12.0-16.0) g/dl Hct 38.1 (37.0-47.0) % MCV 102.4 H (80.0-100.0) fL MCH 36.8 H (25.0-34.0) pg MCHC 36.0 (32.0-36.0) g/dL RDW Std Deviation 54.3 H (36.4-46.3) fL RDW Coeff of Tomas 14.6 H (11.5-14.5) % Plt Count 50 L (130-400) K/uL MPV 10.8 (9.4-12.4) fL Immature Gran % (Auto) 4.1 % Neut % (Auto) 50.1 % Lymph % (Auto) 28.2 % [place] % (Auto) 14.1 % Eos % (Auto) 2.6 % Baso % (Auto) 0.9 % Neut # (Auto) 1.70 (1.40-6.50) K/uL Lymph # (Auto) 0.96 L (1.20-3.40) K/uL [place] # (Auto) 0.48 (0.11-0.59) K/uL Eos # (Auto) 0.09 (0.00-0.50) K/uL Baso # (Auto) 0.03 (0.00-0.20) K/uL Immature Gran # (Auto) 0.14 (0.01-0.20) K/uL Platelet Estimate Decreased L (Normal) Sodium 137 (136-145) mmol/L Potassium 3.7 (3.5-5.1) mmol/L Chloride 102 (98-107) mmol/L Carbon Dioxide 29 (21-32) mmol/L Anion Gap 6 (3-11) BUN 20 (6-23) mg/dl Creatinine 0.53 L (0.6-1.2) mg/dl Est Cr Clr Drug Dosing 88.0 ml/min Est GFR ( Amer) 108.4 ml/min Est GFR (Non-Af Amer) 93.5 ml/min BUN/Creatinine Ratio 37.7 H (10-20) Glucose 78 (70-99(Fasting)) mg/dl POC Glucose 76 246 H (70-99) mg/dl Calcium 8.3 L (8.6-10.3) mg/dl 10/05/23 10/05/23 Range/Units 16:29 11:49 WBC (4.8-10.8) K/ul RBC (4.20-5.40) M/uL Hgb (12.0-16.0) g/dl Hct (37.0-47.0) % MCV (80.0-100.0) fL MCH (25.0-34.0) pg MCHC (32.0-36.0) g/dL RDW Std Deviation (36.4-46.3) fL RDW Coeff of Tomas (11.5-14.5) % Plt Count (130-400) K/uL MPV (9.4-12.4) fL Immature Gran % (Auto) % Neut % (Auto) % Lymph % (Auto) % [place] % (Auto) % Eos % (Auto) % Baso % (Auto) % Neut # (Auto) (1.40-6.50) K/uL Lymph # (Auto) (1.20-3.40) K/uL [place] # (Auto) (0.11-0.59) K/uL Eos # (Auto) (0.00-0.50) K/uL Baso # (Auto) (0.00-0.20) K/uL Immature Gran # (Auto) (0.01-0.20) K/uL Platelet Estimate (Normal) Sodium (136-145) mmol/L Potassium (3.5-5.1) mmol/L Chloride (98-107) mmol/L Carbon Dioxide (21-32) mmol/L Anion Gap (3-11) BUN (6-23) mg/dl Creatinine (0.6-1.2) mg/dl Est Cr Clr Drug Dosing ml/min Est GFR ( Amer) ml/min Est GFR (Non-Af Amer) ml/min BUN/Creatinine Ratio (10-20) Glucose (70-99(Fasting)) mg/dl POC Glucose 128 H 205 H (70-99) mg/dl Calcium (8.6-10.3) mg/dl Diagnostic Findings 10/06/23 10/06/23 10/06/23 Range/Units 11:26 07:20 05:48 WBC 3.40 L (4.8-10.8) K/ul RBC 3.72 L (4.20-5.40) M/uL Hgb 13.7 (12.0-16.0) g/dl Hct 38.1 (37.0-47.0) % MCV 102.4 H (80.0-100.0) fL MCH 36.8 H (25.0-34.0) pg MCHC 36.0 (32.0-36.0) g/dL RDW Std Deviation 54.3 H (36.4-46.3) fL RDW Coeff of Tomas 14.6 H (11.5-14.5) % Plt Count 50 L (130-400) K/uL MPV 10.8 (9.4-12.4) fL Immature Gran % (Auto) 4.1 % Neut % (Auto) 50.1 % Lymph % (Auto) 28.2 % [place] % (Auto) 14.1 % Eos % (Auto) 2.6 % Baso % (Auto) 0.9 % Neut # (Auto) 1.70 (1.40-6.50) K/uL Lymph # (Auto) 0.96 L (1.20-3.40) K/uL [place] # (Auto) 0.48 (0.11-0.59) K/uL Eos # (Auto) 0.09 (0.00-0.50) K/uL Baso # (Auto) 0.03 (0.00-0.20) K/uL Immature Gran # (Auto) 0.14 (0.01-0.20) K/uL Platelet Estimate Decreased L (Normal) Sodium 137 (136-145) mmol/L Potassium 3.7 (3.5-5.1) mmol/L Chloride 102 (98-107) mmol/L Carbon Dioxide 29 (21-32) mmol/L Anion Gap 6 (3-11) BUN 20 (6-23) mg/dl Creatinine 0.53 L (0.6-1.2) mg/dl Est Cr Clr Drug Dosing 88.0 ml/min Est GFR ( Amer) 108.4 ml/min Est GFR (Non-Af Amer) 93.5 ml/min BUN/Creatinine Ratio 37.7 H (10-20) Glucose 78 (70-99(Fasting)) mg/dl POC Glucose 170 H 76 (70-99) mg/dl Calcium 8.3 L (8.6-10.3) mg/dl 10/05/23 10/05/23 Range/Units 21:04 16:29 WBC (4.8-10.8) K/ul RBC (4.20-5.40) M/uL Hgb (12.0-16.0) g/dl Hct (37.0-47.0) % MCV (80.0-100.0) fL MCH (25.0-34.0) pg MCHC (32.0-36.0) g/dL RDW Std Deviation (36.4-46.3) fL RDW Coeff of Tomas (11.5-14.5) % Plt Count (130-400) K/uL MPV (9.4-12.4) fL Immature Gran % (Auto) % Neut % (Auto) % Lymph % (Auto) % [place] % (Auto) % Eos % (Auto) % Baso % (Auto) % Neut # (Auto) (1.40-6.50) K/uL Lymph # (Auto) (1.20-3.40) K/uL [place] # (Auto) (0.11-0.59) K/uL Eos # (Auto) (0.00-0.50) K/uL Baso # (Auto) (0.00-0.20) K/uL Immature Gran # (Auto) (0.01-0.20) K/uL Platelet Estimate (Normal) Sodium (136-145) mmol/L Potassium (3.5-5.1) mmol/L Chloride (98-107) mmol/L Carbon Dioxide (21-32) mmol/L Anion Gap (3-11) BUN (6-23) mg/dl Creatinine (0.6-1.2) mg/dl Est Cr Clr Drug Dosing ml/min Est GFR ( Amer) ml/min Est GFR (Non-Af Amer) ml/min BUN/Creatinine Ratio (10-20) Glucose (70-99(Fasting)) mg/dl POC Glucose 246 H 128 H (70-99) mg/dl Calcium (8.6-10.3) mg/dl PG Care Time/CCT Total # of Minutes Spent Total Time Spent with Patient: Total time spent is greater than 50% in coordination of care (as documented) at patient's floor/unit and/or counseling patient: Coding Level of Care Code 77355 SUB INP/OBS CARE 2/35MIN Diagnoses Neutropenic fever D70.9; R50.81 Pulmonary embolism I26.99 Acute cor pulmonale presence: without acute cor pulmonale Chronicity: acute Pulmonary embolism type: unspecified Dvt femoral (deep venous thrombosis) I82.419 Adrenal insufficiency E27.40 Hx of craniotomy Z98.890 Glioblastoma of frontal lobe C71.1 Type 2 diabetes mellitus with obesity E11.69; E66.9 COPD (chronic obstructive pulmonary disease) J44.9 HTN (hypertension) I10 Intracranial bleed I62.9 B12 deficiency E53.8 (2) Pulmonary embolism Acute cor pulmonale presence: without acute cor pulmonale Chronicity: acute Pulmonary embolism type: unspecified Qualified Code(s): I26.99 - Other pulmonary embolism without acute cor pulmonale
[2023-10-06] MEDS: LANTUS PER UNIT CHARGE SC SCH (08:26)
[2023-10-06] MEDS: SULFAMETHOXAZOLE/TRIMETHOPRIM DS 800/160MG TAB PO SCH (09:31)
--- NOTE | 2023-10-07 13:03 | Discharge Summary ---
Discharge Summary Date of Service October 07, 2023 Notes For Next Care Provider ADmitted with altered mental status, found to have DVT/PE and brain bleed with neutropenic fever. IVC filter placed. Recieved IV anx - discharged on home Bactrim. patient overall struggling with family taking care of her discussion with multiple riders during admission about possible long-term placement in a custodial or personal care facility. Patient unsure about what further treatment she wants to undergo, no she does not want procedures but questioning if she is willing to do chemo Eliquis on hold at discharge will have to determine if that needs to be restarted in the outpatient settingDr. Glenn patient discharged with Lantus and mealtime insulin, metformin on hold. Can determine if she is going to be able to maintain that regimen after discharge from SNF depending on what that new destination will be we will reach out to , Neurologist at [facility] regarding patient's recent admission to determine if needs sooner imaging Medication Changes From Visit recommend CBC in 3-4 days to recheck platelets - metformin on hold, insulin with lantus BID and sliding scale - depending on condition/dispo at discharge regiment may need changed - hold ELiquis (not on her med list) Remeron added dexamethaosne increased returned to [facility] bactrim Admission HPI Per Admitting Provider The patient is a 72-year-old female with a past medical history including craniotomy for glioblastoma of frontal lobe on 06/30/2023, obesity, diabetes mellitus type 2, nicotine dependence, hypertension, hyperlipidemia and COPD. She presents to the emergency department after development of lethargy, decreased responsiveness and confusion after she woke from a nap at 1:00 this afternoon. Upon arrival to the emergency department, she appears chronically ill, and underwent usual workup with laboratories and imaging studies. She was then referred for evaluation for admission Principal Dx & Hospital Course #1 = Principal Diagnosis (1) Neutropenic fever: Sepsis POA treated and resolved treated and resolved in immunocompromised patient Neutropenic fever/sepsis Change in mental status/confusion/lethargy/decreased responsiveness- Contributing factors including but not limited to: Intracranial bleed/encephalopathy/recent left craniotomy for GBM/neutropenic fever/DVT PE CT AP: moderate fecal debris in colon, no bowel obstruction/appendicitis. Unremarkable abdominal visera with no acute process. CTA chest w/ RLL PE without evidence of R sided cardiac strain. RLL groundglass opacity which may indicate pneuomonitis/atelectasis with pulm hemorrhage not excluded in context of RLL PE. Bilateral lower lobe atelectasis with no effusion or PTX. Biofire negative, lyme testing negative. Anaplasmosis/babesia negative CT head with ?intracranial bleed - s/p IVC filter with Dr Logan for DVT/PE given bleeding on head imaging. - Eliquis on hold - possible resuming outpatient but held on discharged Recieved Vancomycin, Zosyn, Acyclovir, Fluconazole --> deescalated to home Bactrim MWF by discharge - blood cultures: negative, finalized. on admission. Heme/onc consulted -s/p neupogen x 2 - ANC improved/normalized and staying normal. 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 question of intracranial bleed on brain imaging and vascular consulted and patient is s/p IVC Filter with Dr. Logan on 09/29. - also with left femoral DVT Eliquis to remain on hold at discharge and can be discussed in follow-up with hematology/oncology and repeat brain imaging if no evidence of bleed (3) Adrenal insufficiency: s/p 10 mg of IV Decadron in ER, continued on q8h iv dosing Converted back to home 4mg po bid (4) Hx of craniotomy: Status left craniotomy for GBM-Surgery at [facility] in [place] 06/30/2023 CT scan with question of intracranial bleed noted on serial CTs Steroids as above, antibiotics as outlined and continuing home prophylactic Bactrim. Nuha resumed orally Outpatient follow-up with hematology oncology for further discussions on ongoing chemotherapy. the prior hospital medicine provider, Kay Hernandez PA-C, spent quite a bit of time with Ms Mason for continued discussions and determined her real concerns are: * #1- not feeling like a burden to her family and was previously very independent lady and taking care of herself but had been depending on sister/daughter from [facility] here for about a month long and not wanting to feel like she is interfering with her living her life either (however daughter very supportive for Shameka and feel that she is agreeable to whatever her mom ultimately decides and both her and twin sister continue to be on board to do whatever Shameka is wanting to do) and agreed rehab/placement may be more beneficial to have family move from this caregiver role they have been this past year * #2- does not want any more surgeries/procedures * #3- wants to focus on time she has with family and quality of life at this time. She did endorse today she continues to be willing to talk with [place] regarding ongoing chemotherapy at this time. Palliative consulted on admission, did see patient by herself last week but unfortunately was not able to call daughter/family while inpatient for discussion on goals of care but recommended Ms Mason have outpatient follow up, 2-3 weeks which can be made if desired by patient but can also consider having continued discussions with Dr Elizabeth and then referral following. low dose Remeron 7.5mg HS for sleep/mood - continued at discharge (5) Type 2 diabetes mellitus with obesity: A1c 9.7 Home metformin on hold. Typically takes glargine 22 units daily which was increased while on IV steroids. Discharged on 18units lantus BID with sliding scale coverage for meals --Goal BSG Range: Low 110_mg/dL, High 140_mg/dL --Correction Factor: 20 mg/dL/unit --Carbohydrate ratio = 6 g/unit --BSGs ACHS if eating, q6h if npo patient would likely benefit from continued mealtime insulin at discharge as dexamethasone will likely remain long-term, however will also depend on goals of care and long-term plan upon discharge from rehab (6) COPD (chronic obstructive pulmonary disease): Not on any oxygen or inhalers at baseline. Decadron as outlined above with improvement on chest x-ray and lung exam. Patient denies shortness of breath and was titrated to room air. Remains stable, 95% at present (7) HTN (hypertension): Patient's blood pressure much improved and stable and has been previously converted back to her home Decadron dosing. Metoprolol tartrate 25 PO BID, resumed and continued Home medication list includes chlorthalidone however was stopped by her primary care last Friday due to low blood pressures. will discontinue this. (8) Intracranial bleed: as noted on CT head on admission, s/p IVC filter due to such and eliquis not continued at this time and will need f/u imaging with oncology outpatient prior to consideration to resume appearing at baseline/no increased confusion or new focal deficit and actually appears much improved on exam, clearer speech/more talkative today and improvement in mood w/ remeron (9) B12 deficiency: checked B12/Folate due to MCV >100 for completeness along with her anemia (multifactorial as above) s/p IM B12 injections and continues on PO which is to be continued at discharge Plan dispo: Discharged to Center care today with outpatient hematology follow-up Discharge Exam General: NAD, flat affect, poor eye contact, VS as above Resp: normal respiratory effort, lungs clear to auscultation CV: RRR, no murmur, Abd: normal bowel sounds, non tender, no hepatosplenomegaly Extremities: Moves all extremities, no edema Updated Medication List Medication Instructions Recorded Confirmed Type cholecalciferol (vitamin D3) 125 125 mcg PO QAM #90 tabs 10/08/22 09/29/23 Rx mcg (5,000 unit) tablet (Vitamin D3) metformin 500 mg tablet 500 mg PO BID #180 tabs 12/25/22 09/29/23 Rx metoprolol tartrate 25 mg tablet 25 mg PO BID #180 tabs 12/25/22 09/29/23 Rx rosuvastatin 20 mg tablet 20 mg PO QPM #90 tabs 12/26/22 09/29/23 Rx levetiracetam 1,000 mg tablet 2,000 mg (2 x 1,000 mg) PO BID #30 06/21/23 09/29/23 Rx (Keppra) tabs omeprazole 40 mg capsule,delayed 40 mg PO DAILY 07/23/23 09/29/23 History release blood sugar diagnostic (Blood #50 ea 08/13/23 09/08/23 Rx Glucose Test strips) blood-glucose meter #1 ea 08/13/23 09/08/23 Rx pen needle, diabetic 32 gauge x #100 ea 08/13/23 09/08/23 Rx 1/4" (Novofine 32) zinc oxide-cod liver oil 40 % 1 applic topical TID #136 grams 08/13/23 09/29/23 Rx topical paste (Desitin) docusate sodium 100 mg capsule 100 mg PO BID 09/01/23 09/29/23 History (Colace) ondansetron HCl 8 mg tablet 8 mg PO Q8H PRN n/v 09/01/23 09/29/23 History sennosides 8.6 mg tablet (Senokot) 8.6 mg PO BID 09/01/23 09/29/23 History temodar 1 tab PO .QHS 09/01/23 09/29/23 History insulin glargine 100 unit/mL (3 22 unit (0.22 mL) subcut DAILY #9 09/17/23 09/29/23 Rx mL) subcutaneous pen mL dexamethasone 2 mg tablet 4 mg (2 x 2 mg) PO BID #0 tabs 10/06/23 09/29/23 Rx mirtazapine 15 mg tablet 7.5 mg (1/2 x 15 mg) PO HS #30 tabs 10/06/23 Rx acetaminophen 500 mg tablet 1,000 mg (2 x 500 mg) PO Q8H PRN 10/07/23 Rx (Tylenol Extra Strength) fever or pain #30 tabs cyanocobalamin (vitamin B-12) 500 1,000 mcg (2 x 500 mcg) PO QAM #30 10/07/23 Rx mcg tablet tabs insulin aspart U-100 100 unit/mL See Rx Instructions .Route 10/07/23 Rx subcutaneous solution (Novolog .COMPLEX #10 mL U-100 Insulin aspart) insulin glargine 100 unit/mL 18 unit (0.18 mL) SC BID #10 mL 10/07/23 Rx subcutaneous solution (Lantus U-100 Insulin) sulfamethoxazole 800 1 tab PO 3XWK #0 tabs 10/07/23 10/03/23 Rx mg-trimethoprim 160 mg tablet tramadol 50 mg tablet 50 mg PO Q4H PRN pain #30 tabs 10/07/23 Rx Hospital Stay Data Consultations 09/29/23 21:25 ED Decision to Admit Stat 09/30/23 01:08 Consult Hematology Routine 09/30/23 05:33 Consult Palliative Care Routine 09/30/23 05:36 Consult Vascular Surgery Routine Procedures Performed Operation Date: 09/30/23 08:00 Actual Procedures p Insertion of Vena Cava Filter, Right Femoral Approach, Ultrasound Localization of Right Internal Femoral Vein, Fluroscopy for Positioning(Right) - Chaim J Simoni, MD Diagnostic Imagining Performed Chest X-Ray 09/29/23 17:27 SINGLE VIEW CHEST CLINICAL HISTORY: Sepsis FINDINGS: An AP, portable, upright chest radiograph is compared to study dated 05/28/2023 and correlated with chest CT dated 06/19/2023. The heart is enlarged. There is pulmonary vasculature congestion. Emphysema and chronic interstitial thickening is similar to previous. There is bibasilar scarring/atelectasis. No airspace consolidation or large pleural effusion is identified. No pneumothorax is seen. The skeletal structures are osteopenic. The bony thorax is grossly intact. Advanced arthritic change is seen in the shoulders. IMPRESSION: 1. Cardiomegaly and emphysema with pulmonary vascular congestion. 2. No airspace consolidation or large pleural effusion is identified. ACT 112: Negative or not required by law. Electronically signed by: Terrance Masters M.D. 09/29/2023 7:03 PM Abdomen/Pelvis CT 09/29/23 17:28 Exam(s): CT ABDOMEN + PELVIS With Contrast IV Amt: 115 ml opti 320 EXAM: CT Abdomen and Pelvis With Intravenous Contrast CLINICAL HISTORY: Reason for exam: fever, ?UTI, sepsis. TECHNIQUE: Axial computed tomography images of the abdomen and pelvis with intravenous contrast. CTDI is 27.03 mGy and DLP is 886.23 mGy-cm. Automated exposure control was utilized for the study. A dose lowering technique was utilized adhering to the principles of ALARA. CONTRAST: Patient received 115 ml opti 320 of IV contrast COMPARISON: None. FINDINGS: Lung bases: Bilateral lower lobe atelectasis with superimposed consolidation of the right lower lobe not excluded. Heart: Unremarkable. No cardiomegaly. No significant pericardial effusion. Normal cardiac size. ABDOMEN: Liver: Trace fluid surrounding the anterior margin of the liver. Gallbladder and bile ducts: Unremarkable. No calcified stones. No ductal dilation. Pancreas: Unremarkable. No mass. No ductal dilation. Spleen: Unremarkable. No splenomegaly. Adrenals: Unremarkable. No mass. Kidneys and ureters: Difficult to assess bilateral kidneys for renal stones due to presence of contrast within the renal collecting system. Otherwise unremarkable bilateral kidneys. No hydronephrosis. Stomach and bowel: Unremarkable. No obstruction. No mucosal thickening. PELVIS: Appendix: Normal appendix. Bladder: Unremarkable. No mass. Reproductive: Retroflexed uterus with atrophy. ABDOMEN and PELVIS: Intraperitoneal space: Unremarkable. No free air. No significant fluid collection. Bones/joints: Diffuse osteopenia with multilevel degenerative disease of the spine, bilateral SI joints and pubic symphysis. Right-sided hip prosthesis in place with normal alignment appears status post ORIF surgery of the left proximal femur. No acute fracture. Soft tissues: Unremarkable. Vasculature: Unremarkable. No abdominal aortic aneurysm. Lymph nodes: Unremarkable. No enlarged lymph nodes. IMPRESSION: 1. Moderate to abundant fecal debris within the colon, cannot exclude mild patient. No signs of bowel obstruction. No acute appendicitis. 2. Unremarkable abdominal viscera with no acute process. Electronically signed by: Martha Simpson MD 09/29/23 20:18 PM Chest CTA 09/29/23 17:28 CR Exam(s): CTA CHEST IV Amt: 115 ml opti 320 EXAM: CT Angiography Chest With Intravenous Contrast CLINICAL HISTORY: Reason for exam: sepsis, hypoxia, tachy, r/o PE. TECHNIQUE: Axial computed tomographic angiography images of the chest with intravenous contrast. Total dosimetry for CT brain/chest abdomen and pelvis: CTDI is 296.21 mGy and DLP is 6094.9 mGy-cm. Automated exposure control was utilized for the study. A dose lowering technique was utilized adhering to the principles of ALARA. MIP reconstructed images were created and reviewed. COMPARISON: 06/19/2023. FINDINGS: Pulmonary arteries: Filling defect identified within the distal right pulmonary artery extending into the proximal segmental and some of the distal right lower lobe segmental branches of the right lower lobe consistent with multiple pulmonary emboli. Aorta: No acute findings. No thoracic aortic aneurysm. Lungs: Right lower lobe groundglass opacity which may indicate sequela of atelectasis, pneumonitis with pulmonary hemorrhage in the context of corresponding pulmonary emboli not entirely excluded. Bilateral lower lobe atelectasis. Pleural space: Unremarkable. No significant effusion. No pneumothorax. Heart: The RV/LV ratio is 0.7 with no evidence of right-sided cardiac strain. Borderline cardiomegaly with coronary artery calcifications. No significant pericardial effusion. Bones/joints: No acute fracture. No dislocation. Soft tissues: Unremarkable. Lymph nodes: Unremarkable. No enlarged lymph nodes. Other findings: Visualized upper abdominal structures are unremarkable. Multilevel degenerative disease of the spine and bilateral shoulders. Decreased inspiration with mild vascular crowding. IMPRESSION: 1. Right lower lobe pulmonary emboli with no evidence of right-sided cardiac strain. 2. Right lower lobe groundglass opacity which may indicate pneumonitis, atelectasis with pulmonary hemorrhage not excluded in the context of right lower lobe pulmonary emboli. 3. Bilateral lower lobe atelectasis with no pleural effusion or pneumothorax. 4. These findings along with CT head examination were discussed with Dr. Kimball on 09/29/2023 at approximately 1953 hrs. Communications: Call Doctor Other Electronically signed by: Martha Simpson MD 09/29/23 20:[address] 09/29/23 17:28 CR Exam(s): CT HEAD Without Contrast EXAM: CT Head Without Intravenous Contrast CLINICAL HISTORY: Reason for exam: AMS, fever, h/o GBM resec/crani. TECHNIQUE: Axial computed tomography images of the head/brain without intravenous contrast. CTDI is 50.07 mGy and DLP is 786.76 mGy-cm. Automated exposure control was utilized for the study. A dose lowering technique was utilized adhering to the principles of ALARA. COMPARISON: 06/21/2023. 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 Small focus of high density involving some of the anterior located cortical sulci at this level which may indicate artifact versus small area of subarachnoid or cortical hemorrhage. This area is difficult to assess due to assess due to artifact from beam hardening secondary to metallic plates. There is trace focus of hyperintensity along the meninges at the surgical site, nonspecific and commonly associated with postoperative change, cannot entirely exclude trace amount of subdural hemorrhage. Mild generalized brain atrophy. Ventricles: Unremarkable. No ventriculomegaly. Bones/joints: Status post left-sided craniotomy along the left frontoparietal lobe. No acute fracture. Soft tissues: Unremarkable. Sinuses: Minimal mucosal thickening of bilateral ethmoids and right maxillary sinus. Remainder of the paranasal sinuses are clear. Mastoid air cells: Unremarkable as visualized. No mastoid effusion. IMPRESSION: 1. Postoperative changes at the left frontoparietal lobe with mild encephalomalacia. Focal area of increased density anteriorly along the cortical sulci with straight subdural density, findings which may be due to artifact and postsurgical changes, however small amount of acute hemorrhage cannot be excluded. Recommend follow-up with MRI with and without contrast for further characterization. 2. The remainder of the exam revealed chronic changes as described. Communications: Call Doctor Other Electronically signed by: Martha Simpson MD 09/29/23 19:[address] 09/29/23 21:29 Exam(s): CT HEAD Without Contrast EXAM: CT Head Without Intravenous Contrast CLINICAL HISTORY: Reason for exam: reassess post op vs bleed findings. TECHNIQUE: Axial computed tomography images of the head/brain without intravenous contrast. CTDI is 36.18 mGy and DLP is 546.36 mGy-cm. Automated exposure control was utilized for the study. A dose lowering technique was utilized adhering to the principles of ALARA. COMPARISON: Comparison made to prior head CT from September 29, 2023 at 6:40 PM. FINDINGS: Brain: There is increased enhancement within the left temporal lobe. No hemorrhage. No significant white matter disease. No edema. Ventricles: Unremarkable. No ventriculomegaly. Bones/joints: Remote left temporal craniotomy. No acute fracture. Soft tissues: Unremarkable. Bilateral lens replacements. Sinuses: Chronic ethmoid sinusitis. No acute sinusitis. Mastoid air cells: Unremarkable as visualized. No mastoid effusion. IMPRESSION: Findings concerning for persistent contrast blush in the left frontal lobe. Electronically signed by: Lien Zaldivar MD 09/30/23 00:26 AM Venous Doppler Study 09/29/23 21:54 CR Exam(s): US VENOUS BILATERAL LOWER EXTREMITIES EXAM: US Duplex Bilateral Lower Extremities Veins CLINICAL HISTORY: Reason for exam: pe, r/o dvt. TECHNIQUE: Real-time duplex ultrasound scan of the bilateral lower extremity veins integrating B-mode two-dimensional vascular structure, Doppler spectral analysis, color flow Doppler imaging and compression. COMPARISON: No relevant prior studies available. FINDINGS: Right deep veins: Acute DVT within the posterior tibial veins. Right superficial veins: Unremarkable. No thrombus in the visualized right great saphenous vein. Left deep veins: There is nonocclusive thrombus involving the saphenofemoral junction and proximal left common femoral vein. Chronic DVT seen within the proximal popliteal vein Left superficial veins: Unremarkable. No thrombus in the visualized left great saphenous vein. Soft tissues: No acute findings. No popliteal cyst. IMPRESSION: Acute DVT Nonocclusive thrombus involving the saphenofemoral junction and proximal left common femoral veins. Chronic DVT in the left proximal popliteal vein. Communications: Call Doctor DVT acute, progressing Electronically signed by: Cortez Lockhrat MD 09/30/23 01:10 AM Chest X-Ray 10/01/23 07:00 SINGLE VIEW CHEST CLINICAL HISTORY: Pulmonary embolus FINDINGS: An AP, portable, upright chest radiograph is compared to chest x-ray and chest CT dated 09/29/2023. The heart is enlarged noting atherosclerotic calcification of the thoracic aorta. The pulmonary vasculature is noncongested. There is bibasilar scarring/atelectasis. No lobar consolidation is seen typical for pneumonia. No large pleural effusion or pneumothorax is identified. The skeletal structures are osteopenic. The bony thorax is grossly intact. Advanced degenerative change is noted in the shoulders and spine. IMPRESSION: Cardiomegaly without radiographic evidence of congestive failure. ACT 112: Negative or not required by law. Electronically signed by: Terrance Masters M.D. 10/01/2023 7:26 AM Chest X-Ray 10/02/23 07:00 XR chest 1V portable HISTORY: 72 years-old Female follow up hypoxia, eval congestion acute shortness of breath COMPARISON: 10/01/2023 TECHNIQUE: AP view the chest FINDINGS: Cardiac silhouette is enlarged. No pneumothorax or overt pulmonary edema. Trace pleural effusions with mild bibasilar atelectasis. Bones appear grossly intact. IMPRESSION: 1. Cardiomegaly without pulmonary edema. 2. Trace pleural effusions with mild bibasilar atelectasis. ACT 112: Negative or not required by law. The above report was generated using voice recognition software. It may contain grammatical, syntax or spelling errors. Electronically signed by: Amari Beebe M.D. 10/02/2023 7:21 AM Pending Results Patient Have Any Pending Studies at Discharge: No Discharge Instructions Given to Patient (Per Discharging Provider) You have been hospitalized for acute change in mental status and found to have some bleeding on CT head imaging however also had blood clot in the leg as well as in the lung and given bleeding on imaging vascular surgery was consulted and you underwent placement of an IVC filter. Your eliquis is to remain on hold as discussed at discharge for now and Dr Elizabeth will obtain repeat head imaging and discussion if able to resume if resolves on repeat imaging. You were given IV antibiotics and steroids and your cultures have been negative and you are to continue your prior bactrim friday/friday/fridays for prophylaxis. Your neutrophil count has been stable on repeat lab testing. You should continue your decadron 4mg by mouth twice daily as previously taking and can discuss decreasing/tapering this with oncology in follow up. Because of the increase in steroids, you will need tighter blood sugar control. Will continue the Lantus 18 units twice a day, with sliding scale mealtime coverage. Hold Metformin for now. Reassess ability to comply with this and goals of care after leaving rehab. As discussed, we have started remeron 7.5mg at night to help with sleep/mood/appetite and have been improved/stable on this and will be continued at discharge. As discussed multiple times, we want to respect your wishes to not undergo any further surgeries and your family is on board to do whatever your wishes are but we do recommend (myself and Dr Elizabeth) to continue discussions about ongoing chemotherapy in follow up as you have responded well to treatment at this time and likely benefit to continue. Therapy evaluations were undertaken and acute inpatient rehab is being arranged and you have been improving. 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 Please follow up with Dr Elizabeth at discharge for continued monitoring/discussions - repeat head CT. Please follow up with primary care in 7-10 days. Please return to the ER with any fever/chills, chest pain, shortness of breath or other symptoms concerning for you. It has been a pleasure being a part of the medical team providing for you while you have been in the hospital and will be continuing to wish you the best. Take care! For centre Care: recommend CBC in 3-4 days to recheck platelets - metformin on hold, insulin with lantus BID and sliding scale - depending on condition/dispo at discharge regiment may need changed - hold ELiquis (not on her med list) Total Time Total Time Spent Total Time Spent (In Minutes): Time spend day of discharge 45 minutes including direct patient care, medication reconciliation, documentation, review of labs and images, and coordination of care. Supervising Physician Co-Signing Physician Notes Attending Attestation & Discharge Note: Pt seen/examined, chart reviewed, discharge care plan d/w EDU Gonzalez. I agree w/ the nash components of her discharge documentation. 72yo female with h/o frontal lobe GBM s/p craniotomy at [facility] 06/2023 who presented with confusion, somnolence, and fever. Was neutropenic at time of admission. Extensive w/u was performed for her fever including CTA chest, CT head, dopplers of LEs, etc. DVT/PEs were found, and CT head showed possible ICH around the site of her GBM. Due to the CT head findings all forms of anticoagulation were contraindicated, and Dr Logan from vascular surgery was consulted for IVC filter placement. Mrs Mason indeed had IVC filter placed. Despite the neutropenic fever no specific source of infection was found although there were right lower lobe infiltrates seen on CTA chest. It was uncertain if this represented pneumonia, atelectasis, or even infarction from her PEs. Prior to discharge she was not requiring O2. Neutropenia had resolved. Pt voiced to multiple providers her frustrations with her current medical status and is uncertain if she wishes to continue treatment for her GBM. She is scheduled for repeat brain MRI October 21 at [facility]. We have placed a message to her primary neurologist to determine if they wish to move that appt up sooner. She is transferring to [facility] for rehab with the hopes of getting stronger and ultimately returning home. Discharge exam: gen - NAD, tearful; dysarthric speech mouth - MMM neck - no JVD heart - RRR, s1 s2 lungs - b/l fine bibasilar rales but normal airation abd - soft NT ext - trace edema b/l, pulses 2+ b/l Meño Pillai MD Coding Level of Care Code 25178 INP/OBS DISCH >30 MIN Diagnoses Neutropenic fever D70.9; R50.81 Pulmonary embolism I26.99 Acute cor pulmonale presence: without acute cor pulmonale Chronicity: acute Pulmonary embolism type: unspecified Adrenal insufficiency E27.40 Hx of craniotomy Z98.890 Type 2 diabetes mellitus with obesity E11.69; E66.9 COPD (chronic obstructive pulmonary disease) J44.9 HTN (hypertension) I10 Intracranial bleed I62.9 B12 deficiency E53.8
== END 2023-10-07 14:00 | DRG 871 ==
LOC: ED 17:07 → EDINP 22:52 → SUATTDRO 22:52 → EDINP 09-30 10:00 → 1E 09-30 10:56 → 2S 10-03 19:09 → 3E 10-04 16:38